=== PATIENT | female | born 1965 | race Caucasian/White ===

== ENCOUNTER 2023-05-31 14:05 | Outpatient (OUT) | payer MEDICAID, SELFPAY ==
--- NOTE | 2023-05-31 | XR_ITS ---
The [address] [address] Patient Name: HANNAH OSBORN MRN: [id number] date: 1965 Sex: F Assigned Patient Location: [facility] Current Patient Location: Accession/Order Number: [id number] Exam Date: 05/31/2023 14:20 Report Date: 06/02/2023 06:47 At the request of: EWELINA DODGE Procedure: XR hip RT 2V w/ pelvis PROCEDURE: XR hip RT 2V w/ pelvis COMPARISON: None. HISTORY: FALL, SUBSEQUENT IMAGIN FINDINGS: BONES:No acute fracture or dislocation. Minimal bilateral hip osteoarthropathy with marginal osteophyte formation SOFT TISSUES:Negative. No visible soft tissue swelling. EFFUSION:None visible. OTHER: Pelvic calcifications, vascular phleboliths XR/XR hip RT 2V w/ pelvis IMPRESSION: No acute fracture Electronically authenticated by: JOHN LOYA Date: 06/02/2023 06:47
== END 2023-05-31 14:06 | disposition home or self-care (01) ==
PROVIDERS: PCP Nurse Practitioner Family; Visit Provider Nurse Practitioner Family
DX: M25.551 Pain in right hip (principal)
CPT/HCPCS: 73502

== ENCOUNTER 2023-08-07 22:27 | Emergency (ER) | payer MEDICAID, SELFPAY ==
[2023-08-07 22:40] VITALS: BP 140/84; PULSE 97; RESP 18; TEMP 36.9; O2SAT 98; BMI 25.3
--- NOTE | 2023-08-07 22:46 | XR_ITS ---
The [address] [address] Patient Name: HANNAH OSBORN MRN: [id number] date: 1965 Sex: F Assigned Patient Location: ER Current Patient Location: ER Accession/Order Number: [id number] Exam Date: 08/07/2023 22:49 Report Date: 08/07/2023 23:14 At the request of: MEGHA GOODEN Procedure: XR hand LT min 3V EXAM: XR hand LT min 3V HISTORY: hand injury COMPARISON: None. TECHNIQUE: 3 views left hand FINDINGS: No acute fracture or aggressive osseous abnormality. There is a well-corticated osseous density at the volar aspect of the proximal third interphalangeal joint likely representing an old avulsion injury. The carpal rows and arcs are maintained. XR/XR hand LT min 3V IMPRESSION: No acute osseous abnormality of the left hand. Likely old avulsion injury at the proximal third interphalangeal joint, volar aspect. Electronically authenticated by: YUNIEL VIVAS Date: 08/07/2023 23:14
--- NOTE | 2023-08-07 23:19 | ED.UPPEXIN1 ---
HPI - Extremity Injury (Upper) General Chief Complaint: Extremity Injury, Upper Stated Complaint: Upper Extremity Injury Time Seen by Provider: 08/07/23 22:40 Source: patient Mode of arrival: walk-in Limitations: no limitations History of Present Illness HPI narrative: tonight around 630pm the patient was attempting to close a window, when her hand slipped and she struck the palm and 2nd finger of her left hand against the window. She complains of pain and swelling to these areas of the left hand. Nothing taken for pain after the injury. Related Data Home Medications Medication Instructions Recorded Confirmed amlodipine 10 mg tablet 10 mg PO DAILY 08/07/23 08/07/23 carvedilol 25 mg tablet 25 mg PO DAILY 08/07/23 08/07/23 hydrochlorothiazide 12.5 mg tablet 12.5 mg PO DAILY 08/07/23 08/07/23 hyoscyamine sulfate 0.375 mg 0.375 mg PO DAILY 08/07/23 08/07/23 tablet,extended release,12 hr linagliptin 5 mg tablet (Tradjenta) 5 mg PO DAILY 08/07/23 08/07/23 losartan 100 mg tablet 100 mg PO DAILY 08/07/23 08/07/23 pantoprazole 40 mg tablet,delayed 40 mg PO DAILY 08/07/23 08/07/23 release ropinirole 2 mg tablet 2 mg PO BEDTIME 08/07/23 08/07/23 rosuvastatin 10 mg tablet 10 mg PO DAILY 08/07/23 08/07/23 Allergies Allergy/AdvReac Type Severity Reaction Status Date / Time empagliflozin AdvReac Mild Verified 08/07/23 22:49 [From Jardiance] gabapentin AdvReac Mild Verified 08/07/23 22:46 metformin AdvReac Mild Verified 08/07/23 22:49 morphine AdvReac Mild Verified 08/07/23 22:46 PFSH PFSH Social History Smoking status: Current every day smoker Exam Narrative Exam Narrative: Nurses note and vital signs reviewed and patient is not hypoxic. afebrile General: The patient appears well and in no apparent distress. Patient is resting comfortably on cart. GCS = 15. Skin: Warm, dry, no pallor noted. Cardiovascular: normal peripheral perfusion Respiratory: Patient is in no distress, no accessory muscle use Musculoskeletal: LEFT HAND = palmar tenderness at the left 2nd MCP with tenderness and swelling noted to the left 2nd finger proximal phalanx. Limitation of ROM of the fingers of the left hand due to pain - no dislocation noted. Normal left wrist and forearm. 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 Psychiatric: Cooperative Constitutional Vital Signs, click to edit/add: Last Vital Signs Temp 98.4 F 08/07/23 22:40 Pulse 97 H 08/07/23 22:40 Resp 18 08/07/23 22:40 BP 140/84 08/07/23 22:40 Pulse Ox 98 08/07/23 22:40 O2 Del Method Room Air 08/07/23 22:40 Course Vital Signs Vital signs: Vital Signs Temperature 98.4 F 08/07/23 22:40 Pulse Rate 97 H 08/07/23 22:40 Respiratory Rate 18 08/07/23 22:40 Blood Pressure 140/84 08/07/23 22:40 Pulse Oximetry 98 08/07/23 22:40 Oxygen Delivery Method Room Air 08/07/23 22:40 Temperature 98.4 F 08/07/23 22:40 Pulse Rate 97 H 08/07/23 22:40 Respiratory Rate 18 08/07/23 22:40 Blood Pressure 140/84 08/07/23 22:40 Pulse Oximetry 98 08/07/23 22:40 Oxygen Delivery Method Room Air 08/07/23 22:40 MDM - Extremity Injury (Upper) MDM Narrative Medical decision making narrative: xrays of the left hand did not reveal any acute fractures - only old changes from prior injury. Patient informed of results and reilly wrap applied to the left hand by the ED nurse - patient neurovascularly intact distally afterward. Patient discharged home with recommendation to take OTC meds for pain. Imaging Data xr hand: Radiologist's impression: Patient Name: HANNAH OSBORN MRN: [id number] date: 1965 Sex: F Assigned Patient Location: ER Current Patient Location: ER Accession/Order Number: [id number] Exam Date: 08/07/2023 22:49 Report Date: 08/07/2023 23:14 At the request of: MEGHA GOODEN Procedure: XR hand LT min 3V EXAM: XR hand LT min 3V HISTORY: hand injury COMPARISON: None. TECHNIQUE: 3 views left hand FINDINGS: No acute fracture or aggressive osseous abnormality. There is a well-corticated osseous density at the volar aspect of the proximal third interphalangeal joint likely representing an old avulsion injury. The carpal rows and arcs are maintained. IMPRESSION: No acute osseous abnormality of the left hand. Likely old avulsion injury at the proximal third interphalangeal joint, volar aspect. Electronically authenticated by: YUNIEL VIVAS Date: 08/07/2023 23:14 Discharge Plan Discharge Chief Complaint: Extremity Injury, Upper Clinical Impression: Contusion of hand, left Patient Disposition: Home, Self-Care Time of Disposition Decision: 23:27 Prescriptions / Home Meds: No Action amlodipine 10 mg tablet 10 mg PO DAILY carvedilol 25 mg tablet 25 mg PO DAILY hydrochlorothiazide 12.5 mg tablet 12.5 mg PO DAILY hyoscyamine sulfate 0.375 mg tablet extended release 12 hr 0.375 mg PO DAILY Tradjenta 5 mg tablet 5 mg PO DAILY losartan 100 mg tablet 100 mg PO DAILY pantoprazole 40 mg tablet,delayed release (DR/EC) 40 mg PO DAILY ropinirole 2 mg tablet 2 mg PO BEDTIME rosuvastatin 10 mg tablet 10 mg PO DAILY Instructions: Contusion in Adults (ED) Stand Alone Forms: Portal Instructions Referrals: EWELINA DODGE [Primary Care Provider] - 1 week
--- NOTE | 2023-08-07 23:30 | PC.NURSE ---
Neno wrapto left hand applied. Circulation intact prior to and after splinting.
[2023-08-07 23:33] VITALS: BP 130/80; PULSE 88; RESP 18; O2SAT 97
== END 2023-08-07 23:30 | disposition home or self-care (01) ==
PROVIDERS: Emergency Provider Emergency Medicine; PCP Nurse Practitioner Family
DX: S60.222A Contusion of left hand, initial encounter (principal); W22.8XXA Striking against or struck by other objects, initial encounter; Z79.899 Other long term (current) drug therapy; F17.210 Nicotine dependence, cigarettes, uncomplicated
CPT/HCPCS: 73130; 99283

== ENCOUNTER 2024-01-13 13:38 | Outpatient (OUT) | payer MEDICAID, SELFPAY ==
--- NOTE | 2024-01-13 13:44 | US_ITS ---
The [address] [address] Patient Name: HANNAH OSBORN MRN: [id number] date: 1965 Sex: F Assigned Patient Location: US Current Patient Location: Accession/Order Number: [id number] Exam Date: 01/13/2024 13:48 Report Date: 01/14/2024 06:44 At the request of: EWELINA DODGE Procedure: US right upper quadrant EXAMINATION: US right upper quadrant HISTORY: Nausea And Vomiting, Right Upper Quadrant Abdominal Pain COMPARISON: No relevant comparison available. TECHNIQUE: Transabdominal evaluation of the right upper quadrant. FINDINGS: LIVER: Normal size and echotexture. Color Doppler demonstrates patent hepatic veins. PORTAL VEIN: Duplex Doppler demonstrates normal hepatopetal flow pattern with flow velocity averaging 31 cm/s. GALLBLADDER: Cholecystectomy. Negative sonographic Berry's sign. BILIARY: Dilated common bile duct, 9 mm. Mild dilation of the intrahepatic bile ducts. Findings are not unexpected following cholecystectomy. PANCREASE: No visible mass, abnormal atrophy, or duct dilation. KIDNEY: Contains a nonobstructing 2 mm stone. Size: 9.0 x 6.0 x 5.2 cm. US/US right upper quadrant IMPRESSION: 1. No acute or suspicious findings to account for patient's symptoms. 2. Nonobstructing right nephrolithiasis. Electronically authenticated by: HANG GREER Date: 01/14/2024 06:44
--- NOTE | 2024-01-13 13:44 | XR_ITS ---
The [address] [address] Patient Name: HANNAH OSBORN MRN: [id number] date: 1965 Sex: F Assigned Patient Location: Current Patient Location: Accession/Order Number: [id number] Exam Date: 01/13/2024 13:50 Report Date: 01/14/2024 06:41 At the request of: EWELINA DODGE Procedure: XR foot RT min 3V PROCEDURE: XR foot RT min 3V HISTORY: Right Foot Pain M79.671 COMPARISON: None. FINDINGS: BONES:No fracture, acute abnormality, or significant arthropathy. SOFT TISSUES:No visible soft tissue swelling. EFFUSION:None visible. OTHER: Negative. XR/XR foot RT min 3V IMPRESSION: 1. Normal examination. Electronically authenticated by: HANG GREER Date: 01/14/2024 06:41
--- OUTSIDE RECORDS SUMMARY | 2024-01-13 13:48 | XMS_ITS | CCD ---
Author Organization [facility] Inform ion Partnership [facility] Care Team Providers Care Potato Grader Name Role Phone DR HANG GREER Consulting Unavailable ROHRBACHER, MADDI Mccrary Admitting Unavailab le ROHRBACHER, MADDI Mccrary Attending Unavailab le ROHRBACHER, MADDI Mccrary Primary Care Unavailab le ROHRBACHER, MADDI Mccrary Consulting Unavailab le ROHRBACHER, MADDI Mccrary Admitting Unavailab le ROHRBACHER, MADDI Mccrary Attending Unavailab le ROHRBACHER, MADDI Mccrary Consulting Unavailab le ROHRBACHER, MADDI Mccrary Primary Care Unavailab SONY Marin Consulting Unavailable ROHRBACH, PORTABLE PINCH RIVETER CAMERON Attending Unavailabl e ROHRBACH, PORTABLE PINCH RIVETER CAMERON Consulting Unavailabl e ROHRBACH, PORTABLE PINCH RIVETER CAMERON Admitting Unavailabl e ROHRBACHER, MADDI Mccrary Primary Care Unavailab le ROHRBACHER, MADDI Mccrary Admitting Unavailab le DR JOHN LOYA V Consulting Unavailable ROHRBACHER, MADDI Mccrary Attending Unavailab le ROHRBACHER, MADDI Mccrary Primary Care Unavailab le ROHRBACHER, MADDI Mccrary Consulting Unavailab le Rohrbacher, Maddi Unavailable [phone] Mapus, Tondra Unavailable ZAID Mcghee Primary Care Provider [phone] MapVIRIDIANA farrell K Attending Provider [phone] VIRIDIANA Mcpherson Primary Care Provider VIRIDIANA Mcpherson Attending Provider [phone] Maddi Mcpherson Attending Unavailable Rohrbacher, Maddi Primary Care Unavailable Rohrbacher, Maddi Admitting Unavailable VIRIDIANA Mcpherson Primary Care Provider MapVIRIDIANA farrell Tondra K Attending Provider [phone] ZAID Mcghee Primary Care Provider VIRIDIANA Mcpherson Primary Care Provider MapusVIRIDIANA Tondra K Attending Provider ZAID Mcghee Primary Care Provider MD Emil Cooper Attending Provider [phone] Emil Cooper Unavailable Maddi Mcpherson Primary Care Unavailable Mapus, Tondra K Admitting Unavailable Mapus, Tondra K Attending Unavailable Maddi Mcpherson Primary Care Unavailable Emil Cooper Admitting Unavailable Emil Cooper Attending Unavailable Mapus, Tondra K Admitting Unavailable Mapus, Tondra K Attending Unavailable Luisa Mcghee Primary Care Unavailable Mapus, Tondra K Admitting Unavailable Mapus, Tondra K Attending Unavailable Maddi [facility] Care Unavailable VIRIDIANA Mcpherson Primary Care Provider MapusVIRIDIANA Tondra K Attending Provider Allergies Allergy Classification Reported Allergen(s) Allergy Type Date of Onset Reaction(s) Facility (7 sources) Morphine; Translations: [morphine] Drug Allergy 10-23-19 21 Back Pain, Back Pain, kidney pain [facility] Repository (20 sources) Acetaminophen / oxyCODONE Drug Allergy kidney pain [facility] Other (20 sources) atorvastatin; Translations: [atorvastatin] Drug Allergy 09-09-19 24 Unknown, Unknown Reaction [facility] Repository (20 sources) gabapentin; Translations: [gabapentin] Drug Allergy 09-09-19 24 numbness in hands and feet and cold feeling [facility] Repository (20 sources) Morphine Drug Allergy kidney pain [facility] Other (20 sources) prastatin Propensity to adverse reactions [facility] Other (20 sources) metFORMIN Drug Allergy 09-09-19 diarrhea [facility] (7 sources) metFORMIN Drug Allergy diarrhea [facility] Other (20 sources) dulaglutide Drug Allergy 09-09-19 heartburn/naus ea [facility] (20 sources) semaglutide Drug Allergy 09-09-19 g/i s/e [facility] (1 source) Acetaminophen / oxyCODONE; Translations: [acetaminophen-ox yCODONE] Drug Allergy [facility] Repository (2 sources) Morphine Drug Allergy kidney pain [facility] Other (16 sources) Pravastatin Drug Allergy 09-09-19 achey [facility] (3 sources) Acetaminophen; Translations: [acetaminophen] Drug Allergy 09-09-19 kidney pain [facility] (3 sources) oxyCODONE; Translations: [oxycodone] Drug Allergy 09-09-19 kidney pain [facility] (1 source) atorvastatin Drug Allergy 12-11-19 [facility] Repository (1 source) dulaglutide Drug Allergy 12-11-19 [facility] Repository (1 source) gabapentin Drug Allergy 12-11-19 [facility] Repository (1 source) metFORMIN Drug Allergy 12-11-19 [facility] Repository (1 source) Morphine Drug Allergy 12-11-19 [facility] Repository (1 source) Pravastatin Drug Allergy 12-11-19 [facility] Repository (1 source) semaglutide Drug allergy (disorder) 12-11-19 [facility] Repository Medications Current Medications Medication Drug Class(es) Dates Sig (Normalized) Sig (Original) albuterol 0.83 mg/ml inhalation solution (20 sources) beta2-Adrenergic Agonist Start: 12-11-2023 take 2.5 mg by inhalation every six hours Albuterol Sulfate Active 2.5 MG INHALATION Every 6 hours December 11, 2023 12:00am Start: 12-01-2023 take 90 ug by inhala tion every four to six hours Albuterol Sulfate Active 90 MCG INHALATION EVERY 4-6 HOURS 6.7 30 December 01, 2023 1:11pm Start: 08-21-2023 Albuterol Sulf ate (2.5 MG/3ML) 0.083% 3 mL as needed Inhalation every 6 hrs for 30 days Aug, Active Start: 05-10-2020 Albuterol Sulf ate HFA 108 (90 Base) MCG/ACT 1 or 2 puff as needed Inhalation every 4 hrs for 30 days Apr, Active Start: 05-10-2020 Albuterol Sulf ate HFA 108 (90 Base) MCG/ACT 1 or 2 puff as needed Inhalation every 4 hrs for 30 days Apr, Active Start: 11-13-2017 End: 12-01-2023 Albuterol Sulfate Discontinu ed 90 MCG INHALATION As Directed November 13, 2017 12:00am December 01, 2023 1:12pm Start: 11-13-2017 Albuterol Sulf ate Active 90 MCG INHALATION As Directed November 13, 2017 12:00am Start: 11-13-2017 Albuterol Sulf ate Active 90 MCG INHALATION As Directed November 12, 2017 11:00pm take 1 puff(s) by in halation every four hours as needed Ventolin HFA 108 (90 Base) MCG/ACT 1 puff as needed Inhalation every 4 hrs for 30 day(s) may give generic Active Albuterol Sulfate (2.5 MG/ 3 ML) 2.5 MG/3ML 0.083% Nebulization Solution (20 sources) Albuterol Sulfat e (2.5 MG/ 3 ML) 2.5 MG/3ML 0.083% Nebulization Solution 3ml prn Inhalation 4 times a day Needs Refill Active Albuterol Sulfat e (2.5 MG/ 3 ML) 2.5 MG/3ML 0.083% Nebulization Solution 3ml prn Inhalation 4 times a day Patient needs to be seen for further refills. Active Albuterol Sulfat e (2.5 MG/ 3 ML) 2.5 MG/3ML 0.083% Nebulization Solution 3ml prn Inhalation 4 times a day for 30 days Patient needs to be seen for further refills. Active Alcohol Pads 70 % (14 sources) Start: 12-08-2019 Start: 12-08-2019 Alcohol Pads 7 0 % as directed topical daily for 90 day(s) Nov, Active amLODIPine 10 mg oral tablet (20 sources) Dihydropyridine Calcium Channel Aimee Start: 11-13-2017 take 10 mg by mouth once daily Amlodipine Active 10 MG PO Daily November 13, 2017 12:00am azithromycin 250 mg oral tablet (11 sources) Macrolide Antimicrobial Start: 09-29-2023 Azithromycin 250 MG 2 tablet on the first day, then 1 tablet daily for 4 days Orally Once a day for 5 day(s) Sep, Active Start: 11-04-2022 Start: 08-21-2021 Zithromax Z-Pa k 250 MG 2 tablet on the first day, then 1 tablet daily for 4 days Orally Once a day for 5 day(s) Aug, Not-Taking Start: 08-21-2021 Start: 02-06-2021 Zithromax Z-Pa k 250 MG 2 tablet on the first day, then 1 tablet daily for 4 days Orally Once a day for 5 day(s) May, Active benzonatate 200 mg oral capsule (1 source) Non-narcotic Antitussive Start: 05-31-2021 take 1 capsule by mouth three times daily as needed Benzonatate 200 MG 1 capsule Orally Three times a day as needed for 10 day(s) May, Active carvedilol 25 mg oral tablet (20 sources) alpha-Adrenergic Aimee, beta-Adrenergic Aimee Start: 11-13-2017 take 25 mg by mouth once daily Carvedilol Active 25 MG PO Daily November 13, 2017 12:00am cefdinir 300 mg oral capsule (2 sources) Cephalosporin Antibacterial Start: 11-13-2022 take 1 capsule by mouth every twelve hours Cefdinir 300 MG 1 Capsule Orally bid for 10 days Oct, Active Start: 01-30-2021 take 1 capsule by [facility] every twelve hours Cefdinir 300 MG 1 Capsule Orally bid for 10 day(s) Jan, Not-Taking Dexcom 7 (14 sources) Start: 06-02-2023 Dexcom 7 as di rected SQ change every 10 days for 90 days May, Active Dexcom 7 as dire cted SQ change every 10 days for 90 days Active Dexcom G7 Sorter Lumber Straightener - (14 sources) Start: 06-02-2023 Dexcom G7 Rece iver - as directed n/a As Directed for 365 days May, Active Dexcom G7 Receiv er - as directed n/a As Directed for 365 days Active empagliflozin 10 mg oral tablet (9 sources) Sodium-Glucose Cotransporter 2 Inhibitor Start: 06-02-2023 take 1 tablet by mouth every twenty-four hours Jardiance 10 MG 1 tablet Orally Once a day for 90 days has not started yet May, Active escitalopram 5 mg oral tablet (5 sources) Serotonin Reuptake Inhibitor Start: 10-04-2022 take 1 tablet by mouth every twenty-four hours Escitalopram Oxalate 5 MG 1 tablet Orally Once a day for 30 day(s) Sep, Active fluconazole 150 mg oral tablet (10 sources) Azole Antifungal Start: 09-29-2023 take 1 tablet by mouth every twenty-four hours Fluconazole 150 MG 1 tablet Orally daily for 1 days Sep, Active Start: 06-09-2023 take 1 tablet by jozef th every twenty-four hours Fluconazole 150 MG 1 tablet Orally daily for 1 days take at first onset of symptoms and may repeat in 72 hours if still having symptoms. May, Not-Taking/PRN Start: 11-13-2022 take 1 tablet by jozef th every twenty-four hours Fluconazole 150 MG 1 tablet Orally daily for 1 days take first dose at onset of symptoms may repeat in 72 hours if symptoms are still present Oct, Active Start: 06-07-2021 take 1 tablet by jozef th every twenty-four hours Fluconazole 150 MG 1 tablet Orally daily for 1 days take one tablet if no better in 72 hours take 2nd tablet May, Active Start: 01-31-2021 take 1 tablet by jozef th every twenty-four hours Fluconazole 150 MG 1 tablet Orally Daily for 1 days Jan, Not-Taking fluticasone propionate 0.05 mg/actuat metered dose nasal spray (15 sources) Corticosteroid Start: 05-31-2021 take 1 spray(s) nasal route once daily as needed Fluticasone Propionate 50 MCG/ACT 1 spray in each nostril Nasally Once a day for 30 day(s) PRN May, Active Start: 05-31-2021 Fluticasone Propion-Salmeterol (20 sources) Corticosteroid, beta2-Adrenergic Agonist Start: 01-09-2022 take 1 puff(s) by inhalation twice daily Fluticasone Propion-Salmeterol (Advair Hfa) 115-21 mcg/actuation HFA aerosol inhaler Active 2 PUFF INHALATION Twice daily January 09, 2022 12:00am Start: 01-09-2022 End: 01-09-2022 Fluticasone Propion-Salmeter ol (Advair Hfa) 115-21 mcg/actuation HFA aerosol inhaler Discontinued INHALATION January 09, 2022 12:00am January 09, 2022 3:07pm Start: 01-09-2022 take 1 puff(s) by in halation twice daily Fluticasone Propion-Salmeterol (Advair Hfa) 115-21 mcg/actuation HFA aerosol inhaler Active 2 PUFF INHALATION Twice daily January 08, 2022 11:00pm Start: 01-09-2022 End: 01-09-2022 Fluticasone Propion-Salmeter ol (Advair Hfa) 115-21 mcg/actuation HFA aerosol inhaler Discontinued INHALATION January 08, 2022 11:00pm January 09, 2022 2:07pm Start: 11-29-2021 take 2 puff(s) by in halation twice daily Advair HFA 115-21 MCG/ACT 2 puffs Inhalation Twice a day for 30 days Nov, Active take 2 puff(s) by mo ut twice daily Advair HFA 230-21 MCG/ACT Inhale 2 puffs by mouth twice daily for 30 days Active FreeStyle Thomas 3 Sensor - (20 sources) Start: 10-03-2022 Start: 10-03-2022 FreeStyle Libr e 3 Sensor - as directed SQ changed every 14 days for 28 days Sep, Active FreeStyle Thomas 3 Sensor - as directed SQ changed every 14 days for 28 days Active hydroCHLOROthiazide 12.5 mg oral tablet (20 sources) Thiazide Diuretic Start: 12-11-2023 take 12.5 mg by mouth once daily Hydrochlorothiazide Active 12.5 MG PO Daily December 11, 2023 12:00am Start: 11-04-2022 take 1 tablet by mouth every t wenty-four hours Insulin Degludec (Tresiba Flextouch U-100) 100 unit/mL (3 mL) insulin pen (1 source) Start: 12-25-2023 Insulin Deglud ec (Tresiba Flextouch U-100) 100 unit/mL (3 mL) insulin pen Active 7 UNIT SUBCUT Daily 15 December 25, 2023 12:00am 7 units sq qd If fasting glucose >130 3/7 days increase 1 unit each week up to max 10 units/day isopropyl alcohol 0.7 ml/ml medicated pad (8 sources) Start: 12-08-2019 losartan potassium 100 mg oral tablet (20 sources) Angiotensin 2 Receptor Aimee Start: 12-11-2023 take 100 mg by mouth once daily Losartan Active 100 MG PO Daily December 11, 2023 12:00am Start: 08-06-2022 take 1 tablet by jozef th every twenty-four hours Losartan Potassium 50 MG 1 tablet Orally Once a day for 90 day(s) Jul, Active take 1 tablet by jozef th every twenty-four hours Losartan Potassium 100 MG 1 tablet Orally Once a day for 90 days Active 24 hr metFORMIN hydrochlorid e 500 mg extended release oral tablet (20 sources) Biguanide Start: 10-03-2022 take 1 tablet by jozef th every twenty-four hours take 1 tablet by jozef th every twelve hours metFORMIN HCl 1000 MG 1 tablet with a me al Orally bid for 90 days E11.9 Not-Taking Nebulizer - (20 sources) Start: 08-21-2023 Nebulizer - as directed inhalation As Directed for 30 days J44.9 Aug, Active Start: 10-26-2018 Start: 10-26-2018 Start: 10-26-2018 Nebulizer - wi th tubing inhalation 2-3 times per week Oct, Active ondansetron 4 mg disintegrating oral tablet (20 sources) Serotonin-3 Receptor Antagonist Start: 12-11-2023 take 1 tablet by mouth three times daily as needed Ondansetron Active 0 PO .COMPLEX December 11, 2023 12:00am orally PRN; 1 tablet on the tongue and allow to dissolve Orally three times per day as needed; Start: 02-17-2023 take 1 tablet by jozef th three times daily as needed Ondansetron 4 MG 1 tablet on the tongue and allow to dissolve Orally three times per day as needed for 30 days Feb, Active One Touch Glucometer 1 (20 sources) Start: 04-08-2018 Start: 04-08-2018 Start: 04-08-2018 One Touch Gluc ometer 1 use with one touch ultra mini strips SQ Daily Mar, Active pantoprazole 40 mg delayed release oral tablet (20 sources) Proton Pump Inhibitor Start: 11-13-2017 take 40 mg by mouth once daily Pantoprazole Active 40 MG PO Daily November 13, 2017 12:00am rOPINIRole 2 mg oral tablet (20 sources) Nonergot Dopamine Agonist Start: 12-11-2023 take 4 mg by mouth once daily at bedtime Ropinirole Active 4 MG PO Daily at bedtime December 11, 2023 12:00am Start: 11-13-2017 End: 01-15-2019 take 2 mg by mouth twice daily Ropinirole Discontinued 2 MG PO Twice daily November 13, 2017 12:00am January 15, 2019 10:51pm rosuvastatin calcium 10 mg oral tablet (20 sources) HMG-CoA Reductase Inhibitor Start: 11-13-2017 take 10 mg by mouth once daily Rosuvastatin Active 10 MG PO Daily January 09, 2022 12:00am semaglutide 3 mg oral tablet (14 sources) Start: 11-07-2021 take 3 mg by mouth once daily Rybelsus 3 MG as directed Orally Once a day for 30 day(s) Oct, Active Start: 11-07-2021 Rybelsus 7 MG 1 tablet at least 30 minutes before first food, beverage or other oral medicine of the day Orally Once a day for 90 day(s) Oct, Active sinecatechins 0.15 mg/mg topical ointment (20 sources) Start: 02-12-2023 Veregen 15 % 1 application Externally Three times a day for 30 days Jan, Active 60 actuat tiotropium 0.08521 mg/actuat inhalation spray (20 sources) Anticholinergic Start: 01-09-2022 take 1 puff(s) by inhalation once daily Tiotropium Dundee (Spiriva Respimat) 1.25 mcg/actuation mist Active 1 PUFF INHALATION Daily January 09, 2022 12:00am Start: 06-14-2020 take 1.25 ug by inha lation once daily Start: 06-14-2020 Start: 11-13-2017 End: 01-09-2022 take 1.25 ug by inhalation once daily Tiotropium Dundee Discontinued 1.25 MCG INHALATION Daily November 13, 2017 12:00am January 09, 2022 3:07pm take 1.25 ug by mouth once daily Spiriva Respimat 1.25 MCG/ACT INHALE 2 SPRAY(S) BY MOUTH ONCE DAILY for 30 days Active take 1 capsule by in halation once daily Spiriva HandiHaler 18 MCG 1 capsule by inhaling the contents of the capsule using the HandiHaler device Inhalation Once a day for 90 day(s) Active tiZANidine 2 mg oral tablet (20 sources) Central alpha-2 Adrenergic Agonist Start: 12-11-2023 take 2 mg by mouth three times daily Tizanidine Active 2 MG PO Three times daily December 11, 2023 12:00am Start: 04-25-2023 take 1 tablet by jozef th every eight hours tiZANidine HCl 2 MG 1 tablet as needed Orally Three times a day for 10 days Apr, Active Completed/Discontinued Medications Medication Drug Class(es) Dates Sig (Normalized) Sig (Original) acetaminophen 325 mg / HYDROcodone bitartrate 5 mg oral tablet (5 sources) Opioid Agonist Start: 01-23-2022 End: 12-11-2023 take 1 tablet by mouth every six hours Hydrocodone-Acetamin ophen Discontinued 1 TAB PO Q6H 14 5 January 23, 2022 December 11, 2023 2:14pm ergocalciferol 1.25 mg oral capsule (7 sources) Provitamin D2 Compound take 1 capsule by mouth every week Ergocalciferol 1.25 MG (08605 UT) 1 capsule Orally weekly Not-Taking 12 hr hyoscyamine sulfate 0.375 mg extended release oral tablet (20 sources) Start: 01-09-2022 End: 01-09-2022 Hyoscyamine Sulfate Discontinued MG PO January 09, 2022 12:00am January 09, 2022 3:07pm Start: 05-24-2019 take 1 tablet by jozef th every twelve hours Hyoscyamine Sulfate ER 0.375 MG 1 tablet Orally every 12 hrs for 90 days May, Active Start: 11-13-2017 take 0.375 mg by jozef th twice daily Hyoscyamine Sulfate Active 0.375 MG PO Twice daily November 13, 2017 12:00am linagliptin 5 mg oral tablet (20 sources) Dipeptidyl Peptidase 4 Inhibitor Start: 11-13-2017 End: 12-12-2023 take 5 mg by mouth once daily Linagliptin Discontinued 5 MG PO Daily 90 90 December 11, 2023 2:53pm December 12, 2023 9:27am metroNIDAZOLE 500 mg oral tablet (5 sources) Nitroimidazole Antimicrobial Start: 11-13-2017 End: 01-15-2019 take 500 mg by mouth once daily Metronidazole Discontinued 500 MG PO Daily November 13, 2017 12:00am January 15, 2019 10:51pm Problems Active Problems Problem Classification Problem Date Documented Date Episodic/Chronic Administrative/socia l admission (5 sources) Dietary counseling and surveillance; Translations: [Patient encounter status] Onset: 11-07-2021 Resolved: 11-07-2021 Episodic Anxiety disorders (20 sources) Mixed anxiety and depressive disorder; Translations: [Other specified anxiety disorders] Onset: 11-29-2021 Resolved: 11-29-2021 Chronic Asthma (20 sources) Unspecified asthma with (acute) exacerbation; Translations: [Acute exacerbation of asthma] Onset: 01-30-2021 Resolved: 08-21-2021 Chronic Chronic obstructive pulmonary disease and bronchiectasis (20 sources) Chronic obstructive pulmonary disease with (acute) exacerbation; Translations: [Chronic obstructive lung disease] Onset: 02-07-2021 Resolved: 11-29-2021 Chronic Chronic obstructive pulmonary disease and bronchiectasis (2 sources) Bronchitis, not specified as acute or chronic Episodic Diabetes mellitus with complications (20 sources) Hyperglycemia due to type 2 diabetes mellitus; Translations: [Type 2 diabetes mellitus with hyperglycemia] Onset: 11-07-2021 Resolved: 11-07-2021 Chronic Diabetes mellitus without complication (20 sources) Type 2 diabetes mellitus; Translations: [Type 2 diabetes mellitus without complications] Onset: 11-29-2021 Resolved: 11-29-2021 Chronic Diseases of mouth; excluding dental (2 sources) Other diseases of salivary glands; Translations: [OTHER DISEASES OF SALIVARY GLANDS] Onset: 12-31-2021 Resolved: 12-31-2021 Episodic Disorders of lipid metabolism (20 sources) Hyperlipidemia; Translations: [Hyperlipidemia, unspecified] Onset: 11-07-2021 Resolved: 11-29-2021 Chronic E Codes: Fall (1 source) Unspecified fall, subsequent encounter Episodic Esophageal disorders (20 sources) Gastroesophageal reflux disease; Translations: [Gastro-esophageal reflux disease without esophagitis] Onset: 11-21-2021 Resolved: 11-29-2021 Chronic Essential hypertension (20 sources) Essential hypertension; Translations: [Essential (primary) hypertension] Onset: 11-07-2021 Resolved: 11-29-2021 Chronic Inflammatory diseases of female pelvic organs (3 sources) Acute vaginitis; Translations: [Acute vaginitis N76.0] Onset: 06-07-2021 Resolved: 06-07-2021 Episodic Mood disorders (20 sources) Recurrent major depressive episodes, moderate ; Translations: [Major depressive disorder, recurrent, moderate] Chronic Nausea and vomiting (1 source) Nausea Episodic Nutritional deficiencies (20 sources) Vitamin D deficiency; Translations: [Vitamin D deficiency, unspecified] Chronic Other connective tissue disease (1 source) Pain in right lower leg Episodic Other connective tissue disease (1 source) Other specified soft tissue disorders Episodic Other connective tissue disease (1 source) Other muscle spasm Episodic Other disorders of stomach and duodenum (5 sources) Disorder of function of stomach; Translations: [Disease of stomach and duodenum, unspecified] 11-14-2017 Episodic Other ear and sense organ disorders (1 source) Impacted cerumen, right ear Episodic Other hereditary and degenerative nervous system conditions (20 sources) Restless legs; Translations: [Restless legs syndrome] Chronic Other hereditary and degenerative nervous system conditions (7 sources) Restless legs syndrome Onset: 10-30-2021 Resolved: 11-29-2021 Chronic Other nervous system disorders (10 sources) Chronic pain; Translations: [Other chronic pain] Chronic Other nervous system disorders (5 sources) Postoperative pain ; Translations: [Other acute postprocedural pain] 01-23-2022 Episodic Other non-traumatic joint disorders (1 source) Pain in right hip Episodic Other nutritional; endocrine; and metabolic disorders (1 source) Body mass index (BMI) 25.0-25.9, adult Episodic Other screening for suspected conditions (not mental disorders or infectious disease) (20 sources) Abnormal findings on diagnostic imaging of other specified body structures; Translations: [Ultrasound scan abnormal] Onset: 01-02-2022 Chronic Other screening for suspected conditions (not mental disorders or infectious disease) (5 sources) Patient encounter status; Translations: [Encounter for screening for malignant neoplasm of colon] 11-14-2017 Episodic Other skin disorders (2 sources) Localized swelling, mass and lump, neck; Translations: [LOCALIZED SWELLING MASS AND LUMP NECK] Onset: 11-29-2021 Resolved: 11-29-2021 Episodic Other skin disorders (5 sources) Localized swelling, mass and lump, head; Translations: [LOCALIZED SWELLING MASS AND LUMP HEAD] Onset: 11-29-2021 Resolved: 11-29-2021 Episodic Other skin disorders (1 source) Disorder of the skin and subcutaneous tissue, unspecified Episodic Other upper respiratory disease (2 sources) Nasal congestion Episodic Residual codes; unclassified (3 sources) Body mass index (BMI) 24.0-24.9, adult; Translations: [Body Mass Index between 19-24, adult] Onset: 11-07-2021 Resolved: 11-07-2021 Episodic Residual codes; unclassified (1 source) Other general symptoms and signs Episodic Residual codes; unclassified (1 source) Body mass index 20-24 - normal; Translations: [Body mass index (BMI) 24.0-24.9, adult] 12-11-2023 Episodic Spondylosis; intervertebral disc disorders; other back problems (20 sources) Inflammation of sacroiliac joint; Translations: [Sacroiliitis, not elsewhere classified] Onset: 06-26-2023 Chronic Unclassified (3 sources) CONTACT W/AND (SUSP) EXPOS COVID-19; Translations: [CONTACT W/AND (SUSP) EXPOS COVID-19] Onset: 02-10-2021 Viral infection (20 sources) Genital warts; Translations: [Anogenital (venereal) warts] Episodic Past or Other Problems Problem Classification Problem Date Documented Da te Episodic/Chronic Fever of unknown origin (1 source) Fever, unspecified; Translations: [FEVER UNSPECIFIED] Onset: 02-10-2021 Episodic Nutritional deficiencies (6 sources) Deficiency of other specified B group vitamins; Translations: [Cobalamin deficiency] Onset: 11-07-2021 Resolved: 11-07-2021 Episodic Other lower respiratory disease (1 source) Cough; Translations: [COUGH] Onset: 02-10-2021 Episodic Other nervous system disorders (1 source) Parageusia; Translations: [PARAGEUSIA] Onset: 02-10-2021 Episodic Other skin disorders (1 source) Other hypertrophic disorders of the skin Onset: 12-05-2021 Resolved: 12-05-2021 Episodic Unclassified (1 source) CONTACT W/AND (SUSP) EXPOS COVID-19; Translations: [CONTACT W/AND (SUSP) EXPOS COVID-19] Onset: 02-05-2021 Unclassified (3 sources) Exposure to COVID-19 virus Z20.822 Onset: 08-21-2021 Resolved: 08-21-2021 Unclassified (1 source) Acute cough R05.1 Results Test Name Value Interpretation Reference Range Facility Alanine aminotransferase [En zymatic activity/volume] in Serum or PlasmaOrdered By: Gurdeep Dubois on 12-25-2023 ALT [Catalytic activity/Vol] 16 U/L 7-52 [facility] Albumin [Mass/volume] in Ser um or Plasma by Bromocresol green (BCG) dye binding methoOrdered By: Gurdeep Dubois on 12-25-2023 Albumin BCG dye [Mass/Vol] 4.4 g/dL 3.5-5.7 [facility] Alkaline phosphatase [Enzyma tic activity/volume] in Serum or PlasmaOrdered By: Gurdeep Dubois on 12-25-2023 ALP [Catalytic activity/Vol] 79 U/L 34-104 [facility] Aspartate aminotransferase [ Enzymatic activity/volume] in Serum or PlasmaOrdered By: Gurdeep Dubois on 12-25-2023 AST [Catalytic activity/Vol] 13 U/L 13-39 [facility] Bilirubin.total [Mass/volume ] in Serum or PlasmaOrdered By: Gurdeep Dubois on 12-25-2023 Bilirubin [Mass/Vol] 0.3 mg/dL 0.3-1.0 [facility] Calcium [Mass/volume] in Ser um or PlasmaOrdered By: Gurdeep Dubois on 12-25-2023 Calcium [Mass/Vol] 9.8 mg/dL 8.6-10.3 [facility] Carbon dioxide, total [Moles /volume] in Serum or PlasmaOrdered By: Gurdeep Dubois on 12-25-2023 CO2 [Moles/Vol] 27.6 mmol/L 21.0-31.0 [facility] Chloride [Moles/volume] in S loy or PlasmaOrdered By: Gurdeep Dubois on 12-25-2023 Chloride [Moles/Vol] 109 mmol/L 98-107 [facility] Cholesterol [Mass/volume] in Serum or PlasmaOrdered By: Gurdeep Dubois on 12-25-2023 Cholesterol [Mass/Vol] 154 mg/dL 140-200 [facility] Comment on above: Chol less than 200 m g/dl low riskChol 201-239 mg/dl borderline riskChol 240 mg/dl and greater high risk Cholesterol in LDL Calc [Mas s/Vol]Ordered By: Gurdeep Dubois on 12-25-2023 Cholesterol in LDL [Mass/Vol] 79 mg/dL 0-100 [facility] Comment on above: LDL ATP III CLASSIFI CATIONLDL less than 100 mg/dL OptimalLDL 100-129 mg/dL Near or above optimalLDL 130-159 mg/dL Borderline highLDL 160-189 mg/dL HighLDL greater than 189 mg/dL Very high Cholesterol in VLDL Calc [Ma ss/Vol]Ordered By: Gurdeep Dubois on 12-25-2023 Cholesterol in VLDL [Mass/Vol] 28 mg/dL [facility] Comprehensive Metabolic Pane cecile 12-25-2023 Albumin [Mass/Vol] 4.4 g/dL Normal 3.5-5.7 [facility] Comment on above: Performed By: #### L IPID, B12, CMP #### [facility] [address] [place] [address] [place] Albumin/Globulin [Mass ratio] 1.9 {ratio} Normal [facility] Comment on above: Performed By: #### L IPID, B12, CMP #### [facility] [address] [place] [address] [place] ALP [Catalytic activity/Vol] 79 U/L Normal 34-104 [facility] Comment on above: Performed By: #### L IPID, B12, CMP #### [facility] [address] [place] [address] [place] ALT [Catalytic activity/Vol] 16 U/L Normal 7-52 [facility] Comment on above: Performed By: #### L IPID, B12, CMP #### [facility] [address] [place] [id number] [place] Anion gap [Moles/Vol] 6.9 mmol/L Normal 6.0-15.0 [facility] Comment on above: Performed By: #### L IPID, B12, CMP #### [facility] [address] [place] [id number] [place] AST [Catalytic activity/Vol] 13 U/L Normal 13-39 [facility] Comment on above: Performed By: #### L IPID, B12, CMP #### [facility] [address] [place] [id number] [place] Bilirubin [Mass/Vol] 0.3 mg/dL Normal 0.3-1.0 [facility] Comment on above: Performed By: #### L IPID, B12, CMP #### [facility] [address] [place] [address] [place] Calcium [Mass/Vol] 9.8 mg/dL Normal 8.6-10.3 [facility] Comment on above: Performed By: #### L IPID, B12, CMP #### [facility] [address] [place] [address] [place] Chloride [Moles/Vol] 109 mmol/L High 98-107 [facility] Comment on above: Performed By: #### L IPID, B12, CMP #### [facility] [address] [place] [id number] [place] CO2 [Moles/Vol] 27.6 mmol/L Normal 21.0-31.0 [facility] Comment on above: Performed By: #### L IPID, B12, CMP #### [facility] [address] [place] [id number] [place] Creatinine [Mass/Vol] 0.67 mg/dL Normal 0.60-1.20 [facility] Comment on above: Performed By: #### L IPID, B12, CMP #### [facility] [address] [place] [id number] [place] GFR/1.73 sq M.predicted MDRD (S/P/Bld) [Vol rate/Area] mL/min/{1.73_m2} Normal [facility] Comment on above: Performed By: #### L IPID, B12, CMP #### [facility] [address] Globulin (S) [Mass/Vol] 2.3 g/dL Normal T [facility] Comment on above: Performed By: #### L IPID, B12, CMP #### [address] Glucose [Mass/Vol] 220 mg/dL High 70-100 [facility] Comment on above: Result Comment: [place] Glucose Reference Range is dependent on time and content of last meal. Glucose of more than 200 mg/dL in a nonstressed, ambulatory subject supports the diagnosis of Diabetes Mellitus. ADA recommended reference range Performed By: #### L IPID, B12, CMP #### [address] Potassium [Moles/Vol] 4.5 mmol/L Normal 3.5-5.1 [facility] Comment on above: Performed By: #### L IPID, B12, CMP #### [place] [address] [place] Protein [Mass/Vol] 6.7 g/dL Normal 6.4-8.9 [facility] Comment on above: Performed By: #### L IPID, B12, CMP #### [place] [address] [place] Sodium [Moles/Vol] 139 mmol/L Normal 136-145 [facility] Comment on above: Performed By: #### L IPID, B12, CMP #### [place] [address] [place] Urea nitrogen [Mass/Vol] 18 mg/dL Normal 7-25 [facility] Comment on above: Performed By: #### L IPID, B12, CMP #### [place] [address] [place] Creatinine [Mass/volume] in Serum or PlasmaOrdered By: Gurdeep Dubois on 12-25-2023 Creatinine [Mass/Vol] 0.67 mg/dL 0.60-1.20 [facility] Creatinine [Mass/volume] in UrineOrdered By: Gurdeep Dubois on 12-25-2023 Creatinine (U) [Mass/Vol] 85.0 mg/dL [facility] Comment on above: No reference range e stablished Globulin Calc (S) [Mass/Vol] Ordered By: Gurdeep Dubois on 12-25-2023 Globulin (S) [Mass/Vol] 2.3 g/dL [facility] Glucose [Mass/volume] in Ser um or PlasmaOrdered By: Gurdeep Dubois on 12-25-2023 Glucose [Mass/Vol] 220 mg/dL 70-100 [facility] Comment on above: ADA recommended refe rence rangeRandom Glucose Reference Range is dependent on time and content of last meal. Glucose of more than 200 mg/dL in a nonstressed, ambulatory subject supports the diagnosis of Diabetes Mellitus. Lipid Panelon 12-25-2023 Cholesterol [Mass/Vol] 154 mg/dL Normal 140-200 [facility] Comment on above: Result Comment: Chol less than 200 mg/dl low risk Chol 201-239 mg/dl borderline risk Chol 240 mg/dl and greater high risk Performed By: #### L IPID, B12, CMP #### [facility] [address] [place] [id number] [place] Cholesterol in HDL [Mass/Vol] 47 mg/dL Normal 23-92 [facility] Comment on above: Result Comment: HDL CHOL ATP-III CLASSIFICATION Cardiovascular Risk HDL > or equal to 60 mg/dL LOW HDL < 40 mg/dL HIGH Performed By: #### L IPID, B12, CMP #### [facility] [address] [place] [address] [place] Cholesterol.total/Serene sterol in HDL [Mass ratio] 3.3 {ratio} Normal <5.0 [facility] Comment on above: Performed By: #### L IPID, B12, CMP #### [facility] [address] [place] [address] [place] LDL Cholesterol,Calculated 79 mg/dL Normal 0-100 [facility] Comment on above: Result Comment: LDL ATP III CLASSIFICATION LDL less than 100 mg/dL Optimal LDL 100-129 mg/dL Near or above optimal LDL 130-159 mg/dL Borderline high LDL 160-189 mg/dL High LDL greater than 189 mg/dL Very high Performed By: #### L MARY JO B12, CMP #### [address] Triglyceride w/Reflex 142 mg/dL Normal 0-149 [facility] Comment on above: Result Comment: TRIG ATP III CLASSIFICATION TRIG less than 150 mg/dL Normal TRIG 150-199 mg/dL Borderline high TRIG 200-500 mg/dL High TRIG greater than 500 mg/dL Very high Standard traceable to the Center for Disease Conrtrol and Prevention (CDC) test method. Performed By: #### L Aby CAMARGO, CMP #### [address] VLDL CHOLESTEROL 28 mg/dL Normal [facility] Comment on above: Performed By: #### L Aby CAMARGO, CMP #### [address] MicroAlb Creat Ratio,Uon Albumin DL <= 20 mg/L (U) [Mass/Vol] 1.0 mg/dL Normal 0.0-1.8 [facility] Comment on above: Performed By: #### U RMACRERAT #### [address] Creatinine, Urine (Random) 85.0 mg/dL Normal [facility] Comment on above: Result Comment: No r eference range established Performed By: #### U RMACRERAT #### [address] Microalbumin/Creatinine Ratio 11.0 mg/g Normal 0.0-30.0 [facility] Comment on above: Result Comment: 30-3 00 mg/g indicates an increased risk for diabetic nephropathy. Greater than 300 mg/g is consistent with clinical nephropathy. (Am. J. Kidney Disease 1995, 25:107) PERFORMED BY: [place] [address] PATHOLOGIST CLAIM ADJUSTER SVETLANA DUMONT M.D. Performed By: #### U RMACRERAT #### [address] Microalbumin [Mass/volume] i n UrineOrdered By: Gurdeep Dubois on 12-25-2023 Albumin DL <= 20 mg/L (U) [Mass/Vol] 1.0 mg/dL 0.0-1.8 [facility] No Panel InformationOrdered By: Gurdeep Dubois on 12-25-2023 Estimated GFR (CKD-EPI) > 60.0 mL/Min [facility] Creatinine Clearance (Chem N/A [facility] Potassium [Moles/volume] in Serum or PlasmaOrdered By: Gurdeep Dubois on 12-25-2023 Potassium [Moles/Vol] 4.5 mmol/L 3.5-5.1 [facility] Protein [Mass/volume] in Ser um or PlasmaOrdered By: Gurdeep Dubois on 12-25-2023 Protein [Mass/Vol] 6.7 g/dL 6.4-8.9 [facility] Serum or plasma albumin/glob ulin mass ratioOrdered By: Gurdeep Dubois on 12-25-2023 Albumin/Globulin [Mass ratio] 1.9 {ratio} [facility] Serum or plasma anion gap de terminationOrdered By: Gurdeep Dubois on 12-25-2023 Anion gap [Moles/Vol] 6.9 mmol/L 6.0-15.0 [facility] Serum or plasma high density lipoprotein (HDL) cholesterol measurementOrdered By: Gurdeep Dubois on 12-25-2023 Cholesterol in HDL [Mass/Vol] 47 mg/dL 23-92 [facility] Comment on above: HDL CHOL ATP-III CLA SSIFICATION Cardiovascular RiskHDL > or equal to 60 mg/dL LOWHDL < 40 mg/dL HIGH Serum or plasma total choles terol/high density lipoprotein (HDL) cholesterol mass ratOrdered By: Gurdeep Dubois on 12-25-2023 Cholesterol.total/Serene sterol in HDL [Mass ratio] 3.3 {ratio} <5.0 [facility] Sodium [Moles/volume] in Ser um or PlasmaOrdered By: Gurdeep Dubois on 12-25-2023 Sodium [Moles/Vol] 139 mmol/L 136-145 [facility] Triglyceride [Mass/volume] i n Serum or PlasmaOrdered By: Sheldondra Sherly on 12-25-2023 Triglyceride [Mass/Vol] 142 mg/dL 0-149 [facility] Comment on above: TRIG ATP III CLASSIF ICATIONTRIG less than 150 mg/dL NormalTRIG 150-199 mg/dL Borderline highTRIG 200-500 mg/dL High TRIG greater than 500 mg/dL Very highStandard traceable to the Center for Disease Conrtrol and Prevention (CDC) test method. Urea nitrogen [Mass/volume] in Serum or PlasmaOrdered By: Gurdeep Dubois on 12-25-2023 Urea nitrogen [Mass/Vol] 18 mg/dL 03-11 [facility] Urine microalbumin/creatinin e mass ratioOrdered By: Gurdeep Dubois on 12-25-2023 Albumin/Creatinine DL <= 20 mg/L (U) [Mass ratio] 11.0 mg/g 0.0-30.0 [facility] Comment on above: 30-300 mg/g indicate s an increased risk for diabetic nephropathy. Greater than 300 mg/g is consistent with clinical nephropathy. (Am. J. Kidney Disease 1995, 25:107) Vitamin B12on 12-25-2023 Cobalamin (Vitamin B12) [Mass/Vol] 617 pg/mL Normal 180-914 [facility] Comment on above: Result Comment: PERF ORMED BY: [place] [address] PATHOLOGIST CLAIM ADJUSTER SVETLANA DUMONT M.D. Performed By: #### L IPID, B12, CMP #### [address] Vitamin B12 ser/plasOrdered By: Gurdeep Dubois on 12-25-2023 Cobalamin (Vitamin B12) [Mass/Vol] 617 pg/mL 180-914 [facility] HbA1c HPLC (Bld) [Mass fract ion]on 12-11-2023 HbA1c (Bld) [Mass fraction] 8.8 % [facility] No Panel Informationon 12-10 Bedside Glucose 220 [facility] XR lumbar spine AP/LAT/FLX/E XTon 06-26-2023 XR lumbar spine AP/LAT/FLX/EXT [facility] [address] [place] [id number] XRay Report Signed Patient: Farhana Landers MR#: [id number] : 1965 Acct:[id number] Age/Sex: 57 / F ADM Date: 06/26/23 Loc: SOXD Room: Type: [facility] Attending Dr: Emil Cooper MD Copies to: Emil Cooper MD Ordering Provider: Emil Cooper MD Date of Service: 06/26/23 XR/XR lumbar spine AP/LAT/FLX/EXT: M46.1 AP with lateral neutral, flexion and extension views of the Lumbar Spine HISTORY: RIGHT lower lumbar pain with raising down leg. Fell in August. COMPARISON: None POSTSURGICAL CHANGES: None BONY ALIGNMENT: 4 mm L4-5 anterolisthesis. No hypermobility. FRACTURE: None DEGENERATIVE CHANGES: Mild lumbar spondylosis. Extensive lumbar facet degeneration. SOFT TISSUES: Atherosclerosis. BONY MINERALIZATION:Diffus e osteopenia XR/XR lumbar spine AP/LAT/FLX/EXT IMPRESSION: No hypermobility. 4 mm L4-5 anterolisthesis. Degenerative change. Impression dictated by: Roman Sultana M.D.06/26/2023 2:54 PM Dictation Location: [place] [address] Transcribed By: [facility] 06/26/23 1454 Dictated By: Roman Sultana DO 06/26/23 1452 Signed By: 06/26/23 1454 Normal [facility] A1C HEMOGLOBINon 06-02-2023 HbA1c (Bld) [Mass fraction] 7.7 % [facility] Other Albumin [Mass/volume] in Ser um or Plasma by Bromocresol green (BCG) dye binding methoOrdered By: Gurdeep Dubois on 06-02-2023 Albumin BCG dye [Mass/Vol] 4.5 g/dL 3.5-5.7 [facility] Bilirubin.total [Mass/volume ] in Serum or PlasmaOrdered By: Gurdeep Dubois on 06-02-2023 Bilirubin [Mass/Vol] 0.5 mg/dL 0.3-1.0 [facility] C-Peptideon 06-02-2023 C-Peptide 3.8 ng/mL Normal 1.1-4.4 [facility] Comment on above: Order Comment: Reaso n for Exam Type 2 diabetes mellitus with hyperglycemia, without long-te Result Comment: C-Pe ptide reference interval is for fasting patients. Performed at: - [facility] [address] [id number] [employer]ored Car Driver: Jacques Llanos PhD, Phone: [phone] PERFORMED BY: [place] [address] PATHOLOGIST CLAIM ADJUSTER SVETLANA DUMONT M.D. Performed By: #### U RMACRERAT, CMP, B12, LIPID #### [address] #### CPEP #### [facility] , Calcium [Mass/volume] in Ser um or PlasmaOrdered By: Gurdeep Dubois on 06-02-2023 Calcium [Mass/Vol] 10.1 mg/dL 8.6-10.3 [facility] Carbon dioxide, total [Moles /volume] in Serum or PlasmaOrdered By: Gurdeep Dubois on 06-02-2023 CO2 [Moles/Vol] 26.2 mmol/L 21.0-31.0 [facility] Cholesterol in LDL Calc [Mas s/Vol]Ordered By: Gurdeep Dubois on 06-02-2023 Cholesterol in LDL [Mass/Vol] 73 mg/dL 0-100 [facility] Comment on above: LDL ATP III CLASSIFI CATIONLDL less than 100 mg/dL OptimalLDL 100-129 mg/dL Near or above optimalLDL 130-159 mg/dL Borderline highLDL 160-189 mg/dL HighLDL greater than 189 mg/dL Very high Cholesterol in VLDL Calc [Ma ss/Vol]Ordered By: Gurdeep Dubois on 06-02-2023 Cholesterol in VLDL [Mass/Vol] 52 mg/dL [facility] Comprehensive Metabolic Pane cecile 06-02-2023 Albumin [Mass/Vol] 4.859358 g/dL Normal 3.5-5.7 g/dL N [facility] Other Bilirubin [Mass/Vol] 0.4390333 mg/dL Normal 0.3- 1.0 mg/dL [email or web address] Other Calcium [Mass/Vol] 10.9865298 mg/dL Normal 8.6-1 0.3 mg/dL [email or web address] Other CO2 [Moles/Vol] 26.72318419 mmol/L Normal 21.0-3 1.0 mmol/L [email or web address] Other Creatinine [Mass/Vol] 0.23563581 mg/dL Normal 0. 60-1.20 mg/dL [facility] Other Potassium [Moles/Vol] 4.60069594 mmol/L Normal 3 .5-5.1 mmol/L [email or web address] Other Protein [Mass/Vol] 6.658872 g/dL Normal 6.4-8.9 g/dL N [email or web address] Other Comprehensive Metabolic Panel 2.4 g/dL [email or web address] Other Albumin [Mass/Vol] 4.5 g/dL Normal 3.5-5.7 [facility] Comment on above: Order Comment: PT FA STED 12 HOURS Reason for Exam Type 2 diabetes mellitus with hyperglycemia, without long-te Performed By: #### U RMACRERAT, CMP, B12, LIPID #### [facility] [address] [place] [address] #### CPEP #### [facility] , Anion gap [Moles/Vol] 13.1 mmol/L Normal 6.0-15.0 [facility] Comment on above: Order Comment: PT FA STED 12 HOURS Reason for Exam Type 2 diabetes mellitus with hyperglycemia, without long-te Performed By: #### U RMACRERAT, CMP, B12, LIPID #### [facility] [address] [place] [address] [place] #### CPEP #### [facility] , Bilirubin [Mass/Vol] 0.5 mg/dL Normal 0.3-1.0 [facility] Comment on above: Order Comment: PT FA STED 12 HOURS Reason for Exam Type 2 diabetes mellitus with hyperglycemia, without long-te Performed By: #### U RMACRERAT, CMP, B12, LIPID #### [facility] [address] [place] [address] #### CPEP #### [facility] , Calcium [Mass/Vol] 10.1 mg/dL Normal 8.6-10.3 [facility] Comment on above: Order Comment: PT FA STED 12 HOURS Reason for Exam Type 2 diabetes mellitus with hyperglycemia, without long-te Performed By: #### U RMACRERAT, CMP, B12, LIPID #### [facility] [address] [place] [address] #### CPEP #### [facility] , CO2 [Moles/Vol] 26.2 mmol/L Normal 21.0-31.0 [facility] Comment on above: Order Comment: PT FA STED 12 HOURS Reason for Exam Type 2 diabetes mellitus with hyperglycemia, without long-te Performed By: #### U RMACRERAT, CMP, B12, LIPID #### [facility] [address] [place] [address] [place] #### CPEP #### [facility] , Creatinine [Mass/Vol] 0.71 mg/dL Normal 0.60-1.20 [facility] Comment on above: Order Comment: PT FA STED 12 HOURS Reason for Exam Type 2 diabetes mellitus with hyperglycemia, without long-te Performed By: #### U RMACRERAT, CMP, B12, LIPID #### [facility] [address] [place] [address] [place] #### CPEP #### [facility] , GFR/1.73 sq M.predicted MDRD (S/P/Bld) [Vol rate/Area] mL/min/{1.73_m2} Normal [facility] Other Comment on above: Order Comment: PT FA STED 12 HOURS Reason for Exam Type 2 diabetes mellitus with hyperglycemia, without long-te Performed By: #### U RMACRERAT, CMP, B12, LIPID #### [facility] [address] [place] [address] #### CPEP #### [facility] , Globulin (S) [Mass/Vol] 2.4 g/dL Normal T [facility] Comment on above: Order Comment: PT FA STED 12 HOURS Reason for Exam Type 2 diabetes mellitus with hyperglycemia, without long-te Performed By: #### U RMACRERAT, CMP, B12, LIPID #### [facility] [address] [place] [address] #### CPEP #### [facility] , Potassium [Moles/Vol] 4.3 mmol/L Normal 3.5-5.1 [facility] Comment on above: Order Comment: PT FA STED 12 HOURS Reason for Exam Type 2 diabetes mellitus with hyperglycemia, without long-te Performed By: #### U RMACRERAT, CMP, B12, LIPID #### [address] #### CPEP #### [facility] , Protein [Mass/Vol] 6.9 g/dL Normal 6.4-8.9 [facility] Comment on above: Order Comment: PT FA STED 12 HOURS Reason for Exam Type 2 diabetes mellitus with hyperglycemia, without long-te Performed By: #### U RMACRERAT, CMP, B12, LIPID #### [facility] [address] [place] [address] [place] #### CPEP #### [facility] , Comprehensive Metabolic Pane lOrdered By: Gurdeep Dubois on 06-02-2023 Albumin/Globulin [Mass ratio] 1.9 {ratio} Normal [facility] Comment on above: Order Comment: PT FA STED 12 HOURS Reason for Exam Type 2 diabetes mellitus with hyperglycemia, without long-te Performed By: #### U RMACRERAT, CMP, B12, LIPID #### [facility] [address] [place] [address] #### CPEP #### [facility] , ALP [Catalytic activity/Vol] 90 U/L Normal 34-104 [facility] Comment on above: Order Comment: PT FA STED 12 HOURS Reason for Exam Type 2 diabetes mellitus with hyperglycemia, without long-te Performed By: #### U RMACRERAT, CMP, B12, LIPID #### [facility] [address] [place] [address] #### CPEP #### [facility] , ALT [Catalytic activity/Vol] 16 U/L Normal 7-52 [facility] Comment on above: Order Comment: PT FA STED 12 HOURS Reason for Exam Type 2 diabetes mellitus with hyperglycemia, without long-te Performed By: #### U RMACRERAT, CMP, B12, LIPID #### [facility] [address] [place] [address] #### CPEP #### [facility] , AST [Catalytic activity/Vol] 12 U/L Low 13-39 [facility] Comment on above: Order Comment: PT FA STED 12 HOURS Reason for Exam Type 2 diabetes mellitus with hyperglycemia, without long-te Performed By: #### U RMACRERAT, CMP, B12, LIPID #### [facility] [address] [place] [address] #### CPEP #### [facility] , Chloride [Moles/Vol] 104 mmol/L Normal 98-107 [facility] Comment on above: Order Comment: PT FA STED 12 HOURS Reason for Exam Type 2 diabetes mellitus with hyperglycemia, without long-te Performed By: #### U RMACRERAT, CMP, B12, LIPID #### [facility] [address] [place] [address] [place] #### CPEP #### [facility] , Glucose [Mass/Vol] 195 mg/dL High 70-100 [facility] Comment on above: ADA recommended refe rence rangeRandom Glucose Reference Range is dependent on time and content of last meal. Glucose of more than 200 mg/dL in a nonstressed, ambulatory subject supports the diagnosis of Diabetes Mellitus. Order Comment: PT FA STED 12 HOURS Reason for Exam Type 2 diabetes mellitus with hyperglycemia, without long-te Result Comment: [place] om Glucose Reference Range is dependent on time and content of last meal. Glucose of more than 200 mg/dL in a nonstressed, ambulatory subject supports the diagnosis of Diabetes Mellitus. ADA recommended reference range Performed By: #### U RMACRERAT, CMP, B12, LIPID #### [facility] [address] [place] [address] #### CPEP #### [facility] , Sodium [Moles/Vol] 139 mmol/L Normal 136-145 [facility] Comment on above: Order Comment: PT FA STED 12 HOURS Reason for Exam Type 2 diabetes mellitus with hyperglycemia, without long-te Performed By: #### U RMACRERAT, CMP, B12, LIPID #### [facility] Ctr [address] [place] [address] #### CPEP #### [facility] , Urea nitrogen [Mass/Vol] 14 mg/dL Normal 7-25 [facility] Comment on above: Order Comment: PT FA STED 12 HOURS Reason for Exam Type 2 diabetes mellitus with hyperglycemia, without long-te Performed By: #### U RMACRERAT, CMP, B12, LIPID #### [facility] [address] [place] [address] #### CPEP #### [facility] , Creatinine [Mass/volume] in Serum or PlasmaOrdered By: Gurdeep Dubois on 06-02-2023 Creatinine [Mass/Vol] 0.71 mg/dL 0.60-1.20 [facility] Creatinine [Mass/volume] in UrineOrdered By: Gurdeep Dubois on 06-02-2023 Creatinine (U) [Mass/Vol] 91.0 mg/dL 11.0-20.0 [facility] Globulin Calc (S) [Mass/Vol] Ordered By: Gurdeep Dubois on 06-02-2023 Globulin (S) [Mass/Vol] 2.4 g/dL [facility] Glucose - FINGER STICKon Glucose [Mass/Vol] 240 mg/dL [facility] Other HbA1c (Bld) [Mass fraction]o n 06-02-2023 A1C HEMOGLOBIN [facility] DE[facility] Other Lipid Panelon 06-02-2023 Cholesterol in LDL Elph Qn 73 mg/dL Normal 0-100 mg/dL [facility] Other Lipid Panel 260 mg/dL High 0-149 mg/dL [facility] Other Lipid Panel 52 mg/dL [facility] Other LDL Cholesterol,Calculated 73 mg/dL Normal 0-100 [facility] Comment on above: Order Comment: PT FA STED 12 HOURS Reason for Exam Type 2 diabetes mellitus with hyperglycemia, without long-te Result Comment: LDL ATP III CLASSIFICATION LDL less than 100 mg/dL Optimal LDL 100-129 mg/dL Near or above optimal LDL 130-159 mg/dL Borderline high LDL 160-189 mg/dL High LDL greater than 189 mg/dL Very high Performed By: #### U RMACRERAT, CMP, B12, LIPID #### [facility] [address] #### CPEP #### [facility] , Triglyceride w/Reflex 260 mg/dL High 0-149 [facility] Comment on above: Order Comment: PT FA STED 12 HOURS Reason for Exam Type 2 diabetes mellitus with hyperglycemia, without long-te Result Comment: TRIG ATP III CLASSIFICATION TRIG less than 150 mg/dL Normal TRIG 150-199 mg/dL Borderline high TRIG 200-500 mg/dL High TRIG greater than 500 mg/dL Very high Standard traceable to the Center for Disease Conrtrol and Prevention (CDC) test method. Performed By: #### U RMACRERAT, CMP, B12, LIPID #### [facility] [address] [place] [address] [place] #### CPEP #### [facility] , VLDL CHOLESTEROL 52 mg/dL Normal [facility] Comment on above: Order Comment: PT FA STED 12 HOURS Reason for Exam Type 2 diabetes mellitus with hyperglycemia, without long-te Performed By: #### U RMACRERAT, CMP, B12, LIPID #### [facility] [address] [place] [address] [place] #### CPEP #### [facility] , Lipid PanelOrdered By: Anjali Dubois on 06-02-2023 Cholesterol [Mass/Vol] 178 mg/dL Normal 140-200 [facility] Comment on above: Chol less than 200 m g/dl low riskChol 201-239 mg/dl borderline riskChol 240 mg/dl and greater high risk Order Comment: PT FA STED 12 HOURS Reason for Exam Type 2 diabetes mellitus with hyperglycemia, without long-te Result Comment: Chol less than 200 mg/dl low risk Chol 201-239 mg/dl borderline risk Chol 240 mg/dl and greater high risk Performed By: #### U RMACRERAT, CMP, B12, LIPID #### [facility] [address] [place] [address] [place] #### CPEP #### [facility] , Cholesterol in HDL [Mass/Vol] 53 mg/dL Normal 23-92 [facility] Comment on above: HDL CHOL ATP-III CLA SSIFICATION Cardiovascular RiskHDL > or equal to 60 mg/dL LOWHDL < 40 mg/dL HIGH Order Comment: PT FA STED 12 HOURS Reason for Exam Type 2 diabetes mellitus with hyperglycemia, without long-te Result Comment: HDL CHOL ATP-III CLASSIFICATION Cardiovascular Risk HDL > or equal to 60 mg/dL LOW HDL < 40 mg/dL HIGH Performed By: #### U RMACRERAT, CMP, B12, LIPID #### [facility] [address] [place] [address] [place] #### CPEP #### [facility] , Cholesterol.total/Serene sterol in HDL [Mass ratio] 3.4 {ratio} Normal <5.0 [facility] Comment on above: Order Comment: PT FA STED 12 HOURS Reason for Exam Type 2 diabetes mellitus with hyperglycemia, without long-te Performed By: #### U RMACRERAT, CMP, B12, LIPID #### [facility] [address] [place] [address] [place] #### CPEP #### [facility] , MicroAlb Creat Ratio,Uon Albumin DL <= 20 mg/L (U) [Mass/Vol] 1.4743118 mg/dL Normal 0.0-1.8 mg/dL [facility] Other Albumin/Creatinine DL <= 20 mg/L (U) [Mass ratio] 15.087673 mg/g Normal 0.0-30.0 mg/g [facility] Other Creatinine (U) [Mass/Vol] 91.3314068 mg/dL High 11.0-20.0 mg/dL [facility] Other Albumin DL <= 20 mg/L (U) [Mass/Vol] 1.4 mg/dL Normal 0.0-1.8 [facility] Comment on above: Order Comment: Reaso n for Exam Type 2 diabetes mellitus with hyperglycemia, without long-te Performed By: #### U RMACRERAT, CMP, B12, LIPID #### [facility] [address] [place] [address] [place] #### CPEP #### [facility] , Creatinine, Urine (Random) 91.0 mg/dL High 11.0-20.0 [facility] Comment on above: Order Comment: Reaso n for Exam Type 2 diabetes mellitus with hyperglycemia, without long-te Performed By: #### U RMACRERAT, CMP, B12, LIPID #### [facility] [address] [place] [address] [place] #### CPEP #### [facility] , Microalbumin/Creatinine Ratio 15.0 mg/g Normal 0.0-30.0 [facility] Comment on above: Order Comment: Reaso n for Exam Type 2 diabetes mellitus with hyperglycemia, without long-te Result Comment: 30-3 00 mg/g indicates an increased risk for diabetic nephropathy. Greater than 300 mg/g is consistent with clinical nephropathy. (Am. J. Kidney Disease 1995, 25:107) PERFORMED BY: [place] [address] PATHOLOGIST CLAIM ADJUSTER SVETLANA DUMONT M.D. Performed By: #### U RMACRERAT, CMP, B12, LIPID #### [place] [address] [place] #### CPEP #### [facility] , Microalbumin [Mass/volume] i n UrineOrdered By: Tondra Mapus on 06-02-2023 Albumin DL <= 20 mg/L (U) [Mass/Vol] 1.4 mg/dL 0.0-1.8 [facility] No Panel InformationOrdered By: Tondra Mapus on 06-02-2023 C-Peptide 3.8 ng/mL 1.1-4.4 [facility] Comment on above: C-Peptide reference interval is for fasting patients.Performed at: - [facility] [address] [id number] Director: Jacques Llanos PhD, Phone: [phone] Estimated GFR (CKD-EPI) > 60.0 mL/Min [facility] Creatinine Clearance (Chem N/A [facility] Potassium [Moles/volume] in Serum or PlasmaOrdered By: Tondra Mapus on 06-02-2023 Potassium [Moles/Vol] 4.3 mmol/L 3.5-5.1 [facility] Protein [Mass/volume] in Ser um or PlasmaOrdered By: Tondra Mapus on 06-02-2023 Protein [Mass/Vol] 6.9 g/dL 6.4-8.9 [facility] Serum or plasma anion gap de terminationOrdered By: Tondra Mapus on 06-02-2023 Anion gap [Moles/Vol] 13.1 mmol/L 6.0-15.0 [facility] Triglyceride [Mass/volume] i n Serum or PlasmaOrdered By: Gurdeep Dubois on 06-02-2023 Triglyceride [Mass/Vol] 260 mg/dL 0-149 [facility] Comment on above: TRIG ATP III CLASSIF ICATIONTRIG less than 150 mg/dL NormalTRIG 150-199 mg/dL Borderline highTRIG 200-500 mg/dL High TRIG greater than 500 mg/dL Very highStandard traceable to the Center for Disease Conrtrol and Prevention (CDC) test method. Urine microalbumin/creatinin e mass ratioOrdered By: Gurdeep Dubois on 06-02-2023 Albumin/Creatinine DL <= 20 mg/L (U) [Mass ratio] 15.0 mg/g 0.0-30.0 [facility] Comment on above: 30-300 mg/g indicate s an increased risk for diabetic nephropathy. Greater than 300 mg/g is consistent with clinical nephropathy. (Am. J. Kidney Disease 1995, 25:107) Vitamin [id number] By: Anjali Dubois on 06-02-2023 Cobalamin (Vitamin B12) [Mass/Vol] 696 pg/mL Normal 180-914 [facility] Comment on above: Order Comment: PT FA STED 12 HOURS Reason for Exam Type 2 diabetes mellitus with hyperglycemia, without long-te Result Comment: PERF ORMED BY: [place] [address] PATHOLOGIST CLAIM ADJUSTER SVETLANA DUMONT M.D. Performed By: #### U RMACRERAT, CMP, B12, LIPID #### [place] [address] [place] #### CPEP #### [facility] , Coding Summaryon 04-25-2023 Coding Summary HTMLBase 64 LpqcpueeDPh4aGn+PGhlY WQ+OT6QOTVjO75xhJPvxO 6hY3SXTOgGAtseVXCGJVy UZgYkodNyCZ5ovSXeEWDp IC8+EI7yMMOiInoybEGel 7Y6pUU9T36ofm7dQQfznF Y7UZToDsRgehufv9zunHm 6IDcuNmluOyBt SGHslL60FQP7gX45Ou70u LZquSUjl2gcgIn6RvIqJV ZnWER1bAeuYUkev5ZxCLR zK00nnZPrk3W2 VLWprBkkoWEgYfLxfNI6b E7xRNgjaiary1gekvvyMw r2pz86cHMgf5E7rCZ6C6I irnP9YHLmqILo GeelkQTSmR2mpekee0hhx xplYlXuGRMtGBy6VUv8JB NsxAhbAyFlIM17YBA2UCR mgaAsY4HkOCDd fVysXzT0u5O1Aq3FD1RNJ misV2DRMUTMBJznmZI+PC 71vm18T0VwXqmiWtj6NSM gQFG2oXY8yD2f KDNrCMttg7W4hPI8U6Bxb uCngg7ux5upQULpVJyaC9 5xsXDwt3M5EAVvfTY0RXW iaZgoGwWdyH58 Oyc+FCYudMhuq0FmDfpqc 1shc4tkbLw1ZuclRNHbck UgtIbaACM2k7HxVz5oXPC coOV4rIL5sM7r NrMcVrT6CRosJ968MwUub NJzQsdhU47gA1CvrAA+PH LdZcw4JUKkeSxeAB4pR6H hZGRpbmctbGVm zSkuWB8oKGCncwllOEDrv I9gLQJhS5s4CkKhZoA2BO ylX8ViPIJmuxlhNk30uX4 vCrYfFrF5RVtk B6KjouZ1IKLtkHFkOWqfT RK3G96mb4L6DCCaIEKsLS O9wCP8cB5znHmqihpzpJH mdDsgdmVydGlj ZOggAHerV460ONJwiZttU kNvZGluZyBEYXRlOiAgMD kvMDgvMjAyMzwvdGQ+PHR bRVX5bVpcWYBk hAWaUQfdZw3goYprfSwcQ J0eCPTevllzKWDbbB0sCO YoyUYuzFasIM9qQNTvfyq vv518YrCfMEZ9 MDDuvBVjZ9IlwF6fJmAtZ UHvVFPrV3CpqBLpMLayU3 99CTuxRwV0ZOShdmCbT5L sLWFsaWduOiB0 j8X4Cs5Sr4WwkhcaC4Xwj WTuWuZiXxlsTGd7M2JkOr wvdHI+IH81DEObJE44UWd 4YNJ5yGiiQJkt FPMeC1WcdA6rOeXpHILfX GRkOyc+PHRhYmxlIHdpZH RoPScxMDAlJyBzdHlsZT0 rSv6nEBCfZLMw eEpetBSzBuYap3naADEzQ SjkSB4yrJtwZ4WavTP6GQ Rsq9r3Sr25X36yZ7XdbYR +PTBhyBB1vWE4 lS0nPfBzAvK1OFziZ567I dHfmBPvNxbfc3bgn4egpT u6EoS8EGPxqyFfyRuyQOM 9l7QjVc75U64v IHdpZHRoPSIxNSUiIHZhb Tiemm7tgU6dCv0+PGNvbC E7wTU7aU3pUwNwUpT7MSq wD392DmWnrOUc Kiktz5tow4mhnTj6FxNsS ZBczpPhcIjmIAE7s3QcJw 06F1DcgUtnn6MgZge8yg2 4jGNwf4T4xET0 A1RkFXHxzmdaaDVkhRruB Y2bGWCpwxweLIGkgW0nZJ KyA1i4WqUmBeE3RMkcB1Q ipyY2YUDjyUPu ESDccBSQxU2quqguc4dsw wtjIoHkUSYlUYp3FTf9AX RhrYkyCwOwUUH7XjX0FNR 2hVLqeM6igYkv nvitbJ9hYoa+RDG1mCLev YHYGP9tGupnaLC+PHRkIH W6aExcSEjzVZStfU6uVLC mQ2k7CcRzNfI1 LNdrC7AzsoP5TTUqlCRwQ BQrvDUJmD7vafknk7yeji ufObEqBLHgPOe6YZb9ZOE saWduOiBsZWZ0 YuB7NLI2tRWlyY4hyRdgi yzyjA3jFhr+QmlydGggRG S8LDo6K2EeVkg2WLWhkAq cQO0fdGIkXSwm Xc6oxNbyqOehGV7gXGLkx kmaj076LjNsa9dgXQCutP QyIGohYOQ9I90sl7W5YIV rTKWpAKO9pRP2 kV3utBkmtbbluYGojVxgf zItlYzgENkaYOjaH567VT UlhTwnVrBkYMn2Q1DzZhx 9AFXyqMpgWM5k rKZdYDhfUi1ujLdqgWimZ I5zPRAmrzbzf939HjPdj1 tnQCUztNGuQHrpXVP1M16 oj8R3KEPcNMVw BCA6zTS8sI2urXrrhheou GVmdDsgdmVydGljYWwtYW xvX874MYKtyEbcQjLlxGd 2V3JdNrx0OCFc pOvaST0dxLEvNMtcAl8ty PvnsFkbGM6jYXAbjwqsu2 32MaZvi4kaQOCubUKmHMr iUMN8K11jx5A1 CIMqGYJnKCH3sAW0oK8fb GlnbjogbGVmdDsgdmVydG xkBJiuQTfcD424FPYnaEw nPlBhdGllbnQg DVjgOKw4Y0UnQydujMJ+P S08RKGfTG57qJTkoZEua6 kbgOw6HuQzYDYzHLQ9bKt hZEytl7DhCOLn R14tgAEwo6A2RPKhnBlsq OOcFxZorKQ8jN5pKEnykb zfx9ovpdvbHugfg2dtpc5 3sF03Z19oFFha ZHRoPSIzMCUiIHZhbGlnb m2liJ3vRe2+UEIdsMK5dP E0fV5yGGUlAyM0GSrrS52 9InRvcCIvPjxj g8aph2luaZx5QyI1UHSwf iCcaHdpKOX4a4AlGo13G5 9sIHdpZHRoPSIyMCUiIHZ reAyang5mwI2b Ii8+DLWjcJD3tXT0oS6qB mBqDqF8YIbpT076VxByoG GyFpbyV14pR6PjtWZ+PHR pArx3NBLpmLzj UD3szDJfYNuzYc4jRWF8O nHeAoVxGVxeT1AnKDHmru bfxjbltBT9TMOgDINpjF4 7Sz2kgAgqRDKf sZXFoC4eghuxm0xqfsmmW zZvUZAcOPp3GAy7EFDtdW axPnKfEHC5ZpW6HJR6uZP hbB3uhLluyfbh eU7zP6ImRSDtyospQw45a N9xBiHsCkR3JFgdSei+Sk OCJ9ZOVdgcJI6OTIAEGEG NQVJJRTwvdGQ+ SHLiVBM4tUhiMJukXJLsm G7vSMYuV8a3PuMlTuR3EY djH1SwYMFhgiicQu58jR1 aRzZjGuQ2LKmv J0MbkcZ7QKFnoHZgABzkR JR2P38ln6M9ZXRpFFRfTQ Z3qGG9iN1dyDjbiowvaXZ mdDsgdmVydGlj OGteFYleO872OJRcaNyvM lKmGjU8SwN0WaZ9Z1NfJz a5ZQLaoOrmBL7zqHPyKIp eCp4zkByyhAbl HE5bKDDhnhlmGSLfnL8bM URieQPcxZhtWX5bODZdyg gou087JlUqPJD5INLqjZL zR5FdsI6oBsUy UPPpPQFxX0RgsOLxGSlzD 872OFvgBzY7SUPdqmWyF2 GzEMAfjOndDjO0n0P7Nq5 1NyBZZWFyczwv dGQ+LWPjMJB8bEgeYSarY MZlrG4rLUOuN7g0AnPuJm C5PKgoG9DpBMVxlasuLa5 3eZ0qCiVkKxX7 MAswT5RyerE8LQQosUMrR UobKFL5B20zf6Y2VGIyPI EdXXH5hJJ6pB4ioThvpny gbGVmdDsgdmVy uQubCBicUMygL017NBNhg DsnPkZFTUFMRTwvdGQ+PH NkMUM8kVlcHVzhOBHmsG0 cAMXyB9f3UaJb KdZ9EVydO6NdQHNkzyzaO y75jO4bUaAdFvI4GOthX8 TuzmZ0WRHhgTQbIZpvOTO 9M88gp6H5TRCi DRAqAZH5eLH7iT5ypLzpt jogbGVmdDsgdmVydGljYW ujAUyaO644QPOrsNogJd5 MEF24HJ41S3Nh PjwvdGFibGU+PHRhYmxlI HdpZHRoPScxMDAlJyBzdH pcFI5xMc1kXBHkSICeiHv haYHdCcXyt6ak TJEgASswYW0pqXznC4Jbe KH4AAMac4o2Kl02E51hC0 JvdXA+CHAaxMV5yJW5cK4 zAkAuXxD3LWoi W168FtBplRPgAhdyt6jit 1mscYo6RvFuXNDuvqZadX wfDCB1v8IxIa92Q85lIQy pZHRoPSIyMCUi SUIjmJsrhy2xbG9hRm5+P HWgsBH1kOZ6wA6jCaOuWl R2APdoR335PtXhgYZeGoe gF05zW6OryKT+ GTFzQph0PXVmjFesMZ8xn UCwIQhlQu0vHSO6HaUgAh IyXWjlY5LvXGDfylhmuio uxOY5UDTrROVi sT57Kp4qzCztDa5jZCRbV PS6YJRsdVFmZ3RapV8zHq LtZYNrHKAmR5DkvPMiTUc zD935EKylWfM4 YYArvbHsH0XdRLTzbOnyR oW9r3B2Nk9ChCfonORtRL 8zMsAnRLt4T9TfWvc5UXK ltJxbCU8euUAa JNpfTm1adHhizJusGY7jK UKsagosl444TvDig4nlSJ YdpPRuUYcaWQB5Y03hs7C 1EWUnAMRvEKM4 xVW4eV4huKwjvpffxNMhd DsgdmVydGljYWwtYWxpZ2 80IACywXlyYgQEQqv4R3W cZwe9QKWqhVpa IW6wvHYgGOeuTn9nkMicg JazOD0vMBPkhfrts700Ic Aht8wvZKGhoSFlISotWOU 3G31or7G7XLEt BNDxAQA5fPH0gG5ddNkkp jogbGVmdDsgdmVydGljYW iyQEauN021FLMqhRyfMy1 RNgw4Z8JaKhs1 BEXjgVzxUS4zqYTnAVobF s2ijGhniPhdKV8dOYGvhg jdo032DlVep0exQNMrnGV tGKynUTW7G18r e8J6KLFrHYWuAXE5jXK9f R0lrUjvrbckbERwhFujij LzxProOPenKDntC524PHA vcDsnPlBheWVy OjwvdGQ+NC61sc15J7FhJ rgfVqu5XGKkDAC4wTX9bO 6kCVEyGZdrh9P5pPK2U2E jjmGsna9ue8in YXB (more content not included)... [facility] Provider Orderson 04-24-2023 Provider Orders [id number] [facility] Albumin [Mass/volume] in Ser um or PlasmaOrdered By: Maddi Mcpherson on 10-04-2022 Albumin [Mass/Vol] 4.3 g/dL 3.2-5.5 [facility] Basophils Auto (Bld) [#/Vol] Ordered By: Maddi Mcpherson on 10-04-2022 Basophils (Bld) [#/Vol] 0.0 10*3/uL 0.0-0.2 [facility] Basophils/100 WBC Auto (Bld) Ordered By: Maddi Mcpherson on 10-04-2022 Basophils/100 WBC (Bld) 0.6 % . [facility] Cholesterol [Mass/volume] in Serum or PlasmaOrdered By: Maddi Mcpherson on 10-04-2022 Cholesterol [Mass/Vol] 183 mg/dL 140-200 [facility] Comment on above: Chol less than 200 m g/dl low riskChol 201-239 mg/dl borderline riskChol 240 mg/dl and greater high risk Cholesterol in LDL Calc [Mas s/Vol]Ordered By: Maddi Mcpherson on 10-04-2022 Cholesterol in LDL [Mass/Vol] 93 mg/dL 0-100 [facility] Comment on above: LDL ATP III CLASSIFI CATIONLDL less than 100 mg/dL OptimalLDL 100-129 mg/dL Near or above optimalLDL 130-159 mg/dL Borderline highLDL 160-189 mg/dL HighLDL greater than 189 mg/dL Very high Cholesterol in VLDL Calc [Ma ss/Vol]Ordered By: Maddi Mcpherson on 10-04-2022 Cholesterol in VLDL [Mass/Vol] 43 mg/dL [facility] Creatinine [Mass/volume] in UrineOrdered By: Maddi Mcpherson on 10-04-2022 Creatinine (U) [Mass/Vol] 107.3 mg/dL [facility] Comment on above: No reference range e stablished Creatinine and Glomerular fi ltration rate.predicted panel (S/P/Bld)Ordered By: Maddi Mcpherson on 10-04-2022 Creatinine [Mass/Vol] 0.71 mg/dL 0.44-1.03 [facility] Eosinophils Auto (Bld) [#/Vo l]Ordered By: Maddi Mcpherson on 10-04-2022 Eosinophils (Bld) [#/Vol] 0.1 10*3/uL 0.0-0.45 [facility] Eosinophils/100 WBC Auto (Bl d)Ordered By: Maddi Mcpherson on 10-04-2022 Eosinophils/100 WBC (Bld) 1.2 % . [facility] Erythrocyte distribution wid th Auto (RBC) [Ratio]Ordered By: Maddi Mcpherson on 10-04-2022 Erythrocyte distribution width (RBC) [Ratio] 13.4 % 11.9-15.3 [facility] Estimated glomerular filtrat ion rate (GFR) non- AmericanOrdered By: Maddi Mcpherson on 10-04-2022 GFR/1.73 sq M.predicted among non-blacks MDRD (S/P/Bld) [Vol rate/Area] > 60 mL/Min [facility] Globulin Calc (S) [Mass/Vol] Ordered By: Maddi Mcpherson on 10-04-2022 Globulin (S) [Mass/Vol] 2.7 g/dL [facility] Hematocrit Auto (Bld) [Volum e fraction]Ordered By: Maddi Mcpherson on 10-04-2022 Hematocrit (Bld) [Volume fraction] 41.9 % 34.0-46.4 [facility] Hemoglobin [Mass/volume] in BloodOrdered By: Maddi Mcpherson on 10-04-2022 Hemoglobin (Bld) [Mass/Vol] 13.7 g/dL 11.8-15.4 [facility] Leukocytes [#/volume] correc tiffany for nucleated erythrocytes in Blood by Automated counOrdered By: Maddi Mcpherson on 10-04-2022 WBC corrected for nucl RBC Auto (Bld) [#/Vol] 7.8 10*3/uL 3.8-11.6 [facility] Lymphocytes Auto (Bld) [#/Vo l]Ordered By: Maddi Mcpherson on 10-04-2022 Lymphocytes (Bld) [#/Vol] 2.6 10*3/uL 1.00-4.8 [facility] Lymphocytes/100 WBC Auto (Bl d)Ordered By: Maddi Mcpherson on 10-04-2022 Lymphocytes/100 WBC (Bld) 33.5 % . [facility] MCH Auto (RBC) [Entitic mass ]Ordered By: Maddi Mcpherson on 10-04-2022 MCH (RBC) [Entitic mass] 29.3 pg 24.7-34.3 [facility] MCHC Auto (RBC) [Mass/Vol]Or dered By: Maddi Mcpherson on 10-04-2022 MCHC (RBC) [Mass/Vol] 32.6 g/dL 32.0-35.0 Fir [facility] MCV Auto (RBC) [Entitic vol] Ordered By: Maddi Mcpherson on 10-04-2022 MCV (RBC) [Entitic vol] 90.0 fL 80-100 [facility] Monocytes Auto (Bld) [#/Vol] Ordered By: Maddi Mcpherson on 10-04-2022 Monocytes (Bld) [#/Vol] 0.7 10*3/uL 0.0-0.8 [facility] Monocytes/100 WBC Auto (Bld) Ordered By: Maddi Mcpherson on 10-04-2022 Monocytes/100 WBC (Bld) 9.1 % . [facility] Neutrophils Auto (Bld) [#/Vo l]Ordered By: Maddi Mcpherson on 10-04-2022 Neutrophils (Bld) [#/Vol] 4.3 10*3/uL 1.8-7.7 [facility] Neutrophils/100 WBC Auto (Bl d)Ordered By: Maddi Mcpherson on 10-04-2022 Neutrophils/100 WBC (Bld) 55.6 % . [facility] No Panel InformationOrdered By: Maddi Mcpherson on 10-04-2022 Estimated GFR () > 60 mL/Min [facility] Comment on above: GFR estimated refere nce range: According to KDOQI guidelines, <60 ml/min/1.73m2 is sufficient to diagnose a patient with chronic kidney disease. Pharmacy Creatinine Clearance (Chem N/A [facility] Nucleated erythrocytes [Pres ence] in Blood by Automated countOrdered By: Maddi Mcpherson on 10-04-2022 Nucleated RBC Auto Ql (Bld) 0.1 /100{WBC} 0-0.5 [facility] Platelet mean volume Auto (B ld) [Entitic vol]Ordered By: Maddi Mcpherson on 10-04-2022 Platelet mean volume (Bld) [Entitic vol] 9.8 fL 6.3-10.7 [facility] Platelets Auto (Bld) [#/Vol] Ordered By: Maddi Mcpherson on 10-04-2022 Platelets (Bld) [#/Vol] 257 10*3/uL 150-450 [facility] Protein [Mass/volume] in Ser um or PlasmaOrdered By: Maddi Mcpherson on 10-04-2022 Protein [Mass/Vol] 7.0 g/dL 6.1-7.9 [facility] RBC Auto (Bld) [#/Vol]Ordere d By: Maddi Mcpherson on 10-04-2022 RBC (Bld) [#/Vol] 4.65 10*6/uL 3.60-5.00 [facility] Serum or plasma alanine dumont otransferase measurement without P-5'-P (enzymatic activiOrdered By: Maddi Mpcherson on 10-04-2022 ALT No additional P-5'-P [Catalytic activity/Vol] 23 U/L 10-60 [facility] Serum or plasma albumin/glob ulin mass ratioOrdered By: Maddi Mcpherson on 10-04-2022 Albumin/Globulin [Mass ratio] 1.6 {ratio} [facility] Serum or plasma alkaline vanessa sphatase measurement (enzymatic activity/volume)Ordered By: Maddi Mcpherson on 10-04-2022 ALP [Catalytic activity/Vol] 80 U/L 32-92 [facility] Serum or plasma anion gap de terminationOrdered By: Maddi Mcpherson on 10-04-2022 Anion gap [Moles/Vol] 10.3 mmol/L 6.0-15.0 [facility] Serum or plasma aspartate am inotransferase measurement (enzymatic activity/volume)Ordered By: Maddi Mcpherson on 10-04-2022 AST [Catalytic activity/Vol] 20 U/L 10-42 [facility] Serum or plasma calcium lisa urement (mass/volume)Ordered By: Maddi Mcpherson on 10-04-2022 Calcium [Mass/Vol] 9.3 mg/dL 8.2-10.2 [facility] Serum or plasma chloride isidra surement (moles/volume)Ordered By: Maddi Mcpherson on 10-04-2022 Chloride [Moles/Vol] 106 mmol/L 95-114 [facility] Serum or plasma glucose lisa urement (mass/volume)Ordered By: Maddi Mcpherson on 10-04-2022 Glucose [Mass/Vol] 182 mg/dL 70-100 [facility] Comment on above: ADA recommended refe rence rangeRandom Glucose Reference Range is dependent on time and content of last meal. Glucose of more than 200 mg/dL in a nonstressed, ambulatory subject supports the diagnosis of Diabetes Mellitus. Serum or plasma high density lipoprotein (HDL) cholesterol measurementOrdered By: Maddi Mcpherson on 10-04-2022 Cholesterol in HDL [Mass/Vol] 46 mg/dL 35-85 [facility] Comment on above: HDL CHOL ATP-III CLA SSIFICATION Cardiovascular RiskHDL > or equal to 60 mg/dL LOWHDL < 40 mg/dL HIGH Serum or plasma potassium me asurement (moles/volume)Ordered By: Maddi Mcpherson on 10-04-2022 Potassium [Moles/Vol] 3.9 mmol/L 3.5-5.1 [facility] Serum or plasma sodium measu rement (moles/volume)Ordered By: Maddi Mcpherson on 10-04-2022 Sodium [Moles/Vol] 138 mmol/L 136-146 [facility] Serum or plasma total biliru bin measurement (mass/volume)Ordered By: Maddi Mcpherson on 10-04-2022 Bilirubin [Mass/Vol] 0.4 mg/dL 0.3-1.2 [facility] Serum or plasma total carbon dioxide measurement (moles/volume)Ordered By: Maddi Mcpherson on 10-04-2022 CO2 [Moles/Vol] 25.6 mmol/L 22.0-30.0 [facility] Serum or plasma total choles terol/high density lipoprotein (HDL) cholesterol mass ratOrdered By: Maddi Mcpherson on 10-04-2022 Cholesterol.total/Serene sterol in HDL [Mass ratio] 4.0 {ratio} <5.0 [facility] Serum or plasma urea nitroge n measurement (mass/volume)Ordered By: Maddi Mcpherson on 10-04-2022 Urea nitrogen [Mass/Vol] 11 mg/dL 9-23 [facility] Triglyceride [Mass/volume] i n Serum or PlasmaOrdered By: Maddi Mcpherson on 10-04-2022 Triglyceride [Mass/Vol] 218 mg/dL 35-149 [facility] Comment on above: TRIG ATP III CLASSIF ICATIONTRIG less than 150 mg/dL NormalTRIG 150-199 mg/dL Borderline highTRIG 200-500 mg/dL High TRIG greater than 500 mg/dL Very highStandard traceable to the Center for Disease Conrtrol and Prevention (CDC) test method. Urine microalbumin measureme nt with detection limit of 20 mg/L or less (mass/volume)Ordered By: Maddi Mcpherson on 10-04-2022 Albumin DL <= 20 mg/L (U) [Mass/Vol] 1.5 mg/dL 0.0-1.8 [facility] Urine microalbumin/creatinin e mass ratioOrdered By: Maddi Mcpherson on 10-04-2022 Albumin/Creatinine DL <= 20 mg/L (U) [Mass ratio] 13.0 mg/g 0.0-30.0 [facility] Comment on above: 30-300 mg/g indicate s an increased risk for diabetic nephropathy. Greater than 300 mg/g is consistent with clinical nephropathy. (Am. J. Kidney Disease 1995, 25:107) Vitamin [id number] By: Anjali Dubois on 10-04-2022 Cobalamin (Vitamin B12) [Mass/Vol] 703 pg/mL Normal 180-914 pg/mL [facility] WBC Auto (Bld) [#/Vol]Ordere d By: Maddi Mcpherson on 10-04-2022 WBC (Bld) [#/Vol] 7.8 10*3/uL 3.8-11.6 [facility] A1C HEMOGLOBINon 10-03-2022 HbA1c (Bld) [Mass fraction] 7.8 % [facility] Other Glucose - FINGER STICKon Glucose [Mass/Vol] 139 mg/dL [facility] Other HbA1c (Bld) [Mass fraction]o n 10-03-2022 A1C HEMOGLOBIN [facility] Other CREATININEon 12-27-2021 Creatinine [Mass/Vol] 0.61 mg/dL Normal 0.55-1.02 [facility] Comment on above: Performed By: #### C INGRIS #### [facility] [address] [address] [address] Chanell Landon EGFR-AF SAO TOMEAN >60 Normal >=60 [facility] Comment on above: Performed By: #### C INGRIS #### [facility] [address] [address] [address] Chanell Landon EGFR-NON AF SAO TOMEAN >60 Normal >=60 [facility] Comment on above: Performed By: #### C INGRIS #### [facility] [address] NECK ST WO W CONon [address] WO W CON EXAMINATION: CT NECK ST WO W CON HISTORY: Mass of neck ; lump on right side of neck COMPARISON: No relevant comparison available. TECHNIQUE: Axial, Coronal, and Sagittal CT images created without and with IV contrast. Dose reduction techniques were achieved by using automated exposure control and/or adjustment of mA and/or kV according to patient size and/or use of iterative reconstruction technique. FINDINGS: NASOPHARYNX: No asymmetry of the fossae of Rosenmuller and torus tubarius. ORAL CAVITY: No visible mass. OROPHARYNX: No asymmetry of the facial and lingual tonsils. HYPOPHARYNX: No mass or other visible lesion. LARYNX: No mass or asymmetry of the vocal cords. SINUSES: No significant fluid or mucosal thickening. NECK GLADS: 2.6 x 1.7 x 1.2 cm slightly hyperdense mass within the inferior aspect of the right parotid gland. LYMPH NODES: No pathological-appearin g or enlarged lymph nodes. VASCULATURE: No suspicious abnormality. BONES: No significant osseous lesions. OTHER: No additional imaging findings. IMPRESSION: 1. 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 Ultrasound-guided tissue sampling is recommended. Electronically authenticated by: HANG GREER Date: 2021-12-27 14:57 Normal [facility] US THYROIDon 12-12-2021 US THYROID EXAMINATION: US THYROID HISTORY: Localized swelling, mass and lump, neck COMPARISON: No relevant comparison available. TECHNIQUE: Sonographic images of the thyroid gland were obtained. FINDINGS: Identified in the right submandibular region corresponding to the patient's pain and mass is a focal solid heterogeneous hypoechogenic mass measuring 1.7 x 1.8 x 1.6 cm. This area is hypervascular to the surrounding soft tissue and appears to be adjacent to a portion of the right thyroid gland. Identified within the mass is a peripheral area of anechoic echogenicity measuring 4 by 5 x 6 mm. IMPRESSION: 1.8 cm hypervascular hyperechogenic mass corresponding to the patient's palpable mass. This is indeterminate. Consider CT scan of the neck without and with contrast for further characterization Electronically authenticated by: JOHN LOYA Date: 2021-12-12 14:52 Normal [facility] A1C HEMOGLOBINon 11-07-2021 HbA1c (Bld) [Mass fraction] 7.2 % [facility] Other Glucose - FINGER STICKon Glucose [Mass/Vol] 159 mg/dL [facility] Other HbA1c (Bld) [Mass fraction]o n 11-07-2021 A1C HEMOGLOBIN [facility]US Other COVID + FLU Quick Testingon 08-21-2021 SARS-CoV-2 (COVID-19) RNA GLEN+probe Ql (Unsp spec) Negative [facility] Other COVID + FLU Quick Testing Negative [facility] Other [facility]on 01-17 SARS-CoV-2 (COVID-19) RNA GLEN+probe Ql (Unsp spec) Not detected Normal NOT DETECTED [facility] Comment on above: Result Comment: This test is not yet approved or cleared by the [place] FDA. When there are no FDA-approved or cleared tests available, and other criteria are met, FDA can make tests available under an emergency access mechanism called an Emergency Use Authorization (EUA). The EUA for this test is supported by the [place] of Health and Human Service's (HHS's) declaration that circumstances exist to justify the emergency use of in vitro diagnostics for the detection and/or diagnosis of the virus that causes COVID-19. This EUA will remain in effect (meaning this test can be used) for the duration of the COVID-19 declaration justifying emergency of IVDs, unless it is terminated or revoked by FDA (after which the test may no longer be used). When diagnostic testing is negative, the possibility of a false negative should be considered in the context of a patient's recent exposures and the presence of clinical signs and symptoms consistent with SARS-CoV-2. Performed By: #### [facility] #### [facility] [address] [place] [address] Paige Groves XR CHEST 2 Von 01-31-2021 XR CHEST 2 V XR CHEST 2 V 01/30/2021 5:03 PM EDT Indication: Acute exacerbation of asthma Technique: Routine radiographs of the chest were obtained. Comparison: October 22, 2020 Findings: The lungs are hyperinflated. No acute rib fractures, pneumothorax or mediastinal shift. No consolidation, edema, or effusion. Heart is normal in size and contour. Impression: Hyperinflated lungs without acute findings. Electronically authenticated by: SONY SOLIMAN Date: 2021-01-31 05:00 Normal [facility] Vital Signs Date Time Vital Sign Value Performing Clinician Facility 12-25-2023 09:38-0400 Body height 146.05 cm PROPOSAL REPHaider Mcpherson Work Phone: [facility] 12-25-2023 09:38-0400 Body mass index (BMI) [Ratio] 24.5 kg/m2 PROPOSAL REPHaider Richardsonr Work Phone: [facility] 12-25-2023 09:38-0400 Body weight 52.38 kg PROPOSAL REPHaider Mcpherson Work Phone: [facility] 12-11-2023 14:05-0400 Body height 146.05 cm PROPOSAL REPHaider Mcpherson Work Phone: [facility] 12-11-2023 14:05-0400 Body mass index (BMI) [Ratio] 24.4 kg/m2 PROPOSAL REPHaider Mcpherson Work Phone: [facility] 12-11-2023 14:05-0400 Body weight 52.16 kg PROPOSAL REPHaider Richardsonr Work Phone: [facility] 12-11-2023 14:05-0400 Diastolic blood pressure 96 mm[Hg] PROPOSAL REPHaider Mcpherson Work Phone: [facility] 12-11-2023 14:05-0400 Heart rate 84 /min PROPOSAL REPHaider Mcpherson Work Phone: [facility] 12-11-2023 14:05-0400 Respiratory rate 18 /min PROPOSAL REPHaider Mcpherson Work Phone: [facility] 12-11-2023 14:05-0400 SaO2% (BldA) [Mass fraction] 96 % PROPOSAL REPHaider Mcpherson Work Phone: [facility] 12-11-2023 14:05-0400 Systolic blood pressure 146 mm[Hg] PROPOSAL REP Maddikeyonna Mcpherson Work Phone: [facility] 08-13-2023 13:00-0500 Body height 146.05 cm Maddikeyonna Mcpherson Other [facility] 08-13-2023 13:00-0500 Body mass index (BMI) [Ratio] 24.03 kg/m2 Maddi Mcpherson Other [facility] Other 08-13-2023 13:00-0500 Body weight 51.26 kg Maddi Vida Other [facility] Other 08-13-2023 13:00-0500 Body weight 51.25 kg [facility] 08-13-2023 13:00-0500 Diastolic blood pressure 84 mm[Hg] Maddi Mcpherson Other [facility] 08-13-2023 13:00-0500 SaO2% (BldA) [Mass fraction] 98 % Maddi Mcpherson Other [facility] Other 08-13-2023 13:00-0500 Systolic blood pressure 138 mm[Hg] Maddi Mcpherson Other [facility] 06-09-2023 13:00-0400 Body height 146.05 cm aMddi Mcpherson Other [facility] Other 06-09-2023 13:00-0400 Body mass index (BMI) [Ratio] 24.41 kg/m2 Maddi Mcpherson Other [facility] Other 06-09-2023 13:00-0400 Body weight 52.07 kg Maddi Mcpherson Other [facility] Other 06-09-2023 13:00-0400 Diastolic blood pressure 70 mm[Hg] Maddi Mcpherson Other [facility] Other 06-09-2023 13:00-0400 SaO2% (BldA) [Mass fraction] 97 % Maddi Mcpherson Other [facility] Other 06-09-2023 13:00-0400 Systolic blood pressure 122 mm[Hg] Maddi Mcpherson Other [facility] Other 06-02-2023 09:15-0400 Body height 146.05 cm Tondra Mapus Other [facility] Other 06-02-2023 09:15-0400 Body mass index (BMI) [Ratio] 24.13 kg/m2 Tondra Mapus Other [facility] Other 06-02-2023 09:15-0400 Body weight 51.48 kg Tondra Mapus Other [facility] Other 06-02-2023 09:15-0400 Diastolic blood pressure 92 mm[Hg] Tondra Mapus Other [facility] Other 06-02-2023 09:15-0400 Respiratory rate 18 /min Tondra Mapus Other [facility] Other 06-02-2023 09:15-0400 SaO2% (BldA) [Mass fraction] 100 % Tondra Mapus Other [facility] Other 06-02-2023 09:15-0400 Systolic blood pressure 144 mm[Hg] Gurdeep Dubois Other [facility] Other 04-24-2023 10:45-0400 Body height 146.05 cm Maddi Mcpherson Other [facility] Other 04-24-2023 10:45-0400 Body mass index (BMI) [Ratio] 24.45 kg/m2 Maddi Mcpherson Other [facility] Other 04-24-2023 10:45-0400 Body weight 52.16 kg Maddi Mcpherson Other [facility] Other 04-24-2023 10:45-0400 Diastolic blood pressure 95 mm[Hg] Maddi Mcpherson Other [facility] Other 04-24-2023 10:45-0400 SaO2% (BldA) [Mass fraction] 96 % Maddi Mcpherson Other [facility] Other 04-24-2023 10:45-0400 Systolic blood pressure 167 mm[Hg] Maddi Mcpherson Other [facility] Other 11-04-2022 14:30-0400 Body height 146.05 cm Maddi Mcpherson Other [facility] Other 11-04-2022 14:30-0400 Body mass index (BMI) [Ratio] 24.45 kg/m2 Maddi Mcpherson Other [facility] Other 11-04-2022 14:30-0400 Body weight 52.16 kg Maddi Thompsonaustin Other [facility] Other 11-04-2022 14:30-0400 Diastolic blood pressure 94 mm[Hg] Maddi Mendosaacher Other [facility] Other 11-04-2022 14:30-0400 SaO2% (BldA) [Mass fraction] 97 % Maddi Vida Other [facility] Other 11-04-2022 14:30-0400 Systolic blood pressure 164 mm[Hg] Maddi Richardsonr Other [facility] Other 10-04-2022 10:15-0500 Body height 146.05 cm Maddi Vida Other [facility] Other 10-04-2022 10:15-0500 Body mass index (BMI) [Ratio] 24.66 kg/m2 Maddi Vida Other [facility] Other 10-04-2022 10:15-0500 Body weight 52.62 kg Maddi Vida Other [facility] Other 10-04-2022 10:15-0500 Diastolic blood pressure 120 mm[Hg] Maddi Deondreacher Other [facility] Other 10-04-2022 10:15-0500 Systolic blood pressure 186 mm[Hg] Maddi Deondreacher Other [facility] Other 10-03-2022 15:45-0500 Body height 146.05 cm Gurdeep Dubois Other [facility] Other 10-03-2022 15:45-0500 Body mass index (BMI) [Ratio] 25.09 kg/m2 Tondra Mapus Other [facility] Other 10-03-2022 15:45-0500 Body weight 53.52 kg Tondra Mapus Other [facility] Other 10-03-2022 15:45-0500 Diastolic blood pressure 99 mm[Hg] Tondra Mapus Other [facility] Other 10-03-2022 15:45-0500 Respiratory rate 18 /min Tondra Mapus Other [facility] Other 10-03-2022 15:45-0500 SaO2% (BldA) [Mass fraction] 97 % Tondra Mapus Other [facility] Other 10-03-2022 15:45-0500 Systolic blood pressure 193 mm[Hg] Tondra Mapus Other [facility] Other 08-06-2022 14:00-0500 Body height 146.05 cm Maddi Mcpherson Other [facility] Other 08-06-2022 14:00-0500 Body mass index (BMI) [Ratio] 24.88 kg/m2 Maddi Mcpherson Other [facility] Other 08-06-2022 14:00-0500 Body weight 53.07 kg Maddi Mcpherson Other [facility] Other 08-06-2022 14:00-0500 Diastolic blood pressure Maddi Thompsonvioletr Other [facility] Other 08-06-2022 14:00-0500 SaO2% (BldA) [Mass fraction] 96 % Maddi Deondreacher Other [facility] Other 08-06-2022 14:00-0500 Systolic blood pressure 152 mm[Hg] Maddi Deondreacher Other [facility] Other 12-05-2021 12:00-0400 Body height 146.05 cm Maddi Vida Other [facility] Other 12-05-2021 12:00-0400 Body mass index (BMI) [Ratio] 24.24 kg/m2 Maddi Dylanr Other [facility] Other 12-05-2021 12:00-0400 Body weight 51.71 kg Maddi Dylanr Other [facility] Other 12-05-2021 12:00-0400 Diastolic blood pressure 92 mm[Hg] Maddi Deondreacher Other [facility] Other 12-05-2021 12:00-0400 SaO2% (BldA) [Mass fraction] 97 % Maddi Deondreacher Other [facility] Other 12-05-2021 12:00-0400 Systolic blood pressure 150 mm[Hg] Maddi Deondreacher Other [facility] Other 11-29-2021 17:00-0400 Body height 146.05 cm Maddi Mcpherson Other [facility] Other 11-29-2021 17:00-0400 Body mass index (BMI) [Ratio] 24.45 kg/m2 Maddi Vida Other [facility] Other 11-29-2021 17:00-0400 Body weight 52.16 kg Maddi Vida Other [facility] Other 11-29-2021 17:00-0400 Diastolic blood pressure 88 mm[Hg] Maddi Vida Other [facility] Other 11-29-2021 17:00-0400 SaO2% (BldA) [Mass fraction] 98 % Maddi Vida Other [facility] Other 11-29-2021 17:00-0400 Systolic blood pressure 120 mm[Hg] Maddi Vida Other [facility] Other 11-07-2021 16:45-0400 Body height 146.05 cm Tondra Mapus Other [facility] Other 11-07-2021 16:45-0400 Body mass index (BMI) [Ratio] 24.45 kg/m2 Tondra Mapus Other [facility] Other 11-07-2021 16:45-0400 Body weight 52.16 kg Tondra Mapus Other [facility] Other 11-07-2021 16:45-0400 Diastolic blood pressure 98 mm[Hg] Tondra Mapus Other [facility] Other 11-07-2021 16:45-0400 Respiratory rate 16 /min Gurdeep Dubois Other [facility] Other 11-07-2021 16:45-0400 SaO2% (BldA) [Mass fraction] 97 % Gurdeep Velásquezus Other [facility] Other 11-07-2021 16:45-0400 Systolic blood pressure 154 mm[Hg] Gurdeep Velásquezus Other [facility] Other Encounters Encounter Date Encounter Type Care Provider Facility Start: 12-25-2023 End: 12-25-2023 ambulatory Gurdeep Dubois Facility:[facility] Start: 12-25-2023 End: 12-25-2023 ambulatory VIRIDIANA Mcpherson Work Phone: [facility] Work Phone: Start: 12-25-2023 End: 12-25-2023 Patient encounter procedure PROPOSAL REPHaider Mcpherson Work Phone: [facility] Physician [facility] Work Phone: Start: 12-11-2023 End: 12-11-2023 Patient encounter procedure PROPOSAL REPHaider Mcpherson Work Phone: [facility] Physician [facility] Work Phone: Start: 09-29-2023 End: 09-29-2023 ambulatory Maddi Mcpherson Other [facility] Other Start: 09-29-2023 Office outpatient vi sit 10 minutes Maddi Mcpherson [facility] Start: 09-17-2023 End: 09-17-2023 ambulatory Maddi Mcpherson Other [facility] Other Start: 09-17-2023 Telephone encounter Maddi Thompsonscottieeliud her [facility] Start: 09-09-2023 End: 09-09-2023 ambulatory Gurdeep Dubois Other [facility] Other Start: 09-09-2023 Telephone encounter Tondra Dubois [facility] Start: 09-09-2023 End: 09-09-2023 Patient encounter procedure [facility] Physician [facility] Work Phone: Start: 08-28-2023 End: 08-28-2023 ambulatory Tona Sherly Other [facility] Other Start: 08-28-2023 Telephone encounter Gurdeep Blue [facility] Start: 08-20-2023 End: 08-20-2023 ambulatory Maddi Mcpherson Other [facility] Other Start: 08-20-2023 Telephone encounter Maddi Thompsonjohn her [facility] Start: 08-19-2023 End: 08-19-2023 ambulatory Maddi Vida Other [facility] Other Start: 08-19-2023 Telephone encounter Maddi Thompsonjohn her [facility] Start: 08-13-2023 End: 08-13-2023 ambulatory Maddi Mcpherson Other [facility] Other Start: 08-13-2023 Office outpatient vi sit 25 minutes Maddi Mcpherson [facility] Start: 08-13-2023 End: 08-13-2023 Patient encounter procedure [facility] Physician [facility] Work Phone: Start: 07-14-2023 (Procedure) Shantelle Cooper [facility] Start: 07-14-2023 End: 07-14-2023 ambulatory Emil Cooper Other [facility] Other Start: 06-30-2023 End: 06-30-2023 ambulatory Maddi Vida Other [facility] Other Start: 06-30-2023 Telephone encounter Maddi Thompsonjohn her [facility] Start: 06-26-2023 End: 06-26-2023 ambulatory Maddi Mcpherson Facility:[facility] Start: 06-26-2023 End: 06-26-2023 ambulatory PROPOSAL REPHaider Mcpherson Work Phone: [facility] Work Phone: Start: 06-26-2023 End: 06-26-2023 Patient encounter procedure PROPOSAL REPHaider Mcpherson Work Phone: [facility] Start: 06-09-2023 End: 06-09-2023 ambulatory Maddi Mcpherson Other [facility] Other Start: 06-09-2023 Office outpatient vi sit 15 minutes Maddi Mcpherson [facility] Start: 06-02-2023 (DM) Diabetes Tondra Didierus [facility] Start: 06-02-2023 Telephone encounter Maddi Naty her [facility] Start: 06-02-2023 Registered Recurring PROPOSAL REP Rita Mcpherson Work Phone: [facility] Work Phone: Start: 06-02-2023 End: 06-03-2023 ambulatory PROPOSAL REPHaider Mcpherson Work Phone: [facility] Other Start: 06-02-2023 End: 06-02-2023 Patient encounter procedure PROPOSAL REPHaider Mcpherson Work Phone: [facility] [place] Work Phone: Start: 05-23-2023 End: 05-23-2023 ambulatory Maddi Vida Other [facility] Other Start: 05-23-2023 Telephone encounter Maddi Alfonso her [facility] Start: 05-19-2023 End: 05-19-2023 ambulatory Tondra Mapus Other [facility] Other Start: 05-19-2023 Telephone encounter Tondra Sherly [facility] Start: 05-06-2023 End: 05-06-2023 ambulatory Maddi Vida Other [facility] Other Start: 05-06-2023 Telephone encounter Maddi Thompsonscottieeliud her [facility] Start: 05-05-2023 End: 05-05-2023 ambulatory Maddi Vida Other [facility] Other Start: 05-05-2023 Telephone encounter Maddi Alfonso her [facility] Start: 04-25-2023 End: 04-25-2023 ambulatory Maddi Vida Other [facility] Other Start: 04-25-2023 Telephone encounter Maddi Alfonso her [employer] [facility] Start: 04-24-2023 Office outpatient vi sit 15 minutes Maddi Mcpherson [facility] [place] Start: 04-24-2023 End: 04-25-2023 ambulatory Maddi Vida [facility] Other Start: 04-03-2023 End: 04-03-2023 ambulatory Tondra Mapus Other [facility] Other Start: 04-03-2023 Telephone encounter Tondra Didierus [facility] Start: 03-28-2023 End: 03-28-2023 ambulatory Maddi Richardsonr Other [facility] Other Start: 03-28-2023 Telephone encounter Maddi Alfonso her [facility] [place] Start: 03-05-2023 End: 03-05-2023 ambulatory Maddi Richardsonr Other [facility] Other Start: 03-05-2023 Telephone encounter Maddi Alfonso her [facility] [place] Start: 02-17-2023 End: 02-17-2023 ambulatory Maddi Richardsonr Other [facility] Other Start: 02-17-2023 Telephone encounter Maddi Alfonso her [facility] Start: 02-13-2023 End: 02-13-2023 ambulatory Maddi Richardsonr Other [facility] Other Start: 02-13-2023 Telephone encounter Maddi Alfonso her [facility] [place] Start: 11-13-2022 End: 11-13-2022 ambulatory Maddi Richardsonr Other [facility] Other Start: 11-13-2022 Telephone encounter Maddi Alfonso her [facility] Start: 11-04-2022 End: 11-04-2022 ambulatory Maddi Mendosaacher Other [facility] Other Start: 11-04-2022 Office outpatient vi sit 25 minutes Maddi Deondreshawnbishop [facility] [place] Start: 10-06-2022 End: 10-06-2022 ambulatory Tondra Mapus Other [facility] Other Start: 10-06-2022 Telephone encounter Tondra Mapus [facility] Start: 10-04-2022 Office outpatient vi sit 25 minutes Maddi Mcpherson [facility] [place] Start: 10-04-2022 End: 10-04-2022 ambulatory PLAN NURSE Luisa Mcghee Work Phone: [facility] Work Phone: Start: 10-04-2022 End: 10-04-2022 Patient encounter procedure PLAN NURSE Luisa Mcghee Work Phone: [facility] [place] Work Phone: Start: 10-03-2022 Registered Recurring PLAN NURSE Gabino Mcghee Work Phone: [facility] Work Phone: Start: 10-03-2022 (DM) Diabetes Tondra [facility] Start: 10-03-2022 End: 10-03-2022 ambulatory Maddi Mcpherson Other [facility] Other Start: 10-03-2022 Telephone encounter Maddi Naty her [facility] [place] Start: 09-10-2022 End: 09-10-2022 ambulatory Maddi Mcpherson Other [facility] Other Start: 09-10-2022 Telephone encounter Maddi Alfonso her [facility] [place] Start: 08-06-2022 End: 08-06-2022 ambulatory Maddi Mcpherson Other [facility] Other Start: 08-06-2022 Office outpatient vi sit 25 minutes Maddi Mcpherson [facility] [place] Start: 07-30-2022 End: 07-30-2022 ambulatory Maddi Mcpherson Other [facility] Other Start: 07-30-2022 Telephone encounter Maddi Alfonso her [facility] Start: 06-20-2022 End: 06-20-2022 ambulatory Gurdeep Dubois Other [facility] Other Start: 06-20-2022 Telephone encounter Gurdeep Dubois [facility] Start: 03-04-2022 End: 03-04-2022 ambulatory Gurdeep Dubois Other [facility] Other Start: 03-04-2022 Telephone encounter Gurdeep Blue [facility] Start: 01-02-2022 Encounter for preprocedural laboratory examination MADDI MCPHERSON [facility] Start: 12-31-2021 End: 12-31-2021 ambulatory Maddi Mcpherson Other [facility] Other Start: 12-31-2021 Telephone encounter Maddi Alfonso her [employer] [facility] Start: 12-27-2021 End: 12-28-[address] HANG GREER Facility:[facility] Start: 12-27-2021 End: 12-28-2021 Encounter for preprocedural laboratory examination DR HANG GREER Facility:[facility] Start: 12-19-2021 End: 12-19-2021 ambulatory Maddi Mcpehrson Other [facility] Other Start: 12-19-2021 Telephone encounter Maddi Alfonso her [facility] Start: 12-12-2021 End: 12-13-2021 ambulatory MADDI MCPHERSON Facility:[facility] Start: 12-05-2021 End: 12-05-2021 ambulatory Maddi Mcpherson Other [facility] Other Start: 12-05-2021 Office outpatient vi sit 15 minutes Maddi Mcpherson [facility] Start: 11-29-2021 End: 11-29-2021 ambulatory Maddi Mcpherson Other [facility] Other Start: 11-29-2021 Office outpatient vi sit 25 minutes Maddi Mcpherson [facility] Start: 11-21-2021 End: 11-21-2021 ambulatory Maddi Vida Other [facility] Other Start: 11-21-2021 Telephone encounter Maddi Naty her [facility] Start: 11-15-2021 End: 11-15-2021 ambulatory Tondra Mapus Other [facility] Other Start: 11-15-2021 Telephone encounter Tondra Mapus [facility] Start: 11-07-2021 (DM) Diabetes Tondra Mapus [facility] Start: 11-07-2021 End: 11-07-2021 ambulatory Tondra Mapus Other [facility] Other Start: 10-30-2021 End: 10-30-2021 ambulatory Maddi Vida Other [facility] Other Start: 10-30-2021 Telephone encounter Maddi Naty her [facility] Start: 09-11-2021 End: 09-11-2021 ambulatory Maddi Vida Other [facility] Other Start: 09-11-2021 Telephone encounter Maddi Naty her [facility] Start: 08-21-2021 End: 08-21-2021 ambulatory Maddi Vida Other [facility] Other Start: 08-21-2021 Office outpatient vi sit 15 minutes Maddi Mcpherson [facility] Start: 06-07-2021 Telephone encounter Maddi Alfonso her [facility] [place] Start: 02-05-2021 End: 02-06-2021 ambulatory PORTABLE PINCH RIVETER CAMERON THOMPSON Facility:[facility] Start: 01-30-2021 End: 01-31-2021 ambulatory MADDI Demetra MCPHERSON Facility:[facility] Procedures Date Procedure Procedure Detail Performing Clinician Start: 06-26-2023 X-ray of lumbar spin e, four views PROPOSAL REP Maddi Mcpherson Work Phone: Start: 11-04-2022 Removal impacted cer umen instrumentation unilat Maddi Mcpherson Other Plan of Treatment Date Care Activity Detail Author Insulin C-peptide measurement [facility] Patient Education Diabetes and diet [facility] Work Phone: Payers Date Payer Category Payer Self-pay [id number] 1965 Unknown [id number] 2.16.84 [id number] 1965 Unknown [id number] 2.16.84 [id number] 1965 Unknown [id number] 2.16.84 [id number] 1965 Unknown [id number] 2.16.84 [id number] 1965 Unknown [id number] 2.16.8 [id number] 1959 Unknown [id number] 1959 Unknown [id number] 1959 Unknown [id number] Unknown [id number] 2.16.8 [id number] Unknown [id number] 2.16.8 [id number] Unknown [id number] 2.16.8 [id number] Unknown [id number] 2.16.8 [id number] Social History Date Type Detail Facility Unknown if ever smoked [facility] Other Sex Assigned At Sex Assigned At Bir th [facility] Other Start: 01-23-2022 End: 01-23-2022 Tobacco smoking status [facility] Smoker (finding) [facility] Start: 1965 Sex Assigned At Female [facility] Start: 12-11-2023 Tobacco smoking status [facility] Ex-smoker (finding) [facility] Medical Equipment Procedure Code Equipment Code Equipment Origin al Text Equipment Identifier Dates Start: 03-29-2015 Clinical Notes 06-07-2021 to 09-29-2023 Note Date & Type Note Facility 09-29-2023 Evaluation note Encounter Date Diagnosis Assessment Notes Sep, Bronchitis (ICD-10 - J40) Discussed diagnosis with patient. Patient to start Zithromax. Patient to take Zithromax daily with food as prescribed. Finish entire course of antibiotic. Proair inhaler sent today for patient to use PRN cough/wheezing/s hortness of breath. Increase fluids and rest. [id number] antipyretics as needed. Warning signs and symptoms reviewed with patient today. Patient to go immediately to the ER should she experience any of these. Patient to notify office should her symptoms persist and not improve. Patient verbalizes understanding and agrees to treatment plan. Due to history of yeast infections will send in difulican to use as needed. Sep, Other The patient was seen per scheduled virtual care visit in their home and my location (provider) is in the family practice office setting. The staff involved in visit was myself, Maddi Mcpherson DNP, PROPOSAL REP, [employer] (provider) . Time spent with patient was approximately 6 minutes. [facility] Other 01-31-2024 Evaluation note* Encounter Date Diagnosis Assessment Notes Treatment Notes Treatment Clinical Notes Aug, Type 2 diabetes mellitus with hyperglycemia, without long-term current use of insulin (ICD-10 - E11.65) Aug, Chronic obstructive pulmonary disease, unspecified COPD type (ICD-10 - J44.9) [facility] Other 01-03-2024 Evaluation note* Encounter Date Diagnosis Assessment Notes Treatment Notes Treatment Clinical Notes Aug, Chronic obstructive pulmonary disease, unspecified COPD type (ICD-10 - J44.9) [facility] Other 01-02-2024 Evaluation note* Encounter Date Diagnosis Assessment Notes Treatment Notes Treatment Clinical Notes Aug, Essential hypertensi on (ICD-10 - I10) Aug, GERD (gastroesophage al reflux disease) (ICD-10 - K21.9) Aug, Hypercholesteremia (ICD-10 - E78.00) Aug, Restless legs (ICD-1 0 - G25.81) [facility] Other 12-27-2023 Evaluation note* Encounter Date Diagnosis Assessment Notes Treatment Notes Treatment Clinical Notes Jul, Essential hypertensi on (ICD-10 - I10) TO goal. Prior to your visit today we reviewed your chart and outlined the tetsing and treatment needed for your care. We discussed the possible complications of high blood pressure, including increased risk for heart disease, stroke, and kidney disease. Our goal is to keep your blood pressure below 130/85 (an preferably < 120/80) and maintain a healthy weight with a BMI less than 26. We are working together to acheive these goals with the following plan; healthier diet, increased activity and exercise, understanding your medicaitons, and your complaince. You have been given relevant education handouts. Jul, Hypercholesteremia (ICD-10 - E78.00) Stable. Discussed importance of maintaining an LDL level at specified goal. Discussed associated risk factors of hyperlipidemia including stroke and heart attack. Treatment with medications discussed and we have agrees upon appropirate action of treatment and goals. Discussed dietary modifications, including decreasing red meat consumption, decreased alcohol consumption, avoiding fried foods, and cake and cookies, and sweets. Encouraged increasing fiber in diet and eat a diet rich in omega-3. Encouraged to exericse at least 150 minutes weekly. Barriers to plan of care have been addressed. Follow-up as directed. Patient given a copy of the plan of care. Jul, Chronic obstructive pulmonary disease, unspecified COPD type (ICD-10 - J44.9) COPD symptoms remain unchanged at this time. No recent flare up, controlled on current medication. Patient should continue with the above and we will continue to monitor. Pay attention to any changes in shortness of breath such as patterns or other associated symptoms Prior to your visit today we reviewed your chart and outlined the testing and treatment needed for your care. We discussed the possible complications of COPD , including increased risk for acute exacerbation and respiratory failure. Our goal is to keep your COPD under control to avoid exacerbation and hospitalizations. maintain a healthy weight with a BMI less than 26. We are working together to achieve these goals with the following plan; healthier diet, increased activity and exercise, understanding your medications and your compliance, Jul, Restless legs (ICD-1 0 - G25.81) Stable on medication. Jul, Mild persistent asth ma without complication (ICD-10 - J45.30) Asthma symptoms remain unchanged at this time. Patient denies any recent flare ups. Take medication as directed and we will continue to monitor. Jul, Type 2 diabetes mellitus with hyperglycemia, without long-term current use of insulin (ICD-10 - E11.65) She is following with Gurdeep Dubois NP -- for diabetes management. Prior to your visit today we reviewed your chart and outlined the testing and treatment needed for your care. We discussed possible complications of diabetes including risk of heart disease, stroke, and kidney disease. Your goal is to keep uou HgA1C below 7 (preferably <6.5) and your blood pressure less than 130/85 (and preferably < 120/80) and mataining a healthy weight with a BMI less than 26. We are working together to acheive these goals with the following plan; healthier diet, understanding your medications, and your compliance. Barriers to these goals have been discussed. You have been given educational handouts. Trippy Bandz Other 10-23-2023 Evaluation note* Encounter Date Diagnosis Assessment Notes Treatment Notes Treatment Clinical Notes May, Sacroiliitis (ICD-10 - M46.1) Referred to pain management for further treatment of her pain. Has seen Dr. Cooper in the past for injections, Referral placed. May, Acute vaginitis (ICD-10 - N76.0) She is going to be starting Jardiance for her Diabetes the last time that she took a medication in this drug class it caused acute yeast infection and it became so severe that her urethra became swollen and could not urinate normal. Will send in Diflucan if this occurs when starting the medication. Directed on use. Trippy Bandz Other 10-16-2023 Evaluation note* Encounter Date Diagnosis Assessment Notes Treatment Notes Treatment Clinical Notes May, Type 2 diabetes mellitus with hyperglycemia, without long-term current use of insulin (ICD-10 - E11.65) Managing type 2 diabetes material was published 1. Uncontrolled, Type 2 diabetes with A1c of 7.7% 2. Blood glucose levels above target. Did not tolerate rybelsus had g/i s/e. C/o diarrhea while taking metformin ER. Hx g/i s/e with metformin hcl higher as well. Discussed with pt starting sglt2, pt agreeable. Reviewed common s/e and importance hydration, skin hygiene, If ill n/v/d medication would need stopped. Recommend switching to unsweetened beverages. Discussed with pt dexcom g7 rubber insulator/sensor, pt agreeable. Instructed pt to schedule apt with DE once get cgm for instruction on use/application. Pt verbalizes understanding. 3. Patient is alert, oriented and receptive to making changes or counseling. Notes: Seen for an assessment of current glucose pattern, changes in treatment plan, with this time spent in counseling and coordination of care related to diabetes, risks, and benefits of treatment, medications, and side effects. TOPICS REVIEWED: 1. Time was spent reviewing: a. Basic concepts of diabetes, progressive beta cell , concepts of basal/bolus/correct prerna insulin requirements. b. Nutrition: Concepts of healthy diet, encouraged to decrease saturated fat in diet and increase non-starchy vegetables and fruits in diet. BMI: Pt. needs to select one small change to decrease caloric intake or increase physical activity to help decrease weight. c. Correct treatment of hypoglycemia, carry a glucose source at all times on your person, in vehicles, and at bedside. Can use glucose tablets/4, four ounces of pop or juice equal to 15 G of carbohydrate. Blood glucose should be 100 mg/dl or higher when driving. d. ADA glucose goals for age and medical complexity reviewed e. Patient questions addressed 2. Activity/exercise: Encouraged to start any form of physical activity. Start low level and increase slowly to a minimal goal of 150 minutes/week. Limit activity to what is allowed by other issues such as cardiac, pulmonary or orthopedic restrictions. 3. Standards of care: Reminded to have an annual dilated eye exam, A1C every 3 months, urine testing for microalbumin once/year, check feet daily and report any cuts or sores that do not appear to be healing. 4. Meter: Plan to check blood glucose: Please check blood glucose levels 1 time/day. Back to back meals reveal effectiveness of bolus dosing. 5. [facility]. Contact office if any issues or concerns with patterns of hypoglycemia, hyperglycemia, or diabetes medication issues. 6. Prescriptions: Request for Tradsofiakrystle, dexcom g7 rubber insulator/sensors sent to [facility] 06/02/23 7. Prescriptions will not be filled unless you are compliant with follow up appointments or have a follow up appointment scheduled as ordered by your provider. Refills should be requested at the time of your visit. May, Hyperlipidemia, unspecified hyperlipidemia type (ICD-10 - E78.5) Managing your cholesterol material was published 05/2023 ldl 73, trig 260 on statin May, Hypertension, unspecified type (ICD-10 - I10) Managing high blood pressure material was published on arb; above target f/u with pcp for further recommendation May, Dietary counseling and surveillance (ICD-10 - Z71.3) Eat well, exercise well, be well: dietary and fitness guidelines material was published, see above May, Vitamin B 12 deficiency (ICD-10 - E53.8) Good food sources of vitamin B12 material was published 05/2023 Vit b 12 696 at target May, BMI 24.0-24.9, adult (ICD-10 - Z68.24) Healthy eating material was published [facility] Other 10-06-2023 Evaluation note* Encounter Date Diagnosis Assessment Notes Treatment Notes Treatment Clinical Notes May, Fall, subsequent encounter (ICD-10 - W19.XXXD) May, Right hip pain (ICD-10 - M25.551) [facility] Other 09-19-2023 Evaluation note* Encounter Date Diagnosis Assessment Notes Treatment Notes Treatment Clinical Notes Apr, Sinus congestion (ICD-10 - R09.81) Apr, Exposure to COVID-19 virus (ICD-10 - Z20.822) [facility] Other 09-18-2023 Evaluation note* Encounter Date Diagnosis Assessment Notes Treatment Notes Treatment Clinical Notes Apr, Exposure to COVID-19 virus (ICD-10 - Z20.822) Apr, Nasal congestion (ICD-10 - R09.81) Apr, Acute cough (ICD-10 - R05.1) [facility] Other 09-08-2023 Evaluation note* Encounter Date Diagnosis Assessment Notes Treatment Notes Treatment Clinical Notes Apr, Muscle spasm (ICD-10 - M62.838) [facility] Other 09-07-2023 Evaluation note* Encounter Date Diagnosis Assessment Notes Treatment Notes Treatment Clinical Notes Apr, Right calf pain (ICD-10 - M79.661) Discussed options with pt for further evalution and will send for an ultrasound to rule out DVT. Called [facility] and they could get her in this am. WIll call with results and further recommendations. Apr, Swelling of calf (ICD-10 - M79.89) [facility]ppy Bandz Other 09-07-2023 NoteHISTORY: Lower extremity pain TECHNIQUE: Duplex sonographic evaluation was performed of the right lower extremity. COMPARISON: None available FINDINGS: Duplex sonographic evaluation of the right lower extremity from the thigh to the knee with color Doppler imaging, compression, and augmentation if possible. No sonographic evidence of deep venous thrombosis. No soft tissue mass or fluid collection. IMPRESSION: No sonographic evidence of deep venous thrombosis of the right lower extremity. Final Signed (Electronic Signature): Pete Rodriguez DO 04/25/23 12:17 p Technologist: [facility]08-17-2023 Evaluation note* Encounter Date Diagnosis Assessment Notes Treatment Notes Treatment Clinical Notes Mar, Type 2 diabetes mellitus with hyperglycemia, without long-term current use of insulin (ICD-10 - E11.65) Trippy Bandz Other 08-11-2023 Evaluation note* Encounter Date Diagnosis Assessment Notes Treatment Notes Treatment Clinical Notes Mar, GERD (gastroesophageal reflux disease) (ICD-10 - K21.9) [facility]ppy [facility] Other 07-19-2023 Evaluation note* Encounter Date Diagnosis Assessment Notes Treatment Notes Treatment Clinical Notes Feb, Essential hypertension (ICD-10 - I10) Trippy Bandz Other 07-03-2023 Evaluation note* Encounter Date Diagnosis Assessment Notes Treatment Notes Treatment Clinical Notes Feb, Nausea (ICD-10 - R11.0) [facility]ppy [facility] Other 06-29-2023 Evaluation note* Encounter Date Diagnosis Assessment Notes Treatment Notes Treatment Clinical Notes Jan, Genital warts (ICD-10 - A63.0) [facility]ppy [facility]z Other 03-29-2023 Evaluation note* Encounter Date Diagnosis Assessment Notes Treatment Notes Treatment Clinical Notes Oct, Bronchitis (ICD-10 - J40) Oct, Acute vaginitis (ICD-10 - N76.0) [facility] Other 03-20-2023 Evaluation note* Encounter Date Diagnosis Assessment Notes Treatment Notes Treatment Clinical Notes Oct, Essential hypertension (ICD-10 - I10) Elevated in office today and notes that it is typically elevated at home as well. Discussed with pt and will add HCTZ to regimen. Patient blood pressure reading elevated while in the office today. Instructed patient to check blood pressures at home daily. Patient to notify office should SBP > 140 or DBP > 90 consistently. Patient verbalizes understanding and agrees to treatment plan. Prior to your visit today we reviewed your chart and outlined the tetsing and treatment needed for your care. We discussed the possible complications of high blood pressure, including increased risk for heart disease, stroke, and kidney disease. Our goal is to keep your blood pressure below 130/85 (an preferably < 120/80) and maintain a healthy weight with a BMI less than 26. We are working together to acheive these goals with the following plan; healthier diet, increased activity and exercise, understanding your medicaitons, and your complaince. You have been given relevant education handouts. Oct, Anxiety (ICD-10 - F41.9) Patient is not suicidal or homicidal at this time. Discussed treatment options with patient today. It was decided in collaboration with the patient did not want to start the Lexapro daily for management with depression/anxiety. Medication profile and possible SE reviewed with patient today. Patient to take medication as directed and prescribed. Do not skip/miss doses and do not stop abruptly. Patient is not interested in counseling at this time. Warning s/s reviewed with patient today. Patient to go immediately to the ER should patient experience any of these. Patient verbalizes understanding and agrees to treatment plan. Oct, Moderate episode of recurrent major depressive disorder (ICD-10 - F33.1) Patient is not suicidal or homicidal at this time. Discussed treatment options with patient today. It was decided in collaboration with the patient did not want to start the Lexapro daily for management with depression/anxiety. Medication profile and possible SE reviewed with patient today. Patient to take medication as directed and prescribed. Do not skip/miss doses and do not stop abruptly. Patient is not interested in counseling at this time. Warning s/s reviewed with patient today. Patient to go immediately to the ER should patient experience any of these. Patient verbalizes understanding and agrees to treatment plan. Oct, COPD exacerbation (ICD-10 - J44.1) Discussed diagnosis with patient. She does seem to be having an exacerbation of her COPD with fevers per her symptoms. Patient to start Zithromax. Patient to take daily with food as prescribed. Finish entire course of antibiotic. Continue Albuterol nebulizer PRN cough/wheezing/shor tness of breath. Notify office if not improving. Increase fluids and rest. [id number] antipyretics as needed. Warning signs and symptoms reviewed with patient today. Patient to go immediately to the ER should she experience any of these. Patient to notify office should her symptoms persist and not improve. Patient verbalizes understanding and agrees to treatment plan. Oct, Chronic obstructive pulmonary disease, unspecified COPD type (ICD-10 - J44.9) Oct, Right ear impacted cerumen (ICD-10 - H61.21) Ear lavage in office today. Discussed proper ear hygiene. Avoid putting anything inside the ear such as Q-tips, etc. Patient may use OTC wax softeners (Debrox) as directed as needed. Follow up with UC or PCP as needed. Immediate eval for ear drainage, pain, loss of hearing, ringing, dizziness, fever, redness, swelling, and pain behind the ear, headache, neck pain, or any other new or concerning symptoms. Patient verbalizes understanding and is agreeable to treatment plan. Trippy Bandz Other 02-17-2023 Evaluation note* Encounter Date Diagnosis Assessment Notes Treatment Notes Treatment Clinical Notes Sep, Essential hypertension (ICD-10 - I10) Elevated in office today and notes that it is typically elevated at home as well. Discussed with pt and will increase Losartan to her regimen. Patient blood pressure reading elevated while in the office today. Instructed patient to check blood pressures at home daily. Patient to notify office should SBP > 140 or DBP > 90 consistently. Patient verbalizes understanding and agrees to treatment plan. Prior to your visit today we reviewed your chart and outlined the tetsing and treatment needed for your care. We discussed the possible complications of high blood pressure, including increased risk for heart disease, stroke, and kidney disease. Our goal is to keep your blood pressure below 130/85 (an preferably < 120/80) and maintain a healthy weight with a BMI less than 26. We are working together to acheive these goals with the following plan; healthier diet, increased activity and exercise, understanding your medicaitons, and your complaince. You have been given relevant education handouts. Sep, Anxiety (ICD-10 - F41.9) Patient is not suicidal or homicidal at this time. Discussed treatment options with patient today. It was decided in collaboration with the patient to start Lexapro daily for management with depression/anxiety. Medication profile and possible SE reviewed with patient today. Patient to take medication as directed and prescribed. Do not skip/miss doses and do not stop abruptly. Patient is not interested in counseling at this time. Warning s/s reviewed with patient today. Patient to go immediately to the ER should patient experience any of these. Follow up in 4 weeks to assess symptoms and medication effectiveness. Patient verbalizes understanding and agrees to treatment plan. Sep, Moderate episode of recurrent major depressive disorder (ICD-10 - F33.1) Patient is not suicidal or homicidal at this time. Discussed treatment options with patient today. It was decided in collaboration with the patient to start Lexapro daily for management with depression/anxiety. Medication profile and possible SE reviewed with patient today. Patient to take medication as directed and prescribed. Do not skip/miss doses and do not stop abruptly. Patient is not interested in counseling at this time. Warning s/s reviewed with patient today. Patient to go immediately to the ER should patient experience any of these. Follow up in 4 weeks to assess symptoms and medication effectiveness. Patient verbalizes understanding and agrees to treatment plan. Sep, Forgetfulness (ICD-10 - R68.89) Notes that she has been feeling forgetfull at times. Mini mental status exam completed in the office and she socored . Discussed with pt that symptoms could be due to anxiety, depression and lack of sleep.will treat for this and reevalaute symptoms. Trippy Bandz Other 02-16-2023 Evaluation note* Encounter Date Diagnosis Assessment Notes Treatment Notes Treatment Clinical Notes Sep, Type 2 diabetes mellitus with hyperglycemia, without long-term current use of insulin (ICD-10 - E11.65) Managing type 2 diabetes material was published 1. Uncontrolled, Type 2 diabetes with A1c of 7.8% 2. Blood glucose levels above target. Did not tolerate rybelsus had g/i s/e. Discussed with pt starting ER metformin once daily, she had g/i s/e with metformin hcl higher dosing. She is agreeable. Discussed with pt thomas 3 cgm, she attempted to download stephan on her phone and stephan not available, same for dexcom g6 cgm- not available. Recommend she test glucose with fingerstick fasting am with target 90/130. Pt admits to drinking regular coke several times/day, also drinking carnation instant breakfast in am. Recommend switching to unsweetened beverages and consider premier protein with only 2 grams of carb as supplement for improved glycemia. Pt verbalizes understanding. 3. Patient is alert, oriented and receptive to making changes or counseling. Notes: Seen for an assessment of current glucose pattern, changes in treatment plan, with this time spent in counseling and coordination of care related to diabetes, risks, and benefits of treatment, medications, and side effects. TOPICS REVIEWED: 1. Time was spent reviewing: a. Basic concepts of diabetes, progressive beta cell , concepts of basal/bolus/corrective insulin requirements. b. Nutrition: Concepts of healthy diet, encouraged to decrease saturated fat in diet and increase non-starchy vegetables and fruits in diet. BMI: Pt. needs to select one small change to decrease caloric intake or increase physical activity to help decrease weight. c. Correct treatment of hypoglycemia, carry a glucose source at all times on your person, in vehicles, and at bedside. Can use glucose tablets/4, four ounces of pop or juice equal to 15 G of carbohydrate. Blood glucose should be 100 mg/dl or higher when driving. d. ADA glucose goals for age and medical complexity reviewed e. Patient questions addressed 2. Activity/exercise: Encouraged to start any form of physical activity. Start low level and increase slowly to a minimal goal of 150 minutes/week. Limit activity to what is allowed by other issues such as cardiac, pulmonary or orthopedic restrictions. 3. Standards of care: Reminded to have an annual dilated eye exam, A1C every 3 months, urine testing for microalbumin once/year, check feet daily and report any cuts or sores that do not appear to be healing. 4. Meter: Plan to check blood glucose: Please check blood glucose levels 1 time/day. Back to back meals reveal effectiveness of bolus dosing. 5. [facility]. Contact office if any issues or concerns with patterns of hypoglycemia, hyperglycemia, or diabetes medication issues. 6. Prescriptions: Tradjentametformin ER sent to [facility] in [place] 10/03/22 7. Patient scheduled with PCP for BP follow up 10/04/22 at 10:15am. 8. Prescriptions will not be filled unless you are compliant with follow up appointments or have a follow up appointment scheduled as ordered by your provider. Refills should be requested at the time of your visit. 9. Pt reports she has labs that need to be completed ordered by pcp: cbc, cmp, lipid, m/a cr ratio. I added b12. Sep, Hyperlipidemia, unspecified hyperlipidemia type (ICD-10 - E78.5) Managing your cholesterol material was published 03/2021 ldl 100 on statin Sep, Hypertension, unspecified type (ICD-10 - I10) Managing high blood pressure material was published on arb- above tart. Apt scheduled with Jaqueline Mcpherson NP tomorrow am 10:15 for elevated bp Sep, Dietary counseling and surveillance (ICD-10 - Z71.3) Eat well, exercise well, be well: dietary and fitness guidelines material was published, see above Sep, Vitamin B 12 deficiency (ICD-10 - E53.8) Good food sources of vitamin B12 material was published 03/2021 Vit b 12 771 at target Sep, BMI 25.0-25.9,adult (ICD-10 - Z68.25) Healthy eating material was published [facility]ppy Bandz Other 01-24-2023 Evaluation note* Encounter Date Diagnosis Assessment Notes Treatment Notes Treatment Clinical Notes Aug, Chronic obstructive pulmonary disease, unspecified COPD type (ICD-10 - J44.9) [facility] Other 12-20-2022 Evaluation note* Encounter Date Diagnosis Assessment Notes Treatment Notes Treatment Clinical Notes Jul, Essential hypertensi on (ICD-10 - I10) Elevated in office today and notes that it is typically elevated at home as well. Discussed with pt and will add Losartan to her regimen. Patient blood pressure reading elevated while in the office today. Instructed patient to check blood pressures at home daily. Patient to notify office should SBP > 140 or DBP > 90 consistently. Patient verbalizes understanding and agrees to treatment plan. Prior to your visit today we reviewed your chart and outlined the tetsing and treatment needed for your care. We discussed the possible complications of high blood pressure, including increased risk for heart disease, stroke, and kidney disease. Our goal is to keep your blood pressure below 130/85 (an preferably < 120/80) and maintain a healthy weight with a BMI less than 26. We are working together to acheive these goals with the following plan; healthier diet, increased activity and exercise, understanding your medicaitons, and your complaince. You have been given relevant education handouts. Jul, Type 2 diabetes mellitus without complication, without long-term current use of insulin (ICD-10 - E11.9) Following with Gurdeep Dubois for managment of her diabetes. Prior to your visit today we reviewed your chart and outlined the testing and treatment needed for your care. We discussed possible complications of diabetes including risk of heart disease, stroke, and kidney disease. Your goal is to keep uou HgA1C below 7 (preferably <6.5) and your blood pressure less than 130/85 (and preferably < 120/80) and mataining a healthy weight with a BMI less than 26. We are working together to acheive these goals with the following plan; healthier diet, understanding your medications, and your compliance. Barriers to these goals have been discussed. You have been given educational handouts. Jul, Anxiety associated w ith depression (ICD-10 - F41.8) Remains stable on current therapeutic dose. Patient is encouraged to stay active and remain involved. Try to keep themselves busy. Take medication as directed and we will continue to monitor. Jul, GERD (gastroesophage al reflux disease) (ICD-10 - K21.9) Reflux symptoms remain unchanged. Discussed the importance of meal content. They should avoid overeating and eating meals late in the evening. Take medication as directed and we will continue to monitor. Jul, Restless legs (ICD-1 0 - G25.81) Stable. Controlled on medication. Jul, Chronic obstructive pulmonary disease, unspecified COPD type (ICD-10 - J44.9) COPD symptoms remain unchanged at this time and are improving since increasing her advair. No recent flare up, controlled on current medication. Patient should continue with the above and we will continue to monitor. Pay attention to any changes in shortness of breath such as patterns or other associated symptoms Prior to your visit today we reviewed your chart and outlined the testing and treatment needed for your care. We discussed the possible complications of COPD , including increased risk for acute exacerbation and respiratory failure. Our goal is to keep your COPD under control to avoid exacerbation and hospitalizations. maintain a healthy weight with a BMI less than 26. We are working together to achieve these goals with the following plan; healthier diet, increased activity and exercise, understanding your medications and your compliance, Jul, Mild persistent asth ma without complication (ICD-10 - J45.30) Asthma symptoms remain unchanged at this time. Patient denies any recent flare ups. Take medication as directed and we will continue to monitor. Jul, Hypercholesteremia (ICD-10 - E78.00) Due for labs Discussed importance of maintaining an LDL level at specified goal. Discussed associated risk factors of hyperlipidemia including stroke and heart attack. Treatment with medications discussed and we have agrees upon appropirate action of treatment and goals. Discussed dietary modifications, including decreasing red meat consumption, decreased alcohol consumption, avoiding fried foods, and cake and cookies, and sweets. Encouraged increasing fiber in diet and eat a diet rich in omega-3. Encouraged to exericse at least 150 minutes weekly. Barriers to plan of care have been addressed. Follow-up as directed. Patient given a copy of the plan of care. Jul, Skin lesion (ICD-10 - L98.9) Discussed referral to dermatology for lesions. Referral placed. Trippy Bandz Other 12-13-2022 Evaluation note* Encounter Date Diagnosis Assessment Notes Treatment Notes Treatment Clinical Notes Jul, GERD (gastroesophageal reflux disease) (ICD-10 - K21.9) Jul, Restless legs (ICD-10 - G25.81) Jul, Chronic obstructive pulmonary disease, unspecified COPD type (ICD-10 - J44.9) [facility]ppy [facility] Other 05-16-2022 Evaluation note* Encounter Date Diagnosis Assessment Notes Treatment Notes Treatment Clinical Notes December, Mass of parotid gland (ICD-10 - K11.8) [facility]ppy Bandz Other 04-20-2022 Evaluation note* Encounter Date Diagnosis Assessment Notes Treatment Notes Treatment Clinical Notes Nov, Skin tags, multiple acquired (ICD-10 - L91.8) Discussed the risk of skin tag removal, including scarring, infection at the site, pt is agreeable. Prepped area with alcohol and use 15 blade scapel to remove the skin tag. Held pressure for any bleeding and then applied bandaid. Pt tolerated well. Follow-up for any signs of infection. [facility]ppy Band[facility] Other 04-14-2022 Evaluation note* Encounter Date Diagnosis Assessment Notes Treatment Notes Treatment Clinical Notes Nov, Diabetes mellitus ty pe II, controlled (ICD-10 - E11.9) She continues to follow with Gurdeep Dubois NP. Notes that she was restarted on Trajendta. Prior to your visit today we reviewed your chart and outlined the testing and treatment needed for your care. We discussed possible complications of diabetes including risk of heart disease, stroke, and kidney disease. Your goal is to keep uou HgA1C below 7 (preferably <6.5) and your blood pressure less than 130/85 (and preferably < 120/80) and mataining a healthy weight with a BMI less than 26. We are working together to acheive these goals with the following plan; healthier diet, understanding your medications, and your compliance. Barriers to these goals have been discussed. You have been given educational handouts. Nov, Essential hypertensi on (ICD-10 - I10) To goal. Prior to your visit today we reviewed your chart and outlined the tetsing and treatment needed for your care. We discussed the possible complications of high blood pressure, including increased risk for heart disease, stroke, and kidney disease. Our goal is to keep your blood pressure below 130/85 (an preferably < 120/80) and maintain a healthy weight with a BMI less than 26. We are working together to acheive these goals with the following plan; healthier diet, increased activity and exercise, understanding your medicaitons, and your complaince. You have been given relevant education handouts. Nov, Hypercholesteremia (ICD-10 - E78.00) Stable. Dicsussed importance of maintaining an LDL level at specified goal. Discussed associated risk factors of hyperlipidemia including stroke and heart attack. Treatment with medications discussed and we have agrees upon appropirate action of treatment and goals. Discussed dietary modifications, including decreasing red meat consumption, decreased alcohol consumption, avoiding fried foods, and cake and cookies, and sweets. Encouraged increasing fiber in diet and eat a diet rich in omega-3. Encouraged to exericse at least 150 minutes weekly. Barriers to plan of care have been addressed. Follow-up as directed. Patient given a copy of the plan of care. Nov, Anxiety associated w ith depression (ICD-10 - F41.8) Patient is not suicidal or homicidal at this time. Discussed treatment options with patient today. It was decided in collaboration with the patient monitor symptoms and declines medication to manage depression/anxiety. Patient is not interested in counseling at this time. Warning s/s reviewed with patient today. Patient to go immediately to the ER should patient experience any of these. Follow up as needed if symptoms becomes worse or decides to that she would like to go on medciation for treatment. Patient verbalizes understanding and agrees to treatment plan. Nov, GERD (gastroesophage al reflux disease) (ICD-10 - K21.9) Reflux symptoms remain unchanged. Discussed the importance of meal content. They should avoid overeating and eating meals late in the evening. Take medication as directed and we will continue to monitor. Nov, Chronic obstructive pulmonary disease, unspecified COPD type (ICD-10 - J44.9) Discussed due to worsening symptoms would recommend trial with a controller medication. Dicsussed options, have mutually agreed upon Adviar. Direceted on use. Rinse mouth after use. Follow-up in 4 weeks with report of the effectiveness of the medication. Prior to your visit today we reviewed your chart and outlined the testing and treatment needed for your care. We discussed the possible complications of COPD , including increased risk for acute exacerbation and respiratory failure. Our goal is to keep your COPD under control to avoid exacerbation and hospitalizations. maintain a healthy weight with a BMI less than 26. We are working together to achieve these goals with the following plan; healthier diet, increased activity and exercise, understanding your medications and your compliance, Nov, Restless legs (ICD-1 0 - G25.81) Contolled on the Requip. Denies any worsening of symptoms. Nov, Localized swelling, mass and lump, head (ICD-10 - R22.0) Discussed with patient swelling in the area behind/under the right ear. Discussed evaluation with ultrasound to the area. Order sent to [facility]. Will call with results and further recommendations. Nov, Localized swelling, mass and lump, neck (ICD-10 - R22.1) [facility]ppy [facility] Other 04-06-2022 Evaluation note* Encounter Date Diagnosis Assessment Notes Treatment Notes Treatment Clinical Notes Nov, GERD (gastroesophageal reflux disease) (ICD-10 - K21.9) Nov, Restless legs (ICD-10 - G25.81) Trippy Band[facility] Other 03-23-2022 Evaluation note* Encounter Date Diagnosis Assessment Notes Treatment Notes Treatment Clinical Notes Oct, Type 2 diabetes mellitus with hyperglycemia, without long-term current use of insulin (ICD-10 - E11.65) Managing type 2 diabetes material was published 1. Uncontrolled, Type 2 diabetes with A1c of 7.2% 2. Blood glucose levels above target. She is no longer taking tradgenta or metformin. Discussed with pt switching to oral glp1. No hx of pancreatitis/mtc/m en. Reviewed common s/e. She is agreeable to starting rybelsus sample 3 mg once daily. Reviewed must take upon awakening with 4 oz of water and must wait 30 minutes before eating. She is to switch to 7mg dosing if tolerating 3mg dose after 30 days. If cost barrier will need to switch back to tradgenta 5mg once daily. She verbalizes understanding. 3. Patient is alert, oriented and receptive to making changes or counseling. Notes: Seen for an assessment of current glucose pattern, changes in treatment plan, with this time spent in counseling and coordination of care related to diabetes, risks, and benefits of treatment, medications, and side effects. TOPICS REVIEWED: 1. Time was spent reviewing: a. Basic concepts of diabetes, progressive beta cell , concepts of basal/bolus/correc tive insulin requirements. b. Nutrition: Concepts of healthy diet, encouraged to decrease saturated fat in diet and increase non-starchy vegetables and fruits in diet. BMI: Pt. needs to select one small change to decrease caloric intake or increase physical activity to help decrease weight. c. Correct treatment of hypoglycemia, carry a glucose source at all times on your person, in vehicles, and at bedside. Can use glucose tablets/4, four ounces of pop or juice equal to 15 G of carbohydrate. Blood glucose should be 100 mg/dl or higher when driving. d. ADA glucose goals for age and medical complexity reviewed e. Patient questions addressed 2. Activity/exercise: Encouraged to start any form of physical activity. Start low level and increase slowly to a minimal goal of 150 minutes/week. Limit activity to what is allowed by other issues such as cardiac, pulmonary or orthopedic restrictions. 3. Standards of care: Reminded to have an annual dilated eye exam, A1C every 3 months, urine testing for microalbumin once/year, check feet daily and report any cuts or sores that do not appear to be healing. 4. Meter: Plan to check blood glucose: Please check blood glucose levels 1 time/day. Back to back meals reveal effectiveness of bolus dosing. 5. [facility]. Contact office if any issues or concerns with patterns of hypoglycemia, hyperglycemia, or diabetes medication issues. 6. Prescriptions: sample rybelsus 3mg x30 tablets given. Sent rybelsus 7mg tabs. Oct, Hyperlipidemia, unspecified hyperlipidemia type (ICD-10 - E78.5) Managing your cholesterol material was published 03/2021 ldl 100 on statin Oct, Hypertension, unspecified type (ICD-10 - I10) Managing high blood pressure material was published Oct, Dietary counseling and surveillance (ICD-10 - Z71.3) Eat well, exercise well, be well: dietary and fitness guidelines material was published, see above Oct, Vitamin B 12 deficiency (ICD-10 - E53.8) Good food sources of vitamin B12 material was published 03/2021 Vit b 12 771 at target Oct, BMI 24.0-24.9, adult (ICD-10 - Z68.24) Setting weight-loss goals material was published [facility] Other 03-15-2022 Evaluation note* Encounter Date Diagnosis Assessment Notes Treatment Notes Treatment Clinical Notes Oct, Restless legs (ICD-10 - G25.81) [facility]ppy Bandz Other 01-04-2022 Evaluation note* Encounter Date Diagnosis Assessment Notes Treatment Notes Treatment Clinical Notes Aug, Exposure to COVID-19 virus (ICD-10 - Z20.822) Advised patient that COVID rapid antigen test and Influenza A and B were negative in office today. Advised patient that does not mean that you will not develop COVID or do not currently have a low viral count of COVID. The rapid test works best if symptoms have been over 72 hours and the results can vary if you are asymptomatic There is a higher chance of false negative results to occur if testing is performed too soon. Viral supportive care as directed. Increase fluids/rest, Tylenol/Motrin as needed for aches/fever, OTC cough/cold medications as needed as directed, cool mist humidifier, throat lozenges. If symptoms persist or worsen follow up with PCP. Immediate eval for warning s/sx as discussed, including but not limited to SOB, severe wheezing, difficulty breathing, chest pain, palpitations, fever less ldex122, persistent fevers not reduced by antipyretic, severe headache, neck pain/stiffness, abdominal pain, persistent N/V, severe dehydration. Patient verbalizes understanding and is agreeable to treatment plan. Aug, Chronic obstructive pulmonary disease with (acute) exacerbation (ICD-10 - J44.1) Discussed diagnosis with patient. Will treat with ATB. No steroids needed today. Medication profile and possible SE reviewed with patient. Take as directed. Continue Albuterol nebulizers PRN sob, wheezing, cough. Notify office if not improving or worsening. ER for severe worsening. Patient verbalizes understanding and agrees to treatment plan. Aug, Unspecified asthma with (acute) exacerbation (ICD-10 - J45.901) [facility]ppy Bandz Other 10-21-2021 Evaluation note* Encounter Date Diagnosis Assessment Notes Treatment Notes Treatment Clinical Notes May, Acute vaginitis (ICD-10 - N76.0) [facility]ppy Bandz Other Evaluation [email or web address] [email or web address] Other Evaluation noteNo InformationNort [email or web address] Other Evaluation noteNo assessment information available [facility] Work Phone: Evaluation note* Diagnosis Onset Date Resolution Status BMI 24.0-24.9, adult acute Diabetes acute Dietary counseling and surveillance acute HTN (hypertension) acute Hyperlipidemia acute Vitamin B 12 deficiency acut e Diabetes acute [facility] Work Phone: History general Narrative - Reported* Type Description Date Medical History COPD Medical History restless leg syndrome Medical History Family history of he art disease in female family member before age 65 Medical History Family history of he art disease in male family member before age 55 Medical History Chest pain Medical History Lymphadenopathy of right cervica l region Medical History Macromastia Medical History type II diabetes Medical History Low vision right eye category 1, low vision left eye category 1 Medical History Primary insomnia Medical History Primary insomnia Surgical History hysterectomy Surgical History appendectomy Surgical History cholecystectomy 1999 Surgical History EGD 07-18-2014 Surgical History Breast reduction 01-24-2015 Surgical History Injection in lower back by Dr Percy locke 07-03-2016 Surgical History Kidney Biopsy 05/2018 Surgical History laser surgery on face 11/2020 Hospitalization History see above Hospitalization History kidney stones Hospitalization History 1 child [facility] Other History general [facility] - [facility] Other Summary Purpose Family History Relationship Condition Age at Onset Recorded Date/T hector father Diabetes mellitus Unknown Myocardial infarction Unknown Not Specified Rheumatic heart disease Unknown Relationship Condition Age at Onset Recorded Date/T hector father Diabetes mellitus Unknown Myocardial infarction Unknown Not Specified Rheumatic heart disease Unknown daughter Family history of mental disorder Unknown father Unknown Hypertension Unknown Diabetes mellitus Unknown Heart disease Unknown grandparent Diabetes mellitus Unknown Not Specified Family history of other condition Unknow n Unknown Advance Directives Advance Directive Response Recorded Date/ Time Advance Directives No September 5:43am Advance Directive Response Recorded Date/ Time Advance Directives No September 6:43am Reason for Referral Reason *Waiting for appt evaluate Diagnosis 1 Sacroiliitis (M46.1) Referral Organization [facility] Referring Provider First Name Maddi Referring Provider Last Name Rohrbacher Referring Provider Specialty Nurse Pract itioner Referred Organization [facility] [place] Referred Provider Emil Cooper Referred Address [address] [facility],[phone] Referred Provider Specialty Pain Medicin e Referral Priority Routine General Notes MaryTigist edwards 12:54:03 PM >received today, sent P2P Reason evaluate and treat Diagnosis 1 Genital warts (A63.0 ) Referral Organization [facility] [place] Referring Provider First Name Maddi Referring Provider Last Name Rohrbacher Referring Provider Specialty Nurse Pract itioner Referred Organization [facility] Referred Provider Gaby Araujo Referred Address ,[place], [place],[address] Referred Provider Specialty Dermatology Referral Priority Routine Reason 10/01/22 evaluate and treat Diagnosis 1 Skin lesion (L98.9) Referral Organization [facility] [place] Referring Provider First Name Maddi Referring Provider Last Name Rohrbacher Referring Provider Specialty Nurse Pract itioner Referred Organization [facility] Referred Provider Gaby Araujo Referred Address ,[place], [place],[address] Referred Provider Specialty Dermatology Referral Priority Routine Referral Appointment Date 2022-10-01 General Notes Tigist Gibson 02:36:30 PM >received today, insurance card attached, waiting for notes to be locked Tigist Gibson 08/07/2022 11:13:38 AM >notes locked and referral faxed Paige Tigist 08/14/2022 09:51:10 AM >faxed first attempt letter Paige Tigist 09/11/2022 12:40:05 PM >faxed first request for consult notes Paige Tigist 09/12/2022 12:55:36 PM >received fax that pt was scheduled for 10/01 at 110 but cancelled appt on 09/10 Paige Tigist 09/19/2022 04:09:13 PM >spoke with patient, and she rescheduled for 10/01 Tigist Gibson 10/02/2022 06:38:17 AM >faxed first request for consult ntoes Reason needs a biopsy of a parotid gland mass , CT was completed. 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) Referral Organization [facility] [place] Referring Provider First Name Maddi Referring Provider Last Name Vida Referring Provider Specialty Nurse Pract itionebishop Referred Organization [facility] Referred Provider Juan C Garner Referred Address ,[place], [place],[address] Referred Provider Specialty Otolaryngolo gy Referral Priority Urgent General Notes Deborah Lang 08:32:00 AM >Referral was received and they will call patient to schedule Chief Complaint and Reason for Visit Chief Complaint e11.9 Chief Complaint E11.65;E78.5;E53.8 e11.9 Chief Complaint 6 Month Follow Up 3 Month Dm Chief Complaint no meter dexcom download E11.9;E78.5;E53.8 Reason for Visit BMI 24.0-24.9, adult Diabetes Dietary counseling and surveillance HTN (hypertension) Hyperlipidemia Vitamin B 12 deficiency Diabetes Additional Source Comments INFORMATION SOURCE (unrecogn ized section and content) DATE CREATED AUTHOR [facility]2022 [facility] DATE CREATED AUTHOR AUTHOR'S ORGANIZ ATION 04/27/2023 [facility] DATE CREATED AUTHOR AUTHOR'S ORGANIZ ATION 12/27/2023 [facility] REASON FOR VISIT (unrecogniz ed section and content) TKM N/S DM 09/09/23ERRORTKM DM N/S 08/28/2023NebulizerGREGG SACROILIAC JOINT INJ/CJCONSULT NOTExray resultslab resultsDM F/U pt rescheduled apt, Type 2 NIDDM f/u with [facility] PROPOSAL REP, LEARNING OFFICER-C, BC-ADM, last visit 10/03/22. Pt cancelled apts on 01/15/23;04/03/23;05/19/23X-ray resultsTKM patient cancelledOrderCOVID blood testSickUS resultsCalf painTKM refillscript4 week follow upb12 resulthigher bp readingsDM rescheduled by patient, Type 2 NIDDM f/u with [facility] PROPOSAL REP, LEARNING OFFICER-C, BC-ADM, Last visit 11/07/21 No show to apt month follow upTKM Cancelled appt 06/20/2022TKM DM pt no showCT resultsInformationskin tag removalrefillTKM please call6 month Follow upDM 6 month f/u, Type 2 NIDDM f/u with [facility] PROPOSAL REP, LEARNING OFFICER-C, BC-ADMDOXIMITY [phone] DOES NOT BELIEVE IT IS COVID, CONGESTION COUGH SORE THROAT Care Teams (unrecognized sec tion and content) Team Status: Inactive Member Role Status Dates Maddi Mcpherson APRN PLAN NURSE-C Primary Care Provider, Attending Provider Active Team Status: Active Member Role Status Dates Luisa Mcghee NP Primary Care Provider Active Gurdeep Dubois APRN Attending Provider Active Team Status: Active Member Role Status Dates Maddi Mcpherson APRN PLAN NURSE-C Primary Care Provider Active Team Status: Inactive Member Role Status Dates Maddi Mcpherson APRN PLAN NURSE-C Primary Care Provider Active Gurdeep Dubois APRN Attending Provider Active Team Status: Inactive Member Role Status Dates Maddi Mcpherson APRN PLAN NURSE-C Primary Care Provider Active Emil Cooper MD Attending Provider Active Team Status: Inactive Member Role Status Dates Maddi Mcpherson APRN PLAN NURSE-C Attending Provider Act prerna Start: August 13, 2023 End: August 13, 2023 Team Status: Inactive Member Role Status Dates Gurdeep Dubois APRN Attending Provider Active Start: September 09, 2023 End: September 09, 2023 Team Status: Inactive Member Role Status Dates Maddi Mcpherson APRN PLAN NURSE-C Primary Care Provider Active Start: December 11, 2023 End: December 11, 2023 Gurdeep Dubois APRN Attending Provider Active Start: December 11, 2023 End: December 11, 2023 Team Status: Inactive Member Role Status Dates Maddi Mcpherson APRN PLAN NURSE-C Primary Care Provider Active Start: December 25, 2023 End: December 25, 2023 Vivi Álvarez RN Attending Provider Active Start: December 25, 2023 End: December 25, 2023 Team Status: Inactive Member Role Status Dates Maddi Mcpherson APRN PLAN NURSE-C Primary Care Provider Active Start: December 25, 2023 End: December 25, 2023 Gurdeep Dubois APRN Attending Provider Active Start: December 25, 2023 End: December 25, 2023 Goals (unrecognized section and content) Goals may be documented in a n alternate section FOR RECORDS PERTAINING TO PATIENTS WHO ARE OR HAVE BEEN ENROLLED IN A CHEMICAL DEPENDENCY/SUBSTANCEABUSE PROGRAM, SOME INFORMATION MAY BE OMITTED. This clinical summary was aggregated from multiple sources. Caution should be exercised in using it in the provision of clinical care. This summary normalizes information from multiple sources, and as a consequence, information in this document may materially change the coding, format and clinical context of patient data. In addition, data may be omitted in some cases. CLINICAL DECISIONS SHOULD BE BASED ON THE PRIMARY CLINICAL RECORDS. [facility] [employer] [facility]. provides no warranty or guarantee of the accuracy or completeness of information in this document.
== END 2024-01-13 13:39 | disposition home or self-care (01) ==
LOC: US 13:38
PROVIDERS: PCP Nurse Practitioner Family; Visit Provider Nurse Practitioner Family
DX: R11.2 Nausea with vomiting, unspecified (principal); R10.11 Right upper quadrant pain; R14.0 Abdominal distension (gaseous); M79.671 Pain in right foot; N20.0 Calculus of kidney
CPT/HCPCS: 73630; 76705

== ENCOUNTER 2024-03-03 13:31 | Outpatient (OUT) | payer MEDICAID, SELFPAY ==
--- NOTE | 2024-03-03 | XR_ITS ---
The [address] [address] Patient Name: HANNAH OSBORN MRN: [id number] date: 1965 Sex: F Assigned Patient Location: Current Patient Location: Accession/Order Number: [id number] Exam Date: 03/03/2024 13:35 Report Date: 03/04/2024 05:27 At the request of: SLICK CORTEZ Procedure: XR foot RT min 3V PROCEDURE: XR foot RT min 3V HISTORY: RIGHT FOOT PAIN [; lateral midfoot pain COMPARISON: XR foot right 01/05/2024 FINDINGS: BONES:No fracture, acute abnormality, or significant arthropathy. SOFT TISSUES:No visible soft tissue swelling. EFFUSION:None visible. OTHER: Negative. XR/XR foot RT min 3V IMPRESSION: 1. No abnormal or suspicious findings to account for patient's symptoms. Electronically authenticated by: HANG GREER Date: 03/04/2024 05:27
== END 2024-03-03 13:32 | disposition home or self-care (01) ==
LOC: EC 13:31
PROVIDERS: PCP Nurse Practitioner Family; Visit Provider Podiatrist Foot & Ankle Surgery
DX: M79.671 Pain in right foot (principal)
CPT/HCPCS: 73630

== ENCOUNTER 2024-04-02 21:04 | Emergency (ER) | payer MEDICAID, SELFPAY ==
[2024-04-02 21:07] VITALS: BP 176/86; PULSE 79; TEMP 36.8; O2SAT 97; BMI 24.8
--- OUTSIDE RECORDS SUMMARY | 2024-04-02 21:15 | XMS_ITS | CCD ---
Author Organization [facility] Informat ion Partnership [facility] Care Team Providers Care Senior Engineering Specialist Name Role Phone DR HANG GREER Consulting Unavailable ROHRBACHER, MADDI Yoo Admitting Unavailab le ROHRBACHER, MADDI Yoo Attending Unavailab le ROHRBACHER, MADDI Yoo Primary Care Unavailab le ROHRBACHER, MADDI Yoo Consulting Unavailab le ROHRBACHER, MADDI Yoo Admitting Unavailab le ROHRBACHER, MADDI Yoo Attending Unavailab le ROHRBACHER, MADDI Yoo Consulting Unavailab le ROHRBACHER, MADDI Yoo Primary Care Unavailab le SONY SOLIMAN Consulting Unavailable ROHRBACH, PRODUCTION ADMINISTRATIVE ASSISTANT CAMERON Attending Unavailabl e ROHRBACH, PRODUCTION ADMINISTRATIVE ASSISTANT CAMERON Consulting Unavailabl e ROHRBACH, PRODUCTION ADMINISTRATIVE ASSISTANT CAMERON Admitting Unavailabl e ROHRBACHER, MADDI Yoo Primary Care Unavailab le ROHRBACHER, MADDI Yoo Admitting Unavailab le VINCENZO, DR JOHN Angel Consulting Unavailable ROHRBACHER, MADDI Yoo Attending Unavailab le ROHRBACHER, MADDI Yoo Primary Care Unavailab le ROHRBACHER, MADDI Yoo Consulting Unavailab le Rohrbacher, Maddi Unavailable [phone] [place], Tondra Unavailable ZAID Mcghee Primary Care Provider [phone] MapVIRIDIANA farrell K Attending Provider VIRIDIANA Mcpherson Primary Care Provider VIRIDIANA Mcpherson Attending Provider [phone] Maddi Mcpherson Attending Unavailable RohrbacheMaddi alas Primary Care Unavailable Rohrbacher, Maddi Admitting Unavailable VIRIDIANA Mcpherson Primary Care Provider MapVIRIDIANA farrell Tondra K Attending Provider ZAID Mcghee Primary Care Provider VIRIDIANA Mcpherson Primary Care Provider MapusVIRIDIANA Tondra K Attending Provider ZAID Mcghee Primary Care Provider MD Emil Cooper Attending Provider Emil Cooper Unavailable Maddi Mcpherson Primary Care Unavailable Mapus, Tondra K Admitting Unavailable Mapus, Tondra K Attending Unavailable Maddi Mcpherson Primary Care Unavailable Emil Cooper Admitting Unavailable Emil Cooper Attending Unavailable Mapus, Tondra K Admitting Unavailable Mapus, Tondra K Attending Unavailable Luisa Mcghee Primary Care Unavailable Mapus, Tondra K Admitting Unavailable Mapus, Tondra K Attending Unavailable Maddi Mcpherson [facility] Care Unavailable VIRIDIANA Mcpherson Primary Care Provider MapusCATHIEN Tondra K Attending Provider Allergies Allergy Classification Reported Allergen(s) Allergy Type Date of Onset Reaction(s) Facility (7 sources) Morphine; Translations: [morphine] Drug Allergy 10-23-19 21 Back Pain, Back Pain, kidney pain [facility] Repository (20 sources) Acetaminophen / oxyCODONE Drug Allergy kidney pain [facility] [employer] [facility] Other (20 sources) atorvastatin; Translations: [atorvastatin] Drug Allergy 09-09-19 24 Unknown, Unknown Reaction [facility] Repository (20 sources) gabapentin; Translations: [gabapentin] Drug Allergy 09-09-19 24 numbness in hands and feet and cold feeling [facility] Repository (20 sources) Morphine Drug Allergy kidney pain [facility] Other (20 sources) prastatin Propensity to adverse reactions [employer] [facility] [facility] Other (20 sources) metFORMIN Drug Allergy 09-09-19 diarrhea [facility] (7 sources) metFORMIN Drug Allergy diarrhea [facility] Other (20 sources) dulaglutide Drug Allergy 09-09-19 heartburn/naus ea [facility] (20 sources) semaglutide Drug Allergy 09-09-19 g/i s/e [facility] (1 source) Acetaminophen / oxyCODONE; Translations: [acetaminophen-ox yCODONE] Drug Allergy [facility] Repository (2 sources) Morphine Drug Allergy kidney pain [facility] Other (16 sources) Pravastatin Drug Allergy 09-09-19 achey [facility] (3 sources) Acetaminophen; Translations: [acetaminophen] Drug Allergy 09-09-19 kidney pain [facility] (3 sources) oxyCODONE; Translations: [oxycodone] Drug Allergy 09-09-19 kidney [facility] (1 source) atorvastatin Drug Allergy 12-11-19 [facility] Repository (1 source) dulaglutide Drug Allergy 12-11-19 [facility] Repository (1 source) gabapentin Drug Allergy 12-11-19 [facility]ository (1 source) metFORMIN Drug Allergy 12-11-19 [facility] (1 source) Morphine Drug Allergy 12-11-19 [facility]ository (1 source) Pravastatin Drug Allergy 12-11-19 [facility] (1 source) semaglutide Drug allergy (disorder) 12-11-19 [facility] Repository Medications Current Medications Medication [...] Active Start: 01-30-2021 take 1 capsule by [facility] every twelve hours Cefdinir 300 MG 1 Capsule Orally bid for 10 day(s) Jan, Not-Taking Dexcom 7 (14 sources) Start: 06-02-2023 Dexcom 7 as di rected SQ change every 10 days for 90 days May, Active Dexcom 7 as dire cted SQ change every 10 days for 90 days Active Dexcom G7 [employer] - (14 sources) Start: 06-02-2023 Dexcom G7 [...] twice daily for 30 days Active FreeStyle [place] 3 Sensor - (20 sources) Start: 10-03-2022 Start: 10-03-2022 FreeStyle Libr e 3 Sensor - as directed SQ changed every 14 days for 28 days Sep, Active FreeStyle [place] 3 Sensor - as directed SQ changed [...] 30 days Jan, Active 60 actuat tiotropium 0.81363 mg/actuat inhalation spray (20 sources) Anticholinergic Start: 01-09-2022 take 1 puff(s) by inhalation once daily Tiotropium [place] (Spiriva Respimat) 1.25 mcg/actuation mist Active 1 PUFF INHALATION Daily January 09, 2022 12:00am Start: 06-14-2020 take 1.25 ug by inha lation once daily Start: 06-14-2020 Start: 11-13-2017 End: 01-09-2022 take 1.25 ug by inhalation once daily Tiotropium [place] Discontinued 1.25 MCG INHALATION Daily November 13, [...] by mouth every week Ergocalciferol 1.25 MG (29108 UT) 1 capsule Orally weekly Not-Taking 12 [...] 12-25-2023 ALT [Catalytic activity/Vol] 16 U/L 7-52 [facility] Albumin [Mass/volume] in Ser um or Plasma by Bromocresol green (BCG) dye binding methoOrdered By: Gurdeep Dubois on 12-25-2023 Albumin BCG dye [Mass/Vol] 4.4 g/dL 3.5-5.7 [facility] Alkaline phosphatase [Enzyma tic activity/volume] in Serum or PlasmaOrdered By: Gurdeep Dubois on 12-25-2023 ALP [Catalytic activity/Vol] 79 U/L 34-104 [facility] Aspartate aminotransferase [ Enzymatic activity/volume] in Serum or PlasmaOrdered By: Gurdeep Dubois on 12-25-2023 AST [Catalytic activity/Vol] 13 U/L 13-39 [facility] Bilirubin.total [Mass/volume ] in Serum or PlasmaOrdered By: Gurdeep Dubois on 12-25-2023 Bilirubin [Mass/Vol] 0.3 mg/dL 0.3-1.0 [facility] Calcium [Mass/volume] in Ser um or PlasmaOrdered By: Gurdeep Dubois on 12-25-2023 Calcium [Mass/Vol] 9.8 mg/dL 8.6-10.3 [facility] Carbon dioxide, total [Moles /volume] in Serum or PlasmaOrdered By: Gurdeep Dubois on 12-25-2023 CO2 [Moles/Vol] 27.6 mmol/L 21.0-31.0 [facility] Chloride [Moles/volume] in S loy or PlasmaOrdered By: Gurdeep Dubois on 12-25-2023 Chloride [Moles/Vol] 109 mmol/L 98-107 [facility] Cholesterol [Mass/volume] in Serum or PlasmaOrdered By: Gurdeep Dubois on 12-25-2023 Cholesterol [Mass/Vol] 154 mg/dL 140-200 [facility] Comment on above: Chol less than 200 m g/dl low riskChol 201-239 mg/dl borderline riskChol 240 mg/dl and greater high risk Cholesterol in LDL Calc [Mas s/Vol]Ordered By: Gurdeep Dubois on 12-25-2023 Cholesterol in LDL [Mass/Vol] 79 mg/dL 0-100 [facility] Comment on above: LDL ATP III CLASSIFI CATIONLDL less than 100 mg/dL OptimalLDL 100-129 mg/dL Near or above optimalLDL 130-159 mg/dL Borderline highLDL 160-189 mg/dL HighLDL greater than 189 mg/dL Very high Cholesterol in VLDL Calc [Ma ss/Vol]Ordered By: Gurdeep Dubois on 12-25-2023 Cholesterol in VLDL [Mass/Vol] 28 mg/dL [facility] Comprehensive Metabolic Pane cecile 12-25-2023 Albumin [Mass/Vol] 4.4 g/dL Normal 3.5-5.7 [facility] Comment on above: Performed By: #### L IPID, B12, CMP #### [facility] [address] [place] [address] [place] Albumin/Globulin [Mass ratio] 1.9 {ratio} Normal [facility] Comment on above: Performed By: #### L IPID, B12, CMP #### [facility] [address] [place] [address] [place] ALP [Catalytic activity/Vol] 79 U/L Normal 34-104 [facility] Comment on above: Performed By: #### L IPID, B12, CMP #### [facility] [address] [place] [address] [place] ALT [Catalytic activity/Vol] 16 U/L Normal 7-52 [facility] Comment on above: Performed By: #### L IPID, B12, CMP #### [facility] [address] [place] [id number] [place] Anion gap [Moles/Vol] 6.9 mmol/L Normal 6.0-15.0 [facility] Comment on above: Performed By: #### L IPID, B12, CMP #### [facility] [address] [place] [id number] [place] AST [Catalytic activity/Vol] 13 U/L Normal 13-39 [facility] Comment on above: Performed By: #### L IPID, B12, CMP #### [facility] [address] [place] [address] [place] Bilirubin [Mass/Vol] 0.3 mg/dL Normal 0.3-1.0 [facility] Comment on above: Performed By: #### L IPID, B12, CMP #### [facility] [address] [place] [address] [place] Calcium [Mass/Vol] 9.8 mg/dL Normal 8.6-10.3 [facility] Comment on above: Performed By: #### L IPID, B12, CMP #### [facility] [address] [place] [address] [place] Chloride [Moles/Vol] 109 mmol/L High 98-107 [facility] Comment on above: Performed By: #### L IPID, B12, CMP #### [facility] [address] [place] [id number] [place] CO2 [Moles/Vol] 27.6 mmol/L Normal 21.0-31.0 [facility] Comment on above: Performed By: #### L IPID, B12, CMP #### [facility] [address] [place] [phone] [place] Creatinine [Mass/Vol] 0.67 mg/dL Normal 0.60-1.20 [facility] Comment on above: Performed By: #### L IPID, B12, CMP #### [facility] [address] [place] [phone] [place] GFR/1.73 sq M.predicted MDRD (S/P/Bld) [Vol rate/Area] mL/min/{1.73_m2} Normal [facility] Comment on above: Performed By: #### L IPID, B12, CMP #### [facility] [address] [place] [address] [place] Globulin (S) [Mass/Vol] 2.3 g/dL Normal T [facility] Comment on above: Performed By: #### L IPID, B12, CMP #### [address] Glucose [Mass/Vol] 220 mg/dL High 70-100 [facility] Comment on above: Result Comment: [place] Glucose Reference Range is dependent on time and content of last meal. Glucose of more than 200 mg/dL in a nonstressed, ambulatory subject supports the diagnosis of Diabetes Mellitus. ADA recommended reference range Performed By: #### L IPID, B12, CMP #### [address] Potassium [Moles/Vol] 4.5 mmol/L Normal 3.5-5.1 [facility] Comment on above: Performed By: #### L IPID, B12, CMP #### [place] [address] [place] Protein [Mass/Vol] 6.7 g/dL Normal 6.4-8.9 [facility] Comment on above: Performed By: #### L IPID, B12, CMP #### [place] [address] [place] Sodium [Moles/Vol] 139 mmol/L Normal 136-145 [facility] Comment on above: Performed By: #### L IPID, B12, CMP #### [facility] [address] [place] [phone] [place] Urea nitrogen [Mass/Vol] 18 mg/dL Normal 7-25 [facility] Comment on above: Performed By: #### L IPID, B12, CMP #### [place] [id number] [place] Creatinine [Mass/volume] in Serum or PlasmaOrdered By: Gurdeep Dubois on 05-09-2024 Creatinine [Mass/Vol] 0.67 mg/dL 0.60-1.20 [facility] Creatinine [Mass/volume] in UrineOrdered By: Gurdeep Dubois on 12-25-2023 Creatinine (U) [Mass/Vol] 85.0 mg/dL [facility] Comment on above: No reference range e stablished Globulin Calc (S) [Mass/Vol] Ordered By: Gurdeep Dubois on 12-25-2023 Globulin (S) [Mass/Vol] 2.3 g/dL [facility] Glucose [Mass/volume] in Ser um or PlasmaOrdered By: Gurdeep Dubois on 12-25-2023 Glucose [Mass/Vol] 220 mg/dL 70-100 [facility] Comment on above: ADA recommended refe rence rangeRandom Glucose Reference Range is dependent on time and content of last meal. Glucose of more than 200 mg/dL in a nonstressed, ambulatory subject supports the diagnosis of Diabetes Mellitus. Lipid Panelon 12-25-2023 Cholesterol [Mass/Vol] 154 mg/dL Normal 140-200 [facility] Comment on above: Result Comment: Chol less than 200 mg/dl low risk Chol 201-239 mg/dl borderline risk Chol 240 mg/dl and greater high risk Performed By: #### L IPID, B12, CMP #### [facility] [address] [place] [id number] [place] Cholesterol in HDL [Mass/Vol] 47 mg/dL Normal 23-92 [facility] Comment on above: Result Comment: HDL CHOL ATP-III CLASSIFICATION Cardiovascular Risk HDL > or equal to 60 mg/dL LOW HDL < 40 mg/dL HIGH Performed By: #### L IPID, B12, CMP #### [facility] [address] [place] [address] [place] Cholesterol.total/Serene sterol in HDL [Mass ratio] 3.3 {ratio} Normal <5.0 [facility] Comment on above: Performed By: #### L IPID, B12, CMP #### [facility] [address] [place] [address] [place] LDL Cholesterol,Calculated 79 mg/dL Normal 0-100 [facility] Comment on above: Result Comment: LDL ATP III CLASSIFICATION LDL less than 100 mg/dL Optimal LDL 100-129 mg/dL Near or above optimal LDL 130-159 mg/dL Borderline high LDL 160-189 mg/dL High LDL greater than 189 mg/dL Very high Performed By: #### L MARY JO B12, CMP #### [address] Triglyceride w/Reflex 142 mg/dL Normal 0-149 [facility] Comment on above: Result Comment: TRIG ATP III CLASSIFICATION TRIG less than 150 mg/dL Normal TRIG 150-199 mg/dL Borderline high TRIG 200-500 mg/dL High TRIG greater than 500 mg/dL Very high Standard traceable to the Center for Disease Conrtrol and Prevention (CDC) test method. Performed By: #### L Aby CAMARGO, CMP #### [address] VLDL CHOLESTEROL 28 mg/dL Normal [facility] Comment on above: Performed By: #### L Aby CAMARGO, CMP #### [address] MicroAlb Creat Ratio,Uon Albumin DL <= 20 mg/L (U) [Mass/Vol] 1.0 mg/dL Normal 0.0-1.8 [facility] Comment on above: Performed By: #### U RMACRERAT #### [address] Creatinine, Urine (Random) 85.0 mg/dL Normal [facility] Comment on above: Result Comment: No r eference range established Performed By: #### U RMACRERAT #### [address] Microalbumin/Creatinine Ratio 11.0 mg/g Normal 0.0-30.0 [facility] Comment on above: Result Comment: 30-3 00 mg/g indicates an increased risk for diabetic nephropathy. Greater than 300 mg/g is consistent with clinical nephropathy. (Am. J. Kidney Disease 1995, 25:107) PERFORMED BY: [place] [address] PATHOLOGIST COAL CUTTER SVETLANA DUMONT M.D. Performed By: #### U RMACRERAT #### [address] Microalbumin [Mass/volume] i n UrineOrdered By: Gurdeep Dubois on 12-25-2023 Albumin DL <= 20 mg/L (U) [Mass/Vol] 1.0 mg/dL 0.0-1.8 [facility] No Panel InformationOrdered By: Gurdeep Dubois on 12-25-2023 Estimated GFR (CKD-EPI) > 60.0 mL/Min [facility] Creatinine Clearance (Chem N/A [facility] Potassium [Moles/volume] in Serum or PlasmaOrdered By: Gurdeep Dubois on 12-25-2023 Potassium [Moles/Vol] 4.5 mmol/L 3.5-5.1 [facility] Protein [Mass/volume] in Ser um or PlasmaOrdered By: Gurdeep Dubois on 12-25-2023 Protein [Mass/Vol] 6.7 g/dL 6.4-8.9 [facility] Serum or plasma albumin/glob ulin mass ratioOrdered By: Gurdeep Dubois on 12-25-2023 Albumin/Globulin [Mass ratio] 1.9 {ratio} [facility] Serum or plasma anion gap de terminationOrdered By: Gurdeep Dubois on 12-25-2023 Anion gap [Moles/Vol] 6.9 mmol/L 6.0-15.0 [facility] Serum or plasma high density lipoprotein (HDL) cholesterol measurementOrdered By: Gurdeep Dubois on 12-25-2023 Cholesterol in HDL [Mass/Vol] 47 mg/dL 23-92 [facility] Comment on above: HDL CHOL ATP-III CLA SSIFICATION Cardiovascular RiskHDL > or equal to 60 mg/dL LOWHDL < 40 mg/dL HIGH Serum or plasma total choles terol/high density lipoprotein (HDL) cholesterol mass ratOrdered By: Gurdeep Dubois on 12-25-2023 Cholesterol.total/Serene sterol in HDL [Mass ratio] 3.3 {ratio} <5.0 [facility] Sodium [Moles/volume] in Ser um or PlasmaOrdered By: Gurdeep Dubois on 12-25-2023 Sodium [Moles/Vol] 139 mmol/L 136-145 [facility] Triglyceride [Mass/volume] i n Serum or PlasmaOrdered By: Sheldondra Sherly on 12-25-2023 Triglyceride [Mass/Vol] 142 mg/dL 0-149 [facility] Comment on above: TRIG ATP III CLASSIF ICATIONTRIG less than 150 mg/dL NormalTRIG 150-199 mg/dL Borderline highTRIG 200-500 mg/dL High TRIG greater than 500 mg/dL Very highStandard traceable to the Center for Disease Conrtrol and Prevention (CDC) test method. Urea nitrogen [Mass/volume] in Serum or PlasmaOrdered By: Gurdeep Dubois on 12-25-2023 Urea nitrogen [Mass/Vol] 18 mg/dL 03-11 [facility] Urine microalbumin/creatinin e mass ratioOrdered By: Gurdeep Dubois on 12-25-2023 Albumin/Creatinine DL <= 20 mg/L (U) [Mass ratio] 11.0 mg/g 0.0-30.0 [facility] Comment on above: 30-300 mg/g indicate s an increased risk for diabetic nephropathy. Greater than 300 mg/g is consistent with clinical nephropathy. (Am. J. Kidney Disease 1995, 25:107) Vitamin B12on 12-25-2023 Cobalamin (Vitamin B12) [Mass/Vol] 617 pg/mL Normal 180-914 [facility] Comment on above: Result Comment: PERF ORMED BY: [place] [address] PATHOLOGIST COAL CUTTER SVETLANA DUMONT M.D. Performed By: #### L IPID, B12, CMP #### [address] Vitamin B12 ser/plasOrdered By: Gurdeep Dubois on 12-25-2023 Cobalamin (Vitamin B12) [Mass/Vol] 617 pg/mL 180-914 [facility] HbA1c HPLC (Bld) [Mass fract ion]on 12-11-2023 HbA1c (Bld) [Mass fraction] 8.8 % [facility] No Panel Informationon 12-10 Bedside Glucose 220 [facility] XR lumbar spine AP/LAT/FLX/E XTon 06-26-2023 XR lumbar spine AP/LAT/FLX/EXT [facility] [place] [address] [place] [address] XRay Report Signed Patient: Farhana Landers MR#: [id number] : 1965 Acct:[id number] Age/Sex: 57 / F ADM Date: 06/26/23 Loc: [facility] Room: Type: [facility] Attending Dr: Emil Cooper MD Copies to: Eiml Cooper MD Ordering Provider: Emil Cooper MD [...] Roman Sultana M.D.06/26/2023 2:54 PM Dictation Location: [place] [address] Transcribed By: [facility] 06/26/23 1454 Dictated By: Roman Sultana DO 06/26/23 1452 Signed By: 06/26/23 1454 Normal [facility] A1C HEMOGLOBINon 06-02-2023 HbA1c (Bld) [Mass fraction] 7.7 % [facility] Other Albumin [Mass/volume] in Ser um or Plasma by Bromocresol green (BCG) dye binding methoOrdered By: Gurdeep Dubois on 06-02-2023 Albumin BCG dye [Mass/Vol] 4.5 g/dL 3.5-5.7 [facility] Bilirubin.total [Mass/volume ] in Serum or PlasmaOrdered By: Gurdeep Dubois on 06-02-2023 Bilirubin [Mass/Vol] 0.5 mg/dL 0.3-1.0 [facility] C-Peptideon 06-02-2023 C-Peptide 3.8 ng/mL Normal 1.1-4.4 [facility] Comment on above: Order Comment: Reaso n for Exam Type 2 diabetes mellitus with hyperglycemia, without long-te Result Comment: C-Pe ptide reference interval is for fasting patients. Performed at: - [facility] [address] [id number] [employer]: Jacques Llanos PhD, Phone: [phone] PERFORMED BY: [place] [address] PATHOLOGIST COAL CUTTER SVETLANA DMUONT M.D. Performed By: #### U RMACRERAT, CMP, B12, LIPID #### [address] #### CPEP #### [facility] , Calcium [Mass/volume] in Ser um or PlasmaOrdered By: Gurdeep Dubois on 06-02-2023 Calcium [Mass/Vol] 10.1 mg/dL 8.6-10.3 [facility] Carbon dioxide, total [Moles /volume] in Serum or PlasmaOrdered By: Gurdeep Dubois on 06-02-2023 CO2 [Moles/Vol] 26.2 mmol/L 21.0-31.0 [facility] Cholesterol in LDL Calc [Mas s/Vol]Ordered By: Gurdeep Dubois on 06-02-2023 Cholesterol in LDL [Mass/Vol] 73 mg/dL 0-100 [facility] Comment on above: LDL ATP III CLASSIFI CATIONLDL less than 100 mg/dL OptimalLDL 100-129 mg/dL Near or above optimalLDL 130-159 mg/dL Borderline highLDL 160-189 mg/dL HighLDL greater than 189 mg/dL Very high Cholesterol in VLDL Calc [Ma ss/Vol]Ordered By: Gurdeep Dubois on 06-02-2023 Cholesterol in VLDL [Mass/Vol] 52 mg/dL [facility] Comprehensive Metabolic Pane cecile 06-02-2023 Albumin [Mass/Vol] 4.580621 g/dL Normal 3.5-5.7 g/dL [facility] Other Bilirubin [Mass/Vol] 0.8215664 mg/dL Normal 0.3- 1.0 mg/dL [facility] Other Calcium [Mass/Vol] 10.2326641 mg/dL Normal 8.6-1 0.3 mg/dL [facility] Other CO2 [Moles/Vol] 26.08267111 mmol/L Normal 21.0-3 1.0 mmol/L [facility] Other Creatinine [Mass/Vol] 0.25078390 mg/dL Normal 0. 60-1.20 mg/dL [facility] Other Potassium [Moles/Vol] 4.38343737 mmol/L Normal 3 .5-5.1 mmol/L [facility] Other Protein [Mass/Vol] 6.002237 g/dL Normal 6.4-8.9 g/dL N [facility] Other Comprehensive Metabolic Panel 2.4 g/dL [facility] Other Albumin [Mass/Vol] 4.5 g/dL Normal 3.5-5.7 [facility] Comment on above: Order Comment: PT FA STED 12 HOURS Reason for Exam Type 2 diabetes mellitus with hyperglycemia, without long-te Performed By: #### U RMACRERAT, CMP, B12, LIPID #### [facility] [address] [place] [address] #### CPEP #### [facility] , Anion gap [Moles/Vol] 13.1 mmol/L Normal 6.0-15.0 [facility] Comment on above: Order Comment: PT FA STED 12 HOURS Reason for Exam Type 2 diabetes mellitus with hyperglycemia, without long-te Performed By: #### U RMACRERAT, CMP, B12, LIPID #### [facility] [address] [place] [address] [place] #### CPEP #### [facility] , Bilirubin [Mass/Vol] 0.5 mg/dL Normal 0.3-1.0 [facility] Comment on above: Order Comment: PT FA STED 12 HOURS Reason for Exam Type 2 diabetes mellitus with hyperglycemia, without long-te Performed By: #### U RMACRERAT, CMP, B12, LIPID #### [facility] [address] [place] [address] #### CPEP #### [facility] , Calcium [Mass/Vol] 10.1 mg/dL Normal 8.6-10.3 [facility] Comment on above: Order Comment: PT FA STED 12 HOURS Reason for Exam Type 2 diabetes mellitus with hyperglycemia, without long-te Performed By: #### U RMACRERAT, CMP, B12, LIPID #### [facility] [address] [place] [address] #### CPEP #### [facility] , CO2 [Moles/Vol] 26.2 mmol/L Normal 21.0-31.0 [facility] Comment on above: Order Comment: PT FA STED 12 HOURS Reason for Exam Type 2 diabetes mellitus with hyperglycemia, without long-te Performed By: #### U RMACRERAT, CMP, B12, LIPID #### [facility] [address] [place] [address] [place] #### CPEP #### [facility] , Creatinine [Mass/Vol] 0.71 mg/dL Normal 0.60-1.20 [facility] Comment on above: Order Comment: PT FA STED 12 HOURS Reason for Exam Type 2 diabetes mellitus with hyperglycemia, without long-te Performed By: #### U RMACRERAT, CMP, B12, LIPID #### [facility] [address] [place] [address] [place] #### CPEP #### [facility] , GFR/1.73 sq M.predicted MDRD (S/P/Bld) [Vol rate/Area] mL/min/{1.73_m2} Normal [facility] Other Comment on above: Order Comment: PT FA STED 12 HOURS Reason for Exam Type 2 diabetes mellitus with hyperglycemia, without long-te Performed By: #### U RMACRERAT, CMP, B12, LIPID #### [facility] [address] [place] [address] #### CPEP #### [facility] , Globulin (S) [Mass/Vol] 2.4 g/dL Normal [facility] Comment on above: Order Comment: PT FA STED 12 HOURS Reason for Exam Type 2 diabetes mellitus with hyperglycemia, without long-te Performed By: #### U RMACRERAT, CMP, B12, LIPID #### [facility] [address] [place] [address] #### CPEP #### [facility] , Potassium [Moles/Vol] 4.3 mmol/L Normal 3.5-5.1 [facility] Comment on above: Order Comment: PT FA STED 12 HOURS Reason for Exam Type 2 diabetes mellitus with hyperglycemia, without long-te Performed By: #### U RMACRERAT, CMP, B12, LIPID #### [address] #### CPEP #### [facility] , Protein [Mass/Vol] 6.9 g/dL Normal 6.4-8.9 [facility] Comment on above: Order Comment: PT FA STED 12 HOURS Reason for Exam Type 2 diabetes mellitus with hyperglycemia, without long-te Performed By: #### U RMACRERAT, CMP, B12, LIPID #### [facility] [address] [place] [address] [place] #### CPEP #### [facility] , Comprehensive Metabolic Pane lOrdered By: Gurdeep Dubois on 10-16-2023 Albumin/Globulin [Mass ratio] 1.9 {ratio} Normal [facility] Comment on above: Order Comment: PT FA STED 12 HOURS Reason for Exam Type 2 diabetes mellitus with hyperglycemia, without long-te Performed By: #### U RMACRERAT, CMP, B12, LIPID #### [facility] [address] [place] [address] #### CPEP #### [facility] , ALP [Catalytic activity/Vol] 90 U/L Normal 34-104 [facility] Comment on above: Order Comment: PT FA STED 12 HOURS Reason for Exam Type 2 diabetes mellitus with hyperglycemia, without long-te Performed By: #### U RMACRERAT, CMP, B12, LIPID #### [facility] [address] [place] [address] #### CPEP #### [facility] , ALT [Catalytic activity/Vol] 16 U/L Normal 7-52 [facility] Comment on above: Order Comment: PT FA STED 12 HOURS Reason for Exam Type 2 diabetes mellitus with hyperglycemia, without long-te Performed By: #### U RMACRERAT, CMP, B12, LIPID #### [facility] [address] [place] [address] #### CPEP #### [facility] , AST [Catalytic activity/Vol] 12 U/L Low 13-39 [facility] Comment on above: Order Comment: PT FA STED 12 HOURS Reason for Exam Type 2 diabetes mellitus with hyperglycemia, without long-te Performed By: #### U RMACRERAT, CMP, B12, LIPID #### [facility] [address] [place] [address] #### CPEP #### [facility] , Chloride [Moles/Vol] 104 mmol/L Normal 98-107 [facility] Comment on above: Order Comment: PT FA STED 12 HOURS Reason for Exam Type 2 diabetes mellitus with hyperglycemia, without long-te Performed By: #### U RMACRERAT, CMP, B12, LIPID #### [facility] [address] [place] [address] [place] #### CPEP #### [facility] , Glucose [Mass/Vol] 195 mg/dL High 70-100 [facility] Comment on above: ADA recommended refe rence rangeRandom Glucose Reference Range is dependent on time and content of last meal. Glucose of more than 200 mg/dL in a nonstressed, ambulatory subject supports the diagnosis of Diabetes Mellitus. Order Comment: PT FA STED 12 HOURS Reason for Exam Type 2 diabetes mellitus with hyperglycemia, without long-te Result Comment: [place] om Glucose Reference Range is dependent on time and content of last meal. Glucose of more than 200 mg/dL in a nonstressed, ambulatory subject supports the diagnosis of Diabetes Mellitus. ADA recommended reference range Performed By: #### U RMACRERAT, CMP, B12, LIPID #### [facility] [address] [place] [address] #### CPEP #### [facility] , Sodium [Moles/Vol] 139 mmol/L Normal 136-145 [facility] Comment on above: Order Comment: PT FA STED 12 HOURS Reason for Exam Type 2 diabetes mellitus with hyperglycemia, without long-te Performed By: #### U RMACRERAT, CMP, B12, LIPID #### [facility] [address] [place] [address] #### CPEP #### [facility] , Urea nitrogen [Mass/Vol] 14 mg/dL Normal 7-25 [facility] Comment on above: Order Comment: PT FA STED 12 HOURS Reason for Exam Type 2 diabetes mellitus with hyperglycemia, without long-te Performed By: #### U RMACRERAT, CMP, B12, LIPID #### [facility] [address] [place] [address] [place] #### CPEP #### [facility] , Creatinine [Mass/volume] in Serum or PlasmaOrdered By: Gurdeep Dubois on 06-02-2023 Creatinine [Mass/Vol] 0.71 mg/dL 0.60-1.20 [facility] Creatinine [Mass/volume] in UrineOrdered By: Gurdeep Dubois on 06-02-2023 Creatinine (U) [Mass/Vol] 91.0 mg/dL 11.0-20.0 [facility] Globulin Calc (S) [Mass/Vol] Ordered By: Gurdeep Dubois on 06-02-2023 Globulin (S) [Mass/Vol] 2.4 g/dL [facility] Glucose - FINGER STICKon Glucose [Mass/Vol] 240 mg/dL [facility] Other HbA1c (Bld) [Mass fraction]o n 06-02-2023 A1C HEMOGLOBIN [facility] [facility] [employer] Other Lipid Panelon 06-02-2023 Cholesterol in LDL Elph Qn 73 mg/dL Normal 0-100 mg/dL [facility] Other Lipid Panel 260 mg/dL High 0-149 mg/dL [facility] [employer] Other Lipid Panel 52 mg/dL [facility] Other LDL Cholesterol,Calculated 73 mg/dL Normal 0-100 [facility] Comment on above: [...] #### U RMACRERAT, CMP, B12, LIPID #### [facility] [address] #### CPEP #### [facility] , Triglyceride w/Reflex 260 mg/dL High 0-149 [facility] Comment on above: Order Comment: [...] #### U RMACRERAT, CMP, B12, LIPID #### [facility] [address] [place] [address] [place] #### CPEP #### [facility] , VLDL CHOLESTEROL 52 mg/dL Normal [facility] Comment on above: Order Comment: PT FA STED 12 HOURS Reason for Exam Type 2 diabetes mellitus with hyperglycemia, without long-te Performed By: #### U RMACRERAT, CMP, B12, LIPID #### [facility] [address] [place] [address] [place] #### CPEP #### [facility] , Lipid PanelOrdered By: Anjali Dubois on 06-02-2023 Cholesterol [Mass/Vol] 178 mg/dL Normal 140-200 [facility] Comment on above: Chol less than [...] #### U RMACRERAT, CMP, B12, LIPID #### [facility] [address] [place] [address] [place] #### CPEP #### [facility] , Cholesterol in HDL [Mass/Vol] 53 mg/dL Normal 23-92 [facility] Comment on above: HDL CHOL [...] #### U RMACRERAT, CMP, B12, LIPID #### [facility] [address] [place] [address] [place] #### CPEP #### [facility] , Cholesterol.total/Serene sterol in HDL [Mass ratio] 3.4 {ratio} Normal <5.0 [facility] Comment on above: Order Comment: PT FA STED 12 HOURS Reason for Exam Type 2 diabetes mellitus with hyperglycemia, without long-te Performed By: #### U RMACRERAT, CMP, B12, LIPID #### [facility] [address] [place] [address] [place] #### CPEP #### [facility] , MicroAlb Creat Ratio,Uon Albumin DL <= 20 mg/L (U) [Mass/Vol] 1.5204568 mg/dL Normal 0.0-1.8 mg/dL [facility] Other Albumin/Creatinine DL <= 20 mg/L (U) [Mass ratio] 15.017735 mg/g Normal 0.0-30.0 mg/g [facility] Other Creatinine (U) [Mass/Vol] 91.2154078 mg/dL High 11.0-20.0 mg/dL [facility] Other Albumin DL <= 20 mg/L (U) [Mass/Vol] 1.4 mg/dL Normal 0.0-1.8 [facility] Comment on above: Order Comment: Reaso n for Exam Type 2 diabetes mellitus with hyperglycemia, without long-te Performed By: #### U RMACRERAT, CMP, B12, LIPID #### [facility] [address] [place] [address] [place] #### CPEP #### [facility] , Creatinine, Urine (Random) 91.0 mg/dL High 11.0-20.0 [facility] Comment on above: Order Comment: Reaso n for Exam Type 2 diabetes mellitus with hyperglycemia, without long-te Performed By: #### U RMACRERAT, CMP, B12, LIPID #### [facility] [address] [place] [address] [place] #### CPEP #### [facility] , Microalbumin/Creatinine Ratio 15.0 mg/g Normal 0.0-30.0 [facility] Comment on above: Order Comment: Reaso n for Exam Type 2 diabetes mellitus with hyperglycemia, without long-te Result Comment: 30-3 00 mg/g indicates an increased risk for diabetic nephropathy. Greater than 300 mg/g is consistent with clinical nephropathy. (Am. J. Kidney Disease 1995, 25:107) PERFORMED BY: [place] [address] PATHOLOGIST [employer] SVETLANA DUMONT M.D. Performed By: #### U RMACRERAT, CMP, B12, LIPID #### [place] [address] [place] #### CPEP #### [facility] , Microalbumin [Mass/volume] i n UrineOrdered By: Tondra Mapus on 06-02-2023 Albumin DL <= 20 mg/L (U) [Mass/Vol] 1.4 mg/dL 0.0-1.8 [facility] No Panel InformationOrdered By: Tondra Mapus on 06-02-2023 C-Peptide 3.8 ng/mL 1.1-4.4 [facility] Comment on above: C-Peptide reference interval is for fasting patients.Performed at: - [facility] [address] [id number] Director: Jacques Llanos PhD, Phone: [phone] Estimated GFR (CKD-EPI) > 60.0 mL/Min [facility] Creatinine Clearance (Chem N/A [facility] Potassium [Moles/volume] in Serum or PlasmaOrdered By: Tondra Mapus on 06-02-2023 Potassium [Moles/Vol] 4.3 mmol/L 3.5-5.1 [facility] Protein [Mass/volume] in Ser um or PlasmaOrdered By: Tondra Mapus on 06-02-2023 Protein [Mass/Vol] 6.9 g/dL 6.4-8.9 [facility] Serum or plasma anion gap de terminationOrdered By: Tondra Mapus on 06-02-2023 Anion gap [Moles/Vol] 13.1 mmol/L 6.0-15.0 [facility] Triglyceride [Mass/volume] i n Serum or PlasmaOrdered By: Gurdeep Dubois on 06-02-2023 Triglyceride [Mass/Vol] 260 mg/dL 0-149 [facility] Comment on above: TRIG ATP III CLASSIF ICATIONTRIG less than 150 mg/dL NormalTRIG 150-199 mg/dL Borderline highTRIG 200-500 mg/dL High TRIG greater than 500 mg/dL Very highStandard traceable to the Center for Disease Conrtrol and Prevention (CDC) test method. Urine microalbumin/creatinin e mass ratioOrdered By: Gurdeep Didier on 06-02-2023 Albumin/Creatinine DL <= 20 mg/L (U) [Mass ratio] 15.0 mg/g 0.0-30.0 [facility] Comment on above: 30-300 mg/g indicate s an increased risk for diabetic nephropathy. Greater than 300 mg/g is consistent with clinical nephropathy. (Am. J. Kidney Disease 1995, 25:107) Vitamin [id number] By: Sheldondr yoo Didier on 06-02-2023 Cobalamin (Vitamin B12) [Mass/Vol] 696 pg/mL Normal 180-914 [facility] Comment on above: Order Comment: PT FA STED 12 HOURS Reason for Exam Type 2 diabetes mellitus with hyperglycemia, without long-te Result Comment: PERF ORMED BY: [place] [address] PATHOLOGIST [employer] SVETLANA DUMONT M.D. Performed By: #### U RMACRERAT, CMP, B12, LIPID #### [facility] [address] [place] [address] [place] #### CPEP #### [facility] , Coding Summaryon 04-25-2023 Coding Summary HTMLBase 64 RujuiklkOLo8gCb+PGhlY WQ+LQ4RAVLxG66bgRMxoD 3pE5JESAdESapdZENYNMl LGqJdvcQdED1ijHByZDKe IC8+HU0aRSZeCkfiuFDpx 3T7rCH0D73hmc3fUVoqjV Y0GGCdOnUxuwarh1nbqNf 6IDcuNmluOyBt TPSlmW25EDN4oD92Ka73q PDmfCAll4itwUu1YqYaXH CvVTT4hNxfUVbiy2TpCLG nH53hjVRtd2V4 ELYssTlvjXMoGqRhnYR0p I7oBWrmiadgz3eshvdzHj c1ha61pLWvl3P3rWQ0I6T wxmZ9PEOwcTQe OcqjbKBKkW1qxdnih3xsx kdbUcDkBIXkSLn3WXq9WH KbeLzqUzEaLW19GDX2ZBG ihzKkQ5TmQULm kAgePlR9c5R7Yg0SC0FQY pqbR5QAENCHKAktqLN+PC 46gz67W6YtIygyUhk9KSA wPJP7zUY9kZ1j ODCdDNhhg9J2hEC4L9Unt sPjvf3yf7ivXYSbMLabO0 6mdFIpp6W1HMNotUM1KEL uzQimAoYezL32 Oyc+KMUjrNicw6QoZrkpa 8jjn2szgXd2TjirXEXrrr EbsOwkLNE7k1WsXp5oBPG fxUE0cMK3zA3i TwCrJyG7IBniX807IqXjq CFfAchjO07dJ5QboVI+PH LfSpx9GFWjpFdoZH2fO4A hZGRpbmctbGVm kJqbMD3fDWFonnxjDHBdu M7cNGDtG2l5YaIjIaR0WY qjK8SqCCVyypskTb18zT4 tDwCoBlF8PQpw B3BvpcG9YMGvwLHfNJjvI ZO1F89sb2S7QBCbFGSyPD E0vXQ7yF2jcPazdvhugBB mdDsgdmVydGlj RYhqMPeeY904BKZcrRvjC kNvZGluZyBEYXRlOiAgMD kvMDgvMjAyMzwvdGQ+PHR rSDM4hFtrCSBy nGKxQSfsNx9lhQipuFkoL Q2cVFQruflgDCRboH4mRU CmiMFewQfcJZ2zYFKzimg pq535NuYsJJU7 ORIpwVUnM0QvjT4nLnQjC TJvSQDjI4MuvAHcVJtuH9 59KSdfJkX1DKKrtjKfP8W sLWFsaWduOiB0 s5Y9Gq5Ri6KpngjnX1Avu PReCsZgJxzjCEu1O7NmIz wvdHI+VD48XVTwGD77POg 7ZBF6wCsvSMox UGNuA6YoeX5yFdNeDOCgR GRkOyc+PHRhYmxlIHdpZH RoPScxMDAlJyBzdHlsZT0 dZw8xCYQaVZPv eMeohHXrXbCvk6cnHJGcL YstWS1bzPqiM0LldLB6AW Jkw0c7Qb87N10yZ1UfaQK +NJOpoCR4sON7 pA5xCmJkYqT3VBcwC015K vXhnWPlIlpuo6meb6jsnQ y1KmB1QHRshwSdkCuvMAT 8w1CcZt44H19s IHdpZHRoPSIxNSUiIHZhb Uptji6veP1tWd5+PGNvbC C1fJU4vC8xOvZvKoN0NDy cG331HoXkzZRd Jbfni0xng0onhTn7AjNmY LPygzXhxKhoHQY2l8QwBk 05P2FovWral9DgReb7bq5 7pPArn6G3qBJ4 B8GxVURrxpiuxMDlgZlnF Q1sMHThrteyTVUfpM9uVT QjI5a7BsAgCqP3ZRafJ9O mqsH6RGKzlYNm ISHkrBGVnN1cmiozx6bdq wblNvZnLZWsDFp1UDk3IE EqyIlqNrOjDOZ0ExX9VUX 8aGTcqA5upAze dwgvrU9vFjw+AFA7pBDua UKHTJ6iIjgwtUI+PHRkIH G9xUjyIWxqVZIwyJ0vCOW yB1c0GeZfQaK3 TXgmI4LqmzO5CRBqmYVzY PLwwJDCaI5szaefh0ihtk jfHmMtZIYgYOo7IPg4PXE saWduOiBsZWZ0 NrP7HJG5kCWhlK1rzRnbm cszpV2hTcv+QmlydGggRG G3DYf1B7DyWyg4MYUoqBa uOW9ceYFwPYdt Kv7tzPsytOmcKS1kDDYow vezw079SrPat4hvXSHgpW MlLXtpSHW4Y25zn0F3VCV jQSLkFPC5cEP8 gO5usUzakirqzHVxrPoif mVrkAerOOtsRWqrX343OL HdkXbnMjRdMIn4O0FhErw 2SJFhfLfwBL0b eRUaLNgoJt1gcRlwfMvgL U1nWCSwipagx965ViIfj8 emYEHymFRrFRgeLTQ7J64 xo5Y6FQFzLASu RAN0mPY1uR2qiZhcebkuj GVmdDsgdmVydGljYWwtYW vxG517SDOleQtmUnCtyPh 8H5EpKbs4QETq yRrsNL1poMFmFNiwMc3xj KhfgGzlVE3hLHNdvmjyg6 50BiBje9ctJKZhyTUvAMg kXRH0C00iq4U8 GYBnPPWdKLE3xMD5yS3yb GlnbjogbGVmdDsgdmVydG lxXEquWQbnJ400BXVhoJi nPlBhdGllbnQg ULdqQIm1Q1ZnSdlfwDY+P J39PNFgEP98fGPviRSgy3 sylJl4MaZwKHCnOXT2pIx wWOeta4GeVEGo P95avEMsz4E6HSNqgUiti DSvOiDzxHH8jS4lWKitzk spc1jsykwgZtjwy0uxgk4 1uF36X51hTXyr ZHRoPSIzMCUiIHZhbGlnb b6qwT1hQp0+DEZwaFV0rV Z5zN9hEYJnZdF9VCbdY54 9InRvcCIvPjxj k2bwy4qwzVq8JuB1PRZns xZhdXudQNI3d9RqMe86Q2 9sIHdpZHRoPSIyMCUiIHZ orVqqxb8ieY1a Ii8+GXOwgWK4fNM5nJ3rS zBfLcE5RTkcB957YmJpgL JqJkrdM65gR7MxzLY+PHR vLbf3ABYujNoi VA6guQQsKNpoKx3kHRM2E nWfYzXdXFotR0ZqECRkqd uypgkmgCT3HJFdBXRuoU5 8Lf7mgJtdELWt nBKYsJ5ynugzc1lpibqgY rBzSWNmUEh8UCr2QETzgM jqFnBwCGN7UrB1DVF5nXL xwL2hjVikwxld cU9yL3YhKXJygmyvDp83b X8mBnErDeZ3SFhiVhi+Sk SVO4IEErunFM1NKTWMFNJ NQVJJRTwvdGQ+ OJNtSVH8pCubZHtrPBTbq E8dIOHuO4w3AiKcPlC9NL iaZ8ObREOmerejCn61jY8 pVjTaSkM4XMan A1JfvcJ9YRUifEOlOBchE MW1N12ky2N9XZIfXINjYW U5jUL6oX2snVnyohcmhYZ mdDsgdmVydGlj AMkpUZhpM253MKQypFexV kOhTrV3TbP6YyV2U8VgVe p0FQNenBngOQ1gjREqOOq kDr9tlJuiuBha DU4aDALonfodLHUouU1mE ZWqsVZvuMasFD4qMZMidm lse444PuBaVKW7ATNdaQU eO8KpoZ3hSzMp XINlYXJsU5TctMZyWJnaA 658PLryMkE9XCWxjvMoM1 LiWOFztAwfXmS4w6D0Sx1 1NyBZZWFyczwv dGQ+PVGxUOD2dEusSTelW ZSulF9hRLGhC1w4KvPnOj O7OQxyT4EnJPUekaoeBv9 7yG8uJtMoWoI0 QGhcI5DmmmJ3RGRisHDuY KdqHQB5A11cm1J2PYBwUO TgLZB0uNI0iB7zvFxpvsl gbGVmdDsgdmVy nCthMMkaBOgyL763XWLst DsnPkZFTUFMRTwvdGQ+PH EtHOR0cQzvLMoaQQZxhY0 fFBXyA2u8YsUn NgJ4ZRmpK8AgMFDrpilnF i75bO8aNwEaYaQ1RGbrV3 ErjvM0DYMibHMtSKflIAR 8Z32nq8P4BAAw CCUrZJT3iNY0sH6sdNzoy jogbGVmdDsgdmVydGljYW arGGejE488CBYpmLwlYb5 DBA24DW96K8Qa PjwvdGFibGU+PHRhYmxlI HdpZHRoPScxMDAlJyBzdH svMP8lOx5fIOWjIKOzeGp feFVhEuBwa1ej GVYcATecAE4wwPttS2Pye LM4VPIne5i3Kg12H05kD6 JvdXA+NJIhkXY3wTN2nE2 lTzLxRsE6WDnw Z591FpUfkODyBvoap7tmg 7kvjJe7CmGzAFPrvcWneB xuNWS8l1VgZx65F71sZQt pZHRoPSIyMCUi IYWnzYcpiv6roQ0kAo4+P IKutQM3yIF6cR0mHlBnWp C3LCleL260NaIznQUeQvl cQ28pF3JgfPF+ WAAuLcr6FAUpdKwzFW5bg HZwPKiyKa1qMJF8IxWyTv RsNPekH7JwXZKrmdlgmim wzQR0QCSzFNGt yJ58Yh4atHxxWe6lCKAkN CL9NNKirZYzQ8SvgL8dHj LvBPRbEBKeN9CzyJZfFTq lR829AMdeKoE0 RFHzwyGfY0BsVSAmoCxaC oG5p6O6Mc7DmBjkiKAgMX 6sRoVsDZt2L7VsWcq9ZCG hkGupXA1rkWMo ZIwqBz9tfWiaxAeiNK8bN TKncggfb229VjEii3fkWG YlvNQhTYbwIRV8R64bh6V 3HOJxFRBoUJM8 dNX0yA2qoGfqhggroHUlx DsgdmVydGljYWwtYWxpZ2 20VRYzhMhpZpVQKst1Q3L tBrn4CUIdxHxa EO4ekKPeOFbzJa4oeDvtu LeuED9bHFBohzxwz841Ks Ksv2ykWDRaxAMjBPthFAO 0W62cp9Z8SOPy VGZyCEW2lNJ8qF9rtOdxh jogbGVmdDsgdmVydGljYW tpQPqoN042THYbdFwaRt4 IGty9G6XzIcn1 ENNdzYeeZK6haUYiNGaiE f2keRibkOnxGH2sUHExrx ewb125WpOit2uaNBYskIN kHQogPES1J74h l8H5TMTuPKIdTQH8sIX0z R8tsGoxuggvuMJydFkckk YosKizDZdgWQptS543TCC vcDsnPlBheWVy OjwvdGQ+HM43wb25U9SkW sfuAjd2XRQkZVH5aDD6uQ 8dZACeYMzei0U0iVD9H2N dsgHjih6ms2pj YXB (more content not included)... [facility] Provider Orderson 04-24-2023 Provider Orders [id number] [facility] Albumin [Mass/volume] in Ser um or PlasmaOrdered By: Maddi Mcpherson on 10-04-2022 Albumin [Mass/Vol] 4.3 g/dL 3.2-5.5 [facility] Basophils Auto (Bld) [#/Vol] Ordered By: Maddi Mcpherson on 10-04-2022 Basophils (Bld) [#/Vol] 0.0 10*3/uL 0.0-0.2 [facility] Basophils/100 WBC Auto (Bld) Ordered By: Maddi Mcpherson on 10-04-2022 Basophils/100 WBC (Bld) 0.6 % . [facility] Cholesterol [Mass/volume] in Serum or PlasmaOrdered By: Maddi Mcpherson on 10-04-2022 Cholesterol [Mass/Vol] 183 mg/dL 140-200 [facility] Comment on above: Chol less than 200 m g/dl low riskChol 201-239 mg/dl borderline riskChol 240 mg/dl and greater high risk Cholesterol in LDL Calc [Mas s/Vol]Ordered By: Maddi Mcpherson on 10-04-2022 Cholesterol in LDL [Mass/Vol] 93 mg/dL 0-100 [facility] Comment on above: LDL ATP III CLASSIFI CATIONLDL less than 100 mg/dL OptimalLDL 100-129 mg/dL Near or above optimalLDL 130-159 mg/dL Borderline highLDL 160-189 mg/dL HighLDL greater than 189 mg/dL Very high Cholesterol in VLDL Calc [Ma ss/Vol]Ordered By: Maddi Mcpherson on 10-04-2022 Cholesterol in VLDL [Mass/Vol] 43 mg/dL [facility] Creatinine [Mass/volume] in UrineOrdered By: Maddi Mcpherson on 10-04-2022 Creatinine (U) [Mass/Vol] 107.3 mg/dL [facility] Comment on above: No reference range e stablished Creatinine and Glomerular fi ltration rate.predicted panel (S/P/Bld)Ordered By: Maddi Mcpherson on 10-04-2022 Creatinine [Mass/Vol] 0.71 mg/dL 0.44-1.03 [facility] Eosinophils Auto (Bld) [#/Vo l]Ordered By: Maddi Mcpherson on 10-04-2022 Eosinophils (Bld) [#/Vol] 0.1 10*3/uL 0.0-0.45 [facility] Eosinophils/100 WBC Auto (Bl d)Ordered By: Maddi Mcpherson on 10-04-2022 Eosinophils/100 WBC (Bld) 1.2 % . [facility] Erythrocyte distribution wid th Auto (RBC) [Ratio]Ordered By: Maddi Mcpherson on 10-04-2022 Erythrocyte distribution width (RBC) [Ratio] 13.4 % 11.9-15.3 [facility] Estimated glomerular filtrat ion rate (GFR) non- AmericanOrdered By: Maddi Mcpherson on 10-04-2022 GFR/1.73 sq M.predicted among non-blacks MDRD (S/P/Bld) [Vol rate/Area] > 60 mL/Min [facility] Globulin Calc (S) [Mass/Vol] Ordered By: Maddi Mcpherson on 10-04-2022 Globulin (S) [Mass/Vol] 2.7 g/dL [facility] Hematocrit Auto (Bld) [Volum e fraction]Ordered By: Maddi Mcpherson on 10-04-2022 Hematocrit (Bld) [Volume fraction] 41.9 % 34.0-46.4 [facility] Hemoglobin [Mass/volume] in BloodOrdered By: Maddi Mcpherson on 10-04-2022 Hemoglobin (Bld) [Mass/Vol] 13.7 g/dL 11.8-15.4 [facility] Leukocytes [#/volume] correc tiffany for nucleated erythrocytes in Blood by Automated counOrdered By: Maddi Mcpherson on 10-04-2022 WBC corrected for nucl RBC Auto (Bld) [#/Vol] 7.8 10*3/uL 3.8-11.6 [facility] Lymphocytes Auto (Bld) [#/Vo l]Ordered By: Maddi Mcpherson on 10-04-2022 Lymphocytes (Bld) [#/Vol] 2.6 10*3/uL 1.00-4.8 [facility] Lymphocytes/100 WBC Auto (Bl d)Ordered By: Maddi Mcphreson on 10-04-2022 Lymphocytes/100 WBC (Bld) 33.5 % . [facility] MCH Auto (RBC) [Entitic mass ]Ordered By: Maddi Mcpherson on 10-04-2022 MCH (RBC) [Entitic mass] 29.3 pg 24.7-34.3 [facility] MCHC Auto (RBC) [Mass/Vol]Or dered By: Maddi Mcpherson on 10-04-2022 MCHC (RBC) [Mass/Vol] 32.6 g/dL 32.0-35.0 [facility] MCV Auto (RBC) [Entitic vol] Ordered By: Maddi Mcpherson on 10-04-2022 MCV (RBC) [Entitic vol] 90.0 fL 80-100 [facility] Monocytes Auto (Bld) [#/Vol] Ordered By: Maddi Mcpherson on 10-04-2022 Monocytes (Bld) [#/Vol] 0.7 10*3/uL 0.0-0.8 [facility] Monocytes/100 WBC Auto (Bld) Ordered By: Maddi Mcpherson on 10-04-2022 Monocytes/100 WBC (Bld) 9.1 % . [facility] Neutrophils Auto (Bld) [#/Vo l]Ordered By: Maddi Mcpherson on 10-04-2022 Neutrophils (Bld) [#/Vol] 4.3 10*3/uL 1.8-7.7 [facility] Neutrophils/100 WBC Auto (Bl d)Ordered By: Maddi Mcpherson on 10-04-2022 Neutrophils/100 WBC (Bld) 55.6 % . [facility] No Panel InformationOrdered By: Maddi Mcpherson on 10-04-2022 Estimated GFR () > 60 mL/Min [facility] Comment on above: GFR estimated refere nce range: According to KDOQI guidelines, <60 ml/min/1.73m2 is sufficient to diagnose a patient with chronic kidney disease. Pharmacy Creatinine Clearance (Chem N/A [facility] Nucleated erythrocytes [Pres ence] in Blood by Automated countOrdered By: Maddi Mcpherson on 10-04-2022 Nucleated RBC Auto Ql (Bld) 0.1 /100{WBC} 0-0.5 [facility] Platelet mean volume Auto (B ld) [Entitic vol]Ordered By: Maddi Mcpherson on 10-04-2022 Platelet mean volume (Bld) [Entitic vol] 9.8 fL 6.3-10.7 [facility] Platelets Auto (Bld) [#/Vol] Ordered By: Maddi Mcpherson on 10-04-2022 Platelets (Bld) [#/Vol] 257 10*3/uL 150-450 [facility] Protein [Mass/volume] in Ser um or PlasmaOrdered By: Maddi Mcpherson on 10-04-2022 Protein [Mass/Vol] 7.0 g/dL 6.1-7.9 [facility] RBC Auto (Bld) [#/Vol]Ordere d By: Maddi Mcpherson on 10-04-2022 RBC (Bld) [#/Vol] 4.65 10*6/uL 3.60-5.00 [facility] Serum or plasma alanine dumont otransferase measurement without P-5'-P (enzymatic activiOrdered By: Maddi Mcpherson on 10-04-2022 ALT No additional P-5'-P [Catalytic activity/Vol] 23 U/L 10-60 [facility] Serum or plasma albumin/glob ulin mass ratioOrdered By: Maddi Mcpherson on 10-04-2022 Albumin/Globulin [Mass ratio] 1.6 {ratio} [facility] Serum or plasma alkaline vanessa sphatase measurement (enzymatic activity/volume)Ordered By: Maddi Mcpherson on 10-04-2022 ALP [Catalytic activity/Vol] 80 U/L 32-92 [facility] Serum or plasma anion gap de terminationOrdered By: Maddi Mcpherson on 10-04-2022 Anion gap [Moles/Vol] 10.3 mmol/L 6.0-15.0 [facility] Serum or plasma aspartate am inotransferase measurement (enzymatic activity/volume)Ordered By: Maddi Mcpherson on 10-04-2022 AST [Catalytic activity/Vol] 20 U/L 10-42 [facility] Serum or plasma calcium lisa urement (mass/volume)Ordered By: Maddi Mcpherson on 10-04-2022 Calcium [Mass/Vol] 9.3 mg/dL 8.2-10.2 [facility] Serum or plasma chloride isidra surement (moles/volume)Ordered By: Maddi Mcpherson on 10-04-2022 Chloride [Moles/Vol] 106 mmol/L 95-114 [facility] Serum or plasma glucose lisa urement (mass/volume)Ordered By: Maddi Mcpherson on 10-04-2022 Glucose [Mass/Vol] 182 mg/dL 70-100 [facility] Comment on above: ADA recommended refe rence rangeRandom Glucose Reference Range is dependent on time and content of last meal. Glucose of more than 200 mg/dL in a nonstressed, ambulatory subject supports the diagnosis of Diabetes Mellitus. Serum or plasma high density lipoprotein (HDL) cholesterol measurementOrdered By: Maddi Mcpherson on 10-04-2022 Cholesterol in HDL [Mass/Vol] 46 mg/dL 35-85 [facility] Comment on above: HDL CHOL ATP-III CLA SSIFICATION Cardiovascular RiskHDL > or equal to 60 mg/dL LOWHDL < 40 mg/dL HIGH Serum or plasma potassium me asurement (moles/volume)Ordered By: Maddi Mcpherson on 10-04-2022 Potassium [Moles/Vol] 3.9 mmol/L 3.5-5.1 [facility] Serum or plasma sodium measu rement (moles/volume)Ordered By: Maddi Mcpherson on 10-04-2022 Sodium [Moles/Vol] 138 mmol/L 136-146 [facility] Serum or plasma total biliru bin measurement (mass/volume)Ordered By: Maddi Mcpherson on 10-04-2022 Bilirubin [Mass/Vol] 0.4 mg/dL 0.3-1.2 [facility] Serum or plasma total carbon dioxide measurement (moles/volume)Ordered By: Maddi Mcpherson on 10-04-2022 CO2 [Moles/Vol] 25.6 mmol/L 22.0-30.0 [facility] Serum or plasma total choles terol/high density lipoprotein (HDL) cholesterol mass ratOrdered By: Maddi Mcpherson on 10-04-2022 Cholesterol.total/Serene sterol in HDL [Mass ratio] 4.0 {ratio} <5.0 [facility] Serum or plasma urea nitroge n measurement (mass/volume)Ordered By: Maddi Mcpherson on 10-04-2022 Urea nitrogen [Mass/Vol] 11 mg/dL 9-23 [facility] Triglyceride [Mass/volume] i n Serum or PlasmaOrdered By: Maddi Mcpherson on 10-04-2022 Triglyceride [Mass/Vol] 218 mg/dL 35-149 [facility] Comment on above: TRIG ATP III CLASSIF [...] 20 mg/L (U) [Mass/Vol] 1.5 mg/dL 0.0-1.8 [facility] Urine microalbumin/creatinin e mass ratioOrdered By: Maddi Mcpherson on 10-04-2022 Albumin/Creatinine DL <= 20 mg/L (U) [Mass ratio] 13.0 mg/g 0.0-30.0 [facility] Comment on above: 30-300 mg/g indicate s an increased risk for diabetic nephropathy. Greater than 300 mg/g is consistent with clinical nephropathy. (Am. J. Kidney Disease 1995, 25:107) Vitamin [id number] By: Anjali Dubois on 10-04-2022 Cobalamin (Vitamin B12) [Mass/Vol] 703 pg/mL Normal 180-914 pg/mL [facility] WBC Auto (Bld) [#/Vol]Ordere d By: Maddi Mcpherson on 10-04-2022 WBC (Bld) [#/Vol] 7.8 10*3/uL 3.8-11.6 [facility] A1C HEMOGLOBINon 10-03-2022 HbA1c (Bld) [Mass fraction] 7.8 % [facility] Other Glucose - FINGER STICKon Glucose [Mass/Vol] 139 mg/dL [facility] Other HbA1c (Bld) [Mass fraction]o n 10-03-2022 A1C HEMOGLOBIN [facility] Other CREATININEon 12-27-2021 Creatinine [Mass/Vol] 0.61 mg/dL Normal 0.55-1.02 [facility] Comment on above: Performed By: #### C INGRIS #### [facility] [address] [address] [address] Chanell Landon EGFR-AF SCOTTISH >60 Normal >=60 [facility] Comment on above: Performed By: #### C INGRIS #### [facility] [address] [address] [address] Chanell Landon EGFR-NON AF SCOTTISH >60 Normal >=60 [facility] Comment on above: Performed By: #### C INGRIS #### [facility] [address] NECK ST WO [...] by: HANG GREER Date: 2021-12-27 14:57 Normal [facility] US THYROIDon 12-12-2021 US THYROID EXAMINATION: [...] by: JOHN LOYA Date: 2021-12-12 14:52 Normal [facility] A1C HEMOGLOBINon 11-07-2021 HbA1c (Bld) [Mass fraction] 7.2 % [facility] Other Glucose - FINGER STICKon Glucose [Mass/Vol] 159 mg/dL [facility] Other HbA1c (Bld) [Mass fraction]o n 11-07-2021 A1C HEMOGLOBIN [facility] Other COVID + FLU Quick Testingon 08-21-2021 SARS-CoV-2 (COVID-19) RNA GLEN+probe Ql (Unsp spec) Negative [facility] Other COVID + FLU Quick Testing Negative Must See [place] [facility] Other Covid-19 PCR ([facility])on 01-17 SARS-CoV-2 (COVID-19) RNA GLEN+probe Ql (Unsp spec) Not detected Normal NOT DETECTED [facility] Comment on above: Result Comment: This test is not yet approved or cleared by the [place] FDA. When there are no FDA-approved or cleared tests available, and other criteria are met, FDA can make tests available under an emergency access mechanism called an Emergency Use Authorization (EUA). The EUA for this test is supported by the [place] of Health and Human Service's (HHS's) declaration [...] consistent with SARS-CoV-2. Performed By: #### [facility] #### [facility] [address] [place] [address] Paige [place]ves XR CHEST 2 Von 01-31-2021 [...] by: SONY SOLIMAN Date: 2021-01-31 05:00 Normal [facility] Vital Signs Date Time Vital Sign Value Performing Clinician Facility 12-25-2023 09:38-0400 Body height 146.05 cm VIRIDIANA Mcpherson Work Phone: [facility] 12-25-2023 09:38-0400 Body mass index (BMI) [Ratio] 24.5 kg/m2 DIRECTOR OF CATEGORY MANAGEMENTHaider Richardsonr Work Phone: [facility] 12-25-2023 09:38-0400 Body weight 52.38 kg DIRECTOR OF CATEGORY MANAGEMENTHaider Mcpherson Work Phone: [facility] 12-11-2023 14:05-0400 Body height 146.05 cm DIRECTOR OF CATEGORY MANAGEMENTHaider Mcpherson Work Phone: [facility] 12-11-2023 14:05-0400 Body mass index (BMI) [Ratio] 24.4 kg/m2 DIRECTOR OF CATEGORY MANAGEMENTHaider Mcpherson Work Phone: [facility] 12-11-2023 14:05-0400 Body weight 52.16 kg DIRECTOR OF CATEGORY MANAGEMENTHaider Mcpherson Work Phone: [facility] 12-11-2023 14:05-0400 Diastolic blood pressure 96 mm[Hg] DIRECTOR OF CATEGORY MANAGEMENTHaider Mcpherson Work Phone: [facility] 12-11-2023 14:05-0400 Heart rate 84 /min DIRECTOR OF CATEGORY MANAGEMENTHaider Mcpherson Work Phone: [facility] 12-11-2023 14:05-0400 Respiratory rate 18 /min DIRECTOR OF CATEGORY MANAGEMENTHaider Mcpherson Work Phone: [facility] 12-11-2023 14:05-0400 SaO2% (BldA) [Mass fraction] 96 % DIRECTOR OF CATEGORY MANAGEMENTHaider Mcpherson Work Phone: [facility] 12-11-2023 14:05-0400 Systolic blood pressure 146 mm[Hg] DIRECTOR OF CATEGORY MANAGEMENT Maddi Vida Work Phone: [facility] 08-13-2023 13:00-0500 Body height 146.05 cm Maddi Vida Other [facility] 08-13-2023 13:00-0500 Body mass index (BMI) [Ratio] 24.03 kg/m2 Maddi Mcpherson Other [facility] Other 08-13-2023 13:00-0500 Body weight 51.26 kg Maddi Vida Other [facility] Other 08-13-2023 13:00-0500 Body weight 51.25 kg [facility] 08-13-2023 13:00-0500 Diastolic blood pressure 84 mm[Hg] Maddi Mcpherson Other [facility] 08-13-2023 13:00-0500 SaO2% (BldA) [Mass fraction] 98 % Maddi Mcpherson Other [facility] Other 08-13-2023 13:00-0500 Systolic blood pressure 138 mm[Hg] Maddi Mcpherson Other [facility] 06-09-2023 13:00-0400 Body height 146.05 cm Maddi Mcpherson Other [facility] Other 06-09-2023 13:00-0400 Body mass index (BMI) [Ratio] 24.41 kg/m2 Maddi Mcpherson Other [facility] Other 06-09-2023 13:00-0400 Body weight 52.07 kg Maddi Mcpherson Other [facility] Other 06-09-2023 13:00-0400 Diastolic blood pressure 70 mm[Hg] Maddi Mcpherson Other [facility] Other 06-09-2023 13:00-0400 SaO2% (BldA) [Mass fraction] 97 % Maddi Mcpherson Other [facility] Other 06-09-2023 13:00-0400 Systolic blood pressure 122 mm[Hg] Maddi Vida Other [facility] Other 06-02-2023 09:15-0400 Body height 146.05 cm Tondra Mapus Other [facility] Other 06-02-2023 09:15-0400 Body mass index (BMI) [Ratio] 24.13 kg/m2 Tondra Mapus Other [facility] Other 06-02-2023 09:15-0400 Body weight 51.48 kg Tondra Mapus Other [facility] Other 06-02-2023 09:15-0400 Diastolic blood pressure 92 mm[Hg] Tondra Mapus Other [facility] Other 06-02-2023 09:15-0400 Respiratory rate 18 /min Tondra Mapus Other [facility] Other 06-02-2023 09:15-0400 SaO2% (BldA) [Mass fraction] 100 % Tondra Mapus Other [facility] Other 06-02-2023 09:15-0400 Systolic blood pressure 144 mm[Hg] Gurdeep Dubois Other [facility] Other 04-24-2023 10:45-0400 Body height 146.05 cm Maddi Mcpherson Other [facility] Other 04-24-2023 10:45-0400 Body mass index (BMI) [Ratio] 24.45 kg/m2 Maddi Mcpherson Other [facility] Other 04-24-2023 10:45-0400 Body weight 52.16 kg Maddi Mcpherson Other [facility] Other 04-24-2023 10:45-0400 Diastolic blood pressure 95 mm[Hg] Maddi Mcpherson Other [facility] Other 04-24-2023 10:45-0400 SaO2% (BldA) [Mass fraction] 96 % Maddi Mcpherson Other [facility] Other 04-24-2023 10:45-0400 Systolic blood pressure 167 mm[Hg] Maddi Mcpherson Other [facility] Other 11-04-2022 14:30-0400 Body height 146.05 cm Maddi Mcpherson Other [facility] Other 11-04-2022 14:30-0400 Body mass index (BMI) [Ratio] 24.45 kg/m2 Maddi Mcpherson Other [facility] Other 11-04-2022 14:30-0400 Body weight 52.16 kg Maddi Richardsonbishop Other [facility] Other 11-04-2022 14:30-0400 Diastolic blood pressure 94 mm[Hg] Maddi Richardsonr Other [facility] Other 11-04-2022 14:30-0400 SaO2% (BldA) [Mass fraction] 97 % Maddi Thompsonscottieshawnr Other [facility] Other 11-04-2022 14:30-0400 Systolic blood pressure 164 mm[Hg] Maddi Richardsonr Other [facility] Other 10-04-2022 10:15-0500 Body height 146.05 cm Maddi Thompsonaustin Other [facility] Other 10-04-2022 10:15-0500 Body mass index (BMI) [Ratio] 24.66 kg/m2 Maddi Mcpherson Other [facility] Other 10-04-2022 10:15-0500 Body weight 52.62 kg Maddi Deondreshawnr Other [facility] Other 10-04-2022 10:15-0500 Diastolic blood pressure 120 mm[Hg] Maddi Mendosaacher Other [facility] Other 10-04-2022 10:15-0500 Systolic blood pressure 186 mm[Hg] Maddi Mendosaacher Other [facility] Other 10-03-2022 15:45-0500 Body height 146.05 cm Gurdeep Dubois Other [facility] Other 10-03-2022 15:45-0500 Body mass index (BMI) [Ratio] 25.09 kg/m2 Tondra Mapus Other [facility] Other 10-03-2022 15:45-0500 Body weight 53.52 kg Tondra Mapus Other [facility] Other 10-03-2022 15:45-0500 Diastolic blood pressure 99 mm[Hg] Tondra Mapus Other [facility] Other 10-03-2022 15:45-0500 Respiratory rate 18 /min Tondra Mapus Other [facility] Other 10-03-2022 15:45-0500 SaO2% (BldA) [Mass fraction] 97 % Tondra Mapus Other [facility] Other 10-03-2022 15:45-0500 Systolic blood pressure 193 mm[Hg] Tondra Mapus Other [facility] Other 08-06-2022 14:00-0500 Body height 146.05 cm Maddi Mcpherson Other [facility] Other 08-06-2022 14:00-0500 Body mass index (BMI) [Ratio] 24.88 kg/m2 Maddi Mcpherson Other [facility] Other 08-06-2022 14:00-0500 Body weight 53.07 kg Maddi Mcpherson Other [facility] Other 08-06-2022 14:00-0500 Diastolic blood pressure Maddi Thompsonvioletr Other [facility] Other 08-06-2022 14:00-0500 SaO2% (BldA) [Mass fraction] 96 % Maddi Jayrbacher Other [facility] Other 08-06-2022 14:00-0500 Systolic blood pressure 152 mm[Hg] Maddi Deondreacher Other [facility] Other 12-05-2021 12:00-0400 Body height 146.05 cm Maddi Dylanr Other [facility] Other 12-05-2021 12:00-0400 Body mass index (BMI) [Ratio] 24.24 kg/m2 Maddi Deondreacher Other [facility] Other 12-05-2021 12:00-0400 Body weight 51.71 kg Maddi Deondreacher Other [facility] Other 12-05-2021 12:00-0400 Diastolic blood pressure 92 mm[Hg] Maddi Deondreacher Other [facility] Other 12-05-2021 12:00-0400 SaO2% (BldA) [Mass fraction] 97 % Maddi Deondreacher Other [facility] Other 12-05-2021 12:00-0400 Systolic blood pressure 150 mm[Hg] Maddi Deondreacher Other [facility] Other 11-29-2021 17:00-0400 Body height 146.05 cm Maddi Richardsonr Other [facility] Other 11-29-2021 17:00-0400 Body mass index (BMI) [Ratio] 24.45 kg/m2 Maddi Vida Other [facility] Other 11-29-2021 17:00-0400 Body weight 52.16 kg Maddi Vida Other [facility] Other 11-29-2021 17:00-0400 Diastolic blood pressure 88 mm[Hg] Maddi Vida Other [facility] Other 11-29-2021 17:00-0400 SaO2% (BldA) [Mass fraction] 98 % Maddi Vida Other [facility] Other 11-29-2021 17:00-0400 Systolic blood pressure 120 mm[Hg] Maddi Vida Other [facility] Other 11-07-2021 16:45-0400 Body height 146.05 cm Tondra Mapus Other [facility] Other 11-07-2021 16:45-0400 Body mass index (BMI) [Ratio] 24.45 kg/m2 Tondra Mapus Other [facility] Other 11-07-2021 16:45-0400 Body weight 52.16 kg Tondra Mapus Other [facility] Other 11-07-2021 16:45-0400 Diastolic blood pressure 98 mm[Hg] Tondra Mapus Other [facility] Other 11-07-2021 16:45-0400 Respiratory rate 16 /min Gurdeep Velásquezus Other [facility] Other 11-07-2021 16:45-0400 SaO2% (BldA) [Mass fraction] 97 % Sheldondrdemetra Velásquezus Other [facility] Other 11-07-2021 16:45-0400 Systolic blood pressure 154 mm[Hg] Sheldondrdemetra Velásquezus Other [facility] Other Encounters Encounter Date Encounter Type Care Provider Facility Start: 12-25-2023 End: 12-25-2023 ambulatory Gurdeep Dubois Facility:[facility] Start: 12-25-2023 End: 12-25-2023 ambulatory VIRIDIANA Mcpherson Work Phone: [facility] Work Phone: Start: 12-25-2023 End: 12-25-2023 Patient encounter procedure DIRECTOR OF CATEGORY MANAGEMENTHaider Mcpherson Work Phone: [facility] Work Phone: Start: 12-11-2023 End: 12-11-2023 Patient encounter procedure DIRECTOR OF CATEGORY MANAGEMENTHaider Mcpherson Work Phone: [facility] Work Phone: Start: 09-29-2023 End: 09-29-2023 ambulatory Maddi Mcpherson Other [facility] Other Start: 09-29-2023 Office outpatient vi sit 10 minutes Maddi Mcpherson [facility] Start: 09-17-2023 End: 09-17-2023 ambulatory Maddi Mcpherson Other [facility] Other Start: 09-17-2023 Telephone encounter Maddi Thompsonscottieeliud her [facility] Start: 09-09-2023 End: 09-09-2023 ambulatory Gurdeep Dubois Other [facility] Other Start: 09-09-2023 Telephone encounter Tondra Dubois [facility] Start: 09-09-2023 End: 09-09-2023 Patient encounter procedure [facility] Work Phone: Start: 08-28-2023 End: 08-28-2023 ambulatory Tondra Dubois Other [facility] Other Start: 08-28-2023 Telephone encounter Gurdeep Dubois [facility] Start: 08-20-2023 End: 08-20-2023 ambulatory Maddi Mcpherson Other [facility] Other Start: 08-20-2023 Telephone encounter Maddi Thompsonjohn her [facility] Start: 08-19-2023 End: 08-19-2023 ambulatory Maddi Vida Other [facility] Other Start: 08-19-2023 Telephone encounter Maddi Thompsonscottieeliud her [facility] Start: 08-13-2023 End: 08-13-2023 ambulatory Maddi Mcpherson Other [facility] Other Start: 08-13-2023 Office outpatient vi sit 25 minutes Maddi Mcpherson [facility] Start: 08-13-2023 End: 08-13-2023 Patient encounter procedure [facility] Work Phone: Start: 07-14-2023 (Procedure) Shantelle Cooper [facility] Start: 07-14-2023 End: 07-14-2023 ambulatory Emil Cooper Other [facility] Other Start: 06-30-2023 End: 06-30-2023 ambulatory Maddi Vida Other [facility] Other Start: 06-30-2023 Telephone encounter Maddi Thompsonjohn her [facility] Start: 06-26-2023 End: 06-26-2023 ambulatory Maddi Mcpherson Facility:[facility] Start: 06-26-2023 End: 06-26-2023 ambulatory DIRECTOR OF CATEGORY MANAGEMENT Maddikeyonna Mcpherson Work Phone: [facility] Work Phone: Start: 06-26-2023 End: 06-26-2023 Patient encounter procedure DIRECTOR OF CATEGORY MANAGEMENTHaider Mcpherson Work Phone: [facility] Start: 06-09-2023 End: 06-09-2023 ambulatory Maddi Mcpherson Other [facility] [facility] Other Start: 06-09-2023 Office outpatient vi sit 15 minutes Maddi Mcpherson [facility] Start: 06-02-2023 (DM) Diabetes Tondra Didierus [facility] Start: 06-02-2023 Telephone encounter Maddi Naty her [facility] Start: 06-02-2023 Registered Recurring DIRECTOR OF CATEGORY MANAGEMENT Rita Mcpherson Work Phone: [facility] Work Phone: Start: 06-02-2023 End: 06-03-2023 ambulatory DIRECTOR OF CATEGORY MANAGEMENTHaider Mcpherson Work Phone: [facility] Other Start: 06-02-2023 End: 06-02-2023 Patient encounter procedure DIRECTOR OF CATEGORY MANAGEMENTHaider Mcpherson Work Phone: [facility] [place] Work Phone: Start: 05-23-2023 End: 05-23-2023 ambulatory Maddi Vida Other [facility] Other Start: 05-23-2023 Telephone encounter Maddi Alfonso her [facility] Start: 05-19-2023 End: 05-19-2023 ambulatory Tondra Mapus Other [facility] Other Start: 05-19-2023 Telephone encounter Tondra Sherly [facility] Start: 05-06-2023 End: 05-06-2023 ambulatory Maddi Vida Other [facility] Other Start: 05-06-2023 Telephone encounter Maddi Thompsonjohn her [facility] Start: 05-05-2023 End: 05-05-2023 ambulatory Maddi Vida Other [facility] Other Start: 05-05-2023 Telephone encounter Maddi Alfonso her [facility] Start: 04-25-2023 End: 04-25-2023 ambulatory Maddi Vida Other [facility] Other Start: 04-25-2023 Telephone encounter Maddi Alfonso her [employer] Start: 04-24-2023 Office outpatient vi sit 15 minutes Maddi Mcpherson [facility] [place] Start: 04-24-2023 End: 04-25-2023 ambulatory Maddi Vida [facility] Other Start: 04-03-2023 End: 04-03-2023 ambulatory Tondra Mapus Other [facility] Other Start: 04-03-2023 Telephone encounter Tondra Didierus [facility] Start: 03-28-2023 End: 03-28-2023 ambulatory Maddi Richardsonr Other [facility] Other Start: 03-28-2023 Telephone encounter Maddi Alfonso her [facility] Start: 03-05-2023 End: 03-05-2023 ambulatory Maddi Mendosaacher Other [facility] Other Start: 03-05-2023 Telephone encounter Maddi Alfonso her [facility] Start: 02-17-2023 End: 02-17-2023 ambulatory Maddi Mendosaacher Other [facility] Other Start: 02-17-2023 Telephone encounter Maddi Alfonso her [facility] Start: 02-13-2023 End: 02-13-2023 ambulatory Maddi Richardsonr Other [facility] Other Start: 02-13-2023 Telephone encounter Maddi Alfonso her [facility] [place] Start: 11-13-2022 End: 11-13-2022 ambulatory Maddi Richardsonr Other [facility] Other Start: 11-13-2022 Telephone encounter Maddi Alfonso her [facility] Start: 11-04-2022 End: 11-04-2022 ambulatory Maddi Mendosaacher Other [facility] Other Start: 11-04-2022 Office outpatient vi sit 25 minutes Maddi Deondreachebishop [facility] [place] Start: 10-06-2022 End: 10-06-2022 ambulatory Tondra Mapus Other [facility] Other Start: 10-06-2022 Telephone encounter Tondra Mapus [facility] Start: 10-04-2022 Office outpatient vi sit 25 minutes Maddi Mcpherson [facility] Start: 10-04-2022 End: 10-04-2022 ambulatory ENTRY OPERATOR Luisa Mcghee Work Phone: [facility] Work Phone: Start: 10-04-2022 End: 10-04-2022 Patient encounter procedure ENTRY OPERATOR Luisa Mcghee Work Phone: [facility] [place] Work Phone: Start: 10-03-2022 Registered Recurring ENTRY OPERATOR Gabino Mcghee Work Phone: [facility] Work Phone: Start: 10-03-2022 (DM) Diabetes Tondra Sherly [facility] Start: 10-03-2022 End: 10-03-2022 ambulatory Maddi Mcpherson Other [facility] Other Start: 10-03-2022 Telephone encounter Maddi Naty her [facility] [place] Start: 09-10-2022 End: 09-10-2022 ambulatory Maddi Mcpherson Other [facility] Other Start: 09-10-2022 Telephone encounter Maddi Alfonso her [facility] [place] Start: 08-06-2022 End: 08-06-2022 ambulatory Maddi Mcpherson Other [facility] Other Start: 08-06-2022 Office outpatient vi sit 25 minutes Maddi Mcpherson [facility] Start: 07-30-2022 End: 07-30-2022 ambulatory Maddi Mcpherson Other [facility] Other Start: 07-30-2022 Telephone encounter Maddi Naty her [facility] Start: 06-20-2022 End: 06-20-2022 ambulatory Gurdeep Dubois Other [facility] Other Start: 06-20-2022 Telephone encounter Gurdeep Dubois [facility] Start: 03-04-2022 End: 03-04-2022 ambulatory Gurdeep Dubois Other [facility] Other Start: 03-04-2022 Telephone encounter Gurdeep Blue [facility] Start: 01-02-2022 Encounter for preprocedural laboratory examination MADDI MCPHERSON [facility] Start: 12-31-2021 End: 12-31-2021 ambulatory Maddi Mcpherson Other [facility] Other Start: 12-31-2021 Telephone encounter Maddi Alfonso her [employer] [place] Start: 12-27-2021 End: 12-28-[address] HANG GREER Facility:[facility] Start: 12-27-2021 End: 12-28-2021 Encounter for preprocedural laboratory examination DR HANG GREER Facility:[facility] Start: 12-19-2021 End: 12-19-2021 ambulatory Maddi Mcpherson Other [facility] Other Start: 12-19-2021 Telephone encounter Maddi Alfonso her [facility] Start: 12-12-2021 End: 12-13-2021 ambulatory MADDI MCPHERSON Facility:[facility] Start: 12-05-2021 End: 12-05-2021 ambulatory Maddi Mcpherson Other [facility] Other Start: 12-05-2021 Office outpatient vi sit 15 minutes Maddi Mcpherson [facility] Start: 11-29-2021 End: 11-29-2021 ambulatory Maddi Mcpherson Other [facility] Other Start: 11-29-2021 Office outpatient vi sit 25 minutes Maddi Mcpherson [facility] Start: 11-21-2021 End: 11-21-2021 ambulatory Maddi Vida Other [facility] Other Start: 11-21-2021 Telephone encounter Maddi Naty her [facility] Start: 11-15-2021 End: 11-15-2021 ambulatory Tondrdemetra Mapus Other [facility] Other Start: 11-15-2021 Telephone encounter Sheldondra Mapus [facility] Start: 11-07-2021 (DM) Diabetes Tondra Mapus [facility] Start: 11-07-2021 End: 11-07-2021 ambulatory Tondra Mapus Other [facility] Other Start: 10-30-2021 End: 10-30-2021 ambulatory Maddi Vida Other [facility] Other Start: 10-30-2021 Telephone encounter Maddi Naty her [facility] Start: 09-11-2021 End: 09-11-2021 ambulatory Maddi Vida Other [facility] Other Start: 09-11-2021 Telephone encounter Maddi Naty her [facility] Start: 08-21-2021 End: 08-21-2021 ambulatory Maddi Vida Other [facility] Other Start: 08-21-2021 Office outpatient vi sit 15 minutes Maddi Mcpherson [facility] Start: 06-07-2021 Telephone encounter Maddi Alfonso her [facility] Start: 02-05-2021 End: 02-06-2021 ambulatory PRODUCTION ADMINISTRATIVE ASSISTANT CAMERON DEONDREJEREMY Facility:[facility] Start: 01-30-2021 End: 01-31-2021 ambulatory MADDI Demetra MCPHERSON Facility:[facility] Procedures Date Procedure Procedure Detail Performing Clinician Start: 06-26-2023 X-ray of lumbar spin e, four views DIRECTOR OF CATEGORY MANAGEMENT Maddi Mcpherson Work Phone: Start: 11-04-2022 Removal impacted cer umen instrumentation unilat Maddi Mcpherson Other Plan of Treatment Date Care Activity Detail Author Insulin C-peptide measurement [facility] Patient Education Diabetes and diet [facility] Work Phone: Payers Date Payer Category Payer Self-pay [id number] 1965 Unknown [id number] Unknown [id number] 2.16.84 [id number] 1965 Unknown [id number] 2.16.84 [id number] 1965 Unknown [id number] 2.16.84 [id number] 1965 Unknown [id number] 2.16.8 [id number] 1959 Unknown [id number] 1959 Unknown [id number] 1959 Unknown [id number] Unknown [id number] 2.16.8 [id number] Unknown [id number] 2.16.8 [id number] Unknown [id number] 2.16.8 [id number] Unknown [id number] 2.16.8 [id number] Social History Date Type Detail Facility Unknown if ever smoked [facility] Other Sex Assigned At Sex Assigned At Bir th [facility] Other Start: 01-23-2022 End: 01-23-2022 Tobacco smoking status [facility] Smoker (finding) [facility] Start: 1965 Sex Assigned At Female F [facility] Start: 12-11-2023 Tobacco smoking status [facility] Ex-smoker (finding) [facility] Medical Equipment Procedure Code Equipment [...] hortness of breath. Increase fluids and rest. Dkpb-[id number] antipyretics as needed. Warning signs and symptoms [...] in visit was myself, Maddi Mcpherson DNP, DIRECTOR OF CATEGORY MANAGEMENT, PRODUCTION ADMINISTRATIVE ASSISTANT (provider) . Time spent with patient was approximately 6 minutes. [facility] Other 01-31-2024 Evaluation note* Encounter Date Diagnosis Assessment Notes Treatment Notes Treatment Clinical Notes Aug, Type 2 diabetes mellitus with hyperglycemia, without long-term current use of insulin (ICD-10 - E11.65) Aug, Chronic obstructive pulmonary disease, unspecified COPD type (ICD-10 - J44.9) [facility] Other 01-03-2024 Evaluation note* Encounter Date Diagnosis Assessment Notes Treatment Notes Treatment Clinical Notes Aug, Chronic obstructive pulmonary disease, unspecified COPD type (ICD-10 - J44.9) [facility] Other 01-02-2024 Evaluation note* Encounter Date Diagnosis Assessment Notes Treatment Notes Treatment Clinical Notes Aug, Essential hypertensi on (ICD-10 - I10) Aug, GERD (gastroesophage al reflux disease) (ICD-10 - K21.9) Aug, Hypercholesteremia (ICD-10 - E78.00) Aug, Restless legs (ICD-1 0 - G25.81) [facility] Other 12-27-2023 Evaluation note* Encounter Date Diagnosis [...] discussed. You have been given educational handouts. [facility] Other 10-23-2023 Evaluation note* Encounter Date Diagnosis [...] when starting the medication. Directed on use. [facility] Other 10-16-2023 Evaluation note* Encounter Date Diagnosis [...] unsweetened beverages. Discussed with pt dexcom g7 production support engineer/sensor, pt agreeable. Instructed pt to schedule apt [...] diabetes medication issues. 6. Prescriptions: Request for krystle Floyd, dexcom g7 production support engineer/sensors sent to [facility] 06/02/23 7. Prescriptions [...] - Z68.24) Healthy eating material was published [facility] Other 10-06-2023 Evaluation note* Encounter Date Diagnosis Assessment Notes Treatment Notes Treatment Clinical Notes May, Fall, subsequent encounter (ICD-10 - W19.XXXD) May, Right hip pain (ICD-10 - M25.551) [facility] Other 09-19-2023 Evaluation note* Encounter Date Diagnosis Assessment Notes Treatment Notes Treatment Clinical Notes Apr, Sinus congestion (ICD-10 - R09.81) Apr, Exposure to COVID-19 virus (ICD-10 - Z20.822) [facility] Other 09-18-2023 Evaluation note* Encounter Date Diagnosis Assessment Notes Treatment Notes Treatment Clinical Notes Apr, Exposure to COVID-19 virus (ICD-10 - Z20.822) Apr, Nasal congestion (ICD-10 - R09.81) Apr, Acute cough (ICD-10 - R05.1) [facility] Other 09-08-2023 Evaluation note* Encounter Date Diagnosis Assessment Notes Treatment Notes Treatment Clinical Notes Apr, Muscle spasm (ICD-10 - M62.838) [facility] Other 09-07-2023 Evaluation note* Encounter Date Diagnosis Assessment Notes Treatment Notes Treatment Clinical Notes Apr, Right calf pain (ICD-10 - M79.661) Discussed options with pt for further evalution and will send for an ultrasound to rule out DVT. Called [facility] and they could get her in this am. WIll call with results and further recommendations. Apr, Swelling of calf (ICD-10 - M79.89) [facility] Other 09-07-2023 NoteHISTORY: Lower extremity pain TECHNIQUE: [...] Pete Rodriguez DO 04/25/23 12:17 p Technologist: [facility]08-17-2023 Evaluation note* Encounter Date Diagnosis Assessment Notes Treatment Notes Treatment Clinical Notes Mar, Type 2 diabetes mellitus with hyperglycemia, without long-term current use of insulin (ICD-10 - E11.65) [facility] Other 08-11-2023 Evaluation note* Encounter Date Diagnosis Assessment Notes Treatment Notes Treatment Clinical Notes Mar, GERD (gastroesophageal reflux disease) (ICD-10 - K21.9) [facility] Other 07-19-2023 Evaluation note* Encounter Date Diagnosis Assessment Notes Treatment Notes Treatment Clinical Notes Feb, Essential hypertension (ICD-10 - I10) [facility] Other 07-03-2023 Evaluation note* Encounter Date Diagnosis Assessment Notes Treatment Notes Treatment Clinical Notes Feb, Nausea (ICD-10 - R11.0) [facility] Other 06-29-2023 Evaluation note* Encounter Date Diagnosis Assessment Notes Treatment Notes Treatment Clinical Notes Jan, Genital warts (ICD-10 - A63.0) [facility] Other 03-29-2023 Evaluation note* Encounter Date Diagnosis Assessment Notes Treatment Notes Treatment Clinical Notes Oct, Bronchitis (ICD-10 - J40) Oct, Acute vaginitis (ICD-10 - N76.0) [facility] Other 03-20-2023 Evaluation note* Encounter Date Diagnosis [...] if not improving. Increase fluids and rest. Vrjk-bmc-hxftymk antipyretics as needed. Warning signs and symptoms [...] understanding and is agreeable to treatment plan. [facility] Other 02-17-2023 Evaluation note* Encounter Date Diagnosis [...] sleep.will treat for this and reevalaute symptoms. [facility] Other 02-16-2023 Evaluation note* Encounter Date Diagnosis [...] dosing. She is agreeable. Discussed with pt [place] 3 cgm, she attempted to download stephan [...] Prescriptions: Tradjentametformin ER sent to [facility] in [place] 10/03/22 7. Patient scheduled with PCP for [...] was published 03/2021 ldl 100 on statin 16 Feb, 2023 Hypertension, unspecified type (ICD-10 - I10) Managing [...] - Z68.25) Healthy eating material was published [facility] Other 01-24-2023 Evaluation note* Encounter Date Diagnosis Assessment Notes Treatment Notes Treatment Clinical Notes Aug, Chronic obstructive pulmonary disease, unspecified COPD type (ICD-10 - J44.9) [facility] Other 12-20-2022 Evaluation note* Encounter Date Diagnosis [...] referral to dermatology for lesions. Referral placed. [facility] Other 12-13-2022 Evaluation note* Encounter Date Diagnosis Assessment Notes Treatment Notes Treatment Clinical Notes Jul, GERD (gastroesophageal reflux disease) (ICD-10 - K21.9) Jul, Restless legs (ICD-10 - G25.81) Jul, Chronic obstructive pulmonary disease, unspecified COPD type (ICD-10 - J44.9) [facility] Other 05-16-2022 Evaluation note* Encounter Date Diagnosis Assessment Notes Treatment Notes Treatment Clinical Notes December, Mass of parotid gland (ICD-10 - K11.8) [facility] Other 04-20-2022 Evaluation note* Encounter Date Diagnosis [...] well. Follow-up for any signs of infection. [facility] Other 04-14-2022 Evaluation note* Encounter Date Diagnosis [...] ultrasound to the area. Order sent to [place]. Will call with results and further recommendations. Nov, Localized swelling, mass and lump, neck (ICD-10 - R22.1) [facility] Other 04-06-2022 Evaluation note* Encounter Date Diagnosis Assessment Notes Treatment Notes Treatment Clinical Notes Nov, GERD (gastroesophageal reflux disease) (ICD-10 - K21.9) Nov, Restless legs (ICD-10 - G25.81) [facility] Other 03-23-2022 Evaluation note* Encounter Date Diagnosis [...] Z68.24) Setting weight-loss goals material was published [facility] Other 03-15-2022 Evaluation note* Encounter Date Diagnosis Assessment Notes Treatment Notes Treatment Clinical Notes Oct, Restless legs (ICD-10 - G25.81) [facility] Other 01-04-2022 Evaluation note* Encounter Date Diagnosis [...] difficulty breathing, chest pain, palpitations, fever less [id number], persistent fevers not reduced by antipyretic, severe [...] asthma with (acute) exacerbation (ICD-10 - J45.901) [facility] Other 10-21-2021 Evaluation note* Encounter Date Diagnosis Assessment Notes Treatment Notes Treatment Clinical Notes May, Acute vaginitis (ICD-10 - N76.0) [facility] Other Evaluation noteNortLOVEFiLM Other Evaluation noteNo InformationNort Md7 Other Evaluation noteNo assessment information available [facility] Work Phone: Evaluation note* Diagnosis Onset Date Resolution Status BMI 24.0-24.9, adult acute Diabetes acute Dietary counseling and surveillance acute HTN (hypertension) acute Hyperlipidemia acute Vitamin B 12 deficiency acut e Diabetes acute [facility] Work Phone: History general Narrative - [...] History kidney stones Hospitalization History 1 child [facility] Other History [facility] - [facility] Other Summary Purpose Family History Relationship Condition [...] evaluate Diagnosis 1 Sacroiliitis (M46.1) Referral Organization [facility] Referring Provider First Name Maddi Referring Provider Last Name Jayrbacher Referring Provider Specialty Nurse Pract itioner Referred Organization [facility] Pain Managemen t [place] Referred Provider Emil Cooper Referred Address [address] [place],[address] Referred Provider Specialty Pain Medicin e Referral Priority Routine General Notes Tigist Gibson 12:54:03 PM >received today, sent P2P Reason evaluate and treat Diagnosis 1 Genital warts (A63.0 ) Referral Organization [facility] Family Medicin e [place] Referring Provider First Name Maddi Referring Provider Last Name Rohrbacher Referring Provider Specialty Nurse Pract itioner Referred Organization [facility] Referred Provider Gaby Araujo Referred Address ,[place], [place],[address] Referred Provider Specialty Dermatology Referral Priority Routine Reason 10/01/22 evaluate and treat Diagnosis 1 Skin lesion (L98.9) Referral Organization [facility] [place] Referring Provider First Name Maddi Referring Provider Last Name Rohrbacher Referring Provider Specialty Nurse Pract itioner Referred Organization [facility] Referred Provider Gaby Araujo Referred Address ,[place], [place],[address] Referred Provider Specialty Dermatology Referral Priority Routine [...] 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) Referral Organization [facility] [place] Referring Provider First Name Maddi Referring Provider Last Name Vida Referring Provider Specialty Nurse Pract itionebishop Referred Organization [facility] Referred Provider Juan C Garner Referred Address ,[place], [place] Referred Provider Specialty Otolaryngolo gy Referral Priority [...] and content) DATE CREATED AUTHOR [facility]/2022 [facility] DATE CREATED AUTHOR AUTHOR'S ORGANIZ ATION 04/27/2023 [facility] DATE CREATED AUTHOR AUTHOR'S ORGANIZ ATION 12/27/2023 [facility] REASON FOR VISIT (unrecogniz ed section and content) TKM N/S DM 09/09/23ERRORTKM DM N/S 08/28/2023NebulizerGREGG SACROILIAC JOINT INJ/CJCONSULT NOTExray resultslab resultsDM F/U pt rescheduled apt, Type 2 NIDDM f/u with [facility] DIRECTOR OF CATEGORY MANAGEMENT, NUCLEAR PHYSICS TEACHER-C, BC-ADM, last visit 10/03/22. Pt cancelled apts on 01/15/23;04/03/23;05/19/23X-ray resultsTKM patient cancelledOrderCOVID blood testSickUS resultsCalf painTKM refillscript4 week follow upb12 resulthigher bp readingsDM rescheduled by patient, Type 2 NIDDM f/u with [facility] DIRECTOR OF CATEGORY MANAGEMENT, NUCLEAR PHYSICS TEACHER-C, BC-ADM, Last visit 11/07/21 No show to apt month follow upTKM Cancelled appt 06/20/2022TKM DM pt no showCT resultsInformationskin tag removalrefillTKM please call6 month Follow upDM 6 month f/u, Type 2 NIDDM f/u with [facility] DIRECTOR OF CATEGORY MANAGEMENT, NUCLEAR PHYSICS TEACHER-C, BC-ADMDOXIMITY [phone] DOES NOT BELIEVE IT IS COVID, CONGESTION COUGH SORE THROAT Care Teams (unrecognized sec tion and content) Team Status: Inactive Member Role Status Dates Maddi Mcpherson APRN ENTRY OPERATOR-C Primary Care Provider, Attending Provider Active Team Status: Active Member Role Status Dates Luisa Mcghee NP Primary Care Provider Active Gurdeep Dubois APRN Attending Provider Active Team Status: Active Member Role Status Dates Maddi Mcpherson APRN ENTRY OPERATOR-C Primary Care Provider Active Team Status: Inactive Member Role Status Dates Maddi Mcpherson APRN ENTRY OPERATOR-C Primary Care Provider Active Gurdeep Dubois APRN Attending Provider Active Team Status: Inactive Member Role Status Dates Maddi Mcpherson APRN ENTRY OPERATOR-C Primary Care Provider Active Emil Cooper MD Attending Provider Active Team Status: Inactive Member Role Status Dates Maddi Mcpherson APRN ENTRY OPERATOR-C Attending Provider Act prerna Start: August 13, 2023 End: August 13, 2023 Team Status: Inactive Member Role Status Dates Gurdeep Dubois APRN Attending Provider Active Start: September 09, 2023 End: September 09, 2023 Team Status: Inactive Member Role Status Dates Maddi Mcpherson APRN ENTRY OPERATOR-C Primary Care Provider Active Start: December 11, 2023 End: December 11, 2023 Gurdeep Dubois APRN Attending Provider Active Start: December 11, 2023 End: December 11, 2023 Team Status: Inactive Member Role Status Dates Maddi Mcpherson APRN ENTRY OPERATOR-C Primary Care Provider Active Start: December 25, 2023 End: December 25, 2023 Vivi Álvarez RN Attending Provider Active Start: December 25, 2023 End: December 25, 2023 Team Status: Inactive Member Role Status Dates Maddi Mcpherson APRN ENTRY OPERATOR-C Primary Care Provider Active Start: December 25, [...] BE BASED ON THE PRIMARY CLINICAL RECORDS. [facility] [employer] [facility]. provides no warranty or guarantee of the accuracy or completeness of information in this document.
--- NOTE | 2024-04-02 21:17 | XR_ITS ---
The [address] [address] Patient Name: HANNAH OSBORN MRN: [id number] date: 1965 Sex: F Assigned Patient Location: ER Current Patient Location: ER Accession/Order Number: [id number] Exam Date: 04/02/2024 21:22 Report Date: 04/02/2024 22:46 At the request of: BRISA CARDENAS Procedure: XR chest 1V EXAM: XR chest 1V HISTORY: CP COMPARISON: None. TECHNIQUE: One view of the chest was obtained. FINDINGS: The cardiac silhouette is normal in size. The lungs are clear. There is no significant pneumothorax or pleural effusion. No acute osseous abnormality is seen. XR/XR chest 1V IMPRESSION: 1. No acute cardiopulmonary abnormality. Electronically authenticated by: Tk ESCOBAR Date: 04/02/2024 22:46
--- NOTE | 2024-04-02 21:17 | ECG_ITS ---
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
--- NOTE | 2024-04-02 21:18 | ED_ITS ---
HPI - Chest Pain General Chief Complaint: Chest Pain Stated Complaint: chest pain Time Seen by Provider: 04/02/24 21:09 Source: patient Mode of arrival: walk-in History of Present Illness HPI narrative: 58-year-old female presents to the emergency department for chest pain. She states this started yesterday and it has been continuous. She feels a fluttering in her chest which is there all the time and also a pressure that she rated as a 5. She has also had a slight cough. No trauma back pain or vomiting. She also complains of a headache. She has no personal history of CAD. She states she has never had a heart catheterization or stress test. Related Data Home Medications ?Medication ?Instructions ?Recorded ?Confirmed amlodipine 10 mg tablet 10 mg PO DAILY 08/07/23 04/02/24 carvedilol 25 mg tablet 25 mg PO DAILY 08/07/23 04/02/24 hydrochlorothiazide 12.5 mg tablet 12.5 mg PO DAILY 08/07/23 04/02/24 linagliptin 5 mg tablet (Tradjenta) 5 mg PO DAILY 08/07/23 04/02/24 losartan 100 mg tablet 100 mg PO DAILY 08/07/23 04/02/24 pantoprazole 40 mg tablet,delayed 40 mg PO DAILY 08/07/23 04/02/24 release ropinirole 2 mg tablet 2 mg PO BEDTIME 08/07/23 04/02/24 rosuvastatin 10 mg tablet 10 mg PO DAILY 08/07/23 04/02/24 albuterol sulfate 90 mcg/actuation 1 puff inhalation Q4H PRN 04/02/24 04/02/24 aerosol inhaler (Ventolin HFA) shortness of breath or wheezing dicyclomine 10 mg capsule 10 mg PO BID 04/02/24 04/02/24 fluticasone propionate 230 2 puff inhalation BID 04/02/24 04/02/24 mcg-salmeterol 21 mcg/actuation HFA inhaler (Advair HFA) meloxicam 15 mg tablet 15 mg PO DAILY 04/02/24 04/02/24 tiotropium bromide 1.25 2 inh inhalation DAILY 04/02/24 04/02/24 mcg/actuation mist for inhalation (Spiriva Respimat) Allergies Allergy/AdvReac Type Severity Reaction Status Date / Time empagliflozin AdvReac Mild Verified 08/07/23 22:49 [From Jardiance] gabapentin AdvReac Mild Verified 08/07/23 22:46 metformin AdvReac Mild Verified 08/07/23 22:49 morphine AdvReac Mild Verified 08/07/23 22:46 Review of Systems ROS Narrative A ten point review of systems is negative except as noted above. PFSH PFSH Social History Smoking status: Current every day smoker Exam Narrative Exam Narrative: Nurses note and vital signs reviewed and patient is not hypoxic. General: The patient appears in no apparent distress. Skin: Warm, dry, no pallor noted. There is no rash noted. Head: Normocephalic, atraumatic Eye: Normal conjunctiva, no drainage Ears, Nose, Mouth, and Throat: oral mucosa is moist. Nares patent. Cardiovascular: Regular Rate and Rhythm, not tachycardic Respiratory: Patient is in no distress, no accessory muscle use, lungs are clear to auscultation, no wheezing, rales or rhonchi Back: non-tender GI: Soft and nontender Musculoskeletal: The patient has no evidence of calf tenderness, no pitting edema, symmetrical pulses noted bilaterally Neurological: A&O, normal speech Psychiatric: Cooperative Constitutional Vital Signs, click to edit/add: Last Vital Signs Temp 98.2 F 04/02/24 21:07 Pulse 76 04/02/24 22:00 Resp 14 04/02/24 22:00 BP 97/68 04/02/24 22:00 Pulse Ox 96 04/02/24 22:00 O2 Del Method Room Air 04/02/24 22:00 Course Vital Signs Vital signs: Vital Signs Temperature 98.2 F 04/02/24 21:07 Pulse Rate 79 04/02/24 21:07 Respiratory Rate 22 H 04/02/24 21:07 Blood Pressure 176/86 H 04/02/24 21:07 Pulse Oximetry 97 04/02/24 21:07 Temperature 98.2 F 04/02/24 21:07 Pulse Rate 76 04/02/24 22:00 Respiratory Rate 14 04/02/24 22:00 Blood Pressure 97/68 04/02/24 22:00 Pulse Oximetry 96 04/02/24 22:00 Oxygen Delivery Method Room Air 04/02/24 22:00 MDM - Chest Pain MDM Narrative Medical decision making narrative: Her workup including D-dimer and troponin is negative. She has had the symptoms for a day and a half. At this point I do not suspect acute coronary syndrome or pulmonary embolism. She is discharged home but will follow-up with her PCP promptly and return to emergency department if symptoms worsen. Treatment diagnosis and follow-up were discussed with the patient. Differential Diagnosis Differential diagnosis: Likely pneumothorax, atypical chest pain, st elevation myocardial infarction, chest pain and other (Pneumonia) Lab Data Attestation: I reviewed the patient's lab results. Labs: Lab Results 04/02/24 Range/Units 21:16 WBC 8.5 (4.0-11.0) 10^3/uL RBC 4.66 (4.20-5.40) 10^6/uL Hgb 13.7 (12.0-16.0) g/dL Hct 42.5 (36.0-48.0) % MCV 91.2 (81.0-99.0) fL MCH 29.4 (26.7-34.0) pg MCHC 32.2 (29.9-35.2) g/dL RDW 12.7 (11.0-15.0) % Plt Count 305 (150-450) 10^3/uL MPV 11.0 (9.5-13.5) fL Neut % (Auto) 51.6 (43.0-75.0) % Lymph % (Auto) 37.8 (20.5-60.0) % [place] % (Auto) 8.3 (1.7-12.0) % Eos % (Auto) 1.3 (0.9-7.0) % Baso % (Auto) 0.6 (0.2-2.0) % Neut # (Auto) 4.4 (1.4-6.5) 10^3/uL Lymph # (Auto) 3.2 (1.2-3.8) 10^3/uL [place] # (Auto) 0.7 (0.3-0.8) 10^3/uL Eos # (Auto) 0.1 (0.0-0.7) 10^3/uL Baso # (Auto) 0.1 (0.0-0.1) 10^3/uL Abs Immat Gran (auto) 0.03 (0.00-0.03) 10^3/uL Imm/Tot Granulo (auto) 0.4 (0.0-0.5) % D-Dimer 0.32 (<=0.59) mg/L FEU Sodium 139 (136-145) mmol/L Potassium 3.7 (3.5-5.1) mmol/L Chloride 104 (98-107) mmol/L Carbon Dioxide 25.0 (21.0-32.0) mmol/L Anion Gap 13.7 BUN 18.0 (7.0-18.0) mg/dL Creatinine 0.80 (0.55-1.02) mg/dL Est GFR ( Amer) >60 (>=60) Est GFR (Non-Af Amer) >60 (>=60) BUN/Creatinine Ratio 22.5 Glucose 236 H (74-106) mg/dL Calcium 9.0 (8.5-10.1) mg/dL Troponin I High Sens <4.0 L (4.0-51.3) pg/mL Imaging Data Chest x-ray: Radiologist's impression: ITS Impressions Chest X-Ray 04/02/24 21:17 IMPRESSION: 1. No acute cardiopulmonary abnormality. Electronically authenticated by: Tk ESCOBAR Date: 04/02/2024 22:46 ECG Data Attestation: I personally reviewed and interpreted this ECG as follows: (EKG on my interpretation shows normal sinus rhythm with a rate of 80 and no acute change) Heart Score History: Slightly/Non-Suspicious ECG: Normal Age: >45-<65 years Risk Factors: 1 or 2 Risk Factors Troponin: <Normal Limit Total Heart Score Recommendations & Risks:: 2 Discharge Plan Discharge Stand Alone Forms: Portal Instructions Chief Complaint: Chest Pain Clinical Impression: Chest pain Patient Disposition: Home, Self-Care Time of Disposition Decision: 22:57 Condition: Good Mode of Transportation: Private Vehicle Prescriptions / Home Meds: No Action albuterol sulfate [Ventolin HFA] 90 mcg/actuation HFA aerosol inhaler 1 puff INHALATION Q4H PRN (Reason: shortness of breath or wheezing) dicyclomine 10 mg capsule 10 mg PO BID fluticasone propion-salmeterol [Advair HFA] 230-21 mcg/actuation HFA aerosol inhaler 2 puff INHALATION BID meloxicam 15 mg tablet 15 mg PO DAILY Spiriva Respimat 1.25 mcg/actuation mist 2 inh INHALATION DAILY amlodipine 10 mg tablet 10 mg PO DAILY carvedilol 25 mg tablet 25 mg PO DAILY hydrochlorothiazide 12.5 mg tablet 12.5 mg PO DAILY Tradjenta 5 mg tablet 5 mg PO DAILY losartan 100 mg tablet 100 mg PO DAILY pantoprazole 40 mg tablet,delayed release (DR/EC) 40 mg PO DAILY ropinirole 2 mg tablet 2 mg PO BEDTIME rosuvastatin 10 mg tablet 10 mg PO DAILY Print Language: Polish Instructions: Chest Pain (ED) Additional Instructions: Call your PCP on Friday to schedule follow-up appointment. Return to emergency department if symptoms worsen. Referrals: EWELINA DODGE [Primary Care Provider] - 1 week
[2024-04-02 21:45] LABS: Basophils Absolute Auto 0.1 10^3/uL (0.0-0.1); Basophils Percent Auto 0.6 % (0.2-2.0); Eosinophils Absolute Auto 0.1 10^3/uL (0.0-0.7); Eosinophils Percent Auto 1.3 % (0.9-7.0); Hematocrit 42.5 % (36.0-48.0); Hemoglobin 13.7 g/dL (12.0-16.0); Immature Granulocytes Abs Auto 0.03 10^3/uL (0.00-0.03); Immature Granulocytes Pct Auto 0.4 % (0.0-0.5); Lymphocytes Absolute Auto 3.2 10^3/uL (1.2-3.8); Lymphocytes Percent Auto 37.8 % (20.5-60.0); Mean Corpuscular HGB Conc 32.2 g/dL (29.9-35.2); Mean Corpuscular Hemoglobin 29.4 pg (26.7-34.0); Mean Corpuscular Volume 91.2 fL (81.0-99.0); Monocytes Absolute Auto 0.7 10^3/uL (0.3-0.8); Monocytes Percent Auto 8.3 % (1.7-12.0); Neutrophils Absolute Auto 4.4 10^3/uL (1.4-6.5); Neutrophils Percent Auto 51.6 % (43.0-75.0); Platelet Count 305 10^3/uL (150-450); Red Blood Count 4.66 10^6/uL (4.20-5.40); Red Cell Distribution Width 12.7 % (11.0-15.0); White Blood Count 8.5 10^3/uL (4.0-11.0)
[2024-04-02] MEDS: NITROGLYCERIN 0.4 MG BOTTLE SL (21:50)
[2024-04-02] MEDS: ASPIRIN 81 MG TAB.CHEW 324 MG PO (21:50)
[2024-04-02 21:58] LABS: D Dimer 0.32 mg/L FEU (<=0.59)
[2024-04-02 22:00] VITALS: BP 97/68; PULSE 76; O2SAT 96
[2024-04-02] MEDS: ACETAMINOPHEN 325 MG TABLET 650 MG PO (22:11)
[2024-04-02 22:18] LABS: Anion Gap 13.7; BUN Creatinine Ratio 22.5; Chloride 104 mmol/L (98-107); Estimated GFR (African America >60 (>=60); Estimated GFR (Non-African Ame >60 (>=60); Glucose 236 mg/dL (74-106); Potassium 3.7 mmol/L (3.5-5.1); Sodium 139 mmol/L (136-145); Troponin I High Sensitivity <4.0 pg/mL (4.0-51.3)
[2024-04-02 23:12] VITALS: BP 129/64; PULSE 68
== END 2024-04-02 23:17 | disposition home or self-care (01) ==
PROVIDERS: Emergency Provider Emergency Medicine; PCP Nurse Practitioner Family
DX: R07.9 Chest pain, unspecified (principal); F17.200 Nicotine dependence, unspecified, uncomplicated
CPT/HCPCS: 36415; 71045; 80048; 84484; 85025; 85378; 93005; 99285

== ENCOUNTER 2024-08-20 15:41 | Emergency (ER) | payer MEDICAID, SELFPAY ==
[2024-08-20] VITALS (18 sets, daily range): BP systolic 138–159; BP diastolic 62–116; PULSE 70–87; TEMP 36.4; O2SAT 93–96; BMI 24.9
--- NOTE | 2024-08-20 16:06 | XR_ITS ---
[address] [address] Patient Name: HANNAH OSBORN MRN: [id number] date: 1965 Sex: F Assigned Patient Location: ER Current Patient Location: ED.MAIN Accession/Order Number: [id number] Exam Date: 08/20/2024 16:15 Report Date: 08/20/2024 18:02 At the request of: SARAH PATEL Procedure: XR chest 1V PORTABLE CHEST X-RAY. CLINICAL HISTORY: sob COMPARISON: 04/02/2024 TECHNIQUE: Single AP portable chest radiograph. FINDINGS: TUBES AND LINES: None. LUNGS: Hyperexpanded lungs. No focal opacity. PLEURA: No effusions or pneumothorax. HEART AND MEDIASTINUM: Within normal limits for portable technique. OSSEOUS STRUCTURES: No acute abnormality. XR/XR chest 1V IMPRESSION: No acute findings. Electronically authenticated by: NATHANIEL SHAFER Date: 08/20/2024 18:02
--- NOTE | 2024-08-20 16:06 | ECG_ITS ---
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
--- OUTSIDE RECORDS SUMMARY | 2024-08-20 16:07 | XMS_ITS | CCD ---
Author Organization [facility] Care Team Providers Care Kalsominer Name Role Phone DR HANG GREER Consulting Unavailable ROHRBACHER, MADDI Mccrary Admitting Unavailab le ROHRBACHER, MADDI Mccrary Attending Unavailab le ROHRBACHER, MADDI Mccrary Primary Care Unavailab le ROHRBACHER, MADDI Mccrary Consulting Unavailab le ROHRBACHER, MADDI Mccrary Admitting Unavailab le ROHRBACHER, MADDI Mccrary Attending Unavailab le ROHRBACHER, MADDI Mccrary Consulting Unavailab le ROHRBACHER, MADDI Mccrary Primary Care Unavailab le SONY SOLIMAN Consulting Unavailable ROHRBACH, SENIOR STEREO COMPILER TEAM LEAD CAMERON Attending Unavailabl e ROHRBACH, SENIOR STEREO COMPILER TEAM LEAD CAMERON Consulting Unavailabl e ROHRBACH, SENIOR STEREO COMPILER TEAM LEAD CAMERON Admitting Unavailabl e ROHRBACHER, MADDI Mccrary Primary Care Unavailab le ROHRBACHER, MADDI A Admitting Unavailab le WEST, DR JOHN Angel Consulting Unavailable ROHRBACHER, MADDI Mccrary Attending Unavailab le ROHRBACHER, MADDI A Primary Care Unavailab le ROHRBACHER, MADDI Mccrary Consulting Unavailab le Rohrbacher, Maddi Unavailable [phone] Mapus, Tondra Unavailable ZAID Mcghee Primary Care Provider [phone] MapusCATHIEN Gurdeep Frey Attending Provider VIRIDIANA Mcpherson Primary Care Provider RohrbacheVIRIDIANA alas Attending Provider [phone] Maddi Mcpherson Attending Unavailable Rohrbacher, Maddi Primary Care Unavailable Rohrbacher, Maddi Admitting Unavailable Rohrbacher, VIRIDIANA Linda Primary Care Provider Mapus, RADIO OPERATOR GROUND Tondra K Attending Provider [phone] ZAID Mcghee Primary Care Provider Rohrbacher, VIRIDIANA Linda Primary Care Provider Mapus, RADIO OPERATOR GROUND Tondra K Attending Provider ZAID Mcghee Primary Care Provider MD Emil Cooper Attending Provider Emil Cooper Unavailable Rohrbacher, VIRIDIANA Maddi Primary Care Provider Mapus, RADIO OPERATOR GROUND Tondra K Attending Provider [phone] Rohrbacher, VIRIDIANA Linda Primary Care Provider Mapus, RADIO OPERATOR GROUND Tondra K Attending Provider [phone] Mapus, Tondra K Attending Unavailable Mapus, Tondra K Admitting [facility]available [facility] [place] [facility] Un[facility] Mapus, Tondra K Admitting Unavailable Mapus, Tondra K Attending Unavailable Rohacher, [facility] Unavailable Mapus, Tondra K Admitting Unavailable Mapus, Tondra K Attending Unavailable Luisa Mcghee Primary Care Unavailable Emil Cooper Admitting Unavailable Emil Cooper Attending Unavailable Rohrbacher, [facility] Unavailable Mapus, Tondra K Admitting Unavailable Mapus, Tondra K Attending Unavailable [facility] Care Unavailable Allergies Allergy Classification Reported Allergen(s) Allergy Type Date of Onset Reaction(s) Facility (8 sources) Morphine; Translations: [morphine] Drug Allergy 10-23-19 Back Pain, Back Pain, kidney pain [facility] Repository (20 sources) Acetaminophen / oxyCODONE Drug Allergy kidney pain [employer] Other (20 sources) atorvastatin; Translations: [atorvastatin] Drug Allergy 09-09-19 Unknown, Unknown Reaction [facility] Repository (20 sources) gabapentin; Translations: [gabapentin] Drug Allergy 09-09-19 numbness in hands and feet and cold feeling [facility] Repository (20 sources) Morphine Drug Allergy kidney pain [facility] [employer] Other (20 sources) prastatin Propensity to adverse reactions [facility] [employer] Other (20 sources) metFORMIN Drug Allergy 09-09-19 diarrhea [facility] (7 sources) metFORMIN Drug Allergy diarrhea [facility] [employer] Other (20 sources) dulaglutide Drug Allergy 09-09-19 heartburn/naus ea [facility] (20 sources) semaglutide Drug Allergy 09-09-19 g/i s/e [facility] (1 source) Acetaminophen / oxyCODONE; Translations: [acetaminophen-ox yCODONE] Drug Allergy [facility]ository (2 sources) Morphine Drug Allergy kidney pain [facility] Other (17 sources) [facility]ravastatin [facility] Acetaminophen; Translations: [acetaminophen] Drug Allergy 09-09-19 kidney [facility] (4 sources) oxyCODONE; Translations: [oxycodone] Drug Allergy 09-09-19 [facility] (1 source) atorvastatin Drug Allergy 03-18-20 [facility] Repository (1 source) dulaglutide Drug Allergy 03-18-20 [facility] Repository (1 source) gabapentin Drug Allergy 03-18-20 [facility] Repository (1 source) metFORMIN Drug Allergy 03-18-20 [facility] Repository (1 source) Morphine Drug Allergy 03-18-20 [facility] Repository (1 source) Pravastatin Drug Allergy 03-18-20 [facility] Repository (1 source) semaglutide Drug allergy (disorder) 03-18-20 [facility] Repository Medications Current Medications Medication Drug Class(es) Dates Sig (Normalized) Sig (Original) [id number] 200 actuat albuterol 0.09 mg/actuat metered dose inhaler (20 sources) beta2-Adrenergic Agonist Start: 03-30-2024 take 1 puff(s) by mouth every four to six hours as needed for wheezing Albuterol Sulfate (Ventolin Hfa) 90 mcg/actuation HFA aerosol inhaler Active 0 .ROUTE .COMPLEX March 30, 2024 8:13am INHALE 1 PUFF BY MOUTH EVERY 4 TO 6 HOURS NEEDED FOR SHORTNESS OF BREATH OR WHEEZING Start: 12-11-2023 take 2.5 mg by inhal ation every six hours Albuterol Sulfate Active 2.5 MG INHALATION Every 6 hours December 11, 2023 12:00am Start: 12-01-2023 End: 03-30-2024 take 90 ug by inhalation every four to six hours Albuterol Sulfate Discontinued 90 MCG INHALATION EVERY 4-6 HOURS 6.7 December 01, 2023 1:11pm March 30, 2024 8:13am Start: 12-01-2023 take 90 ug by inhala tion every four to six hours Albuterol Sulfate Active 90 MCG INHALATION EVERY 4-6 HOURS 6.7 December 01, 2023 1:11pm Start: 08-21-2023 Albuterol [...] sources) Dihydropyridine Calcium Channel Aimee Start: 11-13-2017 End: 03-23-2024 take 10 mg by mouth once daily Amlodipine Active 10 MG PO Daily 90 90 March 23, 2024 2:46pm azithromycin 250 mg oral tablet (11 sources) [...] as needed for 10 day(s) May, Active Blood-Glucose Sensor (Dexcom G7 Sensor) device (3 sources) Start: 01-05-2024 Blood-Glucose Sensor (Dexcom G7 Sensor) device Active 0 .Route January 05, 2024 3:30pm As directed Change every 10 days Start: 01-05-2024 End: 01-05-2024 Blood-Glucose Sensor (Dexcom G7 Sensor) device Discontinued 0 .Route January 05, 2024 3:26pm January 05, 2024 3:32pm As directed Change every 10 days Start: 01-05-2024 End: 01-05-2024 Blood-Glucose Sensor (Dexcom G7 Sensor) device Discontinued 0 .Route January 05, 2024 12:00am January 05, 2024 3:27pm As directed carvedilol 25 mg oral tablet (20 sources) alpha-Adrenergic Aimee, beta-Adrenergic Aimee Start: 11-13-2017 End: 03-23-2024 take 25 mg by mouth once daily Carvedilol Active 25 MG PO Daily 90 March 23, 2024 2:46pm cefdinir 300 mg oral capsule (2 sources) Cephalosporin Antibacterial Start: 11-13-2022 take 1 capsule by mouth every twelve hours Cefdinir 300 MG 1 Capsule Orally bid for 10 days Oct, Active Start: 01-30-2021 take 1 capsule by mo uth every twelve hours Cefdinir 300 MG 1 Capsule Orally bid for 10 day(s) Jan, Not-Taking Dexcom 7 (14 sources) Start: 06-02-2023 Dexcom 7 as di rected SQ change every 10 days for 90 days May, Active Dexcom 7 as dire cted SQ change every 10 days for 90 days Active Dexcom G7 Communications Editor - (14 sources) Start: 06-02-2023 Dexcom G7 Rece iver - as directed n/a As Directed for 365 days May, Active Dexcom G7 Receiv er - as directed n/a As Directed for 365 days Active dicyclomine hydrochloride 10 mg oral capsule (1 source) Anticholinergic Start: 02-24-2024 take 10 mg by mouth twice daily Dicyclomine Active 10 MG PO Twice daily 180 90 February 24, 2024 12:00am empagliflozin 10 mg oral tablet (9 sources) [...] tablet (20 sources) Thiazide Diuretic Start: 12-11-2023 End: 02-12-2024 take 12.5 mg by mouth once daily Hydrochlorothiazide Active 12.5 MG PO Daily 90 90 February 12, 2024 3:37pm Start: 11-04-2022 take 1 tablet by mouth every t wenty-four hours 3 ml insulin aspart, human 100 unt/ml pen injector (1 source) Insulin Analog Start: 05-10-2024 Insulin Aspart U-100 (Novolog Flexpen U-100 Insulin) 100 unit/mL (3 mL) insulin pen Active 0 SUBCUT .COMPLEX 60 May 10, 2024 12:00am ICR 1:15 ac tid; (expect up to 60 units/day) Insulin Glargine U-300 Conc (Toujeo Solostar U-300 Insulin) 300 unit/mL (1.5 mL) insulin pen (2 sources) Start: 03-18-2024 inject 15 [IU] by subcutaneous injection once daily Insulin Glargine U-300 Conc (Toujeo Solostar U-300 Insulin) 300 unit/mL (1.5 mL) insulin pen Active 15 UNIT SUBCUT Daily March 18, 2024 5:02pm Start: 03-18-2024 End: 03-18-2024 inject 14 [IU] by subcutaneous injection once daily Insulin Glargine U-300 Conc (Toujeo Solostar U-300 Insulin) 300 unit/mL (1.5 mL) insulin pen Discontinued 14 UNIT SUBCUT Daily March 18, 2024 3:30pm March 18, 2024 5:02pm isopropyl alcohol 0.7 ml/ml medicated pad (8 sources) Start: 12-08-2019 losartan potassium 100 mg oral tablet (20 sources) Angiotensin 2 Receptor Aimee Start: 03-23-2024 take 100 mg by mouth once daily Losartan Active 100 MG PO Daily March 23, 2024 2:46pm Start: 03-03-2024 End: 03-23-2024 take 1 tablet by mouth once daily Losartan Discontinued 0 .ROUTE .COMPLEX March 03, 2024 2:52pm March 23, 2024 2:48pm Take 1 tablet by mouth once daily Start: 12-11-2023 End: 03-03-2024 take 100 mg by mouth once daily Losartan Discontinued 100 MG PO Daily December 11, 2023 12:00am March 03, 2024 2:52pm Start: 08-06-2022 take 1 tablet by jozef [...] release oral tablet (20 sources) Biguanide Start: 02-16-2023 take 1 tablet by jozef th every [...] (20 sources) Serotonin-3 Receptor Antagonist Start: 12-11-2023 End: 01-01-2024 take 1 tablet by mouth three times daily as needed Ondansetron Active 0 PO Every 8 hours 90 30 January 01, 2024 10:03am orally every 8 hours PRN; 1 tablet on the tongue and [...] (20 sources) Proton Pump Inhibitor Start: 11-13-2017 End: 02-12-2024 take 40 mg by mouth once daily Pantoprazole Active 40 MG PO Daily 90 90 February 12, 2024 3:28pm rOPINIRole 2 mg oral tablet (20 sources) Nonergot Dopamine Agonist Start: 12-11-2023 End: 03-23-2024 take 4 mg by mouth once daily at bedtime Ropinirole Active 4 MG PO Daily at bedtime 180 90 March 23, 2024 2:47pm Start: 11-13-2017 End: 01-15-2019 take 2 mg by mouth twice daily Ropinirole Discontinued 2 MG PO Twice daily November 13, 2017 12:00am January 15, 2019 10:51pm rosuvastatin calcium 10 mg oral tablet (20 sources) HMG-CoA Reductase Inhibitor Start: 02-12-2024 take 1 tablet by mouth once daily Rosuvastatin Active 0 .ROUTE .COMPLEX 90 February 12, 2024 3:38pm Take 1 tablet by mouth once daily Start: 11-13-2017 End: 02-12-2024 take 10 mg by mouth once daily Rosuvastatin Discontinu ed 10 MG PO Daily January 09, 2022 12:00am February 12, 2024 3:38pm semaglutide 3 mg oral tablet (14 sources) [...] 30 days Jan, Active 60 actuat tiotropium 0.48212 mg/actuat inhalation spray (20 sources) Anticholinergic Start: 01-09-2022 take 1 puff(s) by inhalation once daily Tiotropium [place] (Spiriva Respimat) 1.25 mcg/actuation mist Active 1 PUFF INHALATION Daily January 09, 2022 12:00am Start: 06-14-2020 take 1.25 ug by inha lation once daily Start: 06-14-2020 Start: 11-13-2017 End: 01-09-2022 take 1.25 ug by inhalation once daily Tiotropium [place] Discontinued 1.25 MCG INHALATION Daily November 13, [...] / HYDROcodone bitartrate 5 mg oral tablet (6 sources) Opioid Agonist Start: 01-23-2022 End: 12-11-2023 take 1 tablet by mouth every six hours Hydrocodone-Acetamin ophen Discontinued 1 TAB PO Q6H 14 5 January 23, 2022 December 11, 2023 2:14pm ergocalciferol 1.25 mg oral capsule (7 sources) Provitamin D2 Compound take 1 capsule by mouth every week Ergocalciferol 1.25 MG (21550 UT) 1 capsule Orally weekly Not-Taking 12 [...] PO Twice daily November 13, 2017 12:00am Insulin Degludec (Tresiba Flextouch U-100) 100 unit/mL (3 mL) insulin pen (2 sources) Start: 12-25-2023 End: 12-26-2023 Insulin Degludec (Tresiba Flextouch U-100) 100 unit/mL (3 mL) insulin pen Discontinued 7 UNIT SUBCUT Daily 15 December 25, 2023 12:00am December 26, 2023 9:10am 7 units sq qd If fasting glucose >130 3/7 days increase 1 unit each week up to max 10 units/day Start: 12-25-2023 Insulin Deglud ec (Tresiba Flextouch U-100) 100 unit/mL (3 mL) insulin pen Active 7 UNIT SUBCUT Daily 15 December 25, 2023 12:00am 7 units sq qd If fasting glucose >130 3/7 days increase 1 unit each week up to max 10 units/day 1.5 ml insulin glargine 300 unt/ml pen injector (2 sources) Insulin Analog Start: 12-26-2023 End: 03-18-2024 inject 7 [IU] by subcutaneous injection once daily Insulin Glargine U-300 Conc (Toujeo Solostar U-300 Insulin) 300 unit/mL (1.5 mL) insulin pen Discontinued 0 SUBCUT Daily 4.December 26, 2023 10:09am March 18, 2024 3:31pm subcutaneously daily; 7 units daily SQ Start: 12-26-2023 End: 12-26-2023 inject 7 [IU] by subcutaneous injection once daily Insulin Glargine U-300 Conc (Toujeo Solostar U-300 Insulin) 300 unit/mL (1.5 mL) insulin pen Discontinued 30 UNIT SUBCUT Daily .December 26, 2023 12:00am December 26, 2023 10:11am 7 units daily SQ Insulin Lispro-Aabc (Lyumjev Kwikpen U-100 Insulin) 100 unit/mL insulin pen (1 source) Start: 05-06-2024 End: 05-10-2024 Insulin Lispro-Aabc (Lyumjev Kwikpen U-100 Insulin) 100 unit/mL insulin pen Discontinued 0 SUBCUT Use as Directed 60 May 06, 2024 12:00am May 10, 2024 7:17am subcutaneously use as directed; ICR 1:15 ac tid; 90-day; 3 ref (expect up to 60 units/day) linagliptin 5 mg oral tablet (20 sources) Dipeptidyl Peptidase 4 Inhibitor Start: 11-13-2017 End: 03-18-2024 take 5 mg by mouth once daily Linagliptin Discontinued 5 MG PO Daily 90 90 December 11, 2023 2:53pm December 12, 2023 9:27am metroNIDAZOLE 500 mg oral tablet (6 sources) Nitroimidazole Antimicrobial Start: 11-13-2017 End: 01-15-2019 take 500 mg by mouth once daily Metronidazole Discontinued 500 MG PO Daily November 13, 2017 12:00am January 15, 2019 10:51pm Problems Active Problems Problem Classification Problem Date Documented Da te Episodic/Chronic Abdominal pain (1 source) Right upper quadrant pain; Translations: [Right upper quadrant pain] 01-01-2024 Episodic Administrative/social admission (7 sources) Dietary counseling and surveillance; Translations: [Patient encounter status] Onset: 2 Resolved: 2 Episodic Anxiety disorders (20 sources) Mixed anxiety and depressive disorder; Translations: [Other specified anxiety disorders] Onset: 2 Resolved: 2 Chronic Asthma (20 sources) Unspecified asthma with (acute) exacerbation; Translations: [Acute exacerbation of asthma] Onset: 1 Resolved: 2 Chronic Chronic obstructive pulmonary disease and bronchiectasis (20 sources) Chronic obstructive pulmonary disease with (acute) exacerbation; Translations: [Chronic obstructive lung disease] Onset: 1 Resolved: 2 Chronic Chronic obstructive pulmonary disease and bronchiectasis (2 sources) Bronchitis, not specified as acute or chronic Episodic Diabetes mellitus with complications (20 sources) Hyperglycemia due to type 2 diabetes mellitus; Translations: [Type 2 diabetes mellitus with hyperglycemia] Onset: 2 Resolved: 2 Chronic Diabetes mellitus without complication (20 sources) Type 2 diabetes mellitus; Translations: [Type 2 diabetes mellitus without complications] Onset: 2 Resolved: 2 Chronic Diseases of mouth; excluding dental (2 sources) Other diseases of salivary glands; Translations: [OTHER DISEASES OF SALIVARY GLANDS] Onset: 2 Resolved: 2 Episodic Disorders of lipid metabolism (20 sources) Hyperlipidemia; Translations: [Hyperlipidemia, unspecified] Onset: 2 Resolved: 2 Chronic E Codes: Fall (1 source) Unspecified fall, subsequent encounter Episodic Esophageal disorders (20 sources) Gastroesophageal reflux disease; Translations: [Gastro-esophageal reflux disease without esophagitis] Onset: 2 Resolved: 2 Chronic Essential hypertension (20 sources) Essential hypertension; Translations: [Essential (primary) hypertension] Onset: 2 Resolved: 2 Chronic Inflammatory diseases of female pelvic organs (3 sources) Acute vaginitis; Translations: [Acute vaginitis N76.0] Onset: 1 Resolved: 1 Episodic Mood disorders (20 sources) Recurrent major depressive episodes, moderate ; Translations: [Major depressive disorder, recurrent, moderate] Chronic Nausea and vomiting (2 sources) Nausea; Translations: [Nausea and vomiting] Episodic Nutritional deficiencies (20 sources) Vitamin D deficiency; Translations: [Vitamin D deficiency, unspecified] Chronic Other connective tissue disease (1 source) Pain in right lower leg Episodic Other connective tissue disease (1 source) Other specified soft tissue disorders Episodic Other connective tissue disease (1 source) Other muscle spasm Episodic Other connective tissue disease (1 source) Foot pain; Translations: [Pain in right foot] 01-01-2024 Episodic Other disorders of stomach and duodenum (6 sources) Disorder of function of stomach; Translations: [Disease of stomach and duodenum, unspecified] 11-14-2017 Episodic Other ear and sense organ disorders (1 source) Impacted cerumen, right ear Episodic Other gastrointestinal disorders (1 source) Abdominal bloating; Translations: [Abdominal distension (gaseous)] 01-01-2024 Episodic Other hereditary and degenerative nervous system conditions (20 sources) Restless legs; Translations: [Restless legs syndrome] 03-23-2024 Chronic Other hereditary and degenerative nervous system conditions (7 sources) Restless legs syndrome Onset: 2 Resolved: 2 Chronic Other nervous system disorders (10 sources) Chronic pain; Translations: [Other chronic pain] Chronic Other nervous system disorders (6 sources) Postoperative pain ; Translations: [Other acute [...] body structures; Translations: [Ultrasound scan abnormal] Onset: 2 Chronic Other screening for suspected conditions (not mental disorders or infectious disease) (6 sources) Patient encounter status; Translations: [Encounter for screening for malignant neoplasm of colon] 11-14-2017 Episodic Other skin disorders (2 sources) Localized swelling, mass and lump, neck; Translations: [LOCALIZED SWELLING MASS AND LUMP NECK] Onset: 2 Resolved: 2 Episodic Other skin disorders (5 sources) Localized swelling, mass and lump, head; Translations: [LOCALIZED SWELLING MASS AND LUMP HEAD] Onset: 2 Resolved: 2 Episodic Other skin disorders (1 source) Disorder of the skin and subcutaneous tissue, unspecified Episodic Other upper respiratory disease (2 sources) Nasal congestion Episodic Residual codes; unclassified (4 sources) Body mass index (BMI) 24.0-24.9, adult; Translations: [Body Mass Index between 19-24, adult] Onset: 2 Resolved: 2 Episodic Residual codes; unclassified (1 source) Other general symptoms and signs Episodic Residual codes; unclassified (2 sources) Body mass index 20-24 - normal; Translations: [Body mass index (BMI) 24.0-24.9, adult] 12-11-2023 Episodic Spondylosis; intervertebral disc disorders; other back problems (20 sources) Inflammation of sacroiliac joint; Translations: [Sacroiliitis, not elsewhere classified] Onset: 3 Chronic Unclassified (3 sources) CONTACT W/AND (SUSP) EXPOS COVID-19; Translations: [CONTACT W/AND (SUSP) EXPOS COVID-19] Onset: 1 Viral infection (20 sources) Genital warts; Translations: [Anogenital (venereal) warts] Episodic Past or Other Problems Problem Classification Problem Date Documented Da te Episodic/Chronic Fever of unknown origin (1 source) Fever, unspecified; Translations: [FEVER UNSPECIFIED] Onset: 02-10-2021 Episodic Nutritional deficiencies (7 sources) Deficiency of other specified B group [...] Serum or PlasmaOrdered By: Gurdeep Dubois on 05-10-2024 ALT [Catalytic activity/Vol] 15 U/L Normal 7-52 [facility] Comment on above: Order Comment: Reaso n for Exam Type 2 diabetes mellitus with hyperglycemia, without long-te Performed By: #### B 12, LIPID, URMACRERAT, CMP #### [facility] [address] [place] [address] [place] #### CPEP #### [facility] , Albumin [Mass/volume] in Ser um or Plasma by Bromocresol green (BCG) dye binding methoOrdered By: Gurdeep Dubois on 05-10-2024 Albumin BCG dye [Mass/Vol] 4.4 g/dL 3.5-5.7 [facility] Alkaline phosphatase [Enzyma tic activity/volume] in Serum or PlasmaOrdered By: Gurdeep Dubois on 05-10-2024 ALP [Catalytic activity/Vol] 95 U/L Normal 34-104 [facility] Comment on above: Order Comment: Reaso n for Exam Type 2 diabetes mellitus with hyperglycemia, without long-te Performed By: #### B 12, LIPID, URMACRERAT, CMP #### [facility] [address] [place] [address] [place] #### CPEP #### [facility] , Aspartate aminotransferase [ Enzymatic activity/volume] in Serum or PlasmaOrdered By: Gurdeep Dubois on 05-10-2024 AST [Catalytic activity/Vol] 13 U/L Normal 13-39 [facility] Comment on above: Order Comment: Reaso n for Exam Type 2 diabetes mellitus with hyperglycemia, without long-te Performed By: #### B 12, LIPID, URMACRERAT, CMP #### [facility] [address] [place] [address] #### CPEP #### [facility] , Bilirubin.total [Mass/volume ] in Serum or PlasmaOrdered By: Tondra Mapus on 05-10-2024 Bilirubin [Mass/Vol] 0.5 mg/dL Normal 0.3-1.0 [facility] Comment on above: Order Comment: Reaso n for Exam Type 2 diabetes mellitus with hyperglycemia, without long-te Performed By: #### B 12, LIPID, URMACRERAT, CMP #### [facility] [address] [place] [address] #### CPEP #### [facility] , C-Peptideon 05-10-2024 C-Peptide 2.2 ng/mL Normal 1.1-4.4 [facility] Comment on above: Order Comment: Reaso n for Exam Type 2 diabetes mellitus with hyperglycemia, without long-te Result Comment: C-Pe ptide reference interval is for fasting patients. Performed at: - [address] [id number] [place] Department Supervisor: Jacques Llanos PhD, Phone: [phone] PERFORMED BY: [place] [address] PATHOLOGIST JEWELRY SALES COORDINATOR SVETLANA DUMONT M.D. Performed By: #### B 12, LIPID, URMACRERAT, CMP #### [facility] [address] [place] [address] #### CPEP #### [facility] , Calcium [Mass/volume] in Ser um or PlasmaOrdered By: Tondra Mapus on 05-10-2024 Calcium [Mass/Vol] 9.6 mg/dL Normal 8.6-10.3 [facility] Comment on above: Order Comment: Reaso n for Exam Type 2 diabetes mellitus with hyperglycemia, without long-te Performed By: #### B 12, LIPID, URMACRERAT, CMP #### [facility] [address] [place] [address] [place] #### CPEP #### [facility] , Carbon dioxide, total [Moles /volume] in Serum or PlasmaOrdered By: Tondra Mapus on 05-10-2024 CO2 [Moles/Vol] 29.1 mmol/L Normal 21.0-31.0 [facility] Comment on above: Order Comment: Reaso n for Exam Type 2 diabetes mellitus with hyperglycemia, without long-te Performed By: #### B 12, LIPID, URMACRERAT, CMP #### [facility] [address] [place] [address] [place] #### CPEP #### [facility] , Chloride [Moles/volume] in S loy or PlasmaOrdered By: Tondra Mapus on 05-10-2024 Chloride [Moles/Vol] 104 mmol/L Normal 98-107 [facility] Comment on above: Order Comment: Reaso n for Exam Type 2 diabetes mellitus with hyperglycemia, without long-te Performed By: #### B 12, LIPID, URMACRERAT, CMP #### [facility] [address] [place] [address] [place] #### CPEP #### [facility] , Cholesterol [Mass/volume] in Serum or PlasmaOrdered By: Tondra Mapus on 05-10-2024 Cholesterol [Mass/Vol] 186 mg/dL Normal 140-200 [facility] Comment on above: Chol less than 200 m g/dl low riskChol 201-239 mg/dl borderline riskChol 240 mg/dl and greater high risk Order Comment: Reaso n for Exam Type 2 diabetes mellitus with hyperglycemia, without long-te Result Comment: Chol less than 200 mg/dl low risk Chol 201-239 mg/dl borderline risk Chol 240 mg/dl and greater high risk Performed By: #### B 12, LIPID, URMACRERAT, CMP #### [facility] [address] [place] [address] [place] #### CPEP #### [facility] , Cholesterol in LDL Calc [Mas s/Vol]Ordered By: Gurdeep Dubois on 05-10-2024 Cholesterol in LDL [Mass/Vol] 78 mg/dL 0-100 [facility] Comment on above: LDL ATP III CLASSIFI CATIONLDL less than 100 mg/dL OptimalLDL 100-129 mg/dL Near or above optimalLDL 130-159 mg/dL Borderline highLDL 160-189 mg/dL HighLDL greater than 189 mg/dL Very high Cholesterol in VLDL Calc [Ma ss/Vol]Ordered By: Gurdeep Dubois on 05-10-2024 Cholesterol in VLDL [Mass/Vol] 57 mg/dL [facility] Comprehensive Metabolic Pane cecile 05-10-2024 Albumin [Mass/Vol] 4.4 g/dL Normal 3.5-5.7 [facility] Comment on above: Order Comment: Reaso n for Exam Type 2 diabetes mellitus with hyperglycemia, without long-te Performed By: #### B 12, LIPID, URMACRERAT, CMP #### [facility] [address] [place] [address] #### CPEP #### [facility] , GFR/1.73 sq M.predicted MDRD (S/P/Bld) [Vol rate/Area] mL/min/{1.73_m2} Normal [facility] Comment on above: Order Comment: Reaso n for Exam Type 2 diabetes mellitus with hyperglycemia, without long-te Performed By: #### B 12, LIPID, URMACRERAT, CMP #### [facility] [address] [place] [address] [place] #### CPEP #### [facility] , Creatinine [Mass/volume] in Serum or PlasmaOrdered By: Gurdeep Dubois on 05-10-2024 Creatinine [Mass/Vol] 0.67 mg/dL Normal 0.60-1.20 [facility] Comment on above: Order Comment: Reaso n for Exam Type 2 diabetes mellitus with hyperglycemia, without long-te Performed By: #### B 12, LIPID, URMACRERAT, CMP #### [place] [address] [place] #### CPEP #### [facility] , Creatinine [Mass/volume] in UrineOrdered By: Gurdeep Dubois on 05-10-2024 Creatinine (U) [Mass/Vol] 146.00 mg/dL [facility] Comment on above: No reference range e stablished Diabetes Autoimmune Profileo n 05-10-2024 Anti-Dawit-65 Antibodies <5.0 Normal . [facility] Comment on above: Result Comment: Refe rence Range: <5.0 Negative > or = 5.0 Positive Performed By: #### B 12, LIPID, URMACRERAT, CMP #### [address] #### CPEP #### [facility] , IA2 Autoantibodies <7.5 Normal . [facility] Comment on above: Result Comment: Refe rence Range: <7.5 Negative > or = 7.5 Positive Performed By: #### B 12, LIPID, URMACRERAT, CMP #### [address] #### CPEP #### [facility] , Insulin Antibodies <5.0 Normal . [facility] Comment on above: Result Comment: This test is also known as insulin autoantibody or IAA. This test was developed and its performance characteristics determined by [facility]. It has not been cleared or approved by the Food and Drug Administration. Reference Range: <5.0 Negative > or = 5.0 Positive Performed By: #### B 12, LIPID, URMACRERAT, CMP #### [place] [address] [place] #### CPEP #### [facility] , Type 1 Diabetes Interpretation Comment Normal . [facility] Comment on above: Result Comment: Publ ished positivity rates for diabetes autoantibodies in new-onset Type 1 Diabetes patients listed below are based on the combined analysis of DAWIT-65, ICA 512, Insulin Antibodies, and ZNT8 Antibodies. The combined analysis has a 98% autoimmunity detection rate, with 1.8% of Type 1 diabetic individuals remaining as autoantibody-negative. Positivity rate in new-onset Type 1 Diabetes patients: DAWIT-65 Antibodies = 68% positive IA-2/ICA 512 Antibodies = 72% positive Insulin Antibodies = 55% positive ZNT8 Antibodies = 63% positive An increase in the number of positive antibodies is associated with a higher likelihood of Type 1 Diabetes. Less than 3% of Type 2 Diabetics have positive antibodies.(1) Sary et al. PNAS. 2007;104(43):[id number]. Performed at: [facility] [address] [place] [id number] [place] Department Supervisor: Chance Sutherland MD, Phone: [phone] PERFORMED BY: [place] [address] PATHOLOGIST JEWELRY SALES COORDINATOR SVETLANA DUMONT M.D. Performed By: #### B 12, LIPID, URMACRERAT, CMP #### [address] #### CPEP #### [facility] , Zinc Transporter 8 Autoabs <15 Normal . [facility] Comment on above: Result Comment: Refe rence Range: All Ages: <15 Negative > or =15 Positive Performed By: #### B 12, LIPID, URMACRERAT, CMP #### [address] #### CPEP #### [facility] , Glucose [Mass/volume] in Ser um or PlasmaOrdered By: Gurdeep Dubois on 05-10-2024 Glucose [Mass/Vol] 140 mg/dL High 70-100 [facility] Comment on above: ADA recommended refe rence rangeRandom Glucose Reference Range is dependent on time and content of last meal. Glucose of more than 200 mg/dL in a nonstressed, ambulatory subject supports the diagnosis of Diabetes Mellitus. Order Comment: Reaso n for Exam Type 2 diabetes mellitus with hyperglycemia, without long-te Result Comment: [place] om Glucose Reference Range is dependent on time and content of last meal. Glucose of more than 200 mg/dL in a nonstressed, ambulatory subject supports the diagnosis of Diabetes Mellitus. ADA recommended reference range Performed By: #### B 12, LIPID, URMACRERAT, CMP #### [facility] [address] [place] [address] [place] #### CPEP #### [facility] , Lipid Panelon 05-10-2024 LDL Cholesterol,Calculated 78 mg/dL Normal 0-100 [facility] Comment on above: Order Comment: Reaso n for Exam Type 2 diabetes mellitus with hyperglycemia, without long-te Result Comment: LDL ATP III CLASSIFICATION LDL less than 100 mg/dL Optimal LDL 100-129 mg/dL Near or above optimal LDL 130-159 mg/dL Borderline high LDL 160-189 mg/dL High LDL greater than 189 mg/dL Very high Performed By: #### B 12, LIPID, URMACRERAT, CMP #### [place] [address] [place] #### CPEP #### [facility] , Triglyceride w/Reflex 289 mg/dL High 0-149 [facility] Comment on above: Order Comment: Reaso n for Exam Type 2 diabetes mellitus with hyperglycemia, without long-te Result Comment: TRIG ATP III CLASSIFICATION TRIG less than 150 mg/dL Normal TRIG 150-199 mg/dL Borderline high TRIG 200-500 mg/dL High TRIG greater than 500 mg/dL Very high Standard traceable to the Center for Disease Conrtrol and Prevention (CDC) test method. Performed By: #### B 12, LIPID, URMACRERAT, CMP #### [place] [address] [place] #### CPEP #### [facility] , VLDL CHOLESTEROL 57 mg/dL Normal [facility] Comment on above: Order Comment: Reaso n for Exam Type 2 diabetes mellitus with hyperglycemia, without long-te Performed By: #### B 12, LIPID, URMACRERAT, CMP #### [place] [address] [place] #### CPEP #### [facility] , MicroAlb Creat Ratio,Uon Creatinine, Urine (Random) 146.00 mg/dL Normal [facility] Comment on above: Result Comment: No r eference range established Performed By: #### B 12, LIPID, URMACRERAT, CMP #### [place] [address] [place] #### CPEP #### [facility] , Microalbumin/Creatinine Ratio 6.2 mg/g Normal 0.0-30.0 [facility] Comment on above: Result Comment: 30-3 00 mg/g indicates an increased risk for diabetic nephropathy. Greater than 300 mg/g is consistent with clinical nephropathy. (Am. J. Kidney Disease 1995, 25:107) PERFORMED BY: [place] [address] PATHOLOGIST JEWELRY SALES COORDINATOR SVETLANA DUMONT M.D. Performed By: #### B 12, LIPID, URMACRERAT, CMP #### [address] #### CPEP #### [facility] , Microalbumin [Mass/volume] i n UrineOrdered By: Sheldondra Didierus on 05-10-2024 Albumin DL <= 20 mg/L (U) [Mass/Vol] 0.9 mg/dL Normal 0.0-1.8 [facility] Comment on above: Performed By: #### B 12, LIPID, URMACRERAT, CMP #### [place] [address] [place] #### CPEP #### [facility] , No Panel InformationOrdered By: Tondra Mapus on 05-10-2024 Estimated GFR (CKD-EPI) > 60.0 mL/Min [facility] Creatinine Clearance (Chem N/A [facility] Potassium [Moles/volume] in Serum or PlasmaOrdered By: Tondra Mapus on 05-10-2024 Potassium [Moles/Vol] 4.1 mmol/L Normal 3.5-5.1 [facility] Comment on above: Order Comment: Reaso n for Exam Type 2 diabetes mellitus with hyperglycemia, without long-te Performed By: #### B 12, LIPID, URMACRERAT, CMP #### [facility] [address] [place] [address] #### CPEP #### [facility] , Protein [Mass/volume] in Ser um or PlasmaOrdered By: Tondra Mapus on 05-10-2024 Protein [Mass/Vol] 6.7 g/dL Normal 6.4-8.9 [facility] Comment on above: Order Comment: Reaso n for Exam Type 2 diabetes mellitus with hyperglycemia, without long-te Performed By: #### B 12, LIPID, URMACRERAT, CMP #### [address] #### CPEP #### [facility] , Serum globulin measurement b y calculation (mass/volume)Ordered By: Tondra Mapus on 05-10-2024 Globulin (S) [Mass/Vol] 2.3 g/dL Normal [facility] Comment on above: Order Comment: Reaso n for Exam Type 2 diabetes mellitus with hyperglycemia, without long-te Performed By: #### B 12, LIPID, URMACRERAT, CMP #### [facility] [address] [place] [address] [place] #### CPEP #### [facility] , Serum or plasma albumin/glob ulin mass ratioOrdered By: Tondra Mapus on 05-10-2024 Albumin/Globulin [Mass ratio] 1.9 {ratio} [facility] Comment on above: Order Comment: Reaso n for Exam Type 2 diabetes mellitus with hyperglycemia, without long-te Performed By: #### B 12, LIPID, URMACRERAT, CMP #### [facility] [address] [place] [address] [place] #### CPEP #### [facility] , Serum or plasma anion gap de terminationOrdered By: Tondra Mapus on 05-10-2024 Anion gap [Moles/Vol] 10.0 mmol/L Normal 6.0-15.0 [facility] Comment on above: Order Comment: Reaso n for Exam Type 2 diabetes mellitus with hyperglycemia, without long-te Performed By: #### B 12, LIPID, URMACRERAT, CMP #### [facility] [address] [place] [address] [place] #### CPEP #### [facility] , Serum or plasma high density lipoprotein (HDL) cholesterol measurementOrdered By: Gurdeep Dubois on 05-10-2024 Cholesterol in HDL [Mass/Vol] 50 mg/dL Normal [facility] Comment on above: HDL CHOL ATP-III CLA SSIFICATION Cardiovascular RiskHDL > or equal to 60 mg/dL LOWHDL < 40 mg/dL HIGH Order Comment: Reaso n for Exam Type 2 diabetes mellitus with hyperglycemia, without long-te Result Comment: HDL CHOL ATP-III CLASSIFICATION Cardiovascular Risk HDL > or equal to 60 mg/dL LOW HDL < 40 mg/dL HIGH Performed By: #### B 12, LIPID, URMACRERAT, CMP #### [facility] [address] [place] [address] [place] #### CPEP #### [facility] , Serum or plasma total choles terol/high density lipoprotein (HDL) cholesterol mass ratOrdered By: Gurdeep Dubois on 05-10-2024 Cholesterol.total/Serene sterol in HDL [Mass ratio] 3.7 {ratio} Normal <5.0 [facility] Comment on above: Order Comment: Reaso n for Exam Type 2 diabetes mellitus with hyperglycemia, without long-te Result Comment: PERF ORMED BY: [place] [address] PATHOLOGIST JEWELRY SALES COORDINATOR SVETLANA DUMONT M.D. Performed By: #### B 12, LIPID, URMACRERAT, CMP #### [facility] [address] [place] [address] [place] #### CPEP #### [facility] , Sodium [Moles/volume] in Ser um or PlasmaOrdered By: Tondra Mapus on 05-10-2024 Sodium [Moles/Vol] 139 mmol/L Normal 136-145 [facility] Comment on above: Order Comment: Reaso n for Exam Type 2 diabetes mellitus with hyperglycemia, without long-te Performed By: #### B 12, LIPID, URMACRERAT, CMP #### [facility] [address] [place] [address] [place] #### CPEP #### [facility] , Triglyceride [Mass/volume] i n Serum or PlasmaOrdered By: Tondra Mapus on 05-10-2024 Triglyceride [Mass/Vol] 289 mg/dL High 0-149 [facility] Comment on above: TRIG ATP III CLASSIF ICATIONTRIG less than 150 mg/dL NormalTRIG 150-199 mg/dL Borderline highTRIG 200-500 mg/dL High TRIG greater than 500 mg/dL Very highStandard traceable to the Center for Disease Conrtrol and Prevention (CDC) test method. Urea nitrogen [Mass/volume] in Serum or PlasmaOrdered By: Tondra Mapus on 05-10-2024 Urea nitrogen [Mass/Vol] 14 mg/dL Normal 7-25 [facility] Comment on above: Order Comment: Reaso n for Exam Type 2 diabetes mellitus with hyperglycemia, without long-te Performed By: #### B 12, LIPID, URMACRERAT, CMP #### [facility] [address] [place] [address] [place] #### CPEP #### [facility] , Urine microalbumin/creatinin e mass ratioOrdered By: Tondra Mapus on 05-10-2024 Albumin/Creatinine DL <= 20 mg/L (U) [Mass ratio] 6.2 mg/g 0.0-30.0 [facility] Comment on above: 30-300 mg/g indicate s an increased risk for diabetic nephropathy. Greater than 300 mg/g is consistent with clinical nephropathy. (Am. J. Kidney Disease 1994, 25:107) Basophils Auto (Bld) [#/Vol] on 04-02-2024 Basophils (Bld) [#/Vol] 0.1 10 3/uL 0.0-0.1 [facility] Basophils/100 WBC Auto (Bld) on 04-02-2024 Basophils/100 WBC (Bld) 0.6 % 0.2-2.0 [facility] Eosinophils/100 WBC Auto (Bl d)on 04-02-2024 Eosinophils/100 WBC (Bld) 1.3 % 0.9-7.0 [facility] Erythrocyte distribution wid th Auto (RBC) [Ratio]on 04-02-2024 Erythrocyte distribution width (RBC) [Ratio] 12.7 % 11.0-15.0 [facility] Estimated glomerular filtrat ion rate (GFR) non- Americanon 04-02-2024 GFR/1.73 sq M.predicted among non-blacks MDRD (S/P/Bld) [Vol rate/Area] mL/min/{1.73_m2} >=60 [facility] Fibrin D-dimer [Presence] in Platelet poor plasma by Latex agglutinationon 04-02-2024 Fibrin D-dimer LA Ql (PPP) 0.32 mg/L FEU <=0.59 [facility] Comment on above: Increases in D-Dimer concentration observed withthromboembolic events can be variable due to localization,size, and age of the thrombus. Therefore, a thromboembolicevent cannot be diagnosed with certainty on the basis of thereference range. D-Dimers may also be elevated for a varietyof disorders including advanced age, , coronarydisease, cancer, liver disease, infection, inflammation,hematoma, DIC, trauma, post-surgery, diabetes, thrombolyticor anticoagulant therapy, stress, and generalizedhospitalization. Hematocrit Auto (Bld) [Volum e fraction]on 04-02-2024 Hematocrit (Bld) [Volume fraction] 42.5 % 36.0-48.0 [facility] Hemoglobin [Mass/volume] in Bloodon 04-02-2024 Hemoglobin (Bld) [Mass/Vol] 13.7 g/dL 12.0-16.0 [facility] Laboratory - Chemistry and C hemistry - challengeon 04-02-2024 Calcium [Mass/Vol] 9.0 mg/dL 8.5-10.1 [facility] Chloride [Moles/Vol] 104 mmol/L 98-107 [facility] CO2 [Moles/Vol] 25.0 mmol/L 21.0-32.0 [facility] Creatinine [Mass/Vol] 0.80 mg/dL 0.55-1.02 [facility] GFR/1.73 sq M.predicted MDRD (S/P/Bld) [Vol rate/Area] mL/min/{1.73_m2} >=60 [facility] Glucose [Mass/Vol] 236 mg/dL High 74-106 [facility] Potassium [Moles/Vol] 3.7 mmol/L 3.5-5.1 [facility] Sodium [Moles/Vol] 139 mmol/L 136-145 [facility] Urea nitrogen [Mass/Vol] 18.0 mg/dL 7.0-18.0 [facility] Urea nitrogen/Creatinine [Mass ratio] 22.5 mg/mg [facility] Laboratory - Hematology and Cell countson 04-02-2024 Immature granulocytes/100 WBC (Bld) 0.4 % 0.0-0.5 [facility] Leukocytes [#/volume] correc tiffany for nucleated erythrocytes in Blood by Automated counon 04-02-2024 WBC corrected for nucl RBC Auto (Bld) [#/Vol] 8.5 10 3/uL 4.0-11.0 [facility] Lymphocytes Auto (Bld) [#/Vo l]on 04-02-2024 Lymphocytes (Bld) [#/Vol] 3.2 10 3/uL 1.2-3.8 [facility] Lymphocytes/100 WBC Auto (Bl d)on 04-02-2024 Lymphocytes/100 WBC (Bld) 37.8 % 20.5-60.0 [facility] MCH Auto (RBC) [Entitic mass ]on 04-02-2024 MCH (RBC) [Entitic mass] 29.4 pg 26.7-34.0 [facility] MCHC Auto (RBC) [Mass/Vol]on 04-02-2024 MCHC (RBC) [Mass/Vol] 32.2 g/dL 29.9-35.2 [facility] MCV Auto (RBC) [Entitic vol] on 04-02-2024 MCV (RBC) [Entitic vol] 91.2 fL 81.0-99.0 [facility] Monocytes Auto (Bld) [#/Vol] on 04-02-2024 Monocytes (Bld) [#/Vol] 0.7 10 3/uL 0.3-0.8 [facility] Monocytes/100 WBC Auto (Bld) on 04-02-2024 Monocytes/100 WBC (Bld) 8.3 % 1.7-12.0 [facility] Neutrophils Auto (Bld) [#/Vo l]on 04-02-2024 Neutrophils (Bld) [#/Vol] 4.4 10 3/uL 1.4-6.5 [facility] Neutrophils/100 WBC Auto (Bl d)on 04-02-2024 Neutrophils/100 WBC (Bld) 51.6 % 43.0-75.0 [facility] No Panel Informationon 04-02 Eosinophils # (Auto) 0.1 10 3/uL 0.0-0.7 [facility] Immature Granulocyte # (Auto) 0.03 10 3/uL 0.00-0.03 [facility] Troponin I High Sensitivity <4.0 pg/mL Low 4.0-51.3 [facility] Comment on above: CUT-OFF POINTS HAVE BEEN ESTABLISHED BASED ON THE FOURTHUNIVERSAL DEFINITION OF MYOCARDIAL INFARCTION. THE UPPERREFERENCE LIMIT (URL) OF TROPONIN, DEFINED THE 99THPERCENTILE OF cTnI DISTRIBUTION IN A REFERENCE POPULATION,HAS BEEN CONFIRMED THE DECISION THRESHOLD FOR MIDIAGNOSIS.99TH PERCENTILE = 51.4 PG/MLNOTE: HIGH-SENSITIVITY TROPONIN ASSAY IS NOT INTENDED TO BEUSED IN ISOLATION BUT SHOULD BE INTERPRETED IN CONJUNCTIONWITH OTHER DIAGNOSTIC AND CLINICAL INFORMATION. Platelet mean volume Auto (B ld) [Entitic vol]on 04-02-2024 Platelet mean volume (Bld) [Entitic vol] 11.0 fL 9.5-13.5 [facility] Platelets Auto (Bld) [#/Vol] on 04-02-2024 Platelets (Bld) [#/Vol] 305 10 3/uL 150-450 [facility] RBC Auto (Bld) [#/Vol]on RBC (Bld) [#/Vol] 4.66 10 6/uL 4.20-5.40 [facility] Serum or plasma anion gap de terminationon 04-02-2024 Anion gap [Moles/Vol] 13.7 mmol/L [facility] HbA1c HPLC (Bld) [Mass fract ion]on 03-18-2024 HbA1c (Bld) [Mass fraction] 8.2 % [facility] No Panel Informationon 03-18 Bedside Glucose 174 [facility] Alanine aminotransferase [En zymatic activity/volume] in Serum or PlasmaOrdered By: Anjalia Sherly on 12-25-2023 ALT [Catalytic activity/Vol] 16 U/L Normal 7-52 [facility] Comment on above: Performed By: #### B 12, CMP, LIPID #### [facility] [address] [place] [address] [place] Albumin [Mass/volume] in Ser um or Plasma by Bromocresol green (BCG) dye binding methoOrdered By: Gurdeep Dubois on 12-25-2023 Albumin BCG dye [Mass/Vol] 4.4 g/dL 3.5-5.7 [facility] Alkaline phosphatase [Enzyma tic activity/volume] in Serum or PlasmaOrdered By: Anjalia Didierus on 12-25-2023 ALP [Catalytic activity/Vol] 79 U/L Normal 34-104 [facility] Comment on above: Performed By: #### B 12, CMP, LIPID #### [facility] [address] [place] [address] [place] Aspartate aminotransferase [ Enzymatic activity/volume] in Serum or PlasmaOrdered By: Tondra Didierus on 12-25-2023 AST [Catalytic activity/Vol] 13 U/L Normal 13-39 [facility] Comment on above: Performed By: #### B 12, CMP, LIPID #### [facility] [address] [place] [id number] [place] Bilirubin.total [Mass/volume ] in Serum or PlasmaOrdered By: Tondra Didierus on 12-25-2023 Bilirubin [Mass/Vol] 0.3 mg/dL Normal 0.3-1.0 [facility] Comment on above: Performed By: #### B 12, CMP, LIPID #### [facility] [address] [place] [address] [place] Calcium [Mass/volume] in Ser um or PlasmaOrdered By: Tondra Didierus on 12-25-2023 Calcium [Mass/Vol] 9.8 mg/dL Normal 8.6-10.3 [facility] Comment on above: Performed By: #### B 12, CMP, LIPID #### [facility] [address] [place] [address] [place] Carbon dioxide, total [Moles /volume] in Serum or PlasmaOrdered By: Tondra Didierus on 12-25-2023 CO2 [Moles/Vol] 27.6 mmol/L Normal 21.0-31.0 [facility] Comment on above: Performed By: #### B 12, CMP, LIPID #### [facility] [address] [place] [address] [place] Chloride [Moles/volume] in S loy or PlasmaOrdered By: Tona Didierus on 12-25-2023 Chloride [Moles/Vol] 109 mmol/L High 98-107 [facility] Comment on above: Performed By: #### B 12, CMP, LIPID #### [facility] [address] [place] [address] [place] Cholesterol [Mass/volume] in Serum or PlasmaOrdered By: Tondra Didierus on 12-25-2023 Cholesterol [Mass/Vol] 154 mg/dL Normal 140-200 [facility] Comment on above: Chol less than 200 m g/dl low riskChol 201-239 mg/dl borderline riskChol 240 mg/dl and greater high risk Result Comment: Chol less than 200 mg/dl low risk Chol 201-239 mg/dl borderline risk Chol 240 mg/dl and greater high risk Performed By: #### B 12, CMP, LIPID #### [facility] [address] [place] [address] [place] Cholesterol in LDL Calc [Mas s/Vol]Ordered By: Tondra Didierus on 12-25-2023 Cholesterol in LDL [Mass/Vol] 79 mg/dL 0-100 [facility] Comment on above: LDL ATP III CLASSIFI CATIONLDL less than 100 mg/dL OptimalLDL 100-129 mg/dL Near or above optimalLDL 130-159 mg/dL Borderline highLDL 160-189 mg/dL HighLDL greater than 189 mg/dL Very high Cholesterol in VLDL Calc [Ma ss/Vol]Ordered By: Gurdeep Dubois on 12-25-2023 Cholesterol in VLDL [Mass/Vol] 28 mg/dL [facility] Comprehensive Metabolic Pane cecile 12-25-2023 Albumin [Mass/Vol] 4.4 g/dL Normal 3.5-5.7 [facility] Comment on above: Performed By: #### B 12, CMP, LIPID #### [facility] [address] [place] [address] [place] GFR/1.73 sq M.predicted MDRD (S/P/Bld) [Vol rate/Area] mL/min/{1.73_m2} Normal [facility] Comment on above: Performed By: #### B 12, CMP, LIPID #### [facility] [address] [place] [address] [place] Creatinine [Mass/volume] in Serum or PlasmaOrdered By: Gurdeep Dubois on 12-25-2023 Creatinine [Mass/Vol] 0.67 mg/dL Normal 0.60-1.20 [facility] Comment on above: Performed By: #### B 12, CMP, LIPID #### [facility] [address] [place] [address] [place] Creatinine [Mass/volume] in UrineOrdered By: Gurdeep Dubois on 12-25-2023 Creatinine (U) [Mass/Vol] 85.0 mg/dL [facility] Comment on above: No reference range e stablished Glucose [Mass/volume] in Ser um or PlasmaOrdered By: Gurdeep Dubois on 12-25-2023 Glucose [Mass/Vol] 220 mg/dL High 70-100 [facility] Comment on above: ADA recommended refe rence rangeRandom Glucose Reference Range is dependent on time and content of last meal. Glucose of more than 200 mg/dL in a nonstressed, ambulatory subject supports the diagnosis of Diabetes Mellitus. Result Comment: [facility] Glucose Reference Range is dependent on time and content of last meal. Glucose of more than 200 mg/dL in a nonstressed, ambulatory subject supports the diagnosis of Diabetes Mellitus. ADA recommended reference range Performed By: #### B 12, CMP, LIPID #### [facility] [address] Lipid Panelon 12-25-2023 LDL Cholesterol,Calculated 79 mg/dL Normal 0-100 [facility] Comment on above: Result Comment: LDL ATP III CLASSIFICATION LDL less than 100 mg/dL Optimal LDL 100-129 mg/dL Near or above optimal LDL 130-159 mg/dL Borderline high LDL 160-189 mg/dL High LDL greater than 189 mg/dL Very high Performed By: #### B 12, CMP, LIPID #### [facility] [address] Triglyceride w/Reflex 142 mg/dL Normal 0-149 [facility] Comment on above: Result Comment: TRIG ATP III CLASSIFICATION TRIG less than 150 mg/dL Normal TRIG 150-199 mg/dL Borderline high TRIG 200-500 mg/dL High TRIG greater than 500 mg/dL Very high Standard traceable to the Center for Disease Conrtrol and Prevention (CDC) test method. Performed By: #### B 12, CMP, LIPID #### [facility] [address] [id number] [facility] VLDL CHOLESTEROL 28 mg/dL Normal [facility] Comment on above: Performed By: #### B 12, CMP, LIPID #### [facility] [address] [id number] [place] MicroAlb Creat Ratio,Uon Creatinine, Urine (Random) 85.0 mg/dL Normal [facility] Comment on above: Result Comment: No r eference range established Performed By: #### U RMACRERAT #### [facility] [address] [id number] [facility] Microalbumin/Creatinine Ratio 11.0 mg/g Normal 0.0-30.0 [facility] Comment on above: Result Comment: 30-3 00 mg/g indicates an increased risk for diabetic nephropathy. Greater than 300 mg/g is consistent with clinical nephropathy. (Am. J. Kidney Disease 1995, 25:107) PERFORMED BY: [place] [address] PATHOLOGIST JEWELRY SALES COORDINATOR SVETLANA DUMONT M.D. Performed By: #### U RMACRERAT #### [address] Microalbumin [Mass/volume] i n UrineOrdered By: Tondra Mapus on 12-25-2023 Albumin DL <= 20 mg/L (U) [Mass/Vol] 1.0 mg/dL Normal 0.0-1.8 [facility] Comment on above: Performed By: #### U RMACRERAT #### [address] No Panel InformationOrdered By: Tondra Mapus on 12-25-2023 Estimated GFR (CKD-EPI) > 60.0 mL/Min [facility] Creatinine Clearance (Chem N/A [facility] Potassium [Moles/volume] in Serum or PlasmaOrdered By: Tondra Mapus on 12-25-2023 Potassium [Moles/Vol] 4.5 mmol/L Normal 3.5-5.1 [facility] Comment on above: Performed By: #### B 12, CMP, LIPID #### [address] Protein [Mass/volume] in Ser um or PlasmaOrdered By: Tondra Mapus on 12-25-2023 Protein [Mass/Vol] 6.7 g/dL Normal 6.4-8.9 [facility] Comment on above: Performed By: #### B 12, CMP, LIPID #### [address] Serum globulin measurement b y calculation (mass/volume)Ordered By: Tondra Mapus on 12-25-2023 Globulin (S) [Mass/Vol] 2.3 g/dL Normal [facility] Comment on above: Performed By: #### B 12, CMP, LIPID #### [facility] [address] Serum or plasma albumin/glob ulin mass ratioOrdered By: Tondra Didierus on 12-25-2023 Albumin/Globulin [Mass ratio] 1.9 {ratio} Normal [facility] Comment on above: Performed By: #### B 12, CMP, LIPID #### [facility] [address] [place] [address] Serum or plasma anion gap de terminationOrdered By: Tondra Sherly on 12-25-2023 Anion gap [Moles/Vol] 6.9 mmol/L Normal 6.0-15.0 [facility] Comment on above: Performed By: #### B 12, CMP, LIPID #### [address] Serum or plasma high density lipoprotein (HDL) cholesterol measurementOrdered By: Tona Sherly on 12-25-2023 Cholesterol in HDL [Mass/Vol] 47 mg/dL Normal 23-92 [facility] Comment on above: HDL CHOL ATP-III CLA SSIFICATION Cardiovascular RiskHDL > or equal to 60 mg/dL LOWHDL < 40 mg/dL HIGH Result Comment: HDL CHOL ATP-III CLASSIFICATION Cardiovascular Risk HDL > or equal to 60 mg/dL LOW HDL < 40 mg/dL HIGH Performed By: #### B 12, CMP, LIPID #### [facility] [address] [place] [address] Serum or plasma total choles terol/high density lipoprotein (HDL) cholesterol mass ratOrdered By: Tondra Didierus on 12-25-2023 Cholesterol.total/Serene sterol in HDL [Mass ratio] 3.3 {ratio} Normal <5.0 [facility] Comment on above: Performed By: #### B 12, CMP, LIPID #### [facility] [address] [place] [address] Sodium [Moles/volume] in Ser um or PlasmaOrdered By: Tondra Mapus on 12-25-2023 Sodium [Moles/Vol] 139 mmol/L Normal 136-145 [facility] Comment on above: Performed By: #### B 12, CMP, LIPID #### [facility] [address] Triglyceride [Mass/volume] i n Serum or PlasmaOrdered By: Gurdeep Dubois on 12-25-2023 Triglyceride [Mass/Vol] 142 mg/dL 0-149 [facility] Comment on above: TRIG ATP III CLASSIF ICATIONTRIG less than 150 mg/dL NormalTRIG 150-199 mg/dL Borderline highTRIG 200-500 mg/dL High TRIG greater than 500 mg/dL Very highStandard traceable to the Center for Disease Conrtrol and Prevention (CDC) test method. Urea nitrogen [Mass/volume] in Serum or PlasmaOrdered By: Gurdeep Dubois on 12-25-2023 Urea nitrogen [Mass/Vol] 18 mg/dL Normal - [facility] Comment on above: Performed By: #### B 12, CMP, LIPID #### [facility] [address] Urine microalbumin/creatinin e mass ratioOrdered By: Gurdeep Dubois on 12-25-2023 Albumin/Creatinine DL <= 20 mg/L (U) [Mass ratio] 11.0 mg/g 0.0-30.0 [facility] Comment on above: 30-300 mg/g indicate s an increased risk for diabetic nephropathy. Greater than 300 mg/g is consistent with clinical nephropathy. (Am. J. Kidney Disease 1995, 25:107) Vitamin B12 ser/plasOrdered By: Gurdeep Dubois on 12-25-2023 Cobalamin (Vitamin B12) [Mass/Vol] 617 pg/mL Normal 180-914 [facility] Comment on above: Result Comment: PERF ORMED BY: [place] [address] PATHOLOGIST JEWELRY SALES COORDINATOR SVETLANA DUMONT M.D. Performed By: #### B 12, CMP, LIPID #### [facility] [address] HbA1c HPLC (Bld) [Mass fract ion]on 12-11-2023 HbA1c (Bld) [Mass fraction] 8.8 % [facility] No Panel Informationon 12-10 Bedside Glucose 220 [facility] XR lumbar spine AP/LAT/FLX/E XTon 06-26-2023 XR lumbar spine AP/LAT/FLX/EXT [facility] [place] [address] [place] [address] XRay Report Signed Patient: Farhana Landers MR#: [id number] : 1965 Acct:[id number] Age/Sex: 57 / F ADM Date: 06/26/23 Loc: SOXD Room: Type: [facility] Attending Dr: Emil Cooper MD Copies to: [...] lumbar facet degeneration. SOFT TISSUES: Atherosclerosis. BONY MINERALIZATION:Diffuse osteopenia XR/XR lumbar spine AP/LAT/FLX/EXT IMPRESSION: No hypermobility. 4 mm L4-5 anterolisthesis. Degenerative change. Impression dictated by: Roman Sultana M.D.06/26/2023 2:54 PM Dictation Location: [place] [address] Transcribed By: [facility] 06/26/23 1454 Dictated By: Roman Sultana DO 06/26/23 1452 Signed By: 06/26/23 1454 Normal [facility] A1C HEMOGLOBINon 06-02-2023 HbA1c (Bld) [Mass fraction] 7.7 % [employer] Other Albumin [Mass/volume] in Ser um or Plasma by Bromocresol green (BCG) dye binding methoOrdered By: Gurdeep Dubois on 06-02-2023 Albumin BCG dye [Mass/Vol] 4.5 g/dL 3.5-5.7 [facility] Bilirubin.total [Mass/volume ] in Serum or PlasmaOrdered By: Gurdeep Dubois on 06-02-2023 Bilirubin [Mass/Vol] 0.5 mg/dL Normal 0.3-1.0 [facility] Comment on above: Order Comment: PT FA STED 12 HOURS Reason for Exam Type 2 diabetes mellitus with hyperglycemia, without long-te Performed By: #### B 12, LIPID, URMACRERAT, CMP #### [facility] [address] [place] [address] #### CPEP #### [facility] , C-PeptideOrdered By: Gurdeep Dubois on 06-02-2023 C-Peptide 3.8 ng/mL Normal 1.1-4.4 [facility] Comment on above: C-Peptide reference interval is for fasting patients.Performed at: [facility] [place] [address]Lab Director: Jacques Llnaos PhD, Phone: [phone] Order Comment: Reaso n for Exam Type 2 diabetes mellitus with hyperglycemia, without long-te Result Comment: C-Pe ptide reference interval is for fasting patients. Performed at: [employer] [place] [address] [place] Supervisor: Jacques Llanos PhD, Phone: [phone] PERFORMED BY: [place] [address] PATHOLOGIST JEWELRY SALES COORDINATOR SVETLANA DUMONT M.D. Performed By: #### B 12, LIPID, URMACRERAT, CMP #### [facility] [address] [place] [address] #### CPEP #### [facility] , Calcium [Mass/volume] in Ser um or PlasmaOrdered By: Gurdeep Dubois on 06-02-2023 Calcium [Mass/Vol] 10.1 mg/dL Normal 8.6-10.3 [facility] Comment on above: Order Comment: PT FA STED 12 HOURS Reason for Exam Type 2 diabetes mellitus with hyperglycemia, without long-te Performed By: #### B 12, LIPID, URMACRERAT, CMP #### [facility] [address] [place] [address] [place] #### CPEP #### [facility] , Carbon dioxide, total [Moles /volume] in Serum or PlasmaOrdered By: Gurdeep Dubois on 06-02-2023 CO2 [Moles/Vol] 26.2 mmol/L Normal 21.0-31.0 [facility] Comment on above: Order Comment: PT FA STED 12 HOURS Reason for Exam Type 2 diabetes mellitus with hyperglycemia, without long-te Performed By: #### B 12, LIPID, URMACRERAT, CMP #### [facility] [address] [place] [address] [place] #### CPEP #### [facility] , Cholesterol in LDL Calc [Mas s/Vol]Ordered By: Gurdeep Dubois on 06-02-2023 Cholesterol in LDL [Mass/Vol] 73 mg/dL 0-100 [facility] Comment on above: LDL ATP III CLASSIFI CATIONLDL less than 100 mg/dL OptimalLDL 100-129 mg/dL Near or above optimalLDL 130-159 mg/dL Borderline highLDL 160-189 mg/dL HighLDL greater than 189 mg/dL Very high Cholesterol in VLDL Calc [Ma ss/Vol]Ordered By: Gurdeep Dubois on 06-02-2023 Cholesterol in VLDL [Mass/Vol] 52 mg/dL [facility] Comprehensive Metabolic Pane cecile 06-02-2023 Albumin [Mass/Vol] 4.409528 g/dL Normal 3.5-5.7 g/dL [employer] Other Bilirubin [Mass/Vol] 0.9259705 mg/dL Normal 0.3- 1.0 mg/dL [employer] Other Calcium [Mass/Vol] 10.9160247 mg/dL Normal 8.6-1 0.3 mg/dL [employer] Other CO2 [Moles/Vol] 26.31554644 mmol/L Normal 21.0-3 1.0 mmol/L [employer] Other Creatinine [Mass/Vol] 0.91798997 mg/dL Normal 0. 60-1.20 mg/dL [employer] Other Potassium [Moles/Vol] 4.23372565 mmol/L Normal 3 .5-5.1 mmol/L [employer] Other Protein [Mass/Vol] 6.257841 g/dL Normal 6.4-8.9 g/dL [employer] Other Comprehensive Metabolic Panel 2.4 g/dL [employer] Other Albumin [Mass/Vol] 4.5 g/dL Normal 3.5-5.7 [facility] Comment on above: Order Comment: PT FA STED 12 HOURS Reason for Exam Type 2 diabetes mellitus with hyperglycemia, without long-te Performed By: #### B 12, LIPID, URMACRERAT, CMP #### [facility] [address] [place] [address] [place] #### CPEP #### [facility] , GFR/1.73 sq M.predicted MDRD (S/P/Bld) [Vol rate/Area] mL/min/{1.73_m2} Normal [facility] [employer] Other Comment on above: Order Comment: PT FA STED 12 HOURS Reason for Exam Type 2 diabetes mellitus with hyperglycemia, without long-te Performed By: #### B 12, LIPID, URMACRERAT, CMP #### [facility] [address] [place] [address] [place] #### CPEP #### [facility] , Comprehensive Metabolic Pane lOrdered By: Guredep Dubois on 06-02-2023 Albumin/Globulin [Mass ratio] 1.9 {ratio} Normal [facility] Comment on above: Order Comment: PT FA STED 12 HOURS Reason for Exam Type 2 diabetes mellitus with hyperglycemia, without long-te Performed By: #### B 12, LIPID, URMACRERAT, CMP #### [facility] [address] [place] [address] [place] #### CPEP #### [facility] , ALP [Catalytic activity/Vol] 90 U/L Normal 34-104 [facility] Comment on above: Order Comment: PT FA STED 12 HOURS Reason for Exam Type 2 diabetes mellitus with hyperglycemia, without long-te Performed By: #### B 12, LIPID, URMACRERAT, CMP #### [facility] [address] [place] [address] [place] #### CPEP #### [facility] , ALT [Catalytic activity/Vol] 16 U/L Normal 7-52 [facility] Comment on above: Order Comment: PT FA STED 12 HOURS Reason for Exam Type 2 diabetes mellitus with hyperglycemia, without long-te Performed By: #### B 12, LIPID, URMACRERAT, CMP #### [facility] [address] [place] [address] #### CPEP #### [facility] , AST [Catalytic activity/Vol] 12 U/L Low 13-39 [facility] Comment on above: Order Comment: PT FA STED 12 HOURS Reason for Exam Type 2 diabetes mellitus with hyperglycemia, without long-te Performed By: #### B 12, LIPID, URMACRERAT, CMP #### [facility] [address] [place] [address] #### CPEP #### [facility] , Chloride [Moles/Vol] 104 mmol/L Normal 98-107 [facility] Comment on above: Order Comment: PT FA STED 12 HOURS Reason for Exam Type 2 diabetes mellitus with hyperglycemia, without long-te Performed By: #### B 12, LIPID, URMACRERAT, CMP #### [facility] [address] [place] [address] [place] #### CPEP #### [facility] , Glucose [Mass/Vol] 195 mg/dL High 70-100 [facility] Comment on above: ADA recommended refe rence rangeRandom Glucose Reference Range is dependent on time and content of last meal. Glucose of more than 200 mg/dL in a nonstressed, ambulatory subject supports the diagnosis of Diabetes Mellitus. Order Comment: PT FA STED 12 HOURS Reason for Exam Type 2 diabetes mellitus with hyperglycemia, without long-te Result Comment: [facility] Glucose Reference Range is dependent on time and content of last meal. Glucose of more than 200 mg/dL in a nonstressed, ambulatory subject supports the diagnosis of Diabetes Mellitus. ADA recommended reference range Performed By: #### B 12, LIPID, URMACRERAT, CMP #### [facility] [address] [place] [address] #### CPEP #### [facility] , Sodium [Moles/Vol] 139 mmol/L Normal 136-145 [facility] Comment on above: Order Comment: PT FA STED 12 HOURS Reason for Exam Type 2 diabetes mellitus with hyperglycemia, without long-te Performed By: #### B 12, LIPID, URMACRERAT, CMP #### [facility] [address] [place] [address] #### CPEP #### [facility] , Urea nitrogen [Mass/Vol] 14 mg/dL Normal 7-25 [facility] Comment on above: Order Comment: PT FA STED 12 HOURS Reason for Exam Type 2 diabetes mellitus with hyperglycemia, without long-te Performed By: #### B 12, LIPID, URMACRERAT, CMP #### [facility] [address] [place] [address] #### CPEP #### [facility] , Creatinine [Mass/volume] in Serum or PlasmaOrdered By: Gurdeep Dubois on 06-02-2023 Creatinine [Mass/Vol] 0.71 mg/dL Normal 0.60-1.20 [facility] Comment on above: Order Comment: PT FA STED 12 HOURS Reason for Exam Type 2 diabetes mellitus with hyperglycemia, without long-te Performed By: #### B 12, LIPID, URMACRERAT, CMP #### [facility] [address] [place] [address] [place] #### CPEP #### [facility] , Creatinine [Mass/volume] in UrineOrdered By: Gurdeep Dubois on 06-02-2023 Creatinine (U) [Mass/Vol] 91.0 mg/dL 11.0-20.0 [facility] Glucose - FINGER STICKon Glucose [Mass/Vol] 240 mg/dL [facility] [employer] Other HbA1c (Bld) [Mass fraction]o n 06-02-2023 A1C HEMOGLOBIN [facility] [employer] Other Lipid Panelon 06-02-2023 Cholesterol in LDL Elph Qn 73 mg/dL Normal 0-100 mg/dL [facility] [employer] Other Lipid Panel 260 mg/dL High 0-149 mg/dL [facility] [employer] Other Lipid Panel 52 mg/dL [facility] [employer] Other LDL Cholesterol,Calculated 73 mg/dL Normal 0-100 [facility] Comment on above: Order Comment: PT FA STED 12 HOURS Reason for Exam Type 2 diabetes mellitus with hyperglycemia, without long-te Result Comment: LDL ATP III CLASSIFICATION LDL less than 100 mg/dL Optimal LDL 100-129 mg/dL Near or above optimal LDL 130-159 mg/dL Borderline high LDL 160-189 mg/dL High LDL greater than 189 mg/dL Very high Performed By: #### B 12, LIPID, URMACRERAT, CMP #### [address] #### CPEP #### [facility] , Triglyceride w/Reflex 260 mg/dL High 0-149 [facility] Comment on above: Order Comment: [...] Prevention (CDC) test method. Performed By: #### B 12, LIPID, URMACRERAT, CMP #### [facility] [address] [place] [address] [place] #### CPEP #### [facility] , VLDL CHOLESTEROL 52 mg/dL Normal [facility] Comment on above: Order Comment: PT FA STED 12 HOURS Reason for Exam Type 2 diabetes mellitus with hyperglycemia, without long-te Performed By: #### B 12, LIPID, URMACRERAT, CMP #### [facility] [address] [place] [address] [place] #### CPEP #### [facility] , Lipid PanelOrdered By: Anjali Dubois on 06-02-2023 Cholesterol [Mass/Vol] 178 mg/dL Normal 140-200 [facility] Comment on above: Chol less than 200 m g/dl low riskChol 201-239 mg/dl borderline riskChol 240 mg/dl and greater high risk Order Comment: PT FA STED 12 HOURS Reason for Exam Type 2 diabetes mellitus with hyperglycemia, without long-te Result Comment: Chol less than 200 mg/dl low risk Chol 201-239 mg/dl borderline risk Chol 240 mg/dl and greater high risk Performed By: #### B 12, LIPID, URMACRERAT, CMP #### [facility] [address] [place] [address] [place] #### CPEP #### [facility] , Cholesterol in HDL [Mass/Vol] 53 mg/dL Normal 23-92 [facility] Comment on above: HDL CHOL ATP-III CLA SSIFICATION Cardiovascular RiskHDL > or equal to 60 mg/dL LOWHDL < 40 mg/dL HIGH Order Comment: PT FA STED 12 HOURS Reason for Exam Type 2 diabetes mellitus with hyperglycemia, without long-te Result Comment: HDL CHOL ATP-III CLASSIFICATION Cardiovascular Risk HDL > or equal to 60 mg/dL LOW HDL < 40 mg/dL HIGH Performed By: #### B 12, LIPID, URMACRERAT, CMP #### [facility] [address] [place] [address] [place] #### CPEP #### [facility] , Cholesterol.total/Serene sterol in HDL [Mass ratio] 3.4 {ratio} Normal <5.0 [facility] Comment on above: Order Comment: PT FA STED 12 HOURS Reason for Exam Type 2 diabetes mellitus with hyperglycemia, without long-te Performed By: #### B 12, LIPID, URMACRERAT, CMP #### [facility] [address] #### CPEP #### [facility] , MicroAlb Creat Ratio,Uon Albumin DL <= 20 mg/L (U) [Mass/Vol] 1.2409956 mg/dL Normal 0.0-1.8 mg/dL [facility] [employer] Other Albumin/Creatinine DL <= 20 mg/L (U) [Mass ratio] 15.148940 mg/g Normal 0.0-30.0 mg/g [employer] Other Creatinine (U) [Mass/Vol] 91.1482337 mg/dL High 11.0-20.0 mg/dL [employer] Other Creatinine, Urine (Random) 91.0 mg/dL High 11.0-20.0 [facility] Comment on above: Order Comment: Reaso n for Exam Type 2 diabetes mellitus with hyperglycemia, without long-te Performed By: #### B 12, LIPID, URMACRERAT, CMP #### [facility] [address] [place] [address] [place] #### CPEP #### [facility] , Microalbumin/Creatinine Ratio 15.0 mg/g Normal 0.0-30.0 [facility] Comment on above: Order Comment: Reaso n for Exam Type 2 diabetes mellitus with hyperglycemia, without long-te Result Comment: 30-3 00 mg/g indicates an increased risk for diabetic nephropathy. Greater than 300 mg/g is consistent with clinical nephropathy. (Am. J. Kidney Disease 1995, 25:107) PERFORMED BY: [address] [place] [address] PATHOLOGIST JEWELRY SALES COORDINATOR SVETLANA DUMONT M.D. Performed By: #### B 12, LIPID, URMACRERAT, CMP #### [facility] [address] [place] [address] [place] #### CPEP #### [facility] , Microalbumin [Mass/volume] i n UrineOrdered By: Tondra Mapus on 06-02-2023 Albumin DL <= 20 mg/L (U) [Mass/Vol] 1.4 mg/dL Normal 0.0-1.8 [facility] Comment on above: Order Comment: Reaso n for Exam Type 2 diabetes mellitus with hyperglycemia, without long-te Performed By: #### B 12, LIPID, URMACRERAT, CMP #### [facility] [address] [place] [address] #### CPEP #### [facility] , No Panel InformationOrdered By: Tondra Mapus on 06-02-2023 Estimated GFR (CKD-EPI) > 60.0 mL/Min [facility] Creatinine Clearance (Chem N/A [facility] Potassium [Moles/volume] in Serum or PlasmaOrdered By: Tondra Mapus on 06-02-2023 Potassium [Moles/Vol] 4.3 mmol/L Normal 3.5-5.1 [facility] Comment on above: Order Comment: PT FA STED 12 HOURS Reason for Exam Type 2 diabetes mellitus with hyperglycemia, without long-te Performed By: #### B 12, LIPID, URMACRERAT, CMP #### [facility] [address] [place] [address] [place] #### CPEP #### [facility] , Protein [Mass/volume] in Ser um or PlasmaOrdered By: Tondra Mapus on 06-02-2023 Protein [Mass/Vol] 6.9 g/dL Normal 6.4-8.9 [facility] Comment on above: Order Comment: PT FA STED 12 HOURS Reason for Exam Type 2 diabetes mellitus with hyperglycemia, without long-te Performed By: #### B 12, LIPID, URMACRERAT, CMP #### [facility] [address] [place] [address] [place] #### CPEP #### [facility] , Serum globulin measurement b y calculation (mass/volume)Ordered By: Gurdeep Dubois on 06-02-2023 Globulin (S) [Mass/Vol] 2.4 g/dL Normal [facility] Comment on above: Order Comment: PT FA STED 12 HOURS Reason for Exam Type 2 diabetes mellitus with hyperglycemia, without long-te Performed By: #### B 12, LIPID, URMACRERAT, CMP #### [facility] [address] [place] [address] [place] #### CPEP #### [facility] , Serum or plasma anion gap de terminationOrdered By: Gurdeep Dubois on 06-02-2023 Anion gap [Moles/Vol] 13.1 mmol/L Normal 6.0-15.0 [facility] Comment on above: Order Comment: PT FA STED 12 HOURS Reason for Exam Type 2 diabetes mellitus with hyperglycemia, without long-te Performed By: #### B 12, LIPID, URMACRERAT, CMP #### [facility] [address] [place] [address] [place] #### CPEP #### [facility] , Triglyceride [Mass/volume] i n Serum or PlasmaOrdered By: Gurdeep Dubois on 06-02-2023 Triglyceride [Mass/Vol] 260 mg/dL 0-149 [facility] Comment on above: TRIG ATP III CLASSIF ICATIONTRIG less than 150 mg/dL NormalTRIG 150-199 mg/dL Borderline highTRIG 200-500 mg/dL High TRIG greater than 500 mg/dL Very highStandard traceable to the Center for Disease Conrtrol and Prevention (CDC) test method. Urine microalbumin/creatinin e mass ratioOrdered By: Gurdeep Dubois on 06-02-2023 Albumin/Creatinine DL <= 20 mg/L (U) [Mass ratio] 15.0 mg/g 0.0-30.0 [facility] Comment on above: 30-300 mg/g indicate s an increased risk for diabetic nephropathy. Greater than 300 mg/g is consistent with clinical nephropathy. (Am. J. Kidney Disease 1995, 25:107) Vitamin Q64Vvyymgw By: Anjali Dubois on 06-02-2023 Cobalamin (Vitamin B12) [Mass/Vol] 696 pg/mL Normal 180-914 [facility] Comment on above: Order Comment: PT FA STED 12 HOURS Reason for Exam Type 2 diabetes mellitus with hyperglycemia, without long-te Result Comment: PERF ORMED BY: [facility] [address] [place] [address] PATHOLOGIST JEWELRY SALES COORDINATOR SVETLANA DUMONT M.D. Performed By: #### B 12, LIPID, URMACRERAT, CMP #### [address] #### CPEP #### [facility] , Coding Summaryon 04-25-2023 Coding Summary [employer] 64 AcvemzjuBQw8jEb+PGhlYW Q+FA7NDGKjD36luKJhlK5n W4DBMCePOzmqLXBGNWsHDy VoavGqCJ0ghEQbUCHt IC8+BZ5lHZUnVjhfhSOyc9 E4tFO4M18kih8sFRjrkGN3 BIQaYgPfnuxho3cmtYo8MA cuNmluOyBt QKUnoD98QZU6sK07Lj97hP MfbMTzk1qbaSh7TfRvEDXj NMC0gEyiXSdyt6EmBPDtR8 6xjLInt2Y0 ZTBboFtsvCCzWdKpzUY3tL 6yUBtfyjwmh4onwcobFuk3 pu66pROoh3K2eTT3N2Ovxs H8XOPcrNKx SduriYVUaD1iyrchh1oakk sgShMwXGHpMZl1MGm3IXFb mRfqPlPrOC43AQT8MPIeso BxP8XiZHSv rXarNeY1q6E8Ti7SP9UCAg oiX5YOMDITBDtpmST+PC90 oc43N0TeFgdwGvw4FVYgLU C7pWW2eE9e UZSfFFkyw2M4bKB7N5Cmqr Kxch2mj5opEFYoLVsyA66t vVEtn2K8HDIxmHB6UIYpnZ kwGeDpfP45 Oyc+XXGowReou0IiZjews4 agk3pzgOr7TczmXLAjahDb eXwrRIJ8m2IaIt9iMZRueZ N0qYT3kI6s PnNmKnQ7HJdfT868ZfQzlT FaQskaD68zE2DoqVC+PHRy Eje5IBZueSpkDX9qP8CfZE RpbmctbGVm sMdcZJ7dMYTuvzcvKTUinG 5qWFByS5j1JfAvXhR4YJay K5SoIVNzyisvBi23wL5sXp FpSmV8KTxn D2YusxX8GTKgiMBhYVlkVW K0S05pu4H2ZKBmXYRgTKO9 aYR8mE7luEqyawjvwMAzvF sgdmVydGlj SZoaPFpfU260JOLeiJdrRk NvZGluZyBEYXRlOiAgMDkv MDgvMjAyMzwvdGQ+PHRkIH L0jUzmQZQn oGDuTRhqFy3mrXjwmUxoFG 7qUMMcdoblLPUhqO9mHDVf sEPhpJnnGY0qFPZvntukk6 32RoNwPBT6 CNMmgQVgE6DzuO5iLvFkHO GvXPGlM9FxoNQpZWzkS517 HRmuCaD0SBKcyaNvI2TwBB FsaWduOiB0 b7N8Er3Ys4RvkyspS6QzdJ EbGtDvAdxuJPp6X1KdGndt dHI+GA79WXNwSA48ZPp9AF U3vEpgRImi CCBjZ3XsqA2tUyQzNMDyVM RkOyc+PHRhYmxlIHdpZHRo ZEdjZMVcWmCqhIakQT7iOn 9yZGVyLWNv dFwknGRvOvBpy4lyWIUaNY azKP8wlBndX6NrtTP2VSWa r2d0Zh88E35wA4IhfCD+PG XvwDF8qGK6 wG9nAqVaJzQ4JNwqO693Pe DypJOiErogj4ais2xrwXh0 BlI0VDCemcCloRvwQMY8r8 TpCf78Y98h IHdpZHRoPSIxNSUiIHZhbG oaya1kuY7tLb6+PGNvbCB3 hCV0aD7sWvPjTjW7AFvyA6 49InRvcCIv Yyqtm2nbw7yptMh5WxYpYA KmmwYrqEuuYOA6n7ZkAp46 C7KomNqzv0JySmw9xk11jN Eby7Z2zCT6 M0VsCVWcusnqjTXqjTtpMN 5tWZRuktgiTRYppE8fVWEx C9d0QtEuWvN1HEesM6Bpve D9GCPmhQFa RHRieAFDvH3uzgidj2gvbk fvDdOnCUAsLKl4FKj1YZIx aOcqXkVkDOQ9YpR1QCP4qB MkxN1qeKgl judloT5uSps+IMH4kXBptP XIBJ5bHdvgaDN+PHRkIHN0 cKvwCDcoIDVdiX2aQKXsI9 y2XxXtHqM9 MLywW6JlghQ0ZGNkiDSlFY NhoXDAcL4crmisv3ztczjs RhPvZZWzXUn0KUv4COIrrP duOiBsZWZ0 FyU3SOJ0dTGllV3thRcjwc ykxB1pOam+QmlydGggRGF0 NPo3F5RrGfz7BDEauMrtUW 0ncGFkZGlu Eh0whJuewEvgYV1mZRZbdj aux254RuUtd8ptPSBybVDr JWmtDDJ8S55aw9O6YCTuOM TfGWJ3oUQ6 sA6udOgjdsgqrGQybMnxsg UbtHpaSCwbDGdoE405IICb oTajLnFkYVf2X5CdTns4HR UzdErgNN8j uSQgDEopUe6siEqtaTzcTC 6yTUUaaidqo986UyPpo3rh KYTchCYtXQslSQZ1I32rc2 N0OJAzIVYf WCL4qAE1lP5xyUuzmjxvxF VmdDsgdmVydGljYWwtYWxp D644SQIvbYqtQyJtuCw2V6 BjIoz0FRPa bEmhJQ1wsSZjVNerXg2nwT ovqLzmMX5mTKAktioin122 VjJzn3erQEBowRGpVUkyIN S8D31ey3U9 BYKdXNImSAI3tZZ7kW8osM lnbjogbGVmdDsgdmVydGlj MYomZVchI391LTRcfIqqXv BhdGllbnQg VCscEVb6K5VnJyewwKN+PC 99VCDiPE73cVTorJEel0gu qFg0NxDlVNPyXUJ8uKfuPH dee2UiJSVg D57stARqq7P1ESHzhFrqhZ NfCxTfqIU5bT3nJLijvfbw n6qtxbabDdlot8xzge82dC 98R35wJBgl ZHRoPSIzMCUiIHZhbGlnbj 0drL7tUw7+QRFgiNE2oZN3 pB5bIOAzIaA5QAslD152Go RvcCIvPjxj q6viu2nzqUn8AsO0CWQdvr QnnOugOAJ0u8FbFa53A98k IHdpZHRoPSIyMCUiIHZhbG mwxn8udS2m Ii8+ORUkkVL2kCC4uF7tOn FeQvS8FJtwH217QcHqjRBm FymsC09vF4InfAQ+PHRyPj a7PVBsqMbf QK2buGPyGQvlIz7rGUR5Ne MtFlFrMKmpH3VdCQCnnzcg hydywML2AMJkNGLmgV77Ao 9udDogMTBw jYIQmK3wmxize1iywwfdYc QlGAGiRHe3RTh9YEEjkJkv ZiWhGYG6PyO8AMJ0dSMrfL 1hbGlnbjog tO0eH7BqPMSwskefIf96dP 4xRaBtGwT4GYjwOyz+SkFD L2IKHtfoEL2SAZXYLJVEBG JJRTwvdGQ+ UOXcHFS8sSftQDypMOGcwE 3pYHMoB5p9NhRjBaW1BBls T8YgWZRyqesvRi56rF5gGf UwCnQ5NShp W2HawaE5ZHTszBLaNVxaVL D7P37lv4I9BCCiXXMpOZH6 wON4uR4kqYryinpvsHRtjS sgdmVydGlj DTtsHPgyF061DLDjwNbeWb BcOeY9JuW0BlX7J1KgLxu4 EGVszVyvHK6ohHTiQVodKj 1yaWdodDog SF5dOBXfxcpxNDHzpA0hMK TjuXQdjHjbPM7fYZAuskrs z173WpUsACE6DUGvoGItN4 RkgT5xRaQe VVKrLMBlZ1PyrBBtZQfiP5 16OHncYbP0EPAioeWcS5Ms FRQpeHoqDuA8b1Y4Og03Ov BZZWFyczwv dGQ+RISiWAR8nXxrJZmhSO LaoU5dUUBtR6c5HlBkWvJ2 NEdvG7OaJVMdtxenAt89vQ 9sSdEzWzJ2 RTosV9LtwoU4ILVpvSNaXU kzLNZ6Z57dc1H5TIOsNJDv FPF3jJV0jK8laNoctknexZ VmdDsgdmVy xNrjZPkdQKtzJ641HWMizK snPkZFTUFMRTwvdGQ+PHRk UHI9aQcdDUhuHATtmB5yTY LjR5a1PfJy ZaC1HFdrF3EhPPPbtifoHg 44yS0iMuGoCyH2HDnvV4Dy ihH1QPPmxUPpOPjfJYB2Z4 1rn3Z2BKZg POJtPSC9hIL7wK7flAmsje ogbGVmdDsgdmVydGljYWwt CSllC728UKZytDbkMl8PBF 54RA54B2Dg PjwvdGFibGU+PHRhYmxlIH dpZHRoPScxMDAlJyBzdHls GZ5jOq7qSANjQHJlgKflfB GpIyXuh4et PHXcVRtnSN1byPvsV0ZdeR C1ZCFrt2f2Px24N17vH7Yu dXA+KGRupNT6yPL0gH5mKj BzZfK1ZNqs J065MiKcaXYlLggdy4vvg2 zdqQy6XdNeNGSabyNiiKnc UMK2u7GtPs81U76sGZokXG RoPSIyMCUi ZLZluJsncw7kfJ9jNo0+PG ZunWZ0cOQ2tD7uZpNeEvZ0 NYdfO945EfVqqEQdFhioB8 6pY8NimPL+ WTCeLlf6QRTalNseQR7wdG WeRDmwFi4nCUG5UrFfYpDf MTsrG7IfUNLyqnhvkhzxyU T3MVZjDNRt yA83Om7ynBefKj0tBVYnPT X0BGSbdFBgU2SrwA8xTvMb JVGbWYXqW2AwtTHlMFdzK8 36UHekFdW9 KRHkmcNtQ9LpMXMjeNmeOg N0b8G1Mq8NwElsaXGsWK6m NwBkHOq9O8XsFlv9TDVkpF dyXH3ysBRt YGxgSx7jhRwihErfDF8tBO Ewygjov233StVio6woCFKi rQAnAEcfRNC8R84pd9L1IM MwMDAwMDA7 bWI8yY1rxDceutfpjJJuoQ rndpPndUftPBrlGNelK554 VDNrxBdpLlZSCmr0K8CfJg i4KIVwiSkx CC0kyWMbISrkAf4kaDawsC zuYU1oSVYonafyr372RgIf e7doFWRteTWkRAbbGPD1P5 0ut2X9YOPu ADZlDJQ9oRD8yF2hbQpybv ogbGVmdDsgdmVydGljYWwt TIizO677PKJocAyeFy9WUx m1H1PmGza6 WHJveNhcWZ1tnBOhUEjnUg 3gmEozoUilFK9bTNVsduqi y997BiZnp7vmKKFdjDTpUZ xrNPI2J83i e7G7WSLfTVJkWVP7qIE9tL 1hbGlnbjogbGVmdDsgdmVy hVvqBLkfFMtbC509FWKdyE snPlBheWVy OjwvdGQ+AS46ai05Y0UqFz gjQus5EZGeJNZ5gYA9lD5o MTEkJBsot1A1aAJ7U7Kxtb Wsjh0je6uh YXB (more content not included)... [facility] Provider Orderson 04-24-2023 Provider Orders [id number]#[id number] OTGTIFF [facility] Albumin [Mass/volume] in Ser um or PlasmaOrdered By: Maddi Mcpherson on 10-04-2022 Albumin [Mass/Vol] 4.3 g/dL 3.2-5.5 [facility] Basophils Auto (Bld) [#/Vol] Ordered By: Maddi Mcpherson on 10-04-2022 Basophils (Bld) [#/Vol] 0.0 10*3/uL 0.0-0.2 [facility] Basophils/100 WBC Auto (Bld) Ordered By: Maddi Mcpherson on 10-04-2022 Basophils/100 WBC (Bld) 0.6 % . [facility] Cholesterol [Mass/volume] in Serum or PlasmaOrdered By: Maddi Mcpherson on 10-04-2022 Cholesterol [Mass/Vol] 183 mg/dL 140-200 [facility] Comment on above: Chol less than 200 m g/dl low riskChol 201-239 mg/dl borderline riskChol 240 mg/dl and greater high risk Cholesterol in LDL Calc [Mas s/Vol]Ordered By: Maddi Mcpherson on 10-04-2022 Cholesterol in LDL [Mass/Vol] 93 mg/dL 0-100 [facility] Comment on above: LDL ATP III CLASSIFI CATIONLDL less than 100 mg/dL OptimalLDL 100-129 mg/dL Near or above optimalLDL 130-159 mg/dL Borderline highLDL 160-189 mg/dL HighLDL greater than 189 mg/dL Very high Cholesterol in VLDL Calc [Ma ss/Vol]Ordered By: Maddi Mcpherson on 10-04-2022 Cholesterol in VLDL [Mass/Vol] 43 mg/dL [facility] Creatinine [Mass/volume] in UrineOrdered By: Maddi Mcpherson on 10-04-2022 Creatinine (U) [Mass/Vol] 107.3 mg/dL [facility] Comment on above: No reference range e stablished Creatinine and Glomerular fi ltration rate.predicted panel (S/P/Bld)Ordered By: Maddi Mcpherson on 10-04-2022 Creatinine [Mass/Vol] 0.71 mg/dL 0.44-1.03 [facility] Eosinophils Auto (Bld) [#/Vo l]Ordered By: Maddi Mcpherson on 10-04-2022 Eosinophils (Bld) [#/Vol] 0.1 10*3/uL 0.0-0.45 [facility] Eosinophils/100 WBC Auto (Bl d)Ordered By: Maddi Mcpherson on 10-04-2022 Eosinophils/100 WBC (Bld) 1.2 % . [facility] Erythrocyte distribution wid th Auto (RBC) [Ratio]Ordered By: Maddi Mcpherson on 10-04-2022 Erythrocyte distribution width (RBC) [Ratio] 13.4 % 11.9-15.3 [facility] Estimated glomerular filtrat ion rate (GFR) non- AmericanOrdered By: Maddi Mcpherson on 10-04-2022 GFR/1.73 sq M.predicted among non-blacks MDRD (S/P/Bld) [Vol rate/Area] > 60 mL/Min [facility] Globulin Calc (S) [Mass/Vol] Ordered By: Maddi Mcpherson on 10-04-2022 Globulin (S) [Mass/Vol] 2.7 g/dL [facility] Hematocrit Auto (Bld) [Volum e fraction]Ordered By: Maddi Mcpherson on 10-04-2022 Hematocrit (Bld) [Volume fraction] 41.9 % 34.0-46.4 [facility] Hemoglobin [Mass/volume] in BloodOrdered By: Maddi Mcpherson on 10-04-2022 Hemoglobin (Bld) [Mass/Vol] 13.7 g/dL 11.8-15.4 [facility] Leukocytes [#/volume] correc tiffany for nucleated erythrocytes in Blood by Automated counOrdered By: Maddi Mcpherson on 10-04-2022 WBC corrected for nucl RBC Auto (Bld) [#/Vol] 7.8 10*3/uL 3.8-11.6 [facility] Lymphocytes Auto (Bld) [#/Vo l]Ordered By: Maddi Mcpherson on 10-04-2022 Lymphocytes (Bld) [#/Vol] 2.6 10*3/uL 1.00-4.8 [facility] Lymphocytes/100 WBC Auto (Bl d)Ordered By: Maddi Mcpherson on 10-04-2022 Lymphocytes/100 WBC (Bld) 33.5 % . [facility] MCH Auto (RBC) [Entitic mass ]Ordered By: Maddi Mcpherson on 10-04-2022 MCH (RBC) [Entitic mass] 29.3 pg 24.7-34.3 [facility] MCHC Auto (RBC) [Mass/Vol]Or dered By: Maddi Mcpherson on 10-04-2022 MCHC (RBC) [Mass/Vol] 32.6 g/dL 32.0-35.0 [facility] MCV Auto (RBC) [Entitic vol] Ordered By: Maddi Mcpherson on 10-04-2022 MCV (RBC) [Entitic vol] 90.0 fL 80-100 [facility] Monocytes Auto (Bld) [#/Vol] Ordered By: Maddi Mcpherson on 10-04-2022 Monocytes (Bld) [#/Vol] 0.7 10*3/uL 0.0-0.8 [facility] Monocytes/100 WBC Auto (Bld) Ordered By: Maddi Mcpherson on 10-04-2022 Monocytes/100 WBC (Bld) 9.1 % . [facility] Neutrophils Auto (Bld) [#/Vo l]Ordered By: Maddi Mcpherson on 10-04-2022 Neutrophils (Bld) [#/Vol] 4.3 10*3/uL 1.8-7.7 [facility] Neutrophils/100 WBC Auto (Bl d)Ordered By: Maddi Mcpherson on 10-04-2022 Neutrophils/100 WBC (Bld) 55.6 % . [facility] No Panel InformationOrdered By: Maddi Mcpherson on 10-04-2022 Estimated GFR () > 60 mL/Min [facility] Comment on above: GFR estimated refere nce range: According to KDOQI guidelines, <60 ml/min/1.73m2 is sufficient to diagnose a patient with chronic kidney disease. Pharmacy Creatinine Clearance (Chem N/A [facility] Nucleated erythrocytes [Pres ence] in Blood by Automated countOrdered By: Maddi Mcpherson on 10-04-2022 Nucleated RBC Auto Ql (Bld) 0.1 /100{WBC} 0-0.5 [facility] Platelet mean volume Auto (B ld) [Entitic vol]Ordered By: Maddi Mcpherson on 10-04-2022 Platelet mean volume (Bld) [Entitic vol] 9.8 fL 6.3-10.7 [facility] Platelets Auto (Bld) [#/Vol] Ordered By: Maddi Mcpherson on 10-04-2022 Platelets (Bld) [#/Vol] 257 10*3/uL 150-450 [facility] Protein [Mass/volume] in Ser um or PlasmaOrdered By: Maddi Mcpherson on 10-04-2022 Protein [Mass/Vol] 7.0 g/dL 6.1-7.9 [facility] RBC Auto (Bld) [#/Vol]Ordere d By: Maddi Mcpherson on 10-04-2022 RBC (Bld) [#/Vol] 4.65 10*6/uL 3.60-5.00 [facility] Serum or plasma alanine dumont otransferase measurement without P-5'-P (enzymatic activiOrdered By: Maddi Mcpherson on 10-04-2022 ALT No additional P-5'-P [Catalytic activity/Vol] 23 U/L 10-60 [facility] Serum or plasma albumin/glob ulin mass ratioOrdered By: Maddi Mcpherson on 10-04-2022 Albumin/Globulin [Mass ratio] 1.6 {ratio} [facility] Serum or plasma alkaline vanessa sphatase measurement (enzymatic activity/volume)Ordered By: Maddi Mcpherson on 10-04-2022 ALP [Catalytic activity/Vol] 80 U/L 32-92 [facility] Serum or plasma anion gap de terminationOrdered By: Maddi Mcpherson on 10-04-2022 Anion gap [Moles/Vol] 10.3 mmol/L 6.0-15.0 [facility] Serum or plasma aspartate am inotransferase measurement (enzymatic activity/volume)Ordered By: Maddi Mcpherson on 10-04-2022 AST [Catalytic activity/Vol] 20 U/L 10-42 [facility] Serum or plasma calcium lisa urement (mass/volume)Ordered By: Maddi Mcpherson on 10-04-2022 Calcium [Mass/Vol] 9.3 mg/dL 8.2-10.2 [facility] Serum or plasma chloride isidra surement (moles/volume)Ordered By: Maddi Mcpherson on 10-04-2022 Chloride [Moles/Vol] 106 mmol/L 95-114 [facility] Serum or plasma glucose lisa urement (mass/volume)Ordered By: Maddi Mcpherson on 10-04-2022 Glucose [Mass/Vol] 182 mg/dL 70-100 [facility] Comment on above: ADA recommended refe rence rangeRandom Glucose Reference Range is dependent on time and content of last meal. Glucose of more than 200 mg/dL in a nonstressed, ambulatory subject supports the diagnosis of Diabetes Mellitus. Serum or plasma high density lipoprotein (HDL) cholesterol measurementOrdered By: Maddi Mcpherson on 10-04-2022 Cholesterol in HDL [Mass/Vol] 46 mg/dL 35-85 [facility] Comment on above: HDL CHOL ATP-III CLA SSIFICATION Cardiovascular RiskHDL > or equal to 60 mg/dL LOWHDL < 40 mg/dL HIGH Serum or plasma potassium me asurement (moles/volume)Ordered By: Maddi Mcpherson on 10-04-2022 Potassium [Moles/Vol] 3.9 mmol/L 3.5-5.1 [facility] Serum or plasma sodium measu rement (moles/volume)Ordered By: Maddi Mcpherson on 10-04-2022 Sodium [Moles/Vol] 138 mmol/L 136-146 [facility] Serum or plasma total biliru bin measurement (mass/volume)Ordered By: Maddi Mcpherson on 10-04-2022 Bilirubin [Mass/Vol] 0.4 mg/dL 0.3-1.2 [facility] Serum or plasma total carbon dioxide measurement (moles/volume)Ordered By: Maddi Mcpherson on 10-04-2022 CO2 [Moles/Vol] 25.6 mmol/L 22.0-30.0 [facility] Serum or plasma total choles terol/high density lipoprotein (HDL) cholesterol mass ratOrdered By: Maddi Mcpherson on 10-04-2022 Cholesterol.total/Serene sterol in HDL [Mass ratio] 4.0 {ratio} <5.0 [facility] Serum or plasma urea nitroge n measurement (mass/volume)Ordered By: Maddi Mcpherson on 10-04-2022 Urea nitrogen [Mass/Vol] 11 mg/dL 9-23 [facility] Triglyceride [Mass/volume] i n Serum or PlasmaOrdered By: Maddi Mcpherson on 10-04-2022 Triglyceride [Mass/Vol] 218 mg/dL 35-149 [facility] Comment on above: TRIG ATP III CLASSIF [...] 20 mg/L (U) [Mass/Vol] 1.5 mg/dL 0.0-1.8 [facility] Urine microalbumin/creatinin e mass ratioOrdered By: Maddi Mcpherson on 10-04-2022 Albumin/Creatinine DL <= 20 mg/L (U) [Mass ratio] 13.0 mg/g 0.0-30.0 [facility] Comment on above: 30-300 mg/g indicate s an increased risk for diabetic nephropathy. Greater than 300 mg/g is consistent with clinical nephropathy. (Am. J. Kidney Disease 1995, 25:107) Vitamin [id number] By: Anjali Dubois on 10-04-2022 Cobalamin (Vitamin B12) [Mass/Vol] 703 pg/mL Normal 180-914 pg/mL [facility] WBC Auto (Bld) [#/Vol]Ordere d By: Maddi Mcpherson on 10-04-2022 WBC (Bld) [#/Vol] 7.8 10*3/uL 3.8-11.6 [facility] A1C HEMOGLOBINon 10-03-2022 HbA1c (Bld) [Mass fraction] 7.8 % [facility] [employer] Other Glucose - FINGER STICKon Glucose [Mass/Vol] 139 mg/dL [employer] Other HbA1c (Bld) [Mass fraction]o n 10-03-2022 A1C HEMOGLOBIN [employer] Other CREATININEon 12-27-2021 Creatinine [Mass/Vol] 0.61 mg/dL Normal 0.55-1.02 [facility] Comment on above: Performed By: #### C INGRIS #### [facility] [address] [place] [address] Dr. Chanell Landon EGFR-AF LAO >60 Normal >=60 [facility] Comment on above: Performed By: #### C INGRIS #### [facility] [address] [address] [address] Chanell Landon EGFR-NON AF LAO >60 Normal >=60 [facility] Comment on above: Performed By: #### C INGRIS #### [facility] [address] [place] [address] WO [...] the right parotid gland. LYMPH NODES: No pathological-appearing or enlarged lymph nodes. VASCULATURE: No suspicious abnormality. BONES: No significant osseous lesions. OTHER: No additional imaging findings. IMPRESSION: 1. 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 Ultrasound-guided tissue sampling is recommended. Electronically authenticated by: HANG GREER Date: 2021-12-27 14:57 Normal [facility] US THYROIDon 12-12-2021 US THYROID [...] by: JOHN LOYA Date: 2021-12-12 14:52 Normal [facility] A1C HEMOGLOBINon 11-07-2021 HbA1c (Bld) [Mass fraction] 7.2 % [employer] Other Glucose - FINGER STICKon Glucose [Mass/Vol] 159 mg/dL [employer] Other HbA1c (Bld) [Mass fraction]o n 11-07-2021 A1C HEMOGLOBIN [facility] [employer] Other COVID + FLU Quick Testingon 08-21-2021 SARS-CoV-2 (COVID-19) RNA GLEN+probe Ql (Unsp spec) Negative [employer] Other COVID + FLU Quick Testing Negative [employer] Other Covid-19 PCR (CVDTBH)on 01-17 SARS-CoV-2 (COVID-19) RNA GLEN+probe Ql (Unsp spec) Not detected Normal NOT DETECTED [facility] Comment on above: Result Comment: This test is not yet approved or cleared by the [place] FDA. When there are no FDA-approved or cleared tests available, and other criteria are met, FDA can make tests available under an emergency access mechanism called an Emergency Use Authorization (EUA). The EUA for this test is supported by the [place] of Health and Human Service's (HHS's) declaration [...] consistent with SARS-CoV-2. Performed By: #### [facility] #### [facility] [address] [place] [address] Paige Mcgillen XR CHEST 2 Von 01-31-2021 XR CHEST [...] by: SONY SOLIMAN Date: 2021-01-31 05:00 Normal [facility] Vital Signs Date Time Vital Sign Value Performing Clinician Facility 03-18-2024 15:28-0400 Diastolic blood pressure 88 mm[Hg] VIRIDIANA Mcpherson Work Phone: [facility] 03-18-2024 15:28-0400 Systolic blood pressure 145 mm[Hg] VIRIDIANA Mcpherson Work Phone: [facility] 03-18-2024 15:14-0400 Body height 146.05 cm VIRIDIANA Mcpherson Work Phone: [facility] 03-18-2024 15:14-0400 Body mass index (BMI) [Ratio] 24.4 kg/m2 VIRIDIANA Mcpherson Work Phone: [facility] 03-18-2024 15:14-0400 Body weight 52.16 kg [employer] Maddi Jayrbacher Work Phone: [facility] 03-18-2024 15:14-0400 Heart rate 74 /min [employer] Maddi Thompsonrbacher Work Phone: [facility] 03-18-2024 15:14-0400 Respiratory rate 18 /min [employer] Maddi Jayrbacher Work Phone: [facility] 03-18-2024 15:14-0400 SaO2% (BldA) [Mass fraction] 99 % [employer] Maddi Jayrbacher Work Phone: [facility] 12-25-2023 09:38-0400 Body height 146.05 cm [employer] Maddi Jayrbacher Work Phone: [facility] 12-25-2023 09:38-0400 Body mass index (BMI) [Ratio] 24.5 kg/m2 [employer] Maddi Thompsonrbacher Work Phone: [facility] 12-25-2023 09:38-0400 Body weight 52.38 kg RADIO OPERATOR GROUNDHaider Thompsonrbacher Work Phone: [facility] 12-11-2023 14:05-0400 Body height 146.05 cm [employer] Maddi Jayrbacher Work Phone: [facility] 12-11-2023 14:05-0400 Body mass index (BMI) [Ratio] 24.4 kg/m2 [employer] Maddi Jayrbacher Work Phone: [facility] 12-11-2023 14:05-0400 Body weight 52.16 kg [employer] Maddi Jayrbacher Work Phone: [facility] 12-11-2023 14:05-0400 Diastolic blood pressure 96 mm[Hg] [employer] OPERATOR GROUNDHaider Thompsonrbacher Work Phone: [facility] 12-11-2023 14:05-0400 Heart rate 84 /min [employer] Maddi Deondreacher Work Phone: [facility] 12-11-2023 14:05-0400 Respiratory rate 18 /min [employer] Maddi Thompsonrbacher Work Phone: [facility] 12-11-2023 14:05-0400 SaO2% (BldA) [Mass fraction] 96 % [employer] Maddi Deondreacher Work Phone: [facility] 12-11-2023 14:05-0400 Systolic blood pressure 146 mm[Hg] [employer] Maddi Deondreacher Work Phone: [facility] 08-13-2023 13:00-0500 Body height 146.05 cm Maddi Mcpherson Other [facility] 08-13-2023 13:00-0500 Body mass index (BMI) [Ratio] 24.03 kg/m2 Maddi Mcpherson Other [facility] [employer] Other 08-13-2023 13:00-0500 Body weight 51.26 kg Maddi Vida Other [facility] [employer] Other 08-13-2023 13:00-0500 Body weight 51.25 kg [facility] 08-13-2023 13:00-0500 Diastolic blood pressure 84 mm[Hg] Maddi Mcpherson Other [facility] 08-13-2023 13:00-0500 SaO2% (BldA) [Mass fraction] 98 % Maddi Mcpherson Other [facility] [employer] Other 08-13-2023 13:00-0500 Systolic blood pressure 138 mm[Hg] Maddi Mcpherson Other [facility] 06-09-2023 13:00-0400 Body height 146.05 cm Maddi Vida Other [employer] Other 06-09-2023 13:00-0400 Body mass index (BMI) [Ratio] 24.41 kg/m2 Madid Vida Other [employer] Other 06-09-2023 13:00-0400 Body weight 52.07 kg Maddi Vida Other [employer] Other 06-09-2023 13:00-0400 Diastolic blood pressure 70 mm[Hg] Maddi Vida Other [employer] Other 06-09-2023 13:00-0400 SaO2% (BldA) [Mass fraction] 97 % Maddi Vida Other [employer] Other 06-09-2023 13:00-0400 Systolic blood pressure 122 mm[Hg] Maddi Vida Other [employer] Other 06-02-2023 09:15-0400 Body height 146.05 cm Tondra Mapus Other [employer] Other 06-02-2023 09:15-0400 Body mass index (BMI) [Ratio] 24.13 kg/m2 Tondra Mapus Other [employer] Other 06-02-2023 09:15-0400 Body weight 51.48 kg Tondra Mapus Other [employer] Other 06-02-2023 09:15-0400 Diastolic blood pressure 92 mm[Hg] Tondra Mapus Other [employer] Other 06-02-2023 09:15-0400 Respiratory rate 18 /min Tondra Mapus Other [employer] Other 06-02-2023 09:15-0400 SaO2% (BldA) [Mass fraction] 100 % Tondra Mapus Other [employer] Other 06-02-2023 09:15-0400 Systolic blood pressure 144 mm[Hg] Tondra Mapus Other [employer] Other 04-24-2023 10:45-0400 Body height 146.05 cm Maddi Mcpherson Other [employer] Other 04-24-2023 10:45-0400 Body mass index (BMI) [Ratio] 24.45 kg/m2 Maddi Mcpherson Other [employer] Other 04-24-2023 10:45-0400 Body weight 52.16 kg Maddi Mcpherson Other [employer] Other 04-24-2023 10:45-0400 Diastolic blood pressure 95 mm[Hg] Maddi Mcpherson Other [employer] Other 04-24-2023 10:45-0400 SaO2% (BldA) [Mass fraction] 96 % Maddi Mcpherson Other [employer] Other 04-24-2023 10:45-0400 Systolic blood pressure 167 mm[Hg] Maddi Mcpherson Other [employer] Other 11-04-2022 14:30-0400 Body height 146.05 cm Maddi Richardsonbishop Other [employer] Other 11-04-2022 14:30-0400 Body mass index (BMI) [Ratio] 24.45 kg/m2 Maddi Thompsonscottieacher Other [employer] Other 11-04-2022 14:30-0400 Body weight 52.16 kg Maddi Thompsonscottieshawnr Other [employer] Other 11-04-2022 14:30-0400 Diastolic blood pressure 94 mm[Hg] Maddi Thompsonvioletr Other [employer] Other 11-04-2022 14:30-0400 SaO2% (BldA) [Mass fraction] 97 % Maddi Vida Other [employer] Other 11-04-2022 14:30-0400 Systolic blood pressure 164 mm[Hg] Maddi Thompsonscottieshawnr Other [employer] Other 10-04-2022 10:15-0500 Body height 146.05 cm Maddi Vida Other [employer] Other 10-04-2022 10:15-0500 Body mass index (BMI) [Ratio] 24.66 kg/m2 Maddi Deondreshawnr Other [employer] Other 10-04-2022 10:15-0500 Body weight 52.62 kg Maddi Deondreacher Other [employer] Other 10-04-2022 10:15-0500 Diastolic blood pressure 120 mm[Hg] Maddi Mcpherson Other [employer] Other 10-04-2022 10:15-0500 Systolic blood pressure 186 mm[Hg] Maddi Mcpherson Other [employer] Other 10-03-2022 15:45-0500 Body height 146.05 cm Tondra Mapus Other [employer] Other 10-03-2022 15:45-0500 Body mass index (BMI) [Ratio] 25.09 kg/m2 Tondra Mapus Other [employer] Other 10-03-2022 15:45-0500 Body weight 53.52 kg Tondra Mapus Other [employer] Other 10-03-2022 15:45-0500 Diastolic blood pressure 99 mm[Hg] Tondra Mapus Other [employer] Other 10-03-2022 15:45-0500 Respiratory rate 18 /min Tondra Mapus Other [employer] Other 10-03-2022 15:45-0500 SaO2% (BldA) [Mass fraction] 97 % Tondra Mapus Other [employer] Other 10-03-2022 15:45-0500 Systolic blood pressure 193 mm[Hg] Tondra Mapus Other [employer] Other 08-06-2022 14:00-0500 Body height 146.05 cm Maddi Mcpherson Other [employer] Other 08-06-2022 14:00-0500 Body mass index (BMI) [Ratio] 24.88 kg/m2 Maddi Thompsonaustin Other [employer] Other 08-06-2022 14:00-0500 Body weight 53.07 kg Maddi Dylanr Other [employer] Other 08-06-2022 14:00-0500 Diastolic blood pressure Maddi Dylanr Other [employer] Other 08-06-2022 14:00-0500 SaO2% (BldA) [Mass fraction] 96 % Mdadi Vida Other [employer] Other 08-06-2022 14:00-0500 Systolic blood pressure 152 mm[Hg] Maddi Dylanr Other [employer] Other 12-05-2021 12:00-0400 Body height 146.05 cm Maddi Dylanr Other [employer] Other 12-05-2021 12:00-0400 Body mass index (BMI) [Ratio] 24.24 kg/m2 Maddi Vida Other [employer] Other 12-05-2021 12:00-0400 Body weight 51.71 kg Maddi Dylanr Other [employer] Other 12-05-2021 12:00-0400 Diastolic blood pressure 92 mm[Hg] Maddi Deondreacher Other [employer] Other 12-05-2021 12:00-0400 SaO2% (BldA) [Mass fraction] 97 % Maddi Mcpherson Other [employer] Other 12-05-2021 12:00-0400 Systolic blood pressure 150 mm[Hg] Maddi Vida Other [employer] Other 11-29-2021 17:00-0400 Body height 146.05 cm Maddi Vida Other [employer] Other 11-29-2021 17:00-0400 Body mass index (BMI) [Ratio] 24.45 kg/m2 Maddi Vida Other [employer] Other 11-29-2021 17:00-0400 Body weight 52.16 kg Maddi Vida Other [employer] Other 11-29-2021 17:00-0400 Diastolic blood pressure 88 mm[Hg] Maddi Vida Other [employer] Other 11-29-2021 17:00-0400 SaO2% (BldA) [Mass fraction] 98 % Maddi Mcpherson Other [employer] Other 11-29-2021 17:00-0400 Systolic blood pressure 120 mm[Hg] Maddi Mcpherson Other [employer] Other 11-07-2021 16:45-0400 Body height 146.05 cm Gurdeep Dubois Other [employer] Other 11-07-2021 16:45-0400 Body mass index (BMI) [Ratio] 24.45 kg/m2 Tondra Mapus Other [employer] Other 11-07-2021 16:45-0400 Body weight 52.16 kg Tondra Mapus Other [employer] Other 11-07-2021 16:45-0400 Diastolic blood pressure 98 mm[Hg] Tondra Mapus Other [employer] Other 11-07-2021 16:45-0400 Respiratory rate 16 /min Tondra Mapus Other [employer] Other 11-07-2021 16:45-0400 SaO2% (BldA) [Mass fraction] 97 % Tondra Mapus Other [employer] Other 11-07-2021 16:45-0400 Systolic blood pressure 154 mm[Hg] Tondra Mapus Other [employer] Other Encounters Encounter Date Encounter Type Care Provider Facility Start: 05-10-2024 End: 05-10-2024 Patient encounter procedure RADIO OPERATOR GROUNDHaider Mcpherson Work Phone: [facility] [place] Work Phone: Start: 05-10-2024 End: 05-10-2024 ambulatory VIRIDIANA Mcpherson Work Phone: [facility] Work Phone: Start: 04-03-2024 Non-patient / Non-visit VIRIDIANA Mcpherson Work Phone: [facility] Work Phone: Start: 04-02-2024 Non-patient / Non-visit VIRIDIANA Richardsonr Work Phone: [facility] Work Phone: Start: 03-18-2024 End: 03-18-2024 Patient encounter procedure VIRIDIANA Linda Vida Work Phone: [facility] Work Phone: Start: 12-25-2023 End: 12-25-2023 ambulatory RADIO OPERATOR GROUNDHaider Linda Vida Work Phone: [facility] Work Phone: Start: 12-25-2023 End: 12-25-2023 Patient encounter procedure VIRIDIANA Linda Vida Work Phone: [facility] Work Phone: Start: 12-11-2023 End: 12-11-2023 Patient encounter procedure RADIO OPERATOR GROUNDHaider Linda Vida Work Phone: [facility] Work Phone: Start: 09-29-2023 End: 09-29-2023 ambulatory Maddi Mcpehrson Other [employer] Other Start: 09-29-2023 Office outpatient vi sit 10 minutes Maddi Mcpherson [facility] Start: 09-17-2023 End: 09-17-2023 ambulatory Maddi Mcpherson Other [employer] Other Start: 09-17-2023 Telephone encounter Maddi Naty thomas [facility] Start: 09-09-2023 End: 09-09-2023 ambulatory Tondra Mapus Other [employer] Other Start: 09-09-2023 Telephone encounter Tondra Mapus [facility] Start: 09-09-2023 End: 09-09-2023 [facility]: Start: 08-28-2023 End: 08-28-2023 ambulatory Gurdeep Dubois Other [employer] Other Start: 08-28-2023 Telephone encounter Gurdeep Dubois [facility] Start: 08-20-2023 End: 08-20-2023 ambulatory Maddi Mcpherson Other [employer] Other Start: 08-20-2023 Telephone encounter Maddi Alfonso her [facility] Start: 08-19-2023 End: 08-19-2023 ambulatory Maddi Mcpherson Other [employer] Other Start: 08-19-2023 Telephone encounter Maddi Alfonso her [facility] Start: 08-13-2023 End: 08-13-2023 ambulatory Maddi Mcpherson Other [employer] Other Start: 08-13-2023 Office outpatient vi sit 25 minutes Maddi Mcpherson [facility] Start: 08-13-2023 End: 08-13-2023 Patient encounter procedure [facility] Work Phone: Start: 07-14-2023 (Procedure) Short Emil Cooper [facility] Start: 07-14-2023 End: 07-14-2023 ambulatory Emil Cooper Other [employer] Other Start: 06-30-2023 End: 06-30-2023 ambulatory Maddi Mcpherson Other [employer] Other Start: 06-30-2023 Telephone encounter Maddi Alfonso her [facility] Start: 06-26-2023 End: 06-26-2023 Patient encounter procedure RADIO OPERATOR GROUND Maddi Mcpherson Work Phone: [facility] Start: 06-26-2023 End: 06-26-2023 ambulatory RADIO OPERATOR GROUND Maddi Vida Work Phone: [facility] Work Phone: Start: 06-09-2023 End: 06-09-2023 ambulatory Maddi Mcpherson Other [employer] Other Start: 06-09-2023 Office outpatient vi sit 15 minutes Maddi Mcpherson [facility] Start: 06-02-2023 (DM) Diabetes Tondra Mapus [facility] Start: 06-02-2023 Telephone encounter Maddi Naty her [facility] Start: 06-02-2023 Registered Recurring RADIO OPERATOR GROUNDHaider Mcpherson Work Phone: [facility] Work Phone: Start: 06-02-2023 End: 06-02-2023 Patient encounter procedure RADIO OPERATOR GROUNDHaider Mcpherson Work Phone: [facility] [place] Work Phone: Start: 06-02-2023 End: 06-02-2023 ambulatory RADIO OPERATOR GROUNDHaider Mcpherson Work Phone: [employer] Other Start: 05-23-2023 End: 05-23-2023 ambulatory Maddi Mcpherson Other [employer] Other Start: 05-23-2023 Telephone encounter Maddi Naty her [facility] Start: 05-19-2023 End: 05-19-2023 ambulatory Tondra Mapus Other [employer] Other Start: 05-19-2023 Telephone encounter Tondra Mapus [facility] Start: 05-06-2023 End: 05-06-2023 ambulatory Maddi Mcpherson Other [employer] Other Start: 05-06-2023 Telephone encounter Maddi Thompsonjohn her [facility] Start: 05-05-2023 End: 05-05-2023 ambulatory Maddi Dylanr Other [employer] Other Start: 05-05-2023 Telephone encounter Maddi Thompsonjohn her [facility] Start: 04-25-2023 End: 04-25-2023 ambulatory Maddi Dylanr Other [employer] Other Start: 04-25-2023 Telephone encounter Maddi Thompsonscottieeliud her [employer] Start: 04-24-2023 Office outpatient vi sit 15 minutes Maddi Mcpherson [facility] Start: 04-24-2023 End: 04-25-2023 ambulatory Maddi Dylanr [employer] Other Start: 04-03-2023 End: 04-03-2023 ambulatory Gurdeep Dubois Other [employer] Other Start: 04-03-2023 Telephone encounter Gurdeep Dubois [facility] Start: 03-28-2023 End: 03-28-2023 ambulatory Maddi Deondreacher Other [employer] Other Start: 03-28-2023 Telephone encounter Maddi Thompsonscottieeliud her [facility] Start: 03-05-2023 End: 03-05-2023 ambulatory Maddi Deondreacher Other [employer] Other Start: 03-05-2023 Telephone encounter Maddi Alfonso her [facility] Start: 02-17-2023 End: 02-17-2023 ambulatory Maddi Deondreannalee Other [employer] Other Start: 02-17-2023 Telephone encounter Maddi Alfonso her [facility] Start: 02-13-2023 End: 02-13-2023 ambulatory Maddi Dylanbishop Other [employer] Other Start: 02-13-2023 Telephone encounter Maddi Alfonso her [facility] Start: 11-13-2022 End: 11-13-2022 ambulatory Maddi Dylanbishop Other [employer] Other Start: 11-13-2022 Telephone encounter Maddi Alfonso her [facility] Start: 11-04-2022 End: 11-04-2022 ambulatory Maddi Dylanbishop Other [employer] Other Start: 11-04-2022 Office outpatient vi sit 25 minutes Maddi Mcpherson [facility] Start: 10-06-2022 End: 10-06-2022 ambulatory Tondra Mapus Other [employer] Other Start: 10-06-2022 Telephone encounter Tondra Mapus [facility] Start: 10-04-2022 Office outpatient vi sit 25 minutes Maddi Mcpherson [facility] Start: 10-04-2022 End: 10-04-2022 ambulatory INDIGO MIXER Luisa Mcghee Work Phone: [facility] Work Phone: Start: 10-04-2022 End: 10-04-2022 Patient encounter procedure INDIGO MIXER Luisa Mcghee Work Phone: [facility] [place] Work Phone: Start: 10-03-2022 Registered Recurring INDIGO MIXER Gabino Mcghee Work Phone: [facility] Work Phone: Start: 10-03-2022 (DM) Diabetes Tondra Didierus [facility] Start: 10-03-2022 End: 10-03-2022 ambulatory Maddi Vida Other [employer] Other Start: 10-03-2022 Telephone encounter Maddi Thompsonscottieeliud her [facility] Start: 09-10-2022 End: 09-10-2022 ambulatory Maddi Dylanr Other [employer] Other Start: 09-10-2022 Telephone encounter Maddi Thompsonscottieeliud her [facility] Start: 08-06-2022 End: 08-06-2022 ambulatory Maddi Dylanr Other [employer] Other Start: 08-06-2022 Office outpatient vi sit 25 minutes Maddi Vida [facility] Start: 07-30-2022 End: 07-30-2022 ambulatory Maddi Thompsonscottieacher Other [employer] Other Start: 07-30-2022 Telephone encounter Maddi Alfonso her [facility] Start: 06-20-2022 End: 06-20-2022 ambulatory Tondra Mapus Other [employer] Other Start: 06-20-2022 Telephone encounter Tondra Mapus [facility] Start: 03-04-2022 End: 03-04-2022 ambulatory Tondra Mapus Other [employer] Other Start: 03-04-2022 Telephone encounter Tondra Mapus [facility] Start: 01-02-2022 Encounter for preprocedural laboratory examination MADDI MCPHERSON [facility] Start: 12-31-2021 End: 12-31-2021 ambulatory Maddi Mcpherson Other [employer] Other Start: 12-31-2021 Telephone encounter Maddi Alfonso her [employer] Start: 12-27-2021 End: 12-28-[address] HANG GREER Facility:[facility] Start: 12-27-2021 End: 12-28-2021 Encounter for preprocedural laboratory examination DR HANG GREER Facility:[facility] Start: 12-19-2021 End: 12-19-2021 ambulatory Maddi Mcpherson Other [employer] Other Start: 12-19-2021 Telephone encounter Maddi Alfonso her [facility] Start: 12-12-2021 End: 12-13-2021 ambulatory MADDI MCPHERSON Facility:[facility] Start: 12-05-2021 End: 12-05-2021 ambulatory Maddi Mcpherson Other [employer] Other Start: 12-05-2021 Office outpatient vi sit 15 minutes Maddi Mcpherson [facility] Start: 11-29-2021 End: 11-29-2021 ambulatory Maddi Mcpherson Other [employer] Other Start: 11-29-2021 Office outpatient vi sit 25 minutes Maddi Mcpherson [facility] Start: 11-21-2021 End: 11-21-2021 ambulatory Maddi Mcpherson Other [employer] Other Start: 11-21-2021 Telephone encounter Maddi Alfonso her [facility] Start: 11-15-2021 End: 11-15-2021 ambulatory Tondra Sherly Other [employer] Other Start: 11-15-2021 Telephone encounter Gurdeep Dubois [facility] Start: 11-07-2021 (DM) Diabetes Tondra Sherly [facility] Start: 11-07-2021 End: 11-07-2021 ambulatory Tondra Sherly Other [employer] Other Start: 10-30-2021 End: 10-30-2021 ambulatory Maddi Mcpherson Other [employer] Other Start: 10-30-2021 Telephone encounter Maddi Alfonso her [facility] Start: 09-11-2021 End: 09-11-2021 ambulatory Maddi Mcpherson Other [employer] Other Start: 09-11-2021 Telephone encounter Maddi Alfonso her [facility] Start: 08-21-2021 End: 08-21-2021 ambulatory Maddi Mcpherson Other [employer] Other Start: 08-21-2021 Office outpatient vi sit 15 minutes Maddi Mcpherson [facility] Start: 06-07-2021 Telephone encounter Maddi Alfonso her [facility] Start: 02-05-2021 End: 02-06-2021 ambulatory SENIOR STEREO COMPILER TEAM LEAD CAMERON MACKAY Facility:[facility] Start: 01-30-2021 End: 01-31-2021 ambulatory MADDI MCPHERSON Facility:[facility] Procedures Date Procedure Procedure Detail Performing Clinician Start: 06-26-2023 X-ray of lumbar spin e, four views RADIO OPERATOR GROUND Maddi Mcpherson Work Phone: Start: 11-04-2022 Removal impacted cer umen instrumentation unilat Maddi Mcpherson Other Plan of Treatment Date Care Activity Detail Author Start: 05-10-2024 Insulin C-peptide measurement [facility] Start: 05-10-2024 [facility] Insulin Ab [Units/vo lume] in Serum [facility] Insulin C-peptide measurement [facility] Patient Education Diabetes and diet [facility] Work Phone: Payers Date Payer Category Payer Self-pay [id number] 1965 Unknown [id number] 2.16.84 [id number] 1965 Unknown [id number] 2.16.84 [id number] 1965 Unknown [id number] 2.16.84 [id number] 1965 Unknown [id number] 2.16.84 [id number] 1965 Unknown [id number] 2.16.8 [id number] 1959 Unknown [id number] 1959 Unknown [id number] 1959 Unknown [id number] Unknown [id number] 2.16.8 [id number] Unknown [id number] 2.16.8 [id number] Unknown [id number] 2.16.8 [id number] Unknown [id number] 2.16.8 [id number] Unknown [id number] 2.16.8 [id number] Social History Date Type Detail Facility Unknown if ever smoked [employer] Other Sex Assigned At Sex Assigned At Bir th [employer] Other Start: 01-23-2022 End: 01-23-2022 Tobacco smoking status NHIS Smoker (finding) [facility] Start: 1965 Sex Assigned At Female F [facility] Start: 12-11-2023 End: 01-01-2024 Tobacco smoking status NHIS Ex-smoker (finding) [facility] Medical Equipment Procedure Code Equipment Code Equipment [...] hortness of breath. Increase fluids and rest. [id number] antipyretics as needed. Warning signs and symptoms [...] in visit was myself, Maddi Mcpherson DNP, RADIO OPERATOR GROUND, SENIOR STEREO COMPILER TEAM LEAD (provider) . Time spent with patient was approximately [address] [facility] [employer] Other 01-31-2024 Evaluation note* Encounter Date Diagnosis Assessment Notes Treatment Notes Treatment Clinical Notes Aug, Type 2 diabetes mellitus with hyperglycemia, without long-term current use of insulin (ICD-10 - E11.65) Aug, Chronic obstructive pulmonary disease, unspecified COPD type (ICD-10 - J44.9) [facility] [employer] Other 01-03-2024 Evaluation note* Encounter Date Diagnosis Assessment Notes Treatment Notes Treatment Clinical Notes Aug, Chronic obstructive pulmonary disease, unspecified COPD type (ICD-10 - J44.9) [employer] Other 01-02-2024 Evaluation note* Encounter Date Diagnosis Assessment Notes Treatment Notes Treatment Clinical Notes Aug, Essential hypertensi on (ICD-10 - I10) Aug, GERD (gastroesophage al reflux disease) (ICD-10 - K21.9) Aug, Hypercholesteremia (ICD-10 - E78.00) Aug, Restless legs (ICD-1 0 - G25.81) [employer] Other 12-27-2023 Evaluation note* Encounter Date Diagnosis [...] discussed. You have been given educational handouts. [employer] Other 10-23-2023 Evaluation note* Encounter Date Diagnosis [...] when starting the medication. Directed on use. [employer] Other 10-16-2023 Evaluation note* Encounter Date Diagnosis [...] unsweetened beverages. Discussed with pt dexcom g7 accountant bookkeeper/sensor, pt agreeable. Instructed pt to schedule apt [...] Prescriptions: Request for krystle Floyd, dexcom g7 accountant bookkeeper/sensors sent to [facility] 06/02/23 7. Prescriptions will not be [...] - Z68.24) Healthy eating material was published [employer] Other 10-06-2023 Evaluation note* Encounter Date Diagnosis Assessment Notes Treatment Notes Treatment Clinical Notes May, Fall, subsequent encounter (ICD-10 - W19.XXXD) May, Right hip pain (ICD-10 - M25.551) [employer] Other 09-19-2023 Evaluation note* Encounter Date Diagnosis Assessment Notes Treatment Notes Treatment Clinical Notes Apr, Sinus congestion (ICD-10 - R09.81) Apr, Exposure to COVID-19 virus (ICD-10 - Z20.822) [employer] Other 09-18-2023 Evaluation note* Encounter Date Diagnosis Assessment Notes Treatment Notes Treatment Clinical Notes Apr, Exposure to COVID-19 virus (ICD-10 - Z20.822) Apr, Nasal congestion (ICD-10 - R09.81) Apr, Acute cough (ICD-10 - R05.1) [employer] Other 09-08-2023 Evaluation note* Encounter Date Diagnosis Assessment Notes Treatment Notes Treatment Clinical Notes Apr, Muscle spasm (ICD-10 - M62.838) [employer] Other 09-07-2023 Evaluation note* Encounter Date Diagnosis Assessment Notes Treatment Notes Treatment Clinical Notes Apr, Right calf pain (ICD-10 - M79.661) Discussed options with pt for further evalution and will send for an ultrasound to rule out DVT. Called [facility] and they could get her in this am. WIll call with results and further recommendations. Apr, Swelling of calf (ICD-10 - M79.89) [employer] Other 09-07-2023 NoteHISTORY: Lower extremity pain TECHNIQUE: [...] Pete Rodriguez DO 04/25/23 12:17 p Technologist: [facility]08-17-2023 Evaluation note* Encounter Date Diagnosis Assessment Notes Treatment Notes Treatment Clinical Notes Mar, Type 2 diabetes mellitus with hyperglycemia, without long-term current use of insulin (ICD-10 - E11.65) [employer] Other 08-11-2023 Evaluation note* Encounter Date Diagnosis Assessment Notes Treatment Notes Treatment Clinical Notes Mar, GERD (gastroesophageal reflux disease) (ICD-10 - K21.9) [employer] Other 07-19-2023 Evaluation note* Encounter Date Diagnosis Assessment Notes Treatment Notes Treatment Clinical Notes Feb, Essential hypertension (ICD-10 - I10) [employer] Other 07-03-2023 Evaluation note* Encounter Date Diagnosis Assessment Notes Treatment Notes Treatment Clinical Notes Feb, Nausea (ICD-10 - R11.0) [employer] Other 06-29-2023 Evaluation note* Encounter Date Diagnosis Assessment Notes Treatment Notes Treatment Clinical Notes Jan, Genital warts (ICD-10 - A63.0) [employer] Other 03-29-2023 Evaluation note* Encounter Date Diagnosis Assessment Notes Treatment Notes Treatment Clinical Notes Oct, Bronchitis (ICD-10 - J40) Oct, Acute vaginitis (ICD-10 - N76.0) [employer] Other 03-20-2023 Evaluation note* Encounter Date Diagnosis [...] if not improving. Increase fluids and rest. [id number] antipyretics as needed. Warning signs and symptoms [...] understanding and is agreeable to treatment plan. [employer] Other 02-17-2023 Evaluation note* Encounter Date Diagnosis [...] sleep.will treat for this and reevalaute symptoms. [employer] Other 02-16-2023 Evaluation note* Encounter Date Diagnosis [...] Prescriptions: Tradjentametformin ER sent to [facility] in [place] 10/03/22 7. Patient scheduled with PCP for [...] - Z68.25) Healthy eating material was published [employer] Other 01-24-2023 Evaluation note* Encounter Date Diagnosis Assessment Notes Treatment Notes Treatment Clinical Notes Aug, Chronic obstructive pulmonary disease, unspecified COPD type (ICD-10 - J44.9) [employer] Other 12-20-2022 Evaluation note* Encounter Date Diagnosis [...] referral to dermatology for lesions. Referral placed. [employer] Other 12-13-2022 Evaluation note* Encounter Date Diagnosis Assessment Notes Treatment Notes Treatment Clinical Notes Jul, GERD (gastroesophageal reflux disease) (ICD-10 - K21.9) Jul, Restless legs (ICD-10 - G25.81) Jul, Chronic obstructive pulmonary disease, unspecified COPD type (ICD-10 - J44.9) [employer] Other 05-16-2022 Evaluation note* Encounter Date Diagnosis Assessment Notes Treatment Notes Treatment Clinical Notes December, Mass of parotid gland (ICD-10 - K11.8) [employer] Other 04-20-2022 Evaluation note* Encounter Date Diagnosis [...] well. Follow-up for any signs of infection. [employer] Other 04-14-2022 Evaluation note* Encounter Date Diagnosis [...] ultrasound to the area. Order sent to [place] [facility]. Will call with results and further recommendations. Nov, Localized swelling, mass and lump, neck (ICD-10 - R22.1) [employer] Other 04-06-2022 Evaluation note* Encounter Date Diagnosis Assessment Notes Treatment Notes Treatment Clinical Notes Nov, GERD (gastroesophageal reflux disease) (ICD-10 - K21.9) Nov, Restless legs (ICD-10 - G25.81) [employer] Other 03-23-2022 Evaluation note* Encounter Date Diagnosis [...] Z68.24) Setting weight-loss goals material was published [employer] Other 03-15-2022 Evaluation note* Encounter Date Diagnosis Assessment Notes Treatment Notes Treatment Clinical Notes Oct, Restless legs (ICD-10 - G25.81) [employer] Other 01-04-2022 Evaluation note* Encounter Date Diagnosis [...] difficulty breathing, chest pain, palpitations, fever less [id number], persistent fevers not reduced by antipyretic, severe [...] asthma with (acute) exacerbation (ICD-10 - J45.901) [employer] Other 10-21-2021 Evaluation note* Encounter Date Diagnosis Assessment Notes Treatment Notes Treatment Clinical Notes May, Acute vaginitis (ICD-10 - N76.0) [employer] Other [employer] Other [employer] Other Evaluation noteNo assessment information available [facility] Work Phone: Evaluation note* Diagnosis Onset Date Resolution Status BMI 24.0-24.9, adult acute Diabetes acute Dietary counseling and surveillance acute HTN (hypertension) acute Hyperlipidemia acute Vitamin B 12 deficiency acut e Diabetes acute [facility] Work Phone: Evaluation note* Diagnosis Onset Date Resolution Status BMI 24.0-24.9, adult acute Diabetes acute Dietary counseling and surveillance acute HTN (hypertension) acute Hyperlipidemia acute [facility] Work Phone: History general Narrative [...] History kidney stones Hospitalization History [address] [facility] [employer] Other History general Narrative - [facility] [employer] Other Summary Purpose Family History No Family History Records Found Relationship Condition Age at Onset Recorded Date/T [...] history of other condition Unknow n Unknown Relationship Condition Age at Onset Recorded Date/T hector father Diabetes mellitus Unknown Myocardial infarction Unknown mother Rheumatic heart disease Unknown daughter Family history of mental disorder Unknown father Unknown Hypertension Unknown Diabetes mellitus Unknown Heart disease Unknown grandparent Diabetes mellitus Unknown mother Family history of other condition Unknown Unknown Advance Directives No Advanced Directives Records Found Advance Directive Response Recorded Date/ Time Advance Directives No September 5:43am Advance Directive Response Recorded Date/ Time Advance Directives No September 6:43am Reason for Referral Reason *Waiting for appt evaluate Diagnosis 1 Sacroiliitis (M46.1) Referral [facility] Referring Provider First Name Maddi Referring Provider [facility] Name [facility] Referring Provider Specialty Nurse Pract itioner Referred Organization [facility] Pain [facility]ag[facility] t [facility] [place] Referred Provider Emil Cooper Referred Address [address] [place],[address] Referred Provider Specialty Pain Medicin e Referral Priority Routine General Notes Tigist Gibson 12:54:03 PM >received today, sent P2P Reason evaluate and treat Diagnosis 1 Genital warts (A63.0 ) Referral Organization [facility] [place] Referring Provider First Name Maddi Referring Provider Last Name Rohrbacher Referring Provider Specialty Nurse Pract itioner Referred Organization [facility] Referred Provider Gaby Araujo Referred Address ,[place], [place],[address] Referred Provider Specialty Dermatology Referral Priority Routine Reason 10/01/22 evaluate and treat Diagnosis 1 Skin lesion (L98.9) Referral Organization [facility] [place] Referring Provider First Name Maddi Referring Provider Last Name Deondreachebishop Referring Provider Specialty Nurse Pract jluis Referred Organization [facility] Referred Provider Gaby Araujo Referred Address ,[place], [place],[address] Referred Provider Specialty Dermatology Referral Priority Routine Referral Appointment Date 2022-10-01 General Notes Tigist Gibson 02:36:30 PM >received today, insurance card attached, waiting for notes to be locked Tigist Gibson 08/07/2022 11:13:38 AM >notes locked and referral faxed Tigist Gibson 08/14/2022 09:51:10 AM >faxed first attempt letter Tigist Gibson 09/11/2022 12:40:05 PM >faxed first request for consult notes Tigist Gibson 09/12/2022 12:55:36 PM >received fax that pt was scheduled for 10/01 at 110 but cancelled appt on 09/10 Tigist Gibson 09/19/2022 04:09:13 PM >spoke with patient, and she rescheduled for 10/01 Tigist Gibson 10/02/2022 06:38:17 AM >faxed first request for consult ntoes Reason needs a biopsy of a parotid gland mass , CT was completed. 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) Referral Organization [facility] [place] Referring Provider First Name Maddi Referring Provider Last Name Vida Referring Provider Specialty Nurse Pract konradioner Referred Organization [facility] Referred Provider Juan C Garner Referred Address ,[place], [place],[address] Referred Provider Specialty Otolaryngolo gy Referral Priority [...] (hypertension) Hyperlipidemia Vitamin B 12 deficiency Diabetes Chief Complaint METER E11.9 Reason for Visit BMI 24.0-24.9, adult Diabetes Dietary counseling and surveillance HTN (hypertension) Hyperlipidemia Additional Source Comments INFORMATION SOURCE (unrecogn ized section and content) DATE CREATED AUTHOR 01/05/2022 [facility] DATE CREATED AUTHOR AUTHOR'S ORGANIZ ATION 04/27/2023 [facility] DATE CREATED AUTHOR AUTHOR'S ORGANIZ ATION 05/29/2024 [facility] REASON FOR VISIT (unrecogniz ed section and content) TKM N/S DM 09/09/23ERRORTKM DM N/S 08/28/2023NebulizerGREGG SACROILIAC JOINT INJ/CJCONSULT NOTExray resultslab resultsDM F/U pt rescheduled apt, Type 2 NIDDM f/u with [facility] [employer]IO [employer]PERATOR GROUND, MUSHROOM PICKER-C, BC-ADM, last visit 10/03/22. Pt cancelled apts on 01/15/23;04/03/23;05/19/23X-ray resultsTKM patient cancelledOrderCOVID blood testSickUS resultsCalf painTKM refillscript4 week follow upb12 resulthigher bp readingsDM rescheduled by patient, Type 2 NIDDM f/u with [facility] [employer]PER[employer], MUSHROOM PICKER-C, BC-ADM, Last visit 11/07/21 No show to apt month follow upTKM Cancelled appt 06/20/2022TKM DM pt no showCT resultsInformationskin tag removalrefillTKM please call6 month Follow upDM 6 month f/u, Type 2 NIDDM f/u with [facility] [employer] OPER[employer]OUND, MUSHROOM PICKER-C, BC-ADMDOXIMITY [phone] DOES NOT BELIEVE IT IS COVID, CONGESTION COUGH SORE THROAT Care Teams (unrecognized sec tion and content) Team Status: Inactive Member Role Status Dates Maddi Mcpherson APRN INDIGO MIXER-C Primary Care Provider, Attending Provider Active Team Status: Active Member Role Status Dates Luisa Mcghee NP Primary Care Provider Active Gurdeep Dubois APRN Attending Provider Active Team Status: Active Member Role Status Dates Maddi Mcpherson APRN INDIGO MIXER-C Primary Care Provider Active Team Status: Inactive Member Role Status Dates Maddi Mcpherson APRN INDIGO MIXER-C Primary Care Provider Active Gurdeep Dubois , RADIO OPERATOR GROUND Attending Provider Active Team Status: Inactive Member Role Status Dates Maddi Mcpherson APRN INDIGO MIXER-C Primary Care Provider Active Emil Cooper MD Attending Provider Active Team Status: Inactive Member Role Status Dates Maddi Mcpherson APRN INDIGO MIXER-C Attending Provider Act prerna Start: August 13, 2023 End: August 13, 2023 Team Status: Inactive Member Role Status Dates Gurdeep Dubois , RADIO OPERATOR GROUND Attending Provider Active Start: September 09, 2023 End: September 09, 2023 Team Status: Inactive Member Role Status Dates Maddi Mcpherson APRN INDIGO MIXER-C Primary Care Provider Active Start: December 11, 2023 End: December 11, 2023 Gurdeep Dubois , RADIO OPERATOR GROUND Attending Provider Active Start: December 11, 2023 End: December 11, 2023 Team Status: Inactive Member Role Status Dates Maddi Mcpherson APRN INDIGO MIXER-C Primary Care Provider Active Start: December 25, 2023 End: December 25, 2023 Vivi Álvarez RN Attending Provider Active Start: December 25, 2023 End: December 25, 2023 Team Status: Inactive Member Role Status Dates Maddi Mcpherson APRN INDIGO MIXER-C Primary Care Provider Active Start: December 25, 2023 End: December 25, 2023 Gurdeep Dubois , RADIO OPERATOR GROUND Attending Provider Active Start: December 25, 2023 End: December 25, 2023 Team Status: Inactive Member Role Status Dates Maddi Mcpherson APRN INDIGO MIXER-C Primary Care Provider Active Start: March 18, 2024 End: March 18, 2024 Gurdeep Dubois , RADIO OPERATOR GROUND Attending Provider Active Start: March 18, 2024 End: March 18, 2024 Team Status: Active Member Role Status Dates Maddi Mcpherson APRN INDIGO MIXER-C Primary Care Provider Active Start: April 02, 2024 Roman Bueno DO Attending Provider Active S tart: April 02, 2024 Team Status: Active Member Role Status Dates Maddi Mcpherson APRN INDIGO MIXER-C Primary Care Provider Active Start: April 03, 2024 Jesus Sifuentes DO Attending Provider Active Sta rt: April 03, 2024 Team Status: Inactive Member Role Status Dates Maddi Mcpherson APRN INDIGO MIXER-C Primary Care Provider Active Start: April 192023 End: May 10, 2024 Gurdepe Dubois APRN Attending Provider Active Start: May 10, 2024 End: May 10, 2024 Goals (unrecognized section and content) Goals may [...] BE BASED ON THE PRIMARY CLINICAL RECORDS. [facility] [employer] provides no warranty or guarantee of the accuracy or completeness of information in this document.
--- NOTE | 2024-08-20 16:09 | ED_ITS ---
HPI HPI - General Adult General Chief complaint: Shortness of Breath/Dyspnea Stated complaint: diff breathing, bloody nose, high bp Time Seen by Provider: 08/20/24 15:54 Source: patient Mode of arrival: ambulance Limitations: no limitations History of Present Illness HPI narrative: Patient is a 58-year-old female who is presenting to the ER today with chief complaint of difficulty breathing, shortness of breath, and a brief episode of gasping for air at home. Patient was laying down at home. Patient had a coughing episode where she felt that she could not catch her breath. Patient felt like she was going to pass out. Patient was able to stand up, and had a coughing spell. Patient felt her heart racing. Patient called 911. Patient still smokes daily, half a pack to a pack a day when she is feeling well. Patient does have a history of asthma and COPD. Patient is not wear oxygen during the day or nighttime. Patient was given a DuoNeb breathing treatment along with albuterol breathing treatment and a dose of Solu-Medrol from EMS prior to arrival. Patient feels much better and feel like she is breathing better when she arrived. No significant chest pain or tightness when she arrived, shortness of breath has improved. No abdominal pain nausea or vomiting. Patient's had cough and congestion since [place] eve, no other sick contacts but she did make most of her family sick with cold and flulike symptoms since she was a first 1 to have symptoms on [place] Eve. She has not seen her PCP. All systems are negative except as noted/marked. All systems reviewed and otherwise negative. Nurses note and vital signs reviewed and patient is not hypoxic. Patient smells of tobacco products. General: The patient appears well and in no apparent distress. Patient is resting comfortably on cart. Patient is not toxic, lethargic, or listless Skin: Warm, dry, no pallor noted. There is no rash noted. No petechiae, purpura. Head: Normocephalic, atraumatic Eye: Normal conjunctiva, no drainage, EOMI. PERRL Ears, Nose, Mouth, and Throat: oral mucosa is moist. Nares patent. Mouth without vesicles. Cardiovascular: Regular Rate and Rhythm, no murmur, gallop, rub Respiratory: Patient is in no distress, no accessory muscle use, lungs are clear to auscultation, diffuse mild wheezing; no rales or rhonchi Back: non-tender, no CVA tenderness bilaterally to percussion. No CT LS midline pain GI: no tenderness to palpation, no masses appreciated. No rebound, guarding, or rigidity noted. No distention Musculoskeletal: Patient has full range of motion of all of the extremities, no motor, sensory, or focal neurological deficits Neurological: A&O x4, normal speech Psychiatric: Cooperative Related Data Home Medications ?Medication ?Instructions ?Recorded ?Confirmed amlodipine 10 mg tablet 10 mg PO DAILY 08/07/23 04/02/24 carvedilol 25 mg tablet 25 mg PO DAILY 08/07/23 04/02/24 hydrochlorothiazide 12.5 mg tablet 12.5 mg PO DAILY 08/07/23 04/02/24 linagliptin 5 mg tablet (Tradjenta) 5 mg PO DAILY 08/07/23 04/02/24 losartan 100 mg tablet 100 mg PO DAILY 08/07/23 04/02/24 pantoprazole 40 mg tablet,delayed 40 mg PO DAILY 08/07/23 04/02/24 release ropinirole 2 mg tablet 2 mg PO BEDTIME 08/07/23 04/02/24 rosuvastatin 10 mg tablet 10 mg PO DAILY 08/07/23 04/02/24 albuterol sulfate 90 mcg/actuation 1 puff inhalation Q4H PRN 04/02/24 04/02/24 aerosol inhaler (Ventolin HFA) shortness of breath or wheezing dicyclomine 10 mg capsule 10 mg PO BID 04/02/24 04/02/24 fluticasone propionate 230 2 puff inhalation BID 04/02/24 04/02/24 mcg-salmeterol 21 mcg/actuation HFA inhaler (Advair HFA) meloxicam 15 mg tablet 15 mg PO DAILY 04/02/24 04/02/24 tiotropium bromide 1.25 2 inh inhalation DAILY 04/02/24 04/02/24 mcg/actuation mist for inhalation (Spiriva Respimat) Allergies Allergy/AdvReac Type Severity Reaction Status Date / Time empagliflozin (From AdvReac Mild Verified 08/07/23 22:49 Jardiance) gabapentin AdvReac Mild Verified 08/07/23 22:46 metformin AdvReac Mild Verified 08/07/23 22:49 morphine AdvReac Mild Verified 08/07/23 22:46 Opioid HPI Opioid Management Most Recent Opioid Data: 2 Last Pain Scale 5 04/02/24 22:11 04/02/24 PFSH PFS Social History Smoking status: Current every day smoker Little interest or pleasure in doing things: not at all Feeling down, depressed, or hopeless: not at all Exam Constitutional Vital Signs, click to edit/add: Last Vital Signs Temp 97.5 F L 08/20/24 15:42 Pulse 87 08/20/24 18:42 Resp 18 08/20/24 18:42 BP 145/87 H 08/20/24 18:42 Pulse Ox 96 08/20/24 18:42 O2 Del Method Room Air 08/20/24 18:42 Course Vital Signs Vital signs: Vital Signs Temperature 97.5 F L 08/20/24 15:42 Pulse Rate 73 08/20/24 15:42 Respiratory Rate 22 H 08/20/24 15:42 Blood Pressure 156/116 H 08/20/24 15:42 Pulse Oximetry 95 08/20/24 15:42 Oxygen Delivery Method Room Air 08/20/24 15:42 Temperature 97.5 F L 08/20/24 15:42 Pulse Rate 87 08/20/24 18:42 Respiratory Rate 18 08/20/24 18:42 Blood Pressure 145/87 H 08/20/24 18:42 Pulse Oximetry 96 08/20/24 18:42 Oxygen Delivery Method Room Air 08/20/24 18:42 Medical Decision Making MDM Narrative Medical decision making narrative: Chest x-ray shows no acute findings. Patient nasal swabs are negative. Lab work shows no significant findings. Patient felt better when she arrived after DuoNeb breathing treatment and albuterol breathing treatment. Patient was given 1 dose of IV Solu-Medrol from EMS. Patient does not want additional steroids. No acute indication for antibiotics. Education was done on treating symptoms [id number] at home. Patient is diabetic and does not want a prescription for steroids. Patient does have 90 more puffs of her albuterol inhaler. Katharina garcia has a nebulizer machine at home that does not work, she is going to look in getting this fixed. No other questions at discharge. Patient was ambulated by Tomasz Ogden RN. Patient was 90 for 95% with ambulation at discharge, patient felt better. Lab Data Lab results reviewed: Yes I reviewed the patient's lab results Labs: Lab Results 08/20/24 08/20/24 Range/Units 16:20 16:34 WBC 12.9 H (4.0-11.0) 10^3/uL RBC 4.38 (4.20-5.40) 10^6/uL Hgb 12.6 (12.0-16.0) g/dL Hct 40.2 (36.0-48.0) % MCV 91.8 (81.0-99.0) fL MCH 28.8 (26.7-34.0) pg MCHC 31.3 (29.9-35.2) g/dL RDW 12.3 (11.0-15.0) % Plt Count 333 (150-450) 10^3/uL MPV 10.2 (9.5-13.5) fL Neut % (Auto) 74.3 (43.0-75.0) % Lymph % (Auto) 18.0 L (20.5-60.0) % Bland % (Auto) 6.0 (1.7-12.0) % Eos % (Auto) 0.7 L (0.9-7.0) % Baso % (Auto) 0.5 (0.2-2.0) % Neut # (Auto) 9.6 H (1.4-6.5) 10^3/uL Lymph # (Auto) 2.3 (1.2-3.8) 10^3/uL Bland # (Auto) 0.8 (0.3-0.8) 10^3/uL Eos # (Auto) 0.1 (0.0-0.7) 10^3/uL Baso # (Auto) 0.1 (0.0-0.1) 10^3/uL Abs Immat Gran (auto) 0.07 H (0.00-0.03) 10^3/uL Imm/Tot Granulo (auto) 0.5 (0.0-0.5) % PT 10.9 (9.0-11.6) sec INR 1.03 VBG pH 7.426 (7.330-7.430) VBG pCO2 39.3 L (40.0-52.0) mmHg Sodium 142 (136-145) mmol/L Potassium 4.2 (3.5-5.1) mmol/L Chloride 107 (98-107) mmol/L Carbon Dioxide 27.6 (21.0-32.0) mmol/L Anion Gap 11.6 BUN 13.0 (7.0-18.0) mg/dL Creatinine 0.72 (0.55-1.02) mg/dL Est GFR ( Amer) >60 (>=60 mL/min/1.73m^2) Est GFR (Non-Af Amer) >60 (>=60 mL/min/1.73m^2) BUN/Creatinine Ratio 18.1 Glucose 125 H (74-106) mg/dL Calcium 8.9 (8.5-10.1) mg/dL Total Bilirubin 0.2 (0.2-1.0) mg/dL AST 13 L (15-37) U/L ALT 23 (14-59) U/L Alkaline Phosphatase 107 (46-116) U/L Troponin I High Sens 14.0 (4.0-51.3) pg/mL NT-Pro-B Natriuret Pep 207.0 (<=900.0) pg/mL Total Protein 6.7 (6.4-8.2) g/dL Albumin 3.3 L (3.4-5.0) g/dL Globulin 3.4 g/dL Albumin/Globulin Ratio 1.0 Influenza Type A Ag Negative Influenza Type B Ag Negative RSV Antigen Not detected (NOT DETECTE) SARS-CoV-2 Ag (CV2AG) Negative (NEGATIVE) ECG Data Attestation: I personally reviewed and interpreted this ECG as follows: (EKG interpretation. Normal sinus rhythm at 72 beats a minute. Normal axis deviation. No acute ST elevation, no acute ectopy. QTc of 398) Discharge Plan Discharge Chief Complaint: Shortness of Breath/Dyspnea Clinical Impression: Near syncope, Dyspnea, COPD exacerbation, Tobacco abuse Patient Disposition: Home, Self-Care Time of Disposition Decision: 18:17 Condition: Fair Prescriptions / Home Meds: No Action albuterol sulfate [Ventolin HFA] 90 mcg/actuation HFA aerosol inhaler 1 puff INHALATION Q4H PRN (Reason: shortness of breath or wheezing) dicyclomine 10 mg capsule 10 mg PO BID fluticasone propion-salmeterol [Advair HFA] 230-21 mcg/actuation HFA aerosol inhaler 2 puff INHALATION BID meloxicam 15 mg tablet 15 mg PO DAILY Spiriva Respimat 1.25 mcg/actuation mist 2 inh INHALATION DAILY amlodipine 10 mg tablet 10 mg PO DAILY carvedilol 25 mg tablet 25 mg PO DAILY hydrochlorothiazide 12.5 mg tablet 12.5 mg PO DAILY Tradjenta 5 mg tablet 5 mg PO DAILY losartan 100 mg tablet 100 mg PO DAILY pantoprazole 40 mg tablet,delayed release (DR/EC) 40 mg PO DAILY ropinirole 2 mg tablet 2 mg PO BEDTIME rosuvastatin 10 mg tablet 10 mg PO DAILY Print Language: Persian Instructions: How to Stop Smoking (ED), COPD (Chronic Obstructive Pulmonary Disease) (ED), Dyspnea (ED), Near Syncope (ED) Additional Instructions: Can continue using inhaler as needed. If you continue to have shortness of breath or any other acute concerns, call your PCP on Friday. Dr Dangelo has been referred to you as well, for pulmonology. Call Friday to make an outpatient appointment. No acute indication for antibiotics or steroids at this time. Increase fluids at home, Gatorade, Powerade, or water. Alternate using DayQuil, NyQuil, and Flonase. Add Mucinex as well as needed. Alternate Tylenol and Motrin every 4 hours to help with fever control, body aches or joint pain. Use [id number] vitamin C, vitamin D3, and zinc to help fight infection and help with her immune system. Referrals: EWELINA DODGE [Primary Care Provider] - 1 week Jose E Dangelo DO [Physician] - 1 week Discharge Date/Time: 08/20/24 18:42
[2024-08-20 16:29] LABS: Basophils Absolute Auto 0.1 10^3/uL (0.0-0.1); Basophils Percent Auto 0.5 % (0.2-2.0); Eosinophils Absolute Auto 0.1 10^3/uL (0.0-0.7); Eosinophils Percent Auto 0.7 % (0.9-7.0); Hematocrit 40.2 % (36.0-48.0); Hemoglobin 12.6 g/dL (12.0-16.0); Immature Granulocytes Abs Auto 0.07 10^3/uL (0.00-0.03); Immature Granulocytes Pct Auto 0.5 % (0.0-0.5); Lymphocytes Absolute Auto 2.3 10^3/uL (1.2-3.8); Mean Corpuscular HGB Conc 31.3 g/dL (29.9-35.2); Mean Corpuscular Hemoglobin 28.8 pg (26.7-34.0); Mean Corpuscular Volume 91.8 fL (81.0-99.0); Mean Platelet Volume 10.2 fL (9.5-13.5); Monocytes Absolute Auto 0.8 10^3/uL (0.3-0.8); Neutrophils Absolute Auto 9.6 10^3/uL (1.4-6.5); Neutrophils Percent Auto 74.3 % (43.0-75.0); Platelet Count 333 10^3/uL (150-450); Red Blood Count 4.38 10^6/uL (4.20-5.40); Red Cell Distribution Width 12.3 % (11.0-15.0); White Blood Count 12.9 10^3/uL (4.0-11.0)
[2024-08-20 16:30] LABS: PCO2 VBG 39.3 mmHg (40.0-52.0); pH VBG 7.426 (7.330-7.430)
[2024-08-20 16:56] LABS: Alanine Aminotransferase 23 U/L (14-59); Albumin Level 3.3 g/dL (3.4-5.0); Alkaline Phosphatase 107 U/L (46-116); Anion Gap 11.6; Aspartate Amino Transferase 13 U/L (15-37); BUN Creatinine Ratio 18.1; Bilirubin Total 0.2 mg/dL (0.2-1.0); Calcium 8.9 mg/dL (8.5-10.1); Carbon Dioxide 27.6 mmol/L (21.0-32.0); Chloride 107 mmol/L (98-107); Estimated GFR (African America >60 (>=60 mL/min/1.73m^2); Estimated GFR (Non-African Ame >60 (>=60 mL/min/1.73m^2); Globulin 3.4 g/dL; Glucose 125 mg/dL (74-106); Potassium 4.2 mmol/L (3.5-5.1); Sodium 142 mmol/L (136-145); Total Protein 6.7 g/dL (6.4-8.2)
[2024-08-20 16:57] LABS: Influenza Virus A Antigen Negative; Influenza Virus B Antigen Negative; Internal Control Within Normal Limits; Respiratory Syncytial Virus Not Detected (NOT DETECTE); SARS-CoV-2 Ag NEGATIVE (NEGATIVE)
[2024-08-20 17:07] LABS: INR 1.03; Prothrombin Time 10.9 sec (9.0-11.6)
== END 2024-08-20 18:42 | disposition home or self-care (01) ==
PROVIDERS: Emergency Provider Emergency Medicine; PCP Nurse Practitioner Family
DX: J44.1 Chronic obstructive pulmonary disease with (acute) exacerbation (principal); F17.210 Nicotine dependence, cigarettes, uncomplicated; E11.9 Type 2 diabetes mellitus without complications; R55 Syncope and collapse; R06.00 Dyspnea, unspecified; Z79.84 Long term (current) use of oral hypoglycemic drugs
CPT/HCPCS: 36415; 71045; 80053; 82800; 83880; 84484; 85025; 85610; 87420; 87804; 87811; 93005; 99285

== ENCOUNTER 2024-09-14 08:01 | Outpatient (OUT) | payer MEDICAID, SELFPAY ==
--- NOTE | 2024-09-14 08:03 | CT_ITS ---
[address] [address] Patient Name: HANNAH OSBORN MRN: [id number] date: 1965 Sex: F Assigned Patient Location: CT Current Patient Location: Accession/Order Number: [id number] Exam Date: 09/14/2024 08:06 Report Date: 09/15/2024 08:08 At the request of: EWELINA DODGE Procedure: CT lung screening low-dose EXAMINATION: CT lung screening low-dose HISTORY: History Nicotine Dependence COMPARISON: No relevant comparison available. TECHNIQUE: Axial, Coronal, and Sagittal images were created without the administration of IV contrast material. Dose reduction techniques were achieved by using automated exposure control and/or adjustment of mA and/or kV according to patient size and/or use of iterative reconstruction technique. FINDINGS: LUNGS: 7 x 4 mm wispy opacity within posterior medial right lung apex; nonspecific but more suggestive of scarring than possible neoplasm. The lungs are otherwise clear. No significant chronic interstitial changes. PLEURA: No mass, effusion, or pneumothorax. VASCULATURE: No abnormality. DOMINGO: No mass or pathologic adenopathy. MEDIASTINUM: No mass or pathologic adenopathy. CARDIAC: No enlargement, pericardial thickening, or pericardial effusion. Coronary Artery calcifications: Coronary calcifications are mild. AORTA: No aneurysm or dissection. CHEST WALL: No mass or axillary adenopathy BONES: No bone lesion or fracture. LIMITED ABDOMEN: No suspicious findings. Limited images of the upper abdomen. OTHER: Negative. CT/CT lung screening low-dose IMPRESSION: 1. Lung-RADS Category 3- Probably benign. Probably benign finding(s)- short term follow up suggested; includes nodules with a low likelihood of becoming a clinically active cancer. Six month LDCT. Electronically authenticated by: HANG GREER Date: 09/15/2024 08:08
--- OUTSIDE RECORDS SUMMARY | 2024-09-14 08:15 | XMS_ITS | CCD ---
Author Organization [facility] Partnership [facility] CliniSytn Care Team Providers Care Head Wrestling Coach Name Role Phone DR HANG GREER Consulting Unavailable ROHRBACHER, MADDI Mccrary Admitting Unavailab le ROHRBACHER, MADDI Mccrary Attending Unavailab le ROHRBACHER, MADDI Mccrary Primary Care Unavailab le ROHRBACHER, MADDI Mccrary Consulting Unavailab le ROHRBACHER, MADDI Mccrary Admitting Unavailab le ROHRBACHER, MADDI Mccrary Attending Unavailab le ROHRBACHER, MADDI Mccrary Consulting Unavailab le ROHRBACHER, MADDI Mccrary Primary Care Unavailab le SONY SOLIMAN Consulting Unavailable ROHRBACH, COATINGS INSPECTOR CAMERON Attending Unavailabl e ROHRBACH, COATINGS INSPECTOR CAMERON Consulting Unavailabl e ROHRBACH, COATINGS INSPECTOR CAMERON Admitting Unavailabl e ROHRBACHER, MADDI Mccrary Primary Care Unavailab le ROHRBACHER, MADDI A Admitting Unavailab le WEST, DR JOHN Angel Consulting Unavailable ROHRBACHER, MADDI Mccrary Attending Unavailab le ROHRBACHER, MADDI A Primary Care Unavailab le ROHRBACHER, MADDI Mccrary Consulting Unavailab le Rohrbacher, Maddi Unavailable Mapus, Tondra Unavailable ZAID Mcghee Primary Care Provider [phone] MapusCATHIEN Gurdeep Frey Attending Provider VIRIDIANA Mcpherson Primary Care Provider RohrbacheVIRIDIANA alas Attending Provider [phone] Maddi Mcpherson Attending Unavailable Rohrbacher, Maddi Primary Care Unavailable Rohrbacher, Maddi Admitting Unavailable Rohrbacher, VIRIDIANA Linda Primary Care Provider Mapus, MEAT AND POULTRY INSPECTOR Tondra K Attending Provider ZAID Mcghee Primary Care Provider Rohrbacher, VIRIDIANA Linda Primary Care Provider Mapus, MEAT AND POULTRY INSPECTOR Tondra K Attending Provider [phone] ZAID Mcghee Primary Care Provider MD Emil Cooper Attending Provider [phone] Emil Cooper Unavailable Rohrbacher, VIRIDIANA Maddi Primary Care Provider Mapus, MEAT AND POULTRY INSPECTOR Tondra K Attending Provider [phone] Rohrbacher, VIRIDIANA Linda Primary Care Provider Mapus, MEAT AND POULTRY INSPECTOR Tondra K Attending Provider Mapus, Tondra K Attending Unavailable Mapus, Tondra K Admitting [facility]available [facility]available Mapus, Tondra K Admitting Unavailable Mapus, Tondra K Attending Unavailable Rohacher, [facility] Care Unavailable Mapus, Tondra K Admitting Unavailable Mapus, Tondra K Attending Unavailable Luisa Mcghee Primary Care Unavailable Emil Cooper Admitting Unavailable Emil Cooper Attending Unavailable Rohrbacher, [facility] Care Unavailable Mapus, Tondra K Admitting Unavailable Mapus, Tondra K Attending Unavailable [facility] Care Unavailable Allergies Allergy Classification Reported Allergen(s) Allergy Type Date of Onset Reaction(s) Facility (8 sources) Morphine; Translations: [morphine] Drug Allergy 10-23-19 Back Pain, Back Pain, kidney pain [facility] Repository (20 sources) Acetaminophen / oxyCODONE Drug Allergy kidney pain [facility] Other (20 sources) atorvastatin; Translations: [atorvastatin] Drug Allergy 09-09-19 Unknown, Unknown Reaction [facility] Repository (20 sources) gabapentin; Translations: [gabapentin] Drug Allergy 09-09-19 numbness in hands and feet and cold feeling [facility] Repository (20 sources) Morphine Drug Allergy kidney pain [facility] Other (20 sources) prastatin Propensity to adverse reactions [facility] Other (20 sources) metFORMIN Drug Allergy 09-09-19 diarrhea [facility] (7 sources) metFORMIN Drug Allergy diarrhea [facility] Other (20 sources) dulaglutide Drug Allergy 09-09-19 heartburn/naus ea [facility] (20 sources) semaglutide Drug Allergy 09-09-19 g/i s/e [facility] (1 source) Acetaminophen / oxyCODONE; Translations: [acetaminophen-ox yCODONE] Drug Allergy [facility] Repository (2 sources) Morphine Drug Allergy kidney pain [facility] Other (17 sources) Pravastatin [facility] Acetaminophen; Translations: [acetaminophen] Drug Allergy 09-09-19 [facility] (4 sources) oxyCODONE; Translations: [oxycodone] Drug Allergy 09-09-19 [facility] (1 source) atorvastatin Drug Allergy 03-18-20 [facility] Repository (1 source) dulaglutide Drug Allergy 03-18-20 [facility] Repository (1 source) gabapentin Drug Allergy 03-18-20 [facility] Repository (1 source) metFORMIN Drug Allergy 03-18-20 [facility]ository (1 source) Morphine Drug Allergy 03-18-20 [facility] Repository (1 source) Pravastatin Drug Allergy 03-18-20 [facility]ository (1 source) semaglutide Drug allergy (disorder) 03-18-20 [facility] Repository Medications Current Medications Medication Drug Class(es) Dates Sig (Normalized) Sig (Original) [id number] 200 actuat albuterol 0.09 mg/actuat metered dose [...] days for 90 days Active Dexcom G7 [employer] - (14 sources) Start: 06-02-2023 Dexcom G7 [...] 30 days Jan, Active 60 actuat tiotropium 0.99257 mg/actuat inhalation spray (20 sources) Anticholinergic Start: 01-09-2022 take 1 puff(s) by inhalation once daily Tiotropium [place] (Spiriva Respimat) 1.25 mcg/actuation mist Active 1 PUFF INHALATION Daily January 09, 2022 12:00am Start: 06-14-2020 take 1.25 ug by inha lation once daily Start: 06-14-2020 Start: 11-13-2017 End: 01-09-2022 take 1.25 ug by inhalation once daily Tiotropium [place] Discontinued 1.25 MCG INHALATION Daily November 13, [...] by mouth every week Ergocalciferol 1.25 MG (49682 UT) 1 capsule Orally weekly Not-Taking 12 [...] ALT [Catalytic activity/Vol] 15 U/L Normal 7-52 [facility] Comment on above: Order Comment: Reaso n for Exam Type 2 diabetes mellitus with hyperglycemia, without long-te Performed By: #### B 12, LIPID, URMACRERAT, CMP #### [facility] [address] [place] [address] [place] #### CPEP #### [facility] , Albumin [Mass/volume] in Ser um or Plasma by Bromocresol green (BCG) dye binding methoOrdered By: Gurdeep Dubois on 05-10-2024 Albumin BCG dye [Mass/Vol] 4.4 g/dL 3.5-5.7 [facility] Alkaline phosphatase [Enzyma tic activity/volume] in Serum or PlasmaOrdered By: Gurdeep Dubois on 05-10-2024 ALP [Catalytic activity/Vol] 95 U/L Normal 34-104 [facility] Comment on above: Order Comment: Reaso n for Exam Type 2 diabetes mellitus with hyperglycemia, without long-te Performed By: #### B 12, LIPID, URMACRERAT, CMP #### [facility] [address] [place] [address] [place] #### CPEP #### [facility] , Aspartate aminotransferase [ Enzymatic activity/volume] in Serum or PlasmaOrdered By: Gurdeep Dubois on 05-10-2024 AST [Catalytic activity/Vol] 13 U/L Normal 13-39 [facility] Comment on above: Order Comment: Reaso n for Exam Type 2 diabetes mellitus with hyperglycemia, without long-te Performed By: #### B 12, LIPID, URMACRERAT, CMP #### [facility] [address] [place] [address] #### CPEP #### [facility] , Bilirubin.total [Mass/volume ] in Serum or PlasmaOrdered By: Tondra Mapus on 05-10-2024 Bilirubin [Mass/Vol] 0.5 mg/dL Normal 0.3-1.0 [facility] Comment on above: Order Comment: Reaso n for Exam Type 2 diabetes mellitus with hyperglycemia, without long-te Performed By: #### B 12, LIPID, URMACRERAT, CMP #### [facility] [address] [place] [address] #### CPEP #### [facility] , C-Peptideon 05-10-2024 C-Peptide 2.2 ng/mL Normal 1.1-4.4 [facility] Comment on above: Order Comment: Reaso n for Exam Type 2 diabetes mellitus with hyperglycemia, without long-te Result Comment: C-Pe ptide reference interval is for fasting patients. Performed at: - [address] [id number] Manager Title: Jacques Llanos PhD, Phone: [phone] PERFORMED BY: [place] [address] PATHOLOGIST METAL GRINDER SVETLANA DUMONT M.D. Performed By: #### B 12, LIPID, URMACRERAT, CMP #### [facility] [address] [place] [address] #### CPEP #### [facility] , Calcium [Mass/volume] in Ser um or PlasmaOrdered By: Tondra Mapus on 05-10-2024 Calcium [Mass/Vol] 9.6 mg/dL Normal 8.6-10.3 [facility] Comment on above: Order Comment: Reaso n for Exam Type 2 diabetes mellitus with hyperglycemia, without long-te Performed By: #### B 12, LIPID, URMACRERAT, CMP #### [facility] [address] [place] [address] [place] #### CPEP #### [facility] , Carbon dioxide, total [Moles /volume] in Serum or PlasmaOrdered By: Tondra Mapus on 05-10-2024 CO2 [Moles/Vol] 29.1 mmol/L Normal 21.0-31.0 [facility] Comment on above: Order Comment: Reaso n for Exam Type 2 diabetes mellitus with hyperglycemia, without long-te Performed By: #### B 12, LIPID, URMACRERAT, CMP #### [facility] [address] [place] [address] [place] #### CPEP #### [facility] , Chloride [Moles/volume] in S loy or PlasmaOrdered By: Tondra Mapus on 05-10-2024 Chloride [Moles/Vol] 104 mmol/L Normal 98-107 [facility] Comment on above: Order Comment: Reaso n for Exam Type 2 diabetes mellitus with hyperglycemia, without long-te Performed By: #### B 12, LIPID, URMACRERAT, CMP #### [facility] [address] [place] [address] [place] #### CPEP #### [facility] , Cholesterol [Mass/volume] in Serum or PlasmaOrdered By: Tondra Mapus on 05-10-2024 Cholesterol [Mass/Vol] 186 mg/dL Normal 140-200 [facility] Comment on above: Chol less than [...] #### B 12, LIPID, URMACRERAT, CMP #### [facility] [address] [place] [address] [place] #### CPEP #### [facility] , Cholesterol in LDL Calc [Mas s/Vol]Ordered By: Gurdeep Dubois on 05-10-2024 Cholesterol in LDL [Mass/Vol] 78 mg/dL 0-100 [facility] Comment on above: LDL ATP III CLASSIFI CATIONLDL less than 100 mg/dL OptimalLDL 100-129 mg/dL Near or above optimalLDL 130-159 mg/dL Borderline highLDL 160-189 mg/dL HighLDL greater than 189 mg/dL Very high Cholesterol in VLDL Calc [Ma ss/Vol]Ordered By: Gurdeep Dubois on 05-10-2024 Cholesterol in VLDL [Mass/Vol] 57 mg/dL [facility] Comprehensive Metabolic Pane cecile 05-10-2024 Albumin [Mass/Vol] 4.4 g/dL Normal 3.5-5.7 [facility] Comment on above: Order Comment: Reaso n for Exam Type 2 diabetes mellitus with hyperglycemia, without long-te Performed By: #### B 12, LIPID, URMACRERAT, CMP #### [facility] [address] [place] [address] #### CPEP #### [facility] , GFR/1.73 sq M.predicted MDRD (S/P/Bld) [Vol rate/Area] mL/min/{1.73_m2} Normal [facility] Comment on above: Order Comment: Reaso n for Exam Type 2 diabetes mellitus with hyperglycemia, without long-te Performed By: #### B 12, LIPID, URMACRERAT, CMP #### [facility] [address] [place] [address] [place] #### CPEP #### [facility] , Creatinine [Mass/volume] in Serum or PlasmaOrdered By: Gurdeep Dubois on 05-10-2024 Creatinine [Mass/Vol] 0.67 mg/dL Normal 0.60-1.20 [facility] Comment on above: Order Comment: Reaso n for Exam Type 2 diabetes mellitus with hyperglycemia, without long-te Performed By: #### B 12, LIPID, URMACRERAT, CMP #### [place] [address] [place] #### CPEP #### [facility] , Creatinine [Mass/volume] in UrineOrdered By: Gurdeep Dubois on 05-10-2024 Creatinine (U) [Mass/Vol] 146.00 mg/dL [facility] Comment on above: No reference range e stablished Diabetes Autoimmune Profileo n 05-10-2024 Anti-Dawit-65 Antibodies <5.0 Normal . Th e [facility] Comment on above: Result Comment: Refe rence Range: <5.0 Negative > or = 5.0 Positive Performed By: #### B 12, LIPID, URMACRERAT, CMP #### [address] #### CPEP #### [facility] , IA2 Autoantibodies <7.5 Normal . [facility] Comment on above: Result Comment: Refe rence Range: <7.5 Negative > or = 7.5 Positive Performed By: #### B 12, LIPID, URMACRERAT, CMP #### [address] #### CPEP #### [facility] , Insulin Antibodies <5.0 Normal . [facility] Comment on above: Result Comment: This test is also known as insulin autoantibody or IAA. This test was developed and its performance characteristics determined by [facility]. It has not been cleared or approved by the Food and Drug Administration. Reference Range: <5.0 Negative > or = 5.0 Positive Performed By: #### B 12, LIPID, URMACRERAT, CMP #### [place] [address] [place] #### CPEP #### [facility] , Type 1 Diabetes Interpretation Comment Normal . [facility] Comment on above: Result Comment: [...] have positive antibodies.(1) Sary et al. PNAS. 2007;104(43):[id number]. Performed at: [facility] [address] [place] [id number] Manager Title: Chance Sutherland MD, Phone: [phone] PERFORMED BY: [place] [address] PATHOLOGIST METAL GRINDER SVETLANA DUMONT M.D. Performed By: #### B 12, LIPID, URMACRERAT, CMP #### [address] #### CPEP #### [facility] , Zinc Transporter 8 Autoabs <15 Normal . [facility] Comment on above: Result Comment: Refe rence Range: All Ages: <15 Negative > or =15 Positive Performed By: #### B 12, LIPID, URMACRERAT, CMP #### [address] #### CPEP #### [facility] , Glucose [Mass/volume] in Ser um or PlasmaOrdered By: Gurdeep Dubois on 05-10-2024 Glucose [Mass/Vol] 140 mg/dL High 70-100 [facility] Comment on above: ADA recommended refe rence rangeRandom Glucose Reference Range is dependent on time and content of last meal. Glucose of more than 200 mg/dL in a nonstressed, ambulatory subject supports the diagnosis of Diabetes Mellitus. Order Comment: Reaso n for Exam Type 2 diabetes mellitus with hyperglycemia, without long-te Result Comment: Boyd om Glucose Reference Range is dependent on time and content of last meal. Glucose of more than 200 mg/dL in a nonstressed, ambulatory subject supports the diagnosis of Diabetes Mellitus. ADA recommended reference range Performed By: #### B 12, LIPID, URMACRERAT, CMP #### [facility] [address] [place] [address] [place] #### CPEP #### [facility] , Lipid Panelon 05-10-2024 LDL Cholesterol,Calculated 78 mg/dL Normal 0-100 [facility] Comment on above: Order Comment: Reaso n for Exam Type 2 diabetes mellitus with hyperglycemia, without long-te Result Comment: LDL ATP III CLASSIFICATION LDL less than 100 mg/dL Optimal LDL 100-129 mg/dL Near or above optimal LDL 130-159 mg/dL Borderline high LDL 160-189 mg/dL High LDL greater than 189 mg/dL Very high Performed By: #### B 12, LIPID, URMACRERAT, CMP #### [place] [address] [place] #### CPEP #### [facility] , Triglyceride w/Reflex 289 mg/dL High 0-149 [facility] Comment on above: Order [...] #### B 12, LIPID, URMACRERAT, CMP #### [place] [address] [place] #### CPEP #### [facility] , VLDL CHOLESTEROL 57 mg/dL Normal [facility] Comment on above: Order Comment: Reaso n for Exam Type 2 diabetes mellitus with hyperglycemia, without long-te Performed By: #### B 12, LIPID, URMACRERAT, CMP #### [place] [address] [place] #### CPEP #### [facility] , MicroAlb Creat Ratio,Uon Creatinine, Urine (Random) 146.00 mg/dL Normal [facility] Comment on above: Result Comment: No r eference range established Performed By: #### B 12, LIPID, URMACRERAT, CMP #### [place] [address] [place] #### CPEP #### [facility] , Microalbumin/Creatinine Ratio 6.2 mg/g Normal 0.0-30.0 [facility] Comment on above: Result Comment: 30-3 00 mg/g indicates an increased risk for diabetic nephropathy. Greater than 300 mg/g is consistent with clinical nephropathy. (Am. J. Kidney Disease 1995, 25:107) PERFORMED BY: [place] [address] PATHOLOGIST METAL GRINDER SVETLANA DUMONT M.D. Performed By: #### B 12, LIPID, URMACRERAT, CMP #### [address] #### CPEP #### [facility] , Microalbumin [Mass/volume] i n UrineOrdered By: Sheldondra Didierus on 05-10-2024 Albumin DL <= 20 mg/L (U) [Mass/Vol] 0.9 mg/dL Normal 0.0-1.8 [facility] Comment on above: Performed By: #### B 12, LIPID, URMACRERAT, CMP #### [place] [address] [place] #### CPEP #### [facility] , No Panel InformationOrdered By: Tondra Mapus on 05-10-2024 Estimated GFR (CKD-EPI) > 60.0 mL/Min [facility] Creatinine Clearance (Chem N/A [facility] Potassium [Moles/volume] in Serum or PlasmaOrdered By: Tondra Mapus on 05-10-2024 Potassium [Moles/Vol] 4.1 mmol/L Normal 3.5-5.1 [facility] Comment on above: Order Comment: Reaso n for Exam Type 2 diabetes mellitus with hyperglycemia, without long-te Performed By: #### B 12, LIPID, URMACRERAT, CMP #### [facility] [address] [place] [address] #### CPEP #### [facility] , Protein [Mass/volume] in Ser um or PlasmaOrdered By: Tondra Mapus on 05-10-2024 Protein [Mass/Vol] 6.7 g/dL Normal 6.4-8.9 [facility] Comment on above: Order Comment: Reaso n for Exam Type 2 diabetes mellitus with hyperglycemia, without long-te Performed By: #### B 12, LIPID, URMACRERAT, CMP #### [address] #### CPEP #### [facility] , Serum globulin measurement b y calculation (mass/volume)Ordered By: Tondra Mapus on 05-10-2024 Globulin (S) [Mass/Vol] 2.3 g/dL Normal [facility] Comment on above: Order Comment: Reaso n for Exam Type 2 diabetes mellitus with hyperglycemia, without long-te Performed By: #### B 12, LIPID, URMACRERAT, CMP #### [facility] [address] [place] [address] [place] #### CPEP #### [facility] , Serum or plasma albumin/glob ulin mass ratioOrdered By: Tondra Mapus on 05-10-2024 Albumin/Globulin [Mass ratio] 1.9 {ratio} [facility] Comment on above: Order Comment: Reaso n for Exam Type 2 diabetes mellitus with hyperglycemia, without long-te Performed By: #### B 12, LIPID, URMACRERAT, CMP #### [facility] [address] [place] [address] [place] #### CPEP #### [facility] , Serum or plasma anion gap de terminationOrdered By: Tondra Mapus on 05-10-2024 Anion gap [Moles/Vol] 10.0 mmol/L Normal 6.0-15.0 [facility] Comment on above: Order Comment: Reaso n for Exam Type 2 diabetes mellitus with hyperglycemia, without long-te Performed By: #### B 12, LIPID, URMACRERAT, CMP #### [facility] [address] [place] [address] [place] #### CPEP #### [facility] , Serum or plasma high density lipoprotein (HDL) cholesterol measurementOrdered By: Gurdeep Dubois on 05-10-2024 Cholesterol in HDL [Mass/Vol] 50 mg/dL Normal [facility] Comment on above: HDL CHOL ATP-III [...] #### B 12, LIPID, URMACRERAT, CMP #### [facility] [address] [place] [address] [place] #### CPEP #### [facility] , Serum or plasma total choles terol/high density lipoprotein (HDL) cholesterol mass ratOrdered By: Gurdeep Dubois on 05-10-2024 Cholesterol.total/Serene sterol in HDL [Mass ratio] 3.7 {ratio} Normal <5.0 [facility] Comment on above: Order Comment: Reaso n for Exam Type 2 diabetes mellitus with hyperglycemia, without long-te Result Comment: PERF ORMED BY: [place] [address] PATHOLOGIST METAL GRINDER SVETLANA DUMONT M.D. Performed By: #### B 12, LIPID, URMACRERAT, CMP #### [facility] [address] [place] [address] [place] #### CPEP #### [facility] , Sodium [Moles/volume] in Ser um or PlasmaOrdered By: Tondra Mapus on 05-10-2024 Sodium [Moles/Vol] 139 mmol/L Normal 136-145 [facility] Comment on above: Order Comment: Reaso n for Exam Type 2 diabetes mellitus with hyperglycemia, without long-te Performed By: #### B 12, LIPID, URMACRERAT, CMP #### [facility] [address] [place] [address] [place] #### CPEP #### [facility] , Triglyceride [Mass/volume] i n Serum or PlasmaOrdered By: Tondra Mapus on 05-10-2024 Triglyceride [Mass/Vol] 289 mg/dL High 0-149 [facility] Comment on above: TRIG ATP III CLASSIF ICATIONTRIG less than 150 mg/dL NormalTRIG 150-199 mg/dL Borderline highTRIG 200-500 mg/dL High TRIG greater than 500 mg/dL Very highStandard traceable to the Center for Disease Conrtrol and Prevention (CDC) test method. Urea nitrogen [Mass/volume] in Serum or PlasmaOrdered By: Tondra Mapus on 05-10-2024 Urea nitrogen [Mass/Vol] 14 mg/dL Normal 7-25 [facility] Comment on above: Order Comment: Reaso n for Exam Type 2 diabetes mellitus with hyperglycemia, without long-te Performed By: #### B 12, LIPID, URMACRERAT, CMP #### [facility] [address] [place] [address] [place] #### CPEP #### [facility] , Urine microalbumin/creatinin e mass ratioOrdered By: Tondra Mapus on 05-10-2024 Albumin/Creatinine DL <= 20 mg/L (U) [Mass ratio] 6.2 mg/g 0.0-30.0 [facility] Comment on above: 30-300 mg/g indicate s an increased risk for diabetic nephropathy. Greater than 300 mg/g is consistent with clinical nephropathy. (Am. J. Kidney Disease 1994, 25:107) Basophils Auto (Bld) [#/Vol] on 04-02-2024 Basophils (Bld) [#/Vol] 0.1 10 3/uL 0.0-0.1 [facility] Basophils/100 WBC Auto (Bld) on 04-02-2024 Basophils/100 WBC (Bld) 0.6 % 0.2-2.0 [facility] Eosinophils/100 WBC Auto (Bl d)on 04-02-2024 Eosinophils/100 WBC (Bld) 1.3 % 0.9-7.0 [facility] Erythrocyte distribution wid th Auto (RBC) [Ratio]on 04-02-2024 Erythrocyte distribution width (RBC) [Ratio] 12.7 % 11.0-15.0 [facility] Estimated glomerular filtrat ion rate (GFR) non- Americanon 04-02-2024 GFR/1.73 sq M.predicted among non-blacks MDRD (S/P/Bld) [Vol rate/Area] mL/min/{1.73_m2} >=60 [facility] Fibrin D-dimer [Presence] in Platelet poor plasma by Latex agglutinationon 04-02-2024 Fibrin D-dimer LA Ql (PPP) 0.32 mg/L FEU <=0.59 [facility] Comment on above: Increases in D-Dimer concentration [...] Hematocrit (Bld) [Volume fraction] 42.5 % 36.0-48.0 [facility] Hemoglobin [Mass/volume] in Bloodon 04-02-2024 Hemoglobin (Bld) [Mass/Vol] 13.7 g/dL 12.0-16.0 [facility] Laboratory - Chemistry and C hemistry - challengeon 04-02-2024 Calcium [Mass/Vol] 9.0 mg/dL 8.5-10.1 [facility] Chloride [Moles/Vol] 104 mmol/L 98-107 [facility] CO2 [Moles/Vol] 25.0 mmol/L 21.0-32.0 [facility] Creatinine [Mass/Vol] 0.80 mg/dL 0.55-1.02 [facility] GFR/1.73 sq M.predicted MDRD (S/P/Bld) [Vol rate/Area] mL/min/{1.73_m2} >=60 [facility] Glucose [Mass/Vol] 236 mg/dL High 74-106 [facility] Potassium [Moles/Vol] 3.7 mmol/L 3.5-5.1 [facility] Sodium [Moles/Vol] 139 mmol/L 136-145 [facility] Urea nitrogen [Mass/Vol] 18.0 mg/dL 7.0-18.0 [facility] Urea nitrogen/Creatinine [Mass ratio] 22.5 mg/mg [facility] - Hematology and Cell countson 04-02-2024 Immature granulocytes/100 WBC (Bld) 0.4 % 0.0-0.5 [facility] Leukocytes [#/volume] correc tiffany for nucleated erythrocytes in Blood by Automated counon 04-02-2024 WBC corrected for nucl RBC Auto (Bld) [#/Vol] 8.5 10 3/uL 4.0-11.0 [facility] Lymphocytes Auto (Bld) [#/Vo l]on 04-02-2024 Lymphocytes (Bld) [#/Vol] 3.2 10 3/uL 1.2-3.8 [facility] Lymphocytes/100 WBC Auto (Bl d)on 04-02-2024 Lymphocytes/100 WBC (Bld) 37.8 % 20.5-60.0 [facility] MCH Auto (RBC) [Entitic mass ]on 04-02-2024 MCH (RBC) [Entitic mass] 29.4 pg 26.7-34.0 [facility] MCHC Auto (RBC) [Mass/Vol]on 04-02-2024 MCHC (RBC) [Mass/Vol] 32.2 g/dL 29.9-35.2 [facility] MCV Auto (RBC) [Entitic vol] on 04-02-2024 MCV (RBC) [Entitic vol] 91.2 fL 81.0-99.0 [facility] Monocytes Auto (Bld) [#/Vol] on 04-02-2024 Monocytes (Bld) [#/Vol] 0.7 10 3/uL 0.3-0.8 [facility] Monocytes/100 WBC Auto (Bld) on 04-02-2024 Monocytes/100 WBC (Bld) 8.3 % 1.7-12.0 [facility] Neutrophils Auto (Bld) [#/Vo l]on 04-02-2024 Neutrophils (Bld) [#/Vol] 4.4 10 3/uL 1.4-6.5 [facility] Neutrophils/100 WBC Auto (Bl d)on 04-02-2024 Neutrophils/100 WBC (Bld) 51.6 % 43.0-75.0 [facility] No Panel Informationon 04-02 Eosinophils # (Auto) 0.1 10 3/uL 0.0-0.7 [facility] Immature Granulocyte # (Auto) 0.03 10 3/uL 0.00-0.03 [facility] Troponin I High Sensitivity <4.0 pg/mL Low 4.0-51.3 [facility] Comment on above: CUT-OFF POINTS HAVE BEEN [...] volume (Bld) [Entitic vol] 11.0 fL 9.5-13.5 [facility] Platelets Auto (Bld) [#/Vol] on 04-02-2024 Platelets (Bld) [#/Vol] 305 10 3/uL 150-450 [facility] RBC Auto (Bld) [#/Vol]on RBC (Bld) [#/Vol] 4.66 10 6/uL 4.20-5.40 [facility] Serum or plasma anion gap de terminationon 04-02-2024 Anion gap [Moles/Vol] 13.7 mmol/L [facility] HbA1c HPLC (Bld) [Mass fract ion]on 03-18-2024 HbA1c (Bld) [Mass fraction] 8.2 % [facility] No Panel Informationon 03-18 Bedside Glucose 174 [facility] Alanine aminotransferase [En zymatic activity/volume] in Serum or PlasmaOrdered By: Anjalia Sherly on 12-25-2023 ALT [Catalytic activity/Vol] 16 U/L Normal 7-52 [facility] Comment on above: Performed By: #### B 12, CMP, LIPID #### [facility] [address] [place] [address] [place] Albumin [Mass/volume] in Ser um or Plasma by Bromocresol green (BCG) dye binding methoOrdered By: Gurdeep Dubois on 12-25-2023 Albumin BCG dye [Mass/Vol] 4.4 g/dL 3.5-5.7 [facility] Alkaline phosphatase [Enzyma tic activity/volume] in Serum or PlasmaOrdered By: Anjalia Didierus on 12-25-2023 ALP [Catalytic activity/Vol] 79 U/L Normal 34-104 [facility] Comment on above: Performed By: #### B 12, CMP, LIPID #### [facility] [address] [place] [address] [place] Aspartate aminotransferase [ Enzymatic activity/volume] in Serum or PlasmaOrdered By: Tondra Didierus on 12-25-2023 AST [Catalytic activity/Vol] 13 U/L Normal 13-39 [facility] Comment on above: Performed By: #### B 12, CMP, LIPID #### [facility] [address] [place] [id number] [place] Bilirubin.total [Mass/volume ] in Serum or PlasmaOrdered By: Tondra Didierus on 12-25-2023 Bilirubin [Mass/Vol] 0.3 mg/dL Normal 0.3-1.0 [facility] Comment on above: Performed By: #### B 12, CMP, LIPID #### [facility] [address] [place] [address] [place] Calcium [Mass/volume] in Ser um or PlasmaOrdered By: Tondra Didierus on 12-25-2023 Calcium [Mass/Vol] 9.8 mg/dL Normal 8.6-10.3 [facility] Comment on above: Performed By: #### B 12, CMP, LIPID #### [facility] [address] [place] [address] [place] Carbon dioxide, total [Moles /volume] in Serum or PlasmaOrdered By: Tondra Didierus on 12-25-2023 CO2 [Moles/Vol] 27.6 mmol/L Normal 21.0-31.0 [facility] Comment on above: Performed By: #### B 12, CMP, LIPID #### [facility] [address] [place] [address] [place] Chloride [Moles/volume] in S loy or PlasmaOrdered By: Tona Didierus on 12-25-2023 Chloride [Moles/Vol] 109 mmol/L High 98-107 [facility] Comment on above: Performed By: #### B 12, CMP, LIPID #### [facility] [address] [place] [address] [place] Cholesterol [Mass/volume] in Serum or PlasmaOrdered By: Tondra Didierus on 12-25-2023 Cholesterol [Mass/Vol] 154 mg/dL Normal 140-200 [facility] Comment on above: Chol less than 200 m g/dl low riskChol 201-239 mg/dl borderline riskChol 240 mg/dl and greater high risk Result Comment: Chol less than 200 mg/dl low risk Chol 201-239 mg/dl borderline risk Chol 240 mg/dl and greater high risk Performed By: #### B 12, CMP, LIPID #### [facility] [address] [place] [address] [place] Cholesterol in LDL Calc [Mas s/Vol]Ordered By: Tondra Didierus on 12-25-2023 Cholesterol in LDL [Mass/Vol] 79 mg/dL 0-100 [facility] Comment on above: LDL ATP III CLASSIFI CATIONLDL less than 100 mg/dL OptimalLDL 100-129 mg/dL Near or above optimalLDL 130-159 mg/dL Borderline highLDL 160-189 mg/dL HighLDL greater than 189 mg/dL Very high Cholesterol in VLDL Calc [Ma ss/Vol]Ordered By: Gurdeep Dubois on 12-25-2023 Cholesterol in VLDL [Mass/Vol] 28 mg/dL [facility] Comprehensive Metabolic Pane cecile 12-25-2023 Albumin [Mass/Vol] 4.4 g/dL Normal 3.5-5.7 [facility] Comment on above: Performed By: #### B 12, CMP, LIPID #### [facility] [address] [place] [address] [place] GFR/1.73 sq M.predicted MDRD (S/P/Bld) [Vol rate/Area] mL/min/{1.73_m2} Normal [facility] Comment on above: Performed By: #### B 12, CMP, LIPID #### [facility] [address] [place] [address] [place] Creatinine [Mass/volume] in Serum or PlasmaOrdered By: Gurdeep Dubois on 12-25-2023 Creatinine [Mass/Vol] 0.67 mg/dL Normal 0.60-1.20 [facility] Comment on above: Performed By: #### B 12, CMP, LIPID #### [facility] [address] [place] [address] [place] Creatinine [Mass/volume] in UrineOrdered By: Gurdeep Dubois on 12-25-2023 Creatinine (U) [Mass/Vol] 85.0 mg/dL [facility] Comment on above: No reference range e stablished Glucose [Mass/volume] in Ser um or PlasmaOrdered By: Gurdeep Dubois on 12-25-2023 Glucose [Mass/Vol] 220 mg/dL High 70-100 [facility] Comment on above: ADA recommended refe rence rangeRandom Glucose Reference Range is dependent on time and content of last meal. Glucose of more than 200 mg/dL in a nonstressed, ambulatory subject supports the diagnosis of Diabetes Mellitus. Result Comment: [facility] Glucose Reference Range is dependent on time and content of last meal. Glucose of more than 200 mg/dL in a nonstressed, ambulatory subject supports the diagnosis of Diabetes Mellitus. ADA recommended reference range Performed By: #### B 12, CMP, LIPID #### [facility] [address] Lipid Panelon 12-25-2023 LDL Cholesterol,Calculated 79 mg/dL Normal 0-100 [facility] Comment on above: Result Comment: LDL ATP III CLASSIFICATION LDL less than 100 mg/dL Optimal LDL 100-129 mg/dL Near or above optimal LDL 130-159 mg/dL Borderline high LDL 160-189 mg/dL High LDL greater than 189 mg/dL Very high Performed By: #### B 12, CMP, LIPID #### [facility] [address] Triglyceride w/Reflex 142 mg/dL Normal 0-149 [facility] Comment on above: Result Comment: TRIG ATP III CLASSIFICATION TRIG less than 150 mg/dL Normal TRIG 150-199 mg/dL Borderline high TRIG 200-500 mg/dL High TRIG greater than 500 mg/dL Very high Standard traceable to the Center for Disease Conrtrol and Prevention (CDC) test method. Performed By: #### B 12, CMP, LIPID #### [facility] [address] [place] [id number] [facility] VLDL CHOLESTEROL 28 mg/dL Normal [facility] Comment on above: Performed By: #### B 12, CMP, LIPID #### [facility] [address] [place] [id number] [place] MicroAlb Creat Ratio,Uon Creatinine, Urine (Random) 85.0 mg/dL Normal [facility] Comment on above: Result Comment: No r eference range established Performed By: #### U RMACRERAT #### [facility] [address] [place] [id number] [facility] Microalbumin/Creatinine Ratio 11.0 mg/g Normal 0.0-30.0 [facility] Comment on above: Result Comment: 30-3 00 mg/g indicates an increased risk for diabetic nephropathy. Greater than 300 mg/g is consistent with clinical nephropathy. (Am. J. Kidney Disease 1995, 25:107) PERFORMED BY: [place] [address] PATHOLOGIST [employer] SVETLANA DUMONT M.D. Performed By: #### U RMACRERAT #### [address] Microalbumin [Mass/volume] i n UrineOrdered By: Tondra Mapus on 12-25-2023 Albumin DL <= 20 mg/L (U) [Mass/Vol] 1.0 mg/dL Normal 0.0-1.8 [facility] Comment on above: Performed By: #### U RMACRERAT #### [address] No Panel InformationOrdered By: Tondra Mapus on 12-25-2023 Estimated GFR (CKD-EPI) > 60.0 mL/Min [facility] Creatinine Clearance (Chem N/A [facility] Potassium [Moles/volume] in Serum or PlasmaOrdered By: Tondra Mapus on 12-25-2023 Potassium [Moles/Vol] 4.5 mmol/L Normal 3.5-5.1 [facility] Comment on above: Performed By: #### B 12, CMP, LIPID #### [address] Protein [Mass/volume] in Ser um or PlasmaOrdered By: Tondra Mapus on 12-25-2023 Protein [Mass/Vol] 6.7 g/dL Normal 6.4-8.9 [facility] Comment on above: Performed By: #### B 12, CMP, LIPID #### [address] Serum globulin measurement b y calculation (mass/volume)Ordered By: Tondra Mapus on 12-25-2023 Globulin (S) [Mass/Vol] 2.3 g/dL Normal [facility] Comment on above: Performed By: #### B 12, CMP, LIPID #### [facility] [address] Serum or plasma albumin/glob ulin mass ratioOrdered By: Tondra Didierus on 12-25-2023 Albumin/Globulin [Mass ratio] 1.9 {ratio} Normal [facility] Comment on above: Performed By: #### B 12, CMP, LIPID #### [facility] [address] [place] [address] Serum or plasma anion gap de terminationOrdered By: Tondra Sherly on 12-25-2023 Anion gap [Moles/Vol] 6.9 mmol/L Normal 6.0-15.0 [facility] Comment on above: Performed By: #### B 12, CMP, LIPID #### [address] Serum or plasma high density lipoprotein (HDL) cholesterol measurementOrdered By: Tona Sherly on 12-25-2023 Cholesterol in HDL [Mass/Vol] 47 mg/dL Normal 23-92 [facility] Comment on above: HDL CHOL ATP-III CLA SSIFICATION Cardiovascular RiskHDL > or equal to 60 mg/dL LOWHDL < 40 mg/dL HIGH Result Comment: HDL CHOL ATP-III CLASSIFICATION Cardiovascular Risk HDL > or equal to 60 mg/dL LOW HDL < 40 mg/dL HIGH Performed By: #### B 12, CMP, LIPID #### [facility] [address] [place] [address] Serum or plasma total choles terol/high density lipoprotein (HDL) cholesterol mass ratOrdered By: Tondra Didierus on 12-25-2023 Cholesterol.total/Serene sterol in HDL [Mass ratio] 3.3 {ratio} Normal <5.0 [facility] Comment on above: Performed By: #### B 12, CMP, LIPID #### [facility] [address] [place] [address] Sodium [Moles/volume] in Ser um or PlasmaOrdered By: Tondra Mapus on 12-25-2023 Sodium [Moles/Vol] 139 mmol/L Normal 136-145 [facility] Comment on above: Performed By: #### B 12, CMP, LIPID #### [facility] [address] Triglyceride [Mass/volume] i n Serum or PlasmaOrdered By: Gurdeep Dubois on 12-25-2023 Triglyceride [Mass/Vol] 142 mg/dL 0-149 [facility] Comment on above: TRIG ATP III CLASSIF ICATIONTRIG less than 150 mg/dL NormalTRIG 150-199 mg/dL Borderline highTRIG 200-500 mg/dL High TRIG greater than 500 mg/dL Very highStandard traceable to the Center for Disease Conrtrol and Prevention (CDC) test method. Urea nitrogen [Mass/volume] in Serum or PlasmaOrdered By: Gurdeep Dubois on 12-25-2023 Urea nitrogen [Mass/Vol] 18 mg/dL Normal - [facility] Comment on above: Performed By: #### B 12, CMP, LIPID #### [facility] [address] Urine microalbumin/creatinin e mass ratioOrdered By: Gurdeep Dubois on 12-25-2023 Albumin/Creatinine DL <= 20 mg/L (U) [Mass ratio] 11.0 mg/g 0.0-30.0 [facility] Comment on above: 30-300 mg/g indicate s an increased risk for diabetic nephropathy. Greater than 300 mg/g is consistent with clinical nephropathy. (Am. J. Kidney Disease 1995, 25:107) Vitamin B12 ser/plasOrdered By: Gurdeep Dubois on 12-25-2023 Cobalamin (Vitamin B12) [Mass/Vol] 617 pg/mL Normal 180-914 [facility] Comment on above: Result Comment: PERF ORMED BY: [place] [address] PATHOLOGIST [employer] SVETLANA DUMONT M.D. Performed By: #### B 12, CMP, LIPID #### [facility] [address] HbA1c HPLC (Bld) [Mass fract ion]on 12-11-2023 HbA1c (Bld) [Mass fraction] 8.8 % [facility] No Panel Informationon 12-10 Bedside Glucose 220 [facility] XR lumbar spine AP/LAT/FLX/E XTon 06-26-2023 XR lumbar spine AP/LAT/FLX/EXT [facility] Main [place] [address] [place] [id number] XRay Report Signed Patient: Farhana Landers MR#: [id number] : 1965 Acct:[id number] Age/Sex: 57 / F ADM Date: 06/26/23 Loc: SOXD Room: Type: [facility] Attending Dr: Emil Cooper MD Copies to: [...] M.D.06/26/2023 2:54 PM Dictation Location: [place] [address] Transcribed By: [facility] 06/26/23 1454 Dictated By: Roman Sultana DO 06/26/23 1452 Signed By: 06/26/23 1454 Normal [facility] A1C HEMOGLOBINon 06-02-2023 HbA1c (Bld) [Mass fraction] 7.7 % [facility] Other Albumin [Mass/volume] in Ser um or Plasma by Bromocresol green (BCG) dye binding methoOrdered By: Gurdeep Dubois on 06-02-2023 Albumin BCG dye [Mass/Vol] 4.5 g/dL 3.5-5.7 [facility] Bilirubin.total [Mass/volume ] in Serum or PlasmaOrdered By: Gurdeep Dubois on 06-02-2023 Bilirubin [Mass/Vol] 0.5 mg/dL Normal 0.3-1.0 [facility] Comment on above: Order Comment: PT FA STED 12 HOURS Reason for Exam Type 2 diabetes mellitus with hyperglycemia, without long-te Performed By: #### B 12, LIPID, URMACRERAT, CMP #### [facility] [address] [place] [address] #### CPEP #### [facility] , C-PeptideOrdered By: Gurdeep Dubois on 06-02-2023 C-Peptide 3.8 ng/mL Normal 1.1-4.4 [facility] Comment on above: C-Peptide reference interval is for fasting patients.Performed at: [facility] [place] [address]Lab Director: Jacques Llanos PhD, Phone: [phone] Order Comment: Reaso n for Exam Type 2 diabetes mellitus with hyperglycemia, without long-te Result Comment: C-Pe ptide reference interval is for fasting patients. Performed at: [place] [address] Manager Title: Jacques Llanos PhD, Phone: [phone] PERFORMED BY: [place] [address] PATHOLOGIST METAL GRINDER SVETLANA DUMONT M.D. Performed By: #### B 12, LIPID, URMACRERAT, CMP #### [facility] [address] [place] [address] #### CPEP #### [facility] , Calcium [Mass/volume] in Ser um or PlasmaOrdered By: Gurdeep Dubois on 06-02-2023 Calcium [Mass/Vol] 10.1 mg/dL Normal 8.6-10.3 [facility] Comment on above: Order Comment: PT FA STED 12 HOURS Reason for Exam Type 2 diabetes mellitus with hyperglycemia, without long-te Performed By: #### B 12, LIPID, URMACRERAT, CMP #### [facility] [address] [place] [address] [place] #### CPEP #### [facility] , Carbon dioxide, total [Moles /volume] in Serum or PlasmaOrdered By: Gurdeep Dubois on 06-02-2023 CO2 [Moles/Vol] 26.2 mmol/L Normal 21.0-31.0 [facility] Comment on above: Order Comment: PT FA STED 12 HOURS Reason for Exam Type 2 diabetes mellitus with hyperglycemia, without long-te Performed By: #### B 12, LIPID, URMACRERAT, CMP #### [facility] [address] [place] [address] [place] #### CPEP #### [facility] , Cholesterol in LDL Calc [Mas s/Vol]Ordered By: Gurdeep Dubois on 06-02-2023 Cholesterol in LDL [Mass/Vol] 73 mg/dL 0-100 [facility] Comment on above: LDL ATP III CLASSIFI CATIONLDL less than 100 mg/dL OptimalLDL 100-129 mg/dL Near or above optimalLDL 130-159 mg/dL Borderline highLDL 160-189 mg/dL HighLDL greater than 189 mg/dL Very high Cholesterol in VLDL Calc [Ma ss/Vol]Ordered By: Gurdeep Dubois on 06-02-2023 Cholesterol in VLDL [Mass/Vol] 52 mg/dL [facility] Comprehensive Metabolic Pane cecile 06-02-2023 Albumin [Mass/Vol] 4.207555 g/dL Normal 3.5-5.7 g/dL [facility] Other Bilirubin [Mass/Vol] 0.4345809 mg/dL Normal 0.3- 1.0 mg/dL [facility] Other Calcium [Mass/Vol] 10.7249234 mg/dL Normal 8.6-1 0.3 mg/dL [facility] Other CO2 [Moles/Vol] 26.37580346 mmol/L Normal 21.0-3 1.0 mmol/L [facility] Other Creatinine [Mass/Vol] 0.16653549 mg/dL Normal 0. 60-1.20 mg/dL [facility] Other Potassium [Moles/Vol] 4.43297000 mmol/L Normal 3 .5-5.1 mmol/L [facility] Other Protein [Mass/Vol] 6.196026 g/dL Normal 6.4-8.9 g/dL [facility] Other Comprehensive Metabolic Panel 2.4 g/dL [facility] Other Albumin [Mass/Vol] 4.5 g/dL Normal 3.5-5.7 [facility] Comment on above: Order Comment: PT FA STED 12 HOURS Reason for Exam Type 2 diabetes mellitus with hyperglycemia, without long-te Performed By: #### B 12, LIPID, URMACRERAT, CMP #### [facility] [address] [place] [address] [place] #### CPEP #### [facility] , GFR/1.73 sq M.predicted MDRD (S/P/Bld) [Vol rate/Area] mL/min/{1.73_m2} Normal [facility] Other Comment on above: Order Comment: PT FA STED 12 HOURS Reason for Exam Type 2 diabetes mellitus with hyperglycemia, without long-te Performed By: #### B 12, LIPID, URMACRERAT, CMP #### [facility] [address] [place] [address] [place] #### CPEP #### [facility] , Comprehensive Metabolic Pane lOrdered By: Gurdeep Dubois on 06-02-2023 Albumin/Globulin [Mass ratio] 1.9 {ratio} Normal [facility] Comment on above: Order Comment: PT FA STED 12 HOURS Reason for Exam Type 2 diabetes mellitus with hyperglycemia, without long-te Performed By: #### B 12, LIPID, URMACRERAT, CMP #### [facility] [address] [place] [address] [place] #### CPEP #### [facility] , ALP [Catalytic activity/Vol] 90 U/L Normal 34-104 [facility] Comment on above: Order Comment: PT FA STED 12 HOURS Reason for Exam Type 2 diabetes mellitus with hyperglycemia, without long-te Performed By: #### B 12, LIPID, URMACRERAT, CMP #### [facility] [address] [place] [address] [place] #### CPEP #### [facility] , ALT [Catalytic activity/Vol] 16 U/L Normal 7-52 [facility] Comment on above: Order Comment: PT FA STED 12 HOURS Reason for Exam Type 2 diabetes mellitus with hyperglycemia, without long-te Performed By: #### B 12, LIPID, URMACRERAT, CMP #### [facility] [address] [place] [address] #### CPEP #### [facility] , AST [Catalytic activity/Vol] 12 U/L Low 13-39 [facility] Comment on above: Order Comment: PT FA STED 12 HOURS Reason for Exam Type 2 diabetes mellitus with hyperglycemia, without long-te Performed By: #### B 12, LIPID, URMACRERAT, CMP #### [facility] [address] [place] [address] #### CPEP #### [facility] , Chloride [Moles/Vol] 104 mmol/L Normal 98-107 [facility] Comment on above: Order Comment: PT FA STED 12 HOURS Reason for Exam Type 2 diabetes mellitus with hyperglycemia, without long-te Performed By: #### B 12, LIPID, URMACRERAT, CMP #### [facility] [address] [place] [address] [place] #### CPEP #### [facility] , Glucose [Mass/Vol] 195 mg/dL High 70-100 [facility] Comment on above: ADA recommended refe rence rangeRandom Glucose Reference Range is dependent on time and content of last meal. Glucose of more than 200 mg/dL in a nonstressed, ambulatory subject supports the diagnosis of Diabetes Mellitus. Order Comment: PT FA STED 12 HOURS Reason for Exam Type 2 diabetes mellitus with hyperglycemia, without long-te Result Comment: [facility] Glucose Reference Range is dependent on time and content of last meal. Glucose of more than 200 mg/dL in a nonstressed, ambulatory subject supports the diagnosis of Diabetes Mellitus. ADA recommended reference range Performed By: #### B 12, LIPID, URMACRERAT, CMP #### [facility] [address] [place] [address] #### CPEP #### [facility] , Sodium [Moles/Vol] 139 mmol/L Normal 136-145 [facility] Comment on above: Order Comment: PT FA STED 12 HOURS Reason for Exam Type 2 diabetes mellitus with hyperglycemia, without long-te Performed By: #### B 12, LIPID, URMACRERAT, CMP #### [facility] [address] [place] [address] #### CPEP #### [facility] , Urea nitrogen [Mass/Vol] 14 mg/dL Normal 7-25 [facility] Comment on above: Order Comment: PT FA STED 12 HOURS Reason for Exam Type 2 diabetes mellitus with hyperglycemia, without long-te Performed By: #### B 12, LIPID, URMACRERAT, CMP #### [facility] [address] [place] [address] #### CPEP #### [facility] , Creatinine [Mass/volume] in Serum or PlasmaOrdered By: Gurdeep Dubois on 06-02-2023 Creatinine [Mass/Vol] 0.71 mg/dL Normal 0.60-1.20 [facility] Comment on above: Order Comment: PT FA STED 12 HOURS Reason for Exam Type 2 diabetes mellitus with hyperglycemia, without long-te Performed By: #### B 12, LIPID, URMACRERAT, CMP #### [facility] [address] [place] [address] [place] #### CPEP #### [facility] , Creatinine [Mass/volume] in UrineOrdered By: Gurdeep Dubois on 06-02-2023 Creatinine (U) [Mass/Vol] 91.0 mg/dL 11.0-20.0 [facility] Glucose - FINGER STICKon Glucose [Mass/Vol] 240 mg/dL [facility] Other HbA1c (Bld) [Mass fraction]o n 06-02-2023 A1C HEMOGLOBIN [facility] Other Lipid Panelon 06-02-2023 Cholesterol in LDL Elph Qn 73 mg/dL Normal 0-100 mg/dL [facility] Other Lipid Panel 260 mg/dL High 0-149 mg/dL [facility] Other Lipid Panel 52 mg/dL [facility] Other LDL Cholesterol,Calculated 73 mg/dL Normal 0-100 [facility] Comment on above: Order Comment: [...] #### B 12, LIPID, URMACRERAT, CMP #### [address] #### CPEP #### [facility] , Triglyceride w/Reflex 260 mg/dL High 0-149 [facility] Comment on above: Order [...] #### B 12, LIPID, URMACRERAT, CMP #### [facility] [address] [place] [address] [place] #### CPEP #### [facility] , VLDL CHOLESTEROL 52 mg/dL Normal [facility] Comment on above: Order Comment: PT FA STED 12 HOURS Reason for Exam Type 2 diabetes mellitus with hyperglycemia, without long-te Performed By: #### B 12, LIPID, URMACRERAT, CMP #### [facility] [address] [place] [address] [place] #### CPEP #### [facility] , Lipid PanelOrdered By: Anjali Dubois on 06-02-2023 Cholesterol [Mass/Vol] 178 mg/dL Normal 140-200 [facility] Comment on above: Chol less than [...] #### B 12, LIPID, URMACRERAT, CMP #### [facility] [address] [place] [address] [place] #### CPEP #### [facility] , Cholesterol in HDL [Mass/Vol] 53 mg/dL Normal 23-92 [facility] Comment on above: HDL CHOL ATP-III [...] #### B 12, LIPID, URMACRERAT, CMP #### [facility] [address] [place] [address] [place] #### CPEP #### [facility] , Cholesterol.total/Serene sterol in HDL [Mass ratio] 3.4 {ratio} Normal <5.0 [facility] Comment on above: Order Comment: PT FA STED 12 HOURS Reason for Exam Type 2 diabetes mellitus with hyperglycemia, without long-te Performed By: #### B 12, LIPID, URMACRERAT, CMP #### [facility] [address] #### CPEP #### [facility] , MicroAlb Creat Ratio,Uon Albumin DL <= 20 mg/L (U) [Mass/Vol] 1.3974849 mg/dL Normal 0.0-1.8 mg/dL [facility] Other Albumin/Creatinine DL <= 20 mg/L (U) [Mass ratio] 15.119799 mg/g Normal 0.0-30.0 mg/g [facility] Other Creatinine (U) [Mass/Vol] 91.5965504 mg/dL High 11.0-20.0 mg/dL [facility] Other Creatinine, Urine (Random) 91.0 mg/dL High 11.0-20.0 [facility] Comment on above: Order Comment: Reaso n for Exam Type 2 diabetes mellitus with hyperglycemia, without long-te Performed By: #### B 12, LIPID, URMACRERAT, CMP #### [facility] [address] [place] [address] [place] #### CPEP #### [facility] , Microalbumin/Creatinine Ratio 15.0 mg/g Normal 0.0-30.0 [facility] Comment on above: Order Comment: Reaso n for Exam Type 2 diabetes mellitus with hyperglycemia, without long-te Result Comment: 30-3 00 mg/g indicates an increased risk for diabetic nephropathy. Greater than 300 mg/g is consistent with clinical nephropathy. (Am. J. Kidney Disease 1995, 25:107) PERFORMED BY: [address] [place] [address] PATHOLOGIST METAL GRINDER SVETLANA DUMONT M.D. Performed By: #### B 12, LIPID, URMACRERAT, CMP #### [facility] [address] [place] [address] [place] #### CPEP #### [facility] , Microalbumin [Mass/volume] i n UrineOrdered By: Tondra Mapus on 06-02-2023 Albumin DL <= 20 mg/L (U) [Mass/Vol] 1.4 mg/dL Normal 0.0-1.8 [facility] Comment on above: Order Comment: Reaso n for Exam Type 2 diabetes mellitus with hyperglycemia, without long-te Performed By: #### B 12, LIPID, URMACRERAT, CMP #### [facility] [address] [place] [address] #### CPEP #### [facility] , No Panel InformationOrdered By: Tondra Mapus on 06-02-2023 Estimated GFR (CKD-EPI) > 60.0 mL/Min [facility] Creatinine Clearance (Chem N/A [facility] Potassium [Moles/volume] in Serum or PlasmaOrdered By: Tondra Mapus on 06-02-2023 Potassium [Moles/Vol] 4.3 mmol/L Normal 3.5-5.1 [facility] Comment on above: Order Comment: PT FA STED 12 HOURS Reason for Exam Type 2 diabetes mellitus with hyperglycemia, without long-te Performed By: #### B 12, LIPID, URMACRERAT, CMP #### [facility] [address] [place] [address] [place] #### CPEP #### [facility] , Protein [Mass/volume] in Ser um or PlasmaOrdered By: Tondra Mapus on 06-02-2023 Protein [Mass/Vol] 6.9 g/dL Normal 6.4-8.9 [facility] Comment on above: Order Comment: PT FA STED 12 HOURS Reason for Exam Type 2 diabetes mellitus with hyperglycemia, without long-te Performed By: #### B 12, LIPID, URMACRERAT, CMP #### [facility] [address] [place] [address] [place] #### CPEP #### [facility] , Serum globulin measurement b y calculation (mass/volume)Ordered By: Gurdeep Dubois on 06-02-2023 Globulin (S) [Mass/Vol] 2.4 g/dL Normal [facility] Comment on above: Order Comment: PT FA STED 12 HOURS Reason for Exam Type 2 diabetes mellitus with hyperglycemia, without long-te Performed By: #### B 12, LIPID, URMACRERAT, CMP #### [facility] [address] [place] [address] [place] #### CPEP #### [facility] , Serum or plasma anion gap de terminationOrdered By: Gurdeep Dubois on 06-02-2023 Anion gap [Moles/Vol] 13.1 mmol/L Normal 6.0-15.0 [facility] Comment on above: Order Comment: PT FA STED 12 HOURS Reason for Exam Type 2 diabetes mellitus with hyperglycemia, without long-te Performed By: #### B 12, LIPID, URMACRERAT, CMP #### [facility] [address] [place] [address] [place] #### CPEP #### [facility] , Triglyceride [Mass/volume] i n Serum or PlasmaOrdered By: Gurdeep Dubois on 06-02-2023 Triglyceride [Mass/Vol] 260 mg/dL 0-149 [facility] Comment on above: TRIG ATP III CLASSIF ICATIONTRIG less than 150 mg/dL NormalTRIG 150-199 mg/dL Borderline highTRIG 200-500 mg/dL High TRIG greater than 500 mg/dL Very highStandard traceable to the Center for Disease Conrtrol and Prevention (CDC) test method. Urine microalbumin/creatinin e mass ratioOrdered By: Gurdeep Dubois on 06-02-2023 Albumin/Creatinine DL <= 20 mg/L (U) [Mass ratio] 15.0 mg/g 0.0-30.0 [facility] Comment on above: 30-300 mg/g indicate s an increased risk for diabetic nephropathy. Greater than 300 mg/g is consistent with clinical nephropathy. (Am. J. Kidney Disease 1995, 25:107) Vitamin [id number] By: Anjali Dubois on 06-02-2023 Cobalamin (Vitamin B12) [Mass/Vol] 696 pg/mL Normal 180-914 [facility] Comment on above: Order Comment: PT FA STED 12 HOURS Reason for Exam Type 2 diabetes mellitus with hyperglycemia, without long-te Result Comment: PERF ORMED BY: [facility] [address] [place] [address] PATHOLOGIST METAL GRINDER SVETLANA DUMONT M.D. Performed By: #### B 12, LIPID, URMACRERAT, CMP #### [address] #### CPEP #### [facility] , Coding Summaryon 04-25-2023 Coding Summary HTMLBase 64 UgekjptvSJq4rTm+PGhlYW Q+PF1SPTXjC57jzJFqeP7j V7BQEDkPRhwnJPJYCNtOEy MerqUaMV5wwVLqKQIj IC8+MY4vJPDsVdusuIUpv2 S1eDA1S48cqt6bTMqjkSA5 ZRWsLuOakymig1bswYf7KG cuNmluOyBt FGHvbF18CCD1qL70Sz79qJ PmoIDqv6bjeWx8WrEgOWZb VCQ4yCxaKXnsx6UdWOGdZ8 5sfJRgo2O6 CVMzhGvnqGKiRkRfmQK1gA 7hGHxidmpgx6bjntgwMbd4 dl56aAVvr4L2nOE1A4Eclk R7INOwlEKw HzcqhKNQbM4czvomz1keho dnLhAxSUOoPNo0CKt1RIZw vNkdKlBgWE22QMI4WGEtbx QrV9ArYDTk wUueZyU0s2P1Of8BP8DFRh cwL8RFURHNPFlnvXZ+PC90 ay99K5OvZifzQqa8YOJnTY T5cZG2fI9m SNPbSJycv5Z6sKT7K8Qfzk Dkab4sa2ssKFIeBSsiF34l dJPbk2H6REUehXC1VHMctX fkWwRapA42 Oyc+XETdeLmfw0SvXkuia7 lnv7vuuRn6OgftKHKbvhUk qJiuEKU2l0ZuQr7xGHBrsU L0iGP8pW6w ZmVaCdO4YDksX470GkBnyC VjMazxH80nD0JyuJI+PHRy Xdw0PRCskWklVT0wC3NaLT RpbmctbGVm kMijFB5xWDKaedxpYFDscL 0vVTBsM7y2JaDkFxN9ZItr O0SbPNXuptqvGf25wJ6qYi EpSzV4KSkt O0GuryH7MQCrwGLyOQldVH F4H62nv4F3IHAfDSZyAYK2 kMI2bK4gcWnfbzkhvJGrpD sgdmVydGlj CFysNElnN300JNFviVjiLb NvZGluZyBEYXRlOiAgMDkv MDgvMjAyMzwvdGQ+PHRkIH R5iDrbOPHf iMOiJZglLy7xkUregYrmWW 5vQEIkjmfdTOFdwB2tSKWj eUWkeGrqKR2yKNZcvvjop0 78YqWuQPF6 FGKuhRMwG6LahS1eAnBsTK HjQXXsV0TqlWKuLElsD233 FTbqRpP3MQQtfvWpB9WhTT FsaWduOiB0 w4L3Ig3Md5CsobqaR1MpoF GhFkOyMnfxIBv9W0UiGgds dHI+DS41TBTaXN14VTs9TV Y9nJyhSXpq RZRwD8EnlP4vHnOgKIXcIH RkOyc+PHRhYmxlIHdpZHRo NZrfFQWdAnPgjThvTK4zPt 9yZGVyLWNv wEdznMWwIfDna7bhBJVdCD lcCJ1xfMuaW3GmdDW5DSTn o8v0Vg59B28pR4PhkRQ+PG NauRU6tJC7 nR9qLgXiBvJ3UNdqV875Fe JmrLVeJpgze8dhu0ojoRw9 LqK9BSSjnoVceSgvQOW9j9 DcXw93W20f IHdpZHRoPSIxNSUiIHZhbG okds3cnF2bXk2+PGNvbCB3 eKT3sE3tHuDoSfM8ELynN4 49InRvcCIv Lydaq7lvy8ffvEy2IyRySS CrxeMiiDbaWDN1d4OwSm81 T3AkqBbuy4AfPbp4ga46lW Eul4J6mFM5 W0FhJVSjrgwifCMadYlbOD 1dXMWphbviKRMynH6zNKTx Z3f3ToJaMmE5GFwkT2Jywj R5MELybHKh CPDdkVRDwA4ymadyr7yfsa ehRdKqADPdBZh5DRp4QWEp eUlgRvBjGOV9UsA3FXA1cU JpiX7ylWrb uuzjkN9bHxu+UTH5gAYexH ZROU7pKymqgGO+PHRkIHN0 mZbvZFsyMYWbzU9uVAWgF8 u6NsVzSsQ9 EMdcJ8HkvvR0DUHmyVIzOL RhwNEEnX1shhqhn2lezhzc HwNqVPCnWEr1PDs9IFDvkH duOiBsZWZ0 HuE1SDK4cJQoiZ7fgQagvk tgyV7mLeq+QmlydGggRGF0 MHp8T8HcYvk9IBSrpGcdAS 0ncGFkZGlu Jq7sdMvubTdgFO7yXKLrmn lhk789CnArh7fgCWMmvPEp FQzhEUU8F28hu8D6GODdVZ JkKAW0rKF5 jA9vuHqthjthbSNosDtvla SznOuaZUzxIVcrW734GEKr kOkdDpGlFMi5A8YlOwz0HJ FdiDxvXM7z uIMiGTncQq0flKexaZgwUJ 2lOXGzepfro255NqUwk7ef GLLaxEIeEVnyWSM7L36kf9 F6NHMvJPKt IEJ1iDG7vT5hgNdkiefrnB VmdDsgdmVydGljYWwtYWxp D444TLFzaMdfHgNjrDp2A8 KoUql1OZXt tUxrJZ1csNSgYFzmQv3udU dedXmkHI0tSGUddnvua655 MzSyr2nyRYOvxEFhPSopAV P6V02nc2C3 SOQkYECnWWI5iOV9sV2otO lnbjogbGVmdDsgdmVydGlj UMkgGBzbO337NYCuaBugRr BhdGllbnQg CSkvTFj0H6YcUszkbNM+PC 97UTCjSI80bXHueORfq4cv fNy0TwHtZLLbYKK0eKzsXM vfs1UdHNXq X31ndYFuw5T3TGTzdFifwY EaCoBiaJE3zP3kCCobwqlc o1joskbnSiwjv1wruj74rL 31M65tBEqy ZHRoPSIzMCUiIHZhbGlnbj 4xbK9rDw8+PBKjjTM6kKT2 kO3jSFIeOsM2GUbyM378Wg RvcCIvPjxj j8vbw0othWn3HtA7FJItpe AizPzjXMG1e1StRc44Z03r IHdpZHRoPSIyMCUiIHZhbG dgje7sdS1e Ii8+DLJiwOL1vLG6lB1hId CwWxJ0AZltK372OhHkeXKm BmkgJ94kW0JngLT+PHRyPj o4VRQxoKtd BO4jrLClWClsNw1iQAU2Xd WdSvGqQDxsL1MvUBXdvoru vpiokUC2ZSAlRYKasI21Id 9udDogMTBw xQYUsV2idahfa6yjopsjPe UdRRGlFBp2UPk4GCOlaTae EdZvECC1BmJ3BQE6jNHkxJ 1hbGlnbjog fG3zF7OrKCUlgledYa31oC 8uMvSjDmC4WWfxOds+SkFD J4VSEcbmMA3JJAWRBVODUA JJRTwvdGQ+ VHRaTMV4uLykMHhfQMOihQ 0cQSAiJ5d3LhIzIwU7ORpc M3UlEXOvxqyrRk39lW8kSa DtIpO0JXik K4JmjsW4WIIsuVEeQNlyOC Y9S46mt2O9YAXvHVUgKVD9 dMH7kJ1otDanukxhzWXgpX sgdmVydGlj HCoaZEnlV734BHKuzGngSx QyDxJ2OsX5BpE9B3ZuQlc3 WVGerFveCJ5yaWKsMLmfNi 1yaWdodDog XB2iUISvlwstYSAcyA0zDV TksHAnuBkeYR9cIWRuxylq n507IkLtFZM3FPRdcMOjJ3 TumJ0jBoYq PEEuTGPqV9FptQIdESziC6 33REbcNhC9IDVmpiLqY5Tq EAJrmOmnPkI9d9P2Tc43Qs BZZWFyczwv dGQ+XKPzCJW3eUsyPIxxSG JtpT6kSHBkK0j2MtYzTjO9 ZXhoB7SiPYBahcrgAf99rO 4wWiOuQwN9 QPmyL4NyhtF1YZOulVOjHS sxGBV7V79eu4W1FRJmRTZw SAK9hPF6cO9rhVmstbytyA VmdDsgdmVy mMvqGTzhHRgbV178TGNxhP snPkZFTUFMRTwvdGQ+PHRk HGO6hDprAJewPDIunP8kPC BuV2w0QpUu IvX7WCqtQ9SyKPVfrbuxDv 23mF6qOtSrOuM5OCrfC4Zr rhZ7WCHecXBaGSisPQZ4Q6 2md0S6WLYs UAHuYBO9nLS5uR2uqWmsya ogbGVmdDsgdmVydGljYWwt UBpvW454VSGlcQaeXh0ICM 58BL09W2Zy PjwvdGFibGU+PHRhYmxlIH dpZHRoPScxMDAlJyBzdHls XO0qZm2lHEXkBALrnZnezX RtLqCzm9nt PTXjVExwTB6puDauW8TaoP J9BGIwe7w5Rq39A12pH2Cc dXA+HDCkwVU5vQS0iF3dVf BpAyI1DZes N318YeBjtQWkAvejs5ckf8 vmgPb6FaMmLWJwlyZjaIhm IVU7o1SeYz07Q00wQLzbLJ RoPSIyMCUi MKCvySibfw2xjP1pTw9+PG NeaTC5tAB7lI8vFrCgZjX6 FAtpL297CdQxaRJxGsraL5 3hD0QszWQ+ OWFxCff4ASVkqXshDL9jgT PjRMkjBs6lZFZ6NpXmXeGp SOjzK2GdVXNxggxhnlrbbW D4AERmJTAf gJ05Uh4owAfiLc5qNYFkQG B7ATBruQDmA3AtfD3wQzMv CTUvHSMcF2OqvJKsIVbaX8 85LKetEbV7 GLZcfoLuD3VtPHTrnZuxCb Q5d8N4Xz0NeUqgjXRvCX3l KlItGSj4H7JuQfv6HLUovY edRP3zaGWp WOqgMm6xvRnwnFhaDV0qEL Botsvev177QiLcv8obDUZb zHZsVUphIBP5X83wt2W3WW MwMDAwMDA7 dWP5mS8clFpohsfjmGSgfF kwitMggNzxCHjgDYbiU188 NPFszVwpTbHIEtb7R8IqRe h9JTUljZkk YT5bjUHjHWmdAg1trQfgiS oxZI4oYJSrycacj690FxFq q1uwIAXvrGAhCVanDCI5A6 4yi5E7KIZu MMHeIZV7hKK3iI8neOtfnn ogbGVmdDsgdmVydGljYWwt XOudU742LGYtlJfqDo9OOj t7M9BrFko8 BGQxqKtnFX5zaOZhCXepAc 0fkOcleZnaMJ5tYERqoqxe m549LkElo7hfSXGfsAGsVD rmJER3T61y u1N3SHLzDZMtJKR0sRV9dQ 1hbGlnbjogbGVmdDsgdmVy xCepUJcgBHqbK401TFUwqD snPlBheWVy OjwvdGQ+EK93xr14P9UjJo qsOch2CCXfMXY5lIJ4wI4s JNQhNVqab1W6lMO9P5Nnjd Tpyu0fg8ro YXB (more content not included)... [facility] Provider Orderson 04-24-2023 Provider Orders [id number] [facility] Albumin [Mass/volume] in Ser um or PlasmaOrdered By: Maddi Mcpherson on 10-04-2022 Albumin [Mass/Vol] 4.3 g/dL 3.2-5.5 [facility] Basophils Auto (Bld) [#/Vol] Ordered By: Maddi Mcpherson on 10-04-2022 Basophils (Bld) [#/Vol] 0.0 10*3/uL 0.0-0.2 [facility] Basophils/100 WBC Auto (Bld) Ordered By: Maddi Mcpherson on 10-04-2022 Basophils/100 WBC (Bld) 0.6 % . [facility] Cholesterol [Mass/volume] in Serum or PlasmaOrdered By: Maddi Mcpherson on 10-04-2022 Cholesterol [Mass/Vol] 183 mg/dL 140-200 [facility] Comment on above: Chol less than 200 m g/dl low riskChol 201-239 mg/dl borderline riskChol 240 mg/dl and greater high risk Cholesterol in LDL Calc [Mas s/Vol]Ordered By: Maddi Mcpherson on 10-04-2022 Cholesterol in LDL [Mass/Vol] 93 mg/dL 0-100 [facility] Comment on above: LDL ATP III CLASSIFI CATIONLDL less than 100 mg/dL OptimalLDL 100-129 mg/dL Near or above optimalLDL 130-159 mg/dL Borderline highLDL 160-189 mg/dL HighLDL greater than 189 mg/dL Very high Cholesterol in VLDL Calc [Ma ss/Vol]Ordered By: Maddi Mcpherson on 10-04-2022 Cholesterol in VLDL [Mass/Vol] 43 mg/dL [facility] Creatinine [Mass/volume] in UrineOrdered By: Maddi Mcpherson on 10-04-2022 Creatinine (U) [Mass/Vol] 107.3 mg/dL [facility] Comment on above: No reference range e stablished Creatinine and Glomerular fi ltration rate.predicted panel (S/P/Bld)Ordered By: Mdadi Mcpherson on 10-04-2022 Creatinine [Mass/Vol] 0.71 mg/dL 0.44-1.03 [facility] Eosinophils Auto (Bld) [#/Vo l]Ordered By: Maddi Mcpherson on 10-04-2022 Eosinophils (Bld) [#/Vol] 0.1 10*3/uL 0.0-0.45 [facility] Eosinophils/100 WBC Auto (Bl d)Ordered By: Maddi Mcpherson on 10-04-2022 Eosinophils/100 WBC (Bld) 1.2 % . [facility] Erythrocyte distribution wid th Auto (RBC) [Ratio]Ordered By: Maddi Mcpherson on 10-04-2022 Erythrocyte distribution width (RBC) [Ratio] 13.4 % 11.9-15.3 [facility] Estimated glomerular filtrat ion rate (GFR) non- AmericanOrdered By: Maddi Mcpherson on 10-04-2022 GFR/1.73 sq M.predicted among non-blacks MDRD (S/P/Bld) [Vol rate/Area] > 60 mL/Min [facility] Globulin Calc (S) [Mass/Vol] Ordered By: Maddi Mcpherson on 10-04-2022 Globulin (S) [Mass/Vol] 2.7 g/dL [facility] Hematocrit Auto (Bld) [Volum e fraction]Ordered By: Maddi Mcpherson on 10-04-2022 Hematocrit (Bld) [Volume fraction] 41.9 % 34.0-46.4 [facility] Hemoglobin [Mass/volume] in BloodOrdered By: Maddi Mcpherson on 10-04-2022 Hemoglobin (Bld) [Mass/Vol] 13.7 g/dL 11.8-15.4 [facility] Leukocytes [#/volume] correc tiffany for nucleated erythrocytes in Blood by Automated counOrdered By: Maddi Mcpherson on 10-04-2022 WBC corrected for nucl RBC Auto (Bld) [#/Vol] 7.8 10*3/uL 3.8-11.6 [facility] Lymphocytes Auto (Bld) [#/Vo l]Ordered By: Maddi Mcpherson on 10-04-2022 Lymphocytes (Bld) [#/Vol] 2.6 10*3/uL 1.00-4.8 [facility] Lymphocytes/100 WBC Auto (Bl d)Ordered By: Maddi Mcpherson on 10-04-2022 Lymphocytes/100 WBC (Bld) 33.5 % . [facility] MCH Auto (RBC) [Entitic mass ]Ordered By: Maddi Mcpherson on 10-04-2022 MCH (RBC) [Entitic mass] 29.3 pg 24.7-34.3 [facility] MCHC Auto (RBC) [Mass/Vol]Or dered By: Maddi Mcpherson on 10-04-2022 MCHC (RBC) [Mass/Vol] 32.6 g/dL 32.0-35.0 [facility] MCV Auto (RBC) [Entitic vol] Ordered By: Maddi Mcpherson on 10-04-2022 MCV (RBC) [Entitic vol] 90.0 fL 80-100 [facility] Monocytes Auto (Bld) [#/Vol] Ordered By: Maddi Mcpherson on 10-04-2022 Monocytes (Bld) [#/Vol] 0.7 10*3/uL 0.0-0.8 [facility] Monocytes/100 WBC Auto (Bld) Ordered By: Maddi Mcpherson on 10-04-2022 Monocytes/100 WBC (Bld) 9.1 % . [facility] Neutrophils Auto (Bld) [#/Vo l]Ordered By: Maddi Mcpherson on 10-04-2022 Neutrophils (Bld) [#/Vol] 4.3 10*3/uL 1.8-7.7 [facility] Neutrophils/100 WBC Auto (Bl d)Ordered By: Maddi Mcpherson on 10-04-2022 Neutrophils/100 WBC (Bld) 55.6 % . [facility] No Panel InformationOrdered By: Maddi Mcpherson on 10-04-2022 Estimated GFR () > 60 mL/Min [facility] Comment on above: GFR estimated refere nce range: According to KDOQI guidelines, <60 ml/min/1.73m2 is sufficient to diagnose a patient with chronic kidney disease. Pharmacy Creatinine Clearance (Chem N/A [facility] Nucleated erythrocytes [Pres ence] in Blood by Automated countOrdered By: Maddi Mcpherson on 10-04-2022 Nucleated RBC Auto Ql (Bld) 0.1 /100{WBC} 0-0.5 [facility] Platelet mean volume Auto (B ld) [Entitic vol]Ordered By: Maddi Mcpherson on 10-04-2022 Platelet mean volume (Bld) [Entitic vol] 9.8 fL 6.3-10.7 [facility] Platelets Auto (Bld) [#/Vol] Ordered By: Maddi Mcpherson on 10-04-2022 Platelets (Bld) [#/Vol] 257 10*3/uL 150-450 [facility] Protein [Mass/volume] in Ser um or PlasmaOrdered By: Maddi Mcpherson on 10-04-2022 Protein [Mass/Vol] 7.0 g/dL 6.1-7.9 [facility] RBC Auto (Bld) [#/Vol]Ordere d By: Maddi Mcpherson on 10-04-2022 RBC (Bld) [#/Vol] 4.65 10*6/uL 3.60-5.00 [facility] Serum or plasma alanine dumont otransferase measurement without P-5'-P (enzymatic activiOrdered By: Maddi Mcpherson on 10-04-2022 ALT No additional P-5'-P [Catalytic activity/Vol] 23 U/L 10-60 [facility] Serum or plasma albumin/glob ulin mass ratioOrdered By: Maddi Mcpherson on 10-04-2022 Albumin/Globulin [Mass ratio] 1.6 {ratio} [facility] Serum or plasma alkaline vanessa sphatase measurement (enzymatic activity/volume)Ordered By: Maddi Mcpherson on 10-04-2022 ALP [Catalytic activity/Vol] 80 U/L 32-92 [facility] Serum or plasma anion gap de terminationOrdered By: Maddi Mcpherson on 10-04-2022 Anion gap [Moles/Vol] 10.3 mmol/L 6.0-15.0 [facility] Serum or plasma aspartate am inotransferase measurement (enzymatic activity/volume)Ordered By: Maddi Mcpherson on 10-04-2022 AST [Catalytic activity/Vol] 20 U/L 10-42 [facility] Serum or plasma calcium lisa urement (mass/volume)Ordered By: Maddi Mcpherson on 10-04-2022 Calcium [Mass/Vol] 9.3 mg/dL 8.2-10.2 [facility] Serum or plasma chloride isidra surement (moles/volume)Ordered By: Maddi Mcpherson on 10-04-2022 Chloride [Moles/Vol] 106 mmol/L 95-114 [facility] Serum or plasma glucose lisa urement (mass/volume)Ordered By: Maddi Mcpherson on 10-04-2022 Glucose [Mass/Vol] 182 mg/dL 70-100 [facility] Comment on above: ADA recommended refe rence rangeRandom Glucose Reference Range is dependent on time and content of last meal. Glucose of more than 200 mg/dL in a nonstressed, ambulatory subject supports the diagnosis of Diabetes Mellitus. Serum or plasma high density lipoprotein (HDL) cholesterol measurementOrdered By: Maddi Mcpherson on 10-04-2022 Cholesterol in HDL [Mass/Vol] 46 mg/dL 35-85 [facility] Comment on above: HDL CHOL ATP-III CLA SSIFICATION Cardiovascular RiskHDL > or equal to 60 mg/dL LOWHDL < 40 mg/dL HIGH Serum or plasma potassium me asurement (moles/volume)Ordered By: Maddi Mcpherson on 10-04-2022 Potassium [Moles/Vol] 3.9 mmol/L 3.5-5.1 [facility] Serum or plasma sodium measu rement (moles/volume)Ordered By: Maddi Mcpherson on 10-04-2022 Sodium [Moles/Vol] 138 mmol/L 136-146 [facility] Serum or plasma total biliru bin measurement (mass/volume)Ordered By: Maddi Mcpherson on 10-04-2022 Bilirubin [Mass/Vol] 0.4 mg/dL 0.3-1.2 [facility] Serum or plasma total carbon dioxide measurement (moles/volume)Ordered By: Maddi Mcpherson on 10-04-2022 CO2 [Moles/Vol] 25.6 mmol/L 22.0-30.0 [facility] Serum or plasma total choles terol/high density lipoprotein (HDL) cholesterol mass ratOrdered By: Maddi Mcpherson on 10-04-2022 Cholesterol.total/Serene sterol in HDL [Mass ratio] 4.0 {ratio} <5.0 [facility] Serum or plasma urea nitroge n measurement (mass/volume)Ordered By: Maddi Mcpherson on 10-04-2022 Urea nitrogen [Mass/Vol] 11 mg/dL 9-23 [facility] Triglyceride [Mass/volume] i n Serum or PlasmaOrdered By: Maddi Mcpherson on 10-04-2022 Triglyceride [Mass/Vol] 218 mg/dL 35-149 [facility] Comment on above: TRIG ATP III CLASSIF [...] 20 mg/L (U) [Mass/Vol] 1.5 mg/dL 0.0-1.8 [facility] Urine microalbumin/creatinin e mass ratioOrdered By: Maddi Mcpherson on 10-04-2022 Albumin/Creatinine DL <= 20 mg/L (U) [Mass ratio] 13.0 mg/g 0.0-30.0 [facility] Comment on above: 30-300 mg/g indicate s an increased risk for diabetic nephropathy. Greater than 300 mg/g is consistent with clinical nephropathy. (Am. J. Kidney Disease 1995, 25:107) Vitamin [id number] By: Anjali Dubois on 10-04-2022 Cobalamin (Vitamin B12) [Mass/Vol] 703 pg/mL Normal 180-914 pg/mL [facility] WBC Auto (Bld) [#/Vol]Ordere d By: Maddi Mcpherson on 10-04-2022 WBC (Bld) [#/Vol] 7.8 10*3/uL 3.8-11.6 [facility] A1C HEMOGLOBINon 10-03-2022 HbA1c (Bld) [Mass fraction] 7.8 % [employer] [facility] [employer] Other Glucose - FINGER STICKon Glucose [Mass/Vol] 139 mg/dL [facility] Other HbA1c (Bld) [Mass fraction]o n 10-03-2022 A1C HEMOGLOBIN [facility] Other CREATININEon 12-27-2021 Creatinine [Mass/Vol] 0.61 mg/dL Normal 0.55-1.02 [facility] Comment on above: Performed By: #### C INGRIS #### [facility] [address] [place] [address] Dr. Chanell Landon EGFR-AF FIJIAN >60 Normal >=60 [facility] Comment on above: Performed By: #### C INGRIS #### [facility] [address] [address] [address] Chanell Landon EGFR-NON AF FIJIAN >60 Normal >=60 [facility] Comment on above: Performed By: #### C INGRIS #### [facility] [address] [place] [address] WO [...] HANG GREER Date: 2021-12-27 14:57 Normal [facility] US THYROIDon 12-12-2021 US THYROID EXAMINATION: US [...] JOHN LOYA Date: 2021-12-12 14:52 Normal [facility] A1C HEMOGLOBINon 11-07-2021 HbA1c (Bld) [Mass fraction] 7.2 % [facility] Other Glucose - FINGER STICKon Glucose [Mass/Vol] 159 mg/dL [facility] Other HbA1c (Bld) [Mass fraction]o n 11-07-2021 A1C HEMOGLOBIN [facility] Other COVID + FLU Quick Testingon 08-21-2021 SARS-CoV-2 (COVID-19) RNA GLEN+probe Ql (Unsp spec) Negative [facility] Other COVID + FLU Quick Testing Negative [facility] Other Covid-19 PCR (CVDTBH)on 01-17 SARS-CoV-2 (COVID-19) RNA GLEN+probe Ql (Unsp spec) Not detected Normal NOT DETECTED [facility] Comment on above: Result Comment: This test is not yet approved or cleared by the [place] FDA. When there are no FDA-approved or cleared tests available, and other criteria are met, FDA can make tests available under an emergency access mechanism called an Emergency Use Authorization (EUA). The EUA for this test is supported by the [place] of Health and Human Service's (HHS's) declaration [...] consistent with SARS-CoV-2. Performed By: #### C [facility] #### [facility] [address] [place] [address] Paige Mcgillen XR CHEST 2 Von 01-31-2021 [...] by: SONY SOLIMAN Date: 2021-01-31 05:00 Normal [facility] Vital Signs Date Time Vital Sign Value Performing Clinician Facility 03-18-2024 15:28-0400 Diastolic blood pressure 88 mm[Hg] VIRIDIANA Mcpherson Work Phone: [facility] 03-18-2024 15:28-0400 Systolic blood pressure 145 mm[Hg] VIRIDIANA Mcpherson Work Phone: [facility] 03-18-2024 15:14-0400 Body height 146.05 cm VIRIDIANA Mcpherson Work Phone: [facility] 03-18-2024 15:14-0400 Body mass index (BMI) [Ratio] 24.4 kg/m2 VIRIDIANA Mcpherson Work Phone: [facility] 03-18-2024 15:14-0400 Body weight 52.16 kg [employer] Maddi Jayrbacher Work Phone: [facility] 03-18-2024 15:14-0400 Heart rate 74 /min [employer] Maddi Thompsonrbacher Work Phone: [facility] 03-18-2024 15:14-0400 Respiratory rate 18 /min [employer] Maddi Jayrbacher Work Phone: [facility] 03-18-2024 15:14-0400 SaO2% (BldA) [Mass fraction] 99 % [employer] Maddi Jayrbacher Work Phone: [facility] 12-25-2023 09:38-0400 Body height 146.05 cm [employer] Maddi Jayrbacher Work Phone: [facility] 12-25-2023 09:38-0400 Body mass index (BMI) [Ratio] 24.5 kg/m2 [employer] Maddi Thompsonrbacher Work Phone: [facility] 12-25-2023 09:38-0400 Body weight 52.38 kg [employer] 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 Work Phone: [facility] 12-11-2023 14:05-0400 Body height 146.05 cm [employer] INS[employer] Maddi Jayrbacher Work Phone: [facility] 12-11-2023 14:05-0400 Body mass index (BMI) [Ratio] 24.4 kg/m2 [employer] Maddi Jayrbacher Work Phone: [facility] 12-11-2023 14:05-0400 Body weight 52.16 kg [employer] Maddi Jayrbacher Work Phone: [facility] 12-11-2023 14:05-0400 Diastolic blood pressure 96 mm[Hg] 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 Work Phone: [facility] 12-11-2023 14:05-0400 Heart rate 84 /min [employer] Maddi Deondreacher Work Phone: [facility] 12-11-2023 14:05-0400 Respiratory rate 18 /min [employer] Maddi Thompsonrbacher Work Phone: [facility] 12-11-2023 14:05-0400 SaO2% (BldA) [Mass fraction] 96 % [employer] Maddi Deondreacher Work Phone: [facility] 12-11-2023 14:05-0400 Systolic blood pressure 146 mm[Hg] [employer] Maddi Deondreacher Work Phone: [facility] 08-13-2023 13:00-0500 Body height 146.05 cm Maddi Mcpherson Other [facility] 08-13-2023 13:00-0500 Body mass index (BMI) [Ratio] 24.03 kg/m2 Maddi Mcpherson Other [facility] Other 08-13-2023 13:00-0500 Body weight 51.26 kg Maddi Vida Other [facility] Other 08-13-2023 13:00-0500 Body weight 51.25 kg [facility] 08-13-2023 13:00-0500 Diastolic blood pressure 84 mm[Hg] Maddi Mcpherson Other [facility] 08-13-2023 13:00-0500 SaO2% (BldA) [Mass fraction] 98 % Maddi Mcpherson Other [facility] Other 08-13-2023 13:00-0500 Systolic blood pressure 138 mm[Hg] Maddi Mcpherson Other [facility] 06-09-2023 13:00-0400 Body height 146.05 cm Maddi Vida Other [facility] Other 06-09-2023 13:00-0400 Body mass index (BMI) [Ratio] 24.41 kg/m2 Maddi Vida Other [facility] Other 06-09-2023 13:00-0400 Body weight 52.07 kg Maddi Vida Other [facility] Other 06-09-2023 13:00-0400 Diastolic blood pressure 70 mm[Hg] Maddi Vida Other [facility] Other 06-09-2023 13:00-0400 SaO2% (BldA) [Mass fraction] 97 % Maddi Vida Other [facility] Other 06-09-2023 13:00-0400 Systolic blood pressure 122 mm[Hg] Maddi Vida Other [facility] Other 06-02-2023 09:15-0400 Body height 146.05 cm Tondra Mapus Other [facility] Other 06-02-2023 09:15-0400 Body mass index (BMI) [Ratio] 24.13 kg/m2 Tondra Mapus Other [facility] Other 06-02-2023 09:15-0400 Body weight 51.48 kg Tondra Mapus Other [facility] Other 06-02-2023 09:15-0400 Diastolic blood pressure 92 mm[Hg] Tondra Mapus Other [facility] Other 06-02-2023 09:15-0400 Respiratory rate 18 /min Tondra Mapus Other [facility] Other 06-02-2023 09:15-0400 SaO2% (BldA) [Mass fraction] 100 % Tondra Mapus Other [facility] Other 06-02-2023 09:15-0400 Systolic blood pressure 144 mm[Hg] Tondra Mapus Other [facility] Other 04-24-2023 10:45-0400 Body height 146.05 cm Maddi Mcpherson Other [facility] Other 04-24-2023 10:45-0400 Body mass index (BMI) [Ratio] 24.45 kg/m2 Maddi Mcpherson Other [facility] Other 04-24-2023 10:45-0400 Body weight 52.16 kg Maddi Mcpherson Other [facility] Other 04-24-2023 10:45-0400 Diastolic blood pressure 95 mm[Hg] Maddi Mcpherson Other [facility] Other 04-24-2023 10:45-0400 SaO2% (BldA) [Mass fraction] 96 % Maddi Mcpherson Other [facility] Other 04-24-2023 10:45-0400 Systolic blood pressure 167 mm[Hg] Maddi Mcpherson Other [facility] Other 11-04-2022 14:30-0400 Body height 146.05 cm Maddi Richardsonbishop Other [facility] Other 11-04-2022 14:30-0400 Body mass index (BMI) [Ratio] 24.45 kg/m2 Maddi Thompsonscottieacher Other [facility] Other 11-04-2022 14:30-0400 Body weight 52.16 kg Maddi Thompsonscottieshawnr Other [facility] Other 11-04-2022 14:30-0400 Diastolic blood pressure 94 mm[Hg] Maddi Thompsonvioletr Other [facility] Other 11-04-2022 14:30-0400 SaO2% (BldA) [Mass fraction] 97 % Maddi Vida Other [facility] Other 11-04-2022 14:30-0400 Systolic blood pressure 164 mm[Hg] Maddi Thompsonscottieshawnr Other [facility] Other 10-04-2022 10:15-0500 Body height 146.05 cm Maddi Vida Other [facility] Other 10-04-2022 10:15-0500 Body mass index (BMI) [Ratio] 24.66 kg/m2 Maddi Deondreshawnr Other [facility] Other 10-04-2022 10:15-0500 Body weight 52.62 kg Maddi Deondreacher Other [facility] Other 10-04-2022 10:15-0500 Diastolic blood pressure 120 mm[Hg] Maddi Mcpherson Other [facility] Other 10-04-2022 10:15-0500 Systolic blood pressure 186 mm[Hg] Maddi Mcpherson Other [facility] Other 10-03-2022 15:45-0500 Body height 146.05 cm Tondra Mapus Other [facility] Other 10-03-2022 15:45-0500 Body mass index (BMI) [Ratio] 25.09 kg/m2 Tondra Mapus Other [facility] Other 10-03-2022 15:45-0500 Body weight 53.52 kg Tondra Mapus Other [facility] Other 10-03-2022 15:45-0500 Diastolic blood pressure 99 mm[Hg] Tondra Mapus Other [facility] Other 10-03-2022 15:45-0500 Respiratory rate 18 /min Tondra Mapus Other [facility] Other 10-03-2022 15:45-0500 SaO2% (BldA) [Mass fraction] 97 % Tondra Mapus Other [facility] Other 10-03-2022 15:45-0500 Systolic blood pressure 193 mm[Hg] Tondra Mapus Other [facility] Other 08-06-2022 14:00-0500 Body height 146.05 cm Maddi Mcpherson Other [facility] Other 08-06-2022 14:00-0500 Body mass index (BMI) [Ratio] 24.88 kg/m2 Maddi Thompsonaustin Other [facility] Other 08-06-2022 14:00-0500 Body weight 53.07 kg Maddi Dylanr Other [facility] Other 08-06-2022 14:00-0500 Diastolic blood pressure Maddi Dylanr Other [facility] Other 08-06-2022 14:00-0500 SaO2% (BldA) [Mass fraction] 96 % Maddi Vida Other [facility] Other 08-06-2022 14:00-0500 Systolic blood pressure 152 mm[Hg] Maddi Dylanr Other [facility] Other 12-05-2021 12:00-0400 Body height 146.05 cm Maddi Dylanr Other [facility] Other 12-05-2021 12:00-0400 Body mass index (BMI) [Ratio] 24.24 kg/m2 Maddi Vida Other [facility] Other 12-05-2021 12:00-0400 Body weight 51.71 kg Maddi Dylanr Other [facility] Other 12-05-2021 12:00-0400 Diastolic blood pressure 92 mm[Hg] Maddi Deondreacher Other [facility] Other 12-05-2021 12:00-0400 SaO2% (BldA) [Mass fraction] 97 % Maddi Mcpherson Other [facility] Other 12-05-2021 12:00-0400 Systolic blood pressure 150 mm[Hg] Maddi Vida Other [facility] Other 11-29-2021 17:00-0400 Body height 146.05 cm Maddi Vida Other [facility] Other 11-29-2021 17:00-0400 Body mass index (BMI) [Ratio] 24.45 kg/m2 Maddi Vida Other [facility] Other 11-29-2021 17:00-0400 Body weight 52.16 kg Maddi Vida Other [facility] Other 11-29-2021 17:00-0400 Diastolic blood pressure 88 mm[Hg] Maddi Vida Other [facility] Other 11-29-2021 17:00-0400 SaO2% (BldA) [Mass fraction] 98 % Maddi Mcpherson Other [facility] Other 11-29-2021 17:00-0400 Systolic blood pressure 120 mm[Hg] Maddi Mcpherson Other [facility] Other 11-07-2021 16:45-0400 Body height 146.05 cm Gurdeep Dubois Other [facility] Other 11-07-2021 16:45-0400 Body mass index (BMI) [Ratio] 24.45 kg/m2 Tondra Mapus Other [facility] Other 11-07-2021 16:45-0400 Body weight 52.16 kg Tondra Mapus Other [facility] Other 11-07-2021 16:45-0400 Diastolic blood pressure 98 mm[Hg] Tondra Mapus Other [facility] Other 11-07-2021 16:45-0400 Respiratory rate 16 /min Tondra Mapus Other [facility] Other 11-07-2021 16:45-0400 SaO2% (BldA) [Mass fraction] 97 % Tondra Mapus Other [facility] Other 11-07-2021 16:45-0400 Systolic blood pressure 154 mm[Hg] Tondra Mapus Other [facility] Other Encounters Encounter Date Encounter Type Care Provider Facility Start: 05-10-2024 End: 05-10-2024 Patient encounter procedure 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 Work Phone: [facility] [place] Work Phone: Start: 05-10-2024 End: 05-10-2024 ambulatory VIRIDIANA Mcpherson Work Phone: [facility] Work Phone: Start: 04-03-2024 Non-patient / Non-visit VIRIDIANA Mcpherson Work Phone: [facility] Work Phone: Start: 04-02-2024 Non-patient / Non-visit VIRIDIANA Richardsonr Work Phone: [facility] Work Phone: Start: 03-18-2024 End: 03-18-2024 Patient encounter procedure VIRIDIANA Linda Vida Work Phone: [facility] Work Phone: Start: 12-25-2023 End: 12-25-2023 ambulatory 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 AND 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 Linda Vida Work Phone: [facility] Work Phone: Start: 12-25-2023 End: 12-25-2023 Patient encounter procedure VIRIDIANA Linda Vida Work Phone: [facility] Work Phone: Start: 12-11-2023 End: 12-11-2023 Patient encounter procedure MEAT AND POULTRY 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 Linda Vida Work Phone: [facility] Work Phone: Start: 09-29-2023 End: 09-29-2023 ambulatory Maddi Mcpherson Other [facility] Other Start: 09-29-2023 Office outpatient vi sit 10 minutes Maddi Mcpherson [facility] Start: 09-17-2023 End: 09-17-2023 ambulatory Maddi Mcpherson Other [facility] Other Start: 09-17-2023 Telephone encounter Maddi Naty thomas [facility] Start: 09-09-2023 End: 09-09-2023 ambulatory Tondra Mapus Other [employer] Other Start: 09-09-2023 Telephone encounter Tondra Mapus [facility] Start: 09-09-2023 End: 09-09-2023 [facility] Start: 08-28-2023 End: 08-28-2023 ambulatory Gurdeep Dubois Other [facility] Other Start: 08-28-2023 Telephone encounter Gurdeep Dubois [facility] Start: 08-20-2023 End: 08-20-2023 ambulatory Maddi Mcpherson Other [facility] Other Start: 08-20-2023 Telephone encounter Maddi Alfonso her [facility] Start: 08-19-2023 End: 08-19-2023 ambulatory Maddi Mcpherson Other [facility] Other Start: 08-19-2023 Telephone encounter Maddi Alfonso her [facility] Start: 08-13-2023 End: 08-13-2023 ambulatory Maddi Mcpherson Other [facility] Other Start: 08-13-2023 Office outpatient vi sit 25 minutes Maddi Mcpherson [facility] Start: 08-13-2023 End: 08-13-2023 Patient encounter procedure [facility] Work Phone: Start: 07-14-2023 (Procedure) Short Emil Cooper [facility] Start: 07-14-2023 End: 07-14-2023 ambulatory Emil Cooper Other [facility] Other Start: 06-30-2023 End: 06-30-2023 ambulatory Maddi Mcpherson Other [facility] Other Start: 06-30-2023 Telephone encounter Maddi Alfonso her [facility] Start: 06-26-2023 End: 06-26-2023 Patient encounter procedure MEAT AND POULTRY INSPECTOR Maddi Mcpherson Work Phone: [facility] Start: 06-26-2023 End: 06-26-2023 ambulatory MEAT AND POULTRY INSPECTOR Maddi Vida Work Phone: [facility] Work Phone: Start: 06-09-2023 End: 06-09-2023 ambulatory Maddi Mcpherson Other [facility] Other Start: 06-09-2023 Office outpatient vi sit 15 minutes Maddi Mcpherson [facility] Start: 06-02-2023 (DM) Diabetes Tondra Mapus [facility] Start: 06-02-2023 Telephone encounter Maddi Naty her [facility] Start: 06-02-2023 Registered Recurring 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 Work Phone: [facility] Work Phone: Start: 06-02-2023 End: 06-02-2023 Patient encounter procedure 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 Work Phone: [facility] [place] Work Phone: Start: 06-02-2023 End: 06-02-2023 ambulatory 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 Work Phone: [facility] Other Start: 05-23-2023 End: 05-23-2023 ambulatory Maddi Mcpherson Other [facility] Other Start: 05-23-2023 Telephone encounter Maddi Naty her [facility] Start: 05-19-2023 End: 05-19-2023 ambulatory Tondra Mapus Other [facility] Other Start: 05-19-2023 Telephone encounter Tondra Mapus [facility] Start: 05-06-2023 End: 05-06-2023 ambulatory Maddi Mcpherson Other [facility] Other Start: 05-06-2023 Telephone encounter Maddi Thompsonjohn her [facility] Start: 05-05-2023 End: 05-05-2023 ambulatory Maddi Dylanr Other [facility] Other Start: 05-05-2023 Telephone encounter Maddi Thompsonjohn her [facility] Start: 04-25-2023 End: 04-25-2023 ambulatory Maddi Dylanr Other [facility] Other Start: 04-25-2023 Telephone encounter Maddi Thompsonscottieeliud her [employer] Start: 04-24-2023 Office outpatient vi sit 15 minutes Maddi Mcpherson [facility] Start: 04-24-2023 End: 04-25-2023 ambulatory Maddi Dylanr [facility] Other Start: 04-03-2023 End: 04-03-2023 ambulatory Gurdeep Dubois Other [facility] Other Start: 04-03-2023 Telephone encounter Gurdeep Dubois [facility] Start: 03-28-2023 End: 03-28-2023 ambulatory Maddi Deondreacher Other [facility] Other Start: 03-28-2023 Telephone encounter Maddi Thompsonscottieeliud her [facility] Start: 03-05-2023 End: 03-05-2023 ambulatory Maddi Deondreacher Other [facility] Other Start: 03-05-2023 Telephone encounter Maddi Alfonso her [facility] Start: 02-17-2023 End: 02-17-2023 ambulatory Maddi Deondreannalee Other [facility] Other Start: 02-17-2023 Telephone encounter Maddi Alfonso her [facility] Start: 02-13-2023 End: 02-13-2023 ambulatory Maddi Dylanbishop Other [facility] Other Start: 02-13-2023 Telephone encounter Maddi Alfonso her [facility] Start: 11-13-2022 End: 11-13-2022 ambulatory Maddi Dylanbishop Other [facility] Other Start: 11-13-2022 Telephone encounter Maddi Alfonso her [facility] Start: 11-04-2022 End: 11-04-2022 ambulatory Maddi Dylanbishop Other [facility] Other Start: 11-04-2022 Office outpatient vi sit 25 minutes Maddi Mcpherson [facility] Start: 10-06-2022 End: 10-06-2022 ambulatory Tondra Mapus Other [facility] Other Start: 10-06-2022 Telephone encounter Tondra Mapus [facility] Start: 10-04-2022 Office outpatient vi sit 25 minutes Maddi Mcpherson [facility] Start: 10-04-2022 End: 10-04-2022 ambulatory STAGE MANAGER Luisa Mcghee Work Phone: [facility] Work Phone: Start: 10-04-2022 End: 10-04-2022 Patient encounter procedure STAGE MANAGER Luisa Mcghee Work Phone: [facility] [place] Work Phone: Start: 10-03-2022 Registered Recurring STAGE MANAGER Gabino Mcghee [facility] Start: 10-03-2022 (DM) Diabetes Tondra Didierus [facility] Start: 10-03-2022 End: 10-03-2022 ambulatory Maddi Vida Other [facility] Other Start: 10-03-2022 Telephone encounter Maddi Thompsonscottieeliud her [facility] Start: 09-10-2022 End: 09-10-2022 ambulatory Maddi Dylanr Other [facility] Other Start: 09-10-2022 Telephone encounter Maddi Thompsonscottieeliud her [facility] Start: 08-06-2022 End: 08-06-2022 ambulatory Maddi Dylanr Other [facility] Other Start: 08-06-2022 Office outpatient vi sit 25 minutes Maddi Vida [facility] Start: 07-30-2022 End: 07-30-2022 ambulatory Maddi Thompsonscottieacher Other [facility] Other Start: 07-30-2022 Telephone encounter Maddi Alfonso her [facility] Start: 06-20-2022 End: 06-20-2022 ambulatory Tondra Mapus Other [facility] Other Start: 06-20-2022 Telephone encounter Tondra Mapus [facility] Start: 03-04-2022 End: 03-04-2022 ambulatory Tondra Mapus Other [facility] Other Start: 03-04-2022 Telephone encounter Tondra Mapus [facility] Start: 01-02-2022 Encounter for preprocedural laboratory examination MADDI MCPHERSON [facility] Start: 12-31-2021 End: 12-31-2021 ambulatory Maddi Mcpherson Other [facility] Other Start: 12-31-2021 Telephone encounter Maddi Alfonso her [employer] Start: 12-27-2021 End: 12-28-[address] HANG GREER Facility:[facility] Start: 12-27-2021 End: 12-28-2021 Encounter for preprocedural laboratory examination DR HANG GREER Facility:[facility] Start: 12-19-2021 End: 12-19-2021 ambulatory Maddi Mcpherson Other [facility] Other Start: 12-19-2021 Telephone encounter Maddi Alfonso her [facility] Start: 12-12-2021 End: 12-13-2021 ambulatory MADDI MCPHERSON Facility:[facility] Start: 12-05-2021 End: 12-05-2021 ambulatory Maddi Mcpherson Other [facility] Other Start: 12-05-2021 Office outpatient vi sit 15 minutes Maddi Mcpherson [facility] Start: 11-29-2021 End: 11-29-2021 ambulatory Maddi Mcpherson Other [facility] Other Start: 11-29-2021 Office outpatient vi sit 25 minutes Maddi Mcpherson [facility] Start: 11-21-2021 End: 11-21-2021 ambulatory Maddi Mcpherson Other [facility] Other Start: 11-21-2021 Telephone encounter Maddi Alfonso her [facility] Start: 11-15-2021 End: 11-15-2021 ambulatory Tondra Sherly Other [facility] Other Start: 11-15-2021 Telephone encounter Gurdeep Dubois [facility] Start: 11-07-2021 (DM) Diabetes Tondra Sherly [facility] Start: 11-07-2021 End: 11-07-2021 ambulatory Tondra Sherly Other [facility] Other Start: 10-30-2021 End: 10-30-2021 ambulatory Maddi Mcpherson Other [facility] Other Start: 10-30-2021 Telephone encounter Maddi Alfonso her [facility] Start: 09-11-2021 End: 09-11-2021 ambulatory Maddi Mcpherson Other [facility] Other Start: 09-11-2021 Telephone encounter Maddi Alfonso her [facility] Start: 08-21-2021 End: 08-21-2021 ambulatory Maddi Mcpherson Other [facility] Other Start: 08-21-2021 Office outpatient vi sit 15 minutes Maddi Mcpherson [facility] Start: 06-07-2021 Telephone encounter Maddi Alfonso her [facility] Start: 02-05-2021 End: 02-06-2021 ambulatory COATINGS INSPECTOR CAMERON MACKAY Facility:[facility] Start: 01-30-2021 End: 01-31-2021 ambulatory MADDI MCPHERSON Facility:[facility] Procedures Date Procedure Procedure Detail Performing Clinician Start: 06-26-2023 X-ray of lumbar spin e, four views MEAT AND POULTRY INSPECTOR Maddi Mcpherson Work Phone: Start: 11-04-2022 Removal impacted cer umen instrumentation unilat Maddi Mcpherson Other Plan of Treatment Date Care Activity Detail Author Start: 05-10-2024 Insulin C-peptide measurement [facility] Start: 05-10-2024 [facility] Insulin Ab [Units/vo lume] in Serum [facility] Insulin C-peptide measurement [facility] Patient Education Diabetes and diet [facility] Work Phone: Payers Date Payer Category Payer Self-pay [id number] 1965 Unknown [id number] 2.16.84 [id number] 1965 Unknown [id number] 2.16.84 [id number] 1965 Unknown [id number] 2.16.84 [id number] 1965 Unknown [id number] 2.16.84 [id number] 1965 Unknown [id number] 2.16.8 [id number] 1959 Unknown [id number] 1959 Unknown [id number] 1959 Unknown [id number] Unknown [id number] 2.16.8 [id number] Unknown [id number] 2.16.8 [id number] Unknown [id number] 2.16.8 [id number] Unknown [id number] 2.16.8 [id number] Unknown [id number] 2.16.8 [id number] Social History Date Type Detail Facility Unknown if ever smoked [facility] Other Sex Assigned At Sex Assigned At Bir th [facility] Other Start: 01-23-2022 End: 01-23-2022 Tobacco smoking status NHIS Smoker (finding) [facility] Start: 1965 Sex Assigned At Female F [facility] Start: 12-11-2023 End: 01-01-2024 Tobacco smoking status NHIS Ex-smoker (finding) [facility] Medical Equipment Procedure Code Equipment Code [...] hortness of breath. Increase fluids and rest. [id number] antipyretics as needed. Warning signs and symptoms [...] in visit was myself, Maddi Mcpherson DNP, MEAT AND POULTRY INSPECTOR, COATINGS INSPECTOR (provider) . Time spent with patient was approximately 6 minutes. [facility] Other 01-31-2024 Evaluation note* Encounter Date Diagnosis Assessment Notes Treatment Notes Treatment Clinical Notes Aug, Type 2 diabetes mellitus with hyperglycemia, without long-term current use of insulin (ICD-10 - E11.65) Aug, Chronic obstructive pulmonary disease, unspecified COPD type (ICD-10 - J44.9) [facility] Other 01-03-2024 Evaluation note* Encounter Date Diagnosis Assessment Notes Treatment Notes Treatment Clinical Notes Aug, Chronic obstructive pulmonary disease, unspecified COPD type (ICD-10 - J44.9) [facility] Other 01-02-2024 Evaluation note* Encounter Date Diagnosis Assessment Notes Treatment Notes Treatment Clinical Notes Aug, Essential hypertensi on (ICD-10 - I10) Aug, GERD (gastroesophage al reflux disease) (ICD-10 - K21.9) Aug, Hypercholesteremia (ICD-10 - E78.00) Aug, Restless legs (ICD-1 0 - G25.81) [facility] Other 12-27-2023 Evaluation note* Encounter Date Diagnosis [...] discussed. You have been given educational handouts. [facility] Other 10-23-2023 Evaluation note* Encounter Date Diagnosis [...] when starting the medication. Directed on use. [facility] Other 10-16-2023 Evaluation note* Encounter Date Diagnosis [...] unsweetened beverages. Discussed with pt dexcom g7 box feeder/sensor, pt agreeable. Instructed pt to schedule apt [...] Prescriptions: Request for krystle Floyd, dexcom g7 box feeder/sensors sent to [facility] Tanner 06/02/23 7. [...] - Z68.24) Healthy eating material was published [facility] Other 10-06-2023 Evaluation note* Encounter Date Diagnosis Assessment Notes Treatment Notes Treatment Clinical Notes May, Fall, subsequent encounter (ICD-10 - W19.XXXD) May, Right hip pain (ICD-10 - M25.551) [facility] Other 09-19-2023 Evaluation note* Encounter Date Diagnosis Assessment Notes Treatment Notes Treatment Clinical Notes Apr, Sinus congestion (ICD-10 - R09.81) Apr, Exposure to COVID-19 virus (ICD-10 - Z20.822) [facility] Other 09-18-2023 Evaluation note* Encounter Date Diagnosis Assessment Notes Treatment Notes Treatment Clinical Notes Apr, Exposure to COVID-19 virus (ICD-10 - Z20.822) Apr, Nasal congestion (ICD-10 - R09.81) Apr, Acute cough (ICD-10 - R05.1) [facility] Other 09-08-2023 Evaluation note* Encounter Date Diagnosis Assessment Notes Treatment Notes Treatment Clinical Notes Apr, Muscle spasm (ICD-10 - M62.838) [facility] Other 09-07-2023 Evaluation note* Encounter Date Diagnosis Assessment Notes Treatment Notes Treatment Clinical Notes Apr, Right calf pain (ICD-10 - M79.661) Discussed options with pt for further evalution and will send for an ultrasound to rule out DVT. Called [facility] and they could get her in this am. WIll call with results and further recommendations. Apr, Swelling of calf (ICD-10 - M79.89) [facility] Other 09-07-2023 NoteHISTORY: Lower extremity pain TECHNIQUE: [...] Pete Rodriguez DO 04/25/23 12:17 p Technologist: [facility]08-17-2023 Evaluation note* Encounter Date Diagnosis Assessment Notes Treatment Notes Treatment Clinical Notes Mar, Type 2 diabetes mellitus with hyperglycemia, without long-term current use of insulin (ICD-10 - E11.65) [facility] Other 08-11-2023 Evaluation note* Encounter Date Diagnosis Assessment Notes Treatment Notes Treatment Clinical Notes Mar, GERD (gastroesophageal reflux disease) (ICD-10 - K21.9) [facility] Other 07-19-2023 Evaluation note* Encounter Date Diagnosis Assessment Notes Treatment Notes Treatment Clinical Notes Feb, Essential hypertension (ICD-10 - I10) [facility] Other 07-03-2023 Evaluation note* Encounter Date Diagnosis Assessment Notes Treatment Notes Treatment Clinical Notes Feb, Nausea (ICD-10 - R11.0) [facility] Other 06-29-2023 Evaluation note* Encounter Date Diagnosis Assessment Notes Treatment Notes Treatment Clinical Notes Jan, Genital warts (ICD-10 - A63.0) [facility] Other 03-29-2023 Evaluation note* Encounter Date Diagnosis Assessment Notes Treatment Notes Treatment Clinical Notes Oct, Bronchitis (ICD-10 - J40) Oct, Acute vaginitis (ICD-10 - N76.0) [facility] Other 03-20-2023 Evaluation note* Encounter Date Diagnosis [...] if not improving. Increase fluids and rest. [id number] antipyretics as needed. Warning signs and symptoms [...] understanding and is agreeable to treatment plan. [facility] Other 02-17-2023 Evaluation note* Encounter Date Diagnosis [...] sleep.will treat for this and reevalaute symptoms. [facility] Other 02-16-2023 Evaluation note* Encounter Date Diagnosis [...] Prescriptions: Tradjentametformin ER sent to [facility] in [place] 10/03/22 7. Patient scheduled with PCP for [...] - Z68.25) Healthy eating material was published [facility] Other 01-24-2023 Evaluation note* Encounter Date Diagnosis Assessment Notes Treatment Notes Treatment Clinical Notes Aug, Chronic obstructive pulmonary disease, unspecified COPD type (ICD-10 - J44.9) [facility] Other 12-20-2022 Evaluation note* Encounter Date Diagnosis [...] referral to dermatology for lesions. Referral placed. 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 Follow-up for any signs of infection. [facility] Other 04-14-2022 Evaluation note* Encounter Date Diagnosis [...] ultrasound to the area. Order sent to [facility]. Will call with results and further recommendations. Nov, Localized swelling, mass and lump, neck (ICD-10 - R22.1) [facility] Other 04-06-2022 Evaluation note* Encounter Date Diagnosis Assessment Notes Treatment Notes Treatment Clinical Notes Nov, GERD (gastroesophageal reflux disease) (ICD-10 - K21.9) Nov, Restless legs (ICD-10 - G25.81) [facility] Other 03-23-2022 Evaluation note* Encounter Date Diagnosis [...] Z68.24) Setting weight-loss goals material was published [facility] Other 03-15-2022 Evaluation note* Encounter Date Diagnosis Assessment Notes Treatment Notes Treatment Clinical Notes Oct, Restless legs (ICD-10 - G25.81) [facility] Other 01-04-2022 Evaluation note* Encounter Date Diagnosis [...] difficulty breathing, chest pain, palpitations, fever less xesc686, persistent fevers not reduced by antipyretic, severe [...] asthma with (acute) exacerbation (ICD-10 - J45.901) [facility] Other 10-21-2021 Evaluation note* Encounter Date Diagnosis Assessment Notes Treatment Notes Treatment Clinical Notes May, Acute vaginitis (ICD-10 - N76.0) [facility] Other Evaluation [facility] Other Evvbsation noteNo InformationN[facility] [employer] [facility] Other Evaluation noteNo assessment information available [facility] Work Phone: Evaluation note* Diagnosis Onset Date Resolution Status BMI 24.0-24.9, adult acute Diabetes acute Dietary counseling and surveillance acute HTN (hypertension) acute Hyperlipidemia acute Vitamin B 12 deficiency acut e Diabetes acute [facility] Work Phone: Evaluation note* Diagnosis Onset Date Resolution Status BMI 24.0-24.9, adult acute Diabetes acute Dietary counseling and surveillance acute HTN (hypertension) acute Hyperlipidemia acute [facility] Work Phone: History general Narrative [...] History kidney stones Hospitalization History 1 child [facility] Other [facility] - [facility] Summary Purpose Family History No Family [...] evaluate Diagnosis 1 Sacroiliitis (M46.1) Referral Organization [facility] Referring Provider First Name Maddi Referring Provider Last Name [facility] Healthrbacher Referring Provider Specialty Nurse Pract itioner Referred Organization [facility] Pain Managemen t Bone [place] Referred Provider Emil Cooper Referred Address [address] [place],[address] Referred Provider Specialty Pain Medicin e Referral Priority Routine General Notes Tigist Gibson 12:54:03 PM >received today, sent P2P Reason evaluate and treat Diagnosis 1 Genital warts (A63.0 ) Referral Organization [facility] Family Medicin e [place] Referring Provider First Name Maddi Referring Provider Last Name Rohrbacher Referring Provider Specialty Nurse Pract itioner Referred Organization [facility] Referred Provider Gaby Araujo Referred Address ,[place], [place],[address] Referred Provider Specialty Dermatology Referral Priority Routine Reason 10/01/22 evaluate and treat Diagnosis 1 Skin lesion (L98.9) Referral Organization [facility] [place] Referring Provider First Name Maddi Referring Provider Last Name Deondreachebishop Referring Provider Specialty Nurse Pract jluis Referred Organization [facility] Referred Provider Gaby Araujo Referred Address ,[place], [place],[address] Referred Provider Specialty Dermatology Referral Priority Routine [...] with patient, and she rescheduled for 10/01 iTgist Gibson 10/02/2022 06:38:17 AM >faxed first request for consult ntoes Reason needs a biopsy of a parotid gland mass , CT was completed. 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) Referral Organization [facility] [place] Referring Provider First Name Maddi Referring Provider Last Name Vida Referring Provider Specialty Nurse Pract konradioner Referred Organization [facility] Referred Provider Juan C Garner Referred Address ,[place], [place],[address] Referred Provider Specialty Otolaryngolo gy Referral Priority [...] and content) DATE CREATED AUTHOR 01/05/2022 [facility] DATE CREATED AUTHOR AUTHOR'S ORGANIZ ATION 04/27/2023 [facility] DATE CREATED AUTHOR AUTHOR'S ORGANIZ ATION 05/29/2024 [facility] REASON FOR VISIT (unrecogniz ed section and content) TKM N/S DM 09/09/23ERRORTKM DM N/S 08/28/2023NebulizerGREGG SACROILIAC JOINT INJ/CJCONSULT NOTExray resultslab resultsDM F/U pt rescheduled apt, Type 2 NIDDM f/u with [facility] MEAT AND POULTRY INSPECTOR, DOCK COORDINATOR-C, BC-ADM, last visit 10/03/22. Pt cancelled apts on 01/15/23;04/03/23;05/19/23X-ray resultsTKM patient cancelledOrderCOVID blood testSickUS resultsCalf painTKM refillscript4 week follow upb12 resulthigher bp readingsDM rescheduled by patient, Type 2 NIDDM f/u with [facility] MEAT AND POULTRY INSPECTOR, DOCK COORDINATOR-C, BC-ADM, Last visit 11/07/21 No show to apt month follow upTKM Cancelled appt 06/20/2022TKM DM pt no showCT resultsInformationskin tag removalrefillTKM please call6 month Follow upDM 6 month f/u, Type 2 NIDDM f/u with [facility] MEAT AND POULTRY INSPECTOR, DOCK COORDINATOR-C, BC-ADMDOXIMITY [phone] DOES NOT BELIEVE IT IS COVID, CONGESTION COUGH SORE THROAT Care Teams (unrecognized sec tion and content) Team Status: Inactive Member Role Status Dates Maddi Mcpherson APRN STAGE MANAGER-C Primary Care Provider, Attending Provider Active Team Status: Active Member Role Status Dates Luisa Mcghee NP Primary Care Provider Active Gurdeep Dubois APRN Attending Provider Active Team Status: Active Member Role Status Dates Maddi Mcpherson APRN STAGE MANAGER-C Primary Care Provider Active Team Status: Inactive Member Role Status Dates Maddi Mcpherson APRN STAGE MANAGER-C Primary Care Provider Active Gurdeep Dubois , MEAT AND POULTRY INSPECTOR Attending Provider Active Team Status: Inactive Member Role Status Dates Maddi Mcpherson APRN STAGE MANAGER-C Primary Care Provider Active Emil Cooper MD Attending Provider Active Team Status: Inactive Member Role Status Dates Maddi Mcpherson APRN STAGE MANAGER-C Attending Provider Act prerna Start: August 13, 2023 End: August 13, 2023 Team Status: Inactive Member Role Status Dates Gurdeep Dubois , MEAT AND POULTRY INSPECTOR Attending Provider Active Start: September 09, 2023 End: September 09, 2023 Team Status: Inactive Member Role Status Dates Maddi Mcpherson APRN STAGE MANAGER-C Primary Care Provider Active Start: December 11, 2023 End: December 11, 2023 Gurdeep Dubois , MEAT AND POULTRY INSPECTOR Attending Provider Active Start: December 11, 2023 End: December 11, 2023 Team Status: Inactive Member Role Status Dates Maddi Mcpherson APRN STAGE MANAGER-C Primary Care Provider Active Start: December 25, 2023 End: December 25, 2023 Vivi Álvarez RN Attending Provider Active Start: December 25, 2023 End: December 25, 2023 Team Status: Inactive Member Role Status Dates Maddi Mcpherson APRN STAGE MANAGER-C Primary Care Provider Active Start: December 25, 2023 End: December 25, 2023 Gurdeep Dubois , MEAT AND POULTRY INSPECTOR Attending Provider Active Start: December 25, 2023 End: December 25, 2023 Team Status: Inactive Member Role Status Dates Maddi Mcpherson APRN STAGE MANAGER-C Primary Care Provider Active Start: March 18, 2024 End: March 18, 2024 Gurdeep Dubois , MEAT AND POULTRY INSPECTOR Attending Provider Active Start: March 18, 2024 End: March 18, 2024 Team Status: Active Member Role Status Dates Maddi Mcpherson APRN STAGE MANAGER-C Primary Care Provider Active Start: April 02, 2024 Roman Bueno DO Attending Provider Active S tart: April 02, 2024 Team Status: Active Member Role Status Dates Maddi Mcpherson APRN STAGE MANAGER-C Primary Care Provider Active Start: April 03, 2024 Jesus Sifuentes DO Attending Provider Active Sta rt: April 03, 2024 Team Status: Inactive Member Role Status Dates Maddi Mcpherson APRN STAGE MANAGER-C Primary Care Provider Active Start: April 192023 End: May 10, 2024 Gurdeep Dubois APRN Attending Provider Active Start: May [...] BE BASED ON THE PRIMARY CLINICAL RECORDS. [facility] [employer] provides no warranty or guarantee of the accuracy or completeness of information in this document.
== END 2024-09-14 08:02 | disposition home or self-care (01) ==
LOC: CT 08:01
PROVIDERS: PCP Nurse Practitioner Family; Visit Provider Nurse Practitioner Family
DX: J44.9 Chronic obstructive pulmonary disease, unspecified (principal); Z87.891 Personal history of nicotine dependence
CPT/HCPCS: 71271

== ENCOUNTER 2025-04-28 15:14 | Outpatient (OUT) | payer MEDICAID, SELFPAY ==
--- OUTSIDE RECORDS SUMMARY | 2024-01-23 09:00 | XMS_ITS ---
Author Organization [facility] es Address [address] [place] [address] Care Team Providers Care Second Floor Operator Name Role Phone Dr. Memo Rosales Primary Care Provider Lawrence Dill Unavailable [phone] REASON FOR VISIT PROPHY Encounters Encounter Location Date Provider Diagnosis [place] [address] [place] [address] 01/23/2024 Lawrence Dill Plan Of Treatment Next Appt Details Provider Name:Leana Bass, 08/24/2025 03:00:00 PM, [address], [place], [address], Provider Name:Emelia Jordan , 11/18/2025 03:10:00 PM, [address] [place], [address], Progress Notes * HANNAH OSBORN MDOB:1965 (59 yo F)Acc No.[id number]:01/23/2024 Patient: HANNAH UMANA Provider: Romy Zuleta :1965 A ge:58 Y S ex:Female Date:01/23/2024 Address:[address] [place] [id number] Pcp:Dr. Memo Rosales Subjective: * Chief Complaints: * 1 . PROPHY. * Medical History: Objective: * Vitals: Assessment: Plan: * Treatment: * Images: * Electronic signature of Sherice connie Dill on 04/28/2025 at 03:18 PM EDT Sign off status: Pending * Provider: Romy Zuleta Date: 0 01/23/2024 Generated for Spike salinas/Jose/Eduarda on: 0 04/28/2025 03:18 PM EDT
--- OUTSIDE RECORDS SUMMARY | 2024-03-02 04:40 | XMS_ITS ---
Author Organization [facility] [place] Address [address] [place] [address] Care Team Providers Care Black Puller Name Role Phone Maddi Mcpherson CNP Primary Care Provider U Ziggy Crump [phone] Allergies Allergen (clinical drug ingredient) Drug/Non Drug Allergy documented on EMR Reaction Allergy Type Onset Date Status Morphine Derivatives (uncoded) Headache; Other; Allergy Active gabapentin Neurontin Other; Drug Allergy Active acetaminophen Acetaminophen Unknown Drug Allergy Active atorvastatin Atorvastatin Unknown Drug Allergy A ctive dulaglutide Dulaglutide Unknown Drug Allergy Act prerna oxycodone Oxycodone Unknown Drug Allergy Active semaglutide Semaglutide Unknown Drug Allergy Act prerna metformin Metformin Unknown Drug Allergy Active pravastatin Pravastatin Unknown Drug Allergy Act prerna Medications Medication SIG (Take, Route, Frequency, Duration) Notes Start Date End Date Status Ondansetron 4 MG 1 tablet on the tong ue and allow to dissolve Orally Once a day Active linaGLIPtin 5 MG 1 tablet Orally Once a day Active Losartan Potassium 100 MG 1 tablet Orall y Once a day Active Advair HFA 115-21 MCG/ACT 2 puffs Inhala tion Twice a day Active Carvedilol 25 MG 1 tablet with food O rally Twice a day Active amLODIPine Besylate 10 MG 1 tablet Orall y Once a day Active Albuterol Sulfate 108 (90 Base) MCG/ACT 1 puff as needed Inhalation every 4 hrs Active Albuterol Sulfate (2.5 MG/3ML) 0.083% 3 mL as needed Inhalation every 6 hrs Active Social History Tobacco Use: Social History Observation Description Date Details (start date - stop date) Former Smoker NA - NA Tobacco Control (Standard) Question Answer Notes Tobacco use: Former smoker Encounters Encounter Location Date Provider Diagnosis [facility] (PODIATRY) [address] [place] [address] [place] [address] 03/02/2024 [facility] Plan Of Treatment No Information Progress Notes * Farhana LANDERS MDOB:1965 (58 yo F)Acc No.[id number]:03/02/2024 Patient: Romy RAMIREZ Farhana Andreina :1965 A ge:58 Y S ex:Female Address:[address] [place] [address], [address] Subjective: * Chief Complaints: * * Medical History: * Surgical History: a ppendetomy hysterectomy cholecystectomy bilateral breast reduction ORIF * Hospitalization/Major Diagno stic Procedure: * Family History: F ather: , diagnosed with Diabetes mellitus without mention of complication, type II or unspecified type, not stated as uncontrolled, Unspecified heart disease. M other: , diagnosed with Unspecified heart disease. M igrated Family History::Family history of Family history of cardiac disorder (V17.49);Family history of Family history of malignant neoplasm (V16.9);Family history of Family history of osteoporosis (V17.81);Family history of Family history of diabetes mellitus (V18.0);Family history of Family history of hypertension (V17.49);Family history of Family history of hyperlipidemia (V18.19);Family history of Family history of cerebrovascular accident (V17.1);. * Social History: T obacco Use: T obacco Control (Standard) T obacco use: F ormer smoker * Medications: T akingAdvair HFA(Fluticasone-Salmeterol) 115-21 MCG/ACT Aerosol 2 puffs Inhalation Twice a day Albuterol Sulfate (2.5 MG/3ML) 0.083% Nebulization Solution 3 mL as needed Inhalation every 6 hrs Albuterol Sulfate 108 (90 Base) MCG/ACT Aerosol Powder Breath Activated 1 puff as needed Inhalation every 4 hrs amLODIPine Besylate 10 MG Tablet 1 tablet Orally Once a day Carvedilol 25 MG Tablet 1 tablet with food Orally Twice a day linaGLIPtin 5 MG Tablet 1 tablet Orally Once a day Losartan Potassium 100 MG Tablet 1 tablet Orally Once a day Ondansetron 4 MG Tablet Disintegrating 1 tablet on the tongue and allow to dissolve Orally Once a day Medication List reviewed and reconciled with the patientTaking Advair HFA(Fluticasone-Salmeterol) 115-21 MCG/ACT Aerosol 2 puffs Inhalation Twice a day Taking Albuterol Sulfate (2.5 MG/3ML) 0.083% Nebulization Solution 3 mL as needed Inhalation every 6 hrs Taking Albuterol Sulfate 108 (90 Base) MCG/ACT Aerosol Powder Breath Activated 1 puff as needed Inhalation every 4 hrs Taking amLODIPine Besylate 10 MG Tablet 1 tablet Orally Once a day Taking Carvedilol 25 MG Tablet 1 tablet with food Orally Twice a day Taking linaGLIPtin 5 MG Tablet 1 tablet Orally Once a day Taking Losartan Potassium 100 MG Tablet 1 tablet Orally Once a day Taking Ondansetron 4 MG Tablet Disintegrating 1 tablet on the tongue and allow to dissolve Orally Once a day Medication List reviewed and reconciled with the patient * Allergies: N eurontin: Other; - AllergyMorphine Derivatives: Headache; Other; - AllergyAcetaminophenAtorvastatinDulaglutideMetforminOxycodonePravastatinSemaglut ideno[Allergies Verified] Objective: * Vitals: * Physical Examination: Assessment: Plan: * Treatment: * Procedure Codes: * true * Date: Generated for Spike salinas/Jose/Eduarda on: 0 04/28/2025 03:18 PM EDT
--- OUTSIDE RECORDS SUMMARY | 2024-03-03 09:15 | XMS_ITS ---
Author Organization The [facility] [place] Address [address] [place] [address] Care Team Providers Care Marine Services Technician Name Role Phone Maddi Mcpherson CNP Primary Care Provider U Ziggy Crump Unavailable [phone] Allergies Allergen (clinical drug ingredient) Drug/Non Drug [...] pravastatin Pravastatin Unknown Drug Allergy Act prerna Results Component Value Reference Range Notes XR Foot RT (3 views) * Reviewed date:03/23/2024 09:28:35 AM Interpretation: Performing Lab: Notes/Report: Reason For Referral Reason Right peroneal tendi nitis right ankle instability Diagnosis 1 Right foot pain (M79 .671) Referral Organization [facility] (PODIATRY) Referring Provider First Name Ziggy Referring Provider Last Name Tristen Referring Provider Speciality Podiatry Referred Provider Specialty Physical The rapist Referral Priority Routine REASON FOR VISIT ref rohrbacher right foot 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 Medications Medication SIG (Take, Route, Frequency, Duration) Notes Start Date End Date Status Advair HFA 115-21 MCG/ACT 2 puffs Inhala tion Twice a day Active Albuterol Sulfate 108 (90 Base) MCG/ACT 1 puff as needed Inhalation every 4 hrs Active Albuterol Sulfate (2.5 MG/3ML) 0.083% 3 mL as needed Inhalation every 6 hrs Active Losartan Potassium 100 MG 1 tablet Orall y Once a day Active Ondansetron 4 MG 1 tablet on the tong ue and allow to dissolve Orally Once a day Active Meloxicam 15 MG 1 tablet Orally Once a day for 30 03/03/2024 Active Carvedilol 25 MG 1 tablet with food O rally Twice a day Active amLODIPine Besylate 10 MG 1 tablet Orall y Once a day Active linaGLIPtin 5 MG 1 tablet Orally Once a day Active Social History Tobacco Use: Social History Observation Description Date Details (start date - stop date) Former Smoker NA - NA Tobacco Control (Standard) Question Answer Notes Tobacco use: Former smoker Problems Problem Type SNOMED Code ICD Code Onset Dates Problem Status W/U Status Risk Notes Problem 735202657580125 Posterior tibial tendinitis, right leg (M76.821) Active confirmed Problem 71966000 Peroneal tendinitis, right leg (M76.71) Active confirmed Vital Signs Temperature 98 degrees Fahrenheit 03/03/2024 Heart Rate 84 /min 03/03/2024 Respiratory Rate 18 /min 03/03/2024 Height 56 in 03/03/2024 Weight 113 lbs 03/03/2024 BMI 25.33 kg/m2 03/03/2024 Encounters Encounter Location Date Provider Diagnosis [facility] (PODIATRY) [address] [place] [address] [place] [address] 03/03/2024 [facility] Right foot pain M79.671 and Peroneal tendinitis, right leg M76.71 Assessments Encounter Date Diagnosis (ICD Code) Assessment Notes Treatment Notes Treatment Clinical Notes Section Notes 03/03/2024 Right foot pain (ICD-10 - M79.671) 03/03/2024 Peroneal tendinitis, right leg (ICD-10 - M76.71) Patient examined and evaluated. All findings discussed with patient all questions answered to patient's satisfaction.Onofre obregon presents today for initial evaluation Via referral from Dr. Mcpherson regarding 2-month history of right foot pain pointing directly to the peroneal tendon insertion site at the base of the fifth metatarsal. She denies any inciting injury or change in recent activity other than she was recently diagnosed with diabetes and started insulin around 2 months ago. She does report a history of prior ankle sprains but does not describe any feelings of instability.Clinic al exam and x-ray findings discussed with patient and consistent with insertional peroneal tendinitis of the right foot.Discussed use of lace up ankle brace and was fitted today. Also recommended formal physical therapy for proprioception and strength training.Rx for meloxicam was offered and dispensed today.Discussed resting icing and elevating and wearing supportive shoe gear at all times.Will have her follow-up in 6 to 8 weeks to evaluate her progress. She is to call meantime with any questions or concerns. Plan Of Treatment Medication Medication Name Sig Start Date Stop Date Notes Meloxicam 15 MG 1 tablet Orally Once a day for 03/03/20 24 Treatment Notes Assessment Notes Peroneal tendinitis, right leg Patient e xamined and evaluated. All findings discussed with patient all questions answered to patient's satisfaction.Patient presents today for initial evaluation Via referral from Dr. Mcpherson regarding 2-month history of right foot pain pointing directly to the peroneal tendon insertion site at the base of the fifth metatarsal. She denies any inciting injury or change in recent activity other than she was recently diagnosed with diabetes and started insulin around 2 months ago. She does report a history of prior ankle sprains but does not describe any feelings of instability.Clinical exam and x-ray findings discussed with patient and consistent with insertional peroneal tendinitis of the right foot.Discussed use of lace up ankle brace and was fitted today. Also recommended formal physical therapy for proprioception and strength training.Rx for meloxicam was offered and dispensed today.Discussed resting icing and elevating and wearing supportive shoe gear at all times.Will have her follow-up in 6 to 8 weeks to evaluate her progress. She is to call meantime with any questions or concerns. 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 States Has diabetes and since started on insulin 2 months ago the pain started December 2023. Rates pain 4/10 to right lateral midfoot and entire plantar foot. States there is a knot on right lateral foot where pain is constant. Taaking advil for pain releif. Last A1C was over 8 back in December 2023. Had xrays done by PCP in January 2024 and states she was told they were negative. Has not tried new shoes or inserts. Has tried home stretching exercises. Hurts to put weight on right foot. * ROS: G eneral/Constitutional: Chills d enies. F ever d enies. W eight gain?denies. W eight loss d enies. S kin: Skin Ulcers d enies. S kin lesion(s) d enies. ? C ardiovascular: Difficulty breathing on exertion d enies. L eg cramps?denies. E dewayne d enies. C hest pain d enies. R espiratory: Difficulty breathing d enies. D yspnea d enies.?Cough d enies. G astrointestinal: Diarrhea d enies. N ausea d enies. V omiting?denies. M usculoskeletal: Bone/Joint Symptoms d enies. C half-way Pain d enies.?Leg cramps d enies. N eurologic: Numbness d enies. T ingling d enies . G ait abnormality d enies. ? H ematology: Anemia D enies. E asy bruising d enies. ? A ll Other Systems: Review of Systems (ROS) S HPI for details,All others negative except those mentioned in HPI. * Active Problem List M76.821 Posterior tibial ten dinitis, right leg Modified On:03/09/2024W/U Status:confirmed M76.71 Peroneal tendinitis, right leg Modified On:03/09/2024W/U Status:confirmed * Medical History: * Surgical History: a ppendetomy hysterectomy cholecystectomy bilateral breast reduction ORIF * Hospitalization/Major Diagno stic Procedure: N o Hospitalization History. * Family History: F ather: , diagnosed [...] - AllergyAcetaminophenAtorvastatinDulaglutideMetforminOxycodonePravastatinSemaglut ideno[Allergies Verified] Objective: * Vitals: W t:113lbs, Ht:56in, Temp:98F, HR:84/min, RR:18/min, BMI:25.33Index, Pain scale:41-10, Ht-cm: 142.24 cm, Wt-k.26 kg. * Examination: P odiatry Exam: MUSCULOSKELETAL: M uscle strength 5/5 for 4 pedal groups. Ankle subtalar range of motion supple without pain or crepitus. Overall rectus foot type. Palpatory tenderness elicited to the Fifth metatarsal Base and peroneus brevis insertion site of the right foot, mild tenderness with resisted eversion and plantarflexion. No signs of maria elena instability, negative anterior drawer. No other palpatory tenderness elicited upon exam. Compartment soft compressible, no pain with calf or thigh compression.. NEUROLOGICAL: L ight touch and gross sensation intact. Negative Tinel's. VASCULAR: D P and PT pulses strongly palpable. CFT intact. Skin temperature warm and symmetric without focal increase. No erythema edema or ecchymosis.. DERMATOLOGY S kin intact and within normal limits for texture and turgor. No open lesions or signs of acute infection.. Diagnostic Testing 3 views of the Right foot obtained reviewed in office today demonstrating overall rectus foot type with maintained joint spaces throughout. Asymptomatic bipartite tibial sesamoid. No acute fractures or dislocations.. Assessment: * Assessment: 1. P eroneal tendinitis, right leg - M76.71 (Primary) 2 . R ight foot pain - M79.671? Plan: * Treatment: 2. R ight foot pain Start Meloxicam Tablet, 15 MG, 1 tablet, Orally, Once a day, 30, 30, Refills 1. I maging: XR Foot RT (3 views) * Referral To:Physical Therapist Reason:Right peroneal tendinitis right ankle instability * Procedure Codes: * Preventive Medicine: Screenings/Counseling: B [place] ACTION PLAN Above Normal BMI Follow-up D ietary management education, guidance, and counseling F ALL RISK SCREENING Fall Risk Assessment: N o falls in the past year * * Sign off status: Completed Visit Status: C HK (Check Out) true * Provider: Tanvir Ramon DPM, MS Date: 0 03/03/2024 Generated for Spike salinas/Jose/Lupisitting on: 0 04/28/2025 03:18 PM EDT History and Physical Notes * HPI (History of Present Illness) Category Sub-Category Detail Notes Category Not es General Pt states right foot started with pain 2 months ago without injury. States Has diabetes and since started on insulin 2 months ago the pain started December 2023. Rates pain 4/10 to right lateral midfoot and entire plantar foot. States there is a knot on right lateral foot where pain is constant. Taaking advil for pain releif. Last A1C was over 8 back in December 2023. Had xrays done by PCP in January 2024 and states she was told they were negative. Has not tried new shoes or inserts. Has tried home stretching exercises. Hurts to put weight on right foot. Examination Category Sub-Category Detail Notes Category Not es Podiatry Exam MUSCULOSKELETAL: Muscle strength 5/5 for 4 pedal groups. Ankle subtalar range of motion supple without pain or crepitus. Overall rectus foot type. Palpatory tenderness elicited to the Fifth metatarsal Base and peroneus brevis insertion site of the right foot, mild tenderness with resisted eversion and plantarflexion. No signs of maria elena instability, negative anterior drawer. No other palpatory tenderness elicited upon exam. Compartment soft compressible, no pain with calf or thigh compression. NEUROLOGICAL: Light touch and andria s sensation intact. Negative Tinel's VASCULAR: DP and PT pulses str ongly palpable. CFT intact. Skin temperature warm and symmetric without focal increase. No erythema edema or ecchymosis. DERMATOLOGY Skin intact and with in normal limits for texture and turgor. No open lesions or signs of acute infection. Diagnostic Testing 3 views of the Right foot obtained reviewed in office today demonstrating overall rectus foot type with maintained joint spaces throughout. Asymptomatic bipartite tibial sesamoid. No acute fractures or dislocations. Consultation Request Notes Referral Date Referring Provider Referred Provider Not es 03/03/2024 Ziggy Ramon , Right chastity edvin tendinitis right ankle instability
--- OUTSIDE RECORDS SUMMARY | 2024-12-21 05:15 | XMS_ITS ---
Author Organization [facility] Address [address] [place] [address] Care Team Providers Care Web Assistant Name Role Phone Dr. Memo Rosales Primary Care Provider [phone] Sanna Leana Bass [phone] REASON FOR VISIT FILLING Encounters Encounter Location Date Provider Diagnosis [facility] [address] [place] [address] 12/21/2024 Leana Bass Plan Of Treatment Next Appt Details Provider Name:Leana Bass, 08/24/2025 03:00:00 PM, [address] [place], [address], Provider Name:Emelia Jordan , 11/18/2025 03:10:00 PM, [address] [place], [address], Progress Notes * HANNAH OSBORN MDOB:1965 (59 yo F)Acc No.[id number]:12/21/2024 Patient: HANNAH UMANA Provider: Romy Bass :1965 A ge:59 Y S ex:Female Date:12/21/2024 Address:[address] [place] [id number] Pcp:Dr. Memo Rosales Subjective: * Chief Complaints: * 1 . FILLING. * Medical History: Objective: * Vitals: Assessment: Plan: * Treatment: * Images: * Electronic signature of Tony Bass , DMD on 04/28/2025 at 03:19 PM EDT Sign off status: Pending * Provider: Romy Bass Date: 0 12/21/2024 Generated for Spike salinas/Jose/Eduarda on: 0 04/28/2025 03:19 PM EDT
--- OUTSIDE RECORDS SUMMARY | 2025-04-28 15:18 | XMS_ITS | Clinical Summary ---
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 Active amLODIPine (Norvasc) 10 MG tablet Take 10 mg by mouth in the morning. Active carvedilol (Coreg) 25 MG tablet TAKE 1 TABLET BY MOUTH ONCE DAILY WITH FOOD FOR 90 DAYS Active escitalopram (Lexapro) 5 MG tablet 10/04/2022 Active fluticasone (Flonase) 50 MCG/ACT nasal spray 1 (one) time each day at the same time. Active hydroCHLOROthia zide (HYDRODiuril) 12.5 MG tablet Take 12.5 mg by mouth in the morning. 01/27/2023 Active Tradjenta 5 MG tablet Take 5 mg by mouth in the morning. Active losartan (Cozaar) 100 MG tablet Take 100 mg by mouth in the morning. 03/05/2023 Active metFORMIN XR (Glucophage-XR) 500 MG 24 hr tablet TAKE 1 TABLET BY MOUTH ONCE DAILY WITH EVENING MEAL 12/28/2022 Active Active Problems No known active problems Family History Medical History Relation Name Comments Diabetes Father Heart disease Father Hypertension Father Cancer Maternal Grandfather Heart disease Maternal Grandfather Hypertension Maternal Grandfather Stroke Maternal Grandfather Cancer Maternal Grandmother Diabetes Maternal Grandmother Stroke Maternal Grandmother Heart disease Mother Cancer Mother's Brother Diabetes Mother's Brother Hypertension Mother's Brother Cancer Paternal Grandmother lung , foot Diabetes Paternal Grandmother Asthma Sibling Hypertension Sibling Multiple myeloma Neg Hx Relation Name Status Comments Father Maternal Grandfather Maternal Grandmother Mother Mother's Brother Paternal Grandmother Sibling Social History Tobacco Use Types Packs/Day Years Used Date Smoking Tobacco: Every Day Cigarettes Smokeless Tobacco: Current Tobacco Cessation:Ready to Q uit: Not Asked; Counseling Given: Not Answered Comments:Moderate Cigarette smoker (10-19/day) Alcohol Use Standard Drinks/Week Comments Never 0 (1 standard drink = 0.6 oz pur e alcohol) Caffeine: 1-2 cups/day Comments Unknown Sex and Gender Information Value Date Recorded Sex Assigned at Not on file Legal Sex Female 6:36 PM EDT Gender Identity Not on file Sexual Orientation Not on file Last Filed Vital Signs Vital Sign Reading Time Taken Comments Blood Pressure - - Pulse - - Temperature - - Respiratory Rate - - Oxygen Saturation - - Inhaled Oxygen Concentration - - Weight 51.3 kg (113 lb) 05/17/2022 12:00 PM EDT Height 142.2 cm (4' 8 ) 12/04/2022 12:00 PM EDT Body Mass Index 25.33 05/17/2022 12:00 PM EDT Plan of Treatment Not on file Insurance [employer] [place]
--- NOTE | 2025-04-28 15:19 | XR_ITS ---
[address] [address] Patient Name: HANNAH OSBORN MRN: [id number] date: 1965 Sex: F Assigned Patient Location: [facility] Current Patient Location: [facility] Accession/Order Number: [id number] Exam Date: 04/28/2025 15:20 Report Date: 04/28/2025 16:08 At the request of: EWELINA DODGE Procedure: XR chest 2V Plain film chest 2 view HISTORY: Cough and shortness of breath COMPARISON: 08/20/2024 FINDINGS: SUPPORT DEVICES: None POSTSURGICAL CHANGES: None HEART: Within normal limits PULMONARY DOMINGO: Within normal limits MEDIASTINUM: Unremarkable LUNGS AND PLEURA: No acute lung process, pleural effusion or pneumothorax identified. BONY STRUCTURES: Intact ADDITIONAL FINDINGS None XR/XR chest 2V IMPRESSION: No acute process. Impression dictated by: Roman Sultana M.D. 04/28/2025 4:08 PM Dictation Location: [facility] Electronically authenticated by: [id number] Y Date: 04/28/2025 16:08
--- OUTSIDE RECORDS SUMMARY | 2025-04-28 15:19 | XMS_ITS | Patient Health Record ---
Author Organization [facility] [place] Address [address] [place] [address] Care Team Providers Care Occupational Rehabilitation Aide Name Role Phone Maddi Mcpherson CNP Primary Care Provider U Ziggy Crump [phone] Allergies Allergen (clinical drug ingredient) Drug/Non Drug [...] pravastatin Pravastatin Unknown Drug Allergy Act prerna Reason For Referral No Information Medications Medication SIG (Take, Route, Frequency, Duration) Notes Start Date End Date Status Meloxicam 15 MG Take 1 tablet by once daily for 30 Active Advair HFA 115-21 MCG/ACT 2 puffs Inhala tion Twice a day Active Albuterol Sulfate 108 (90 Base) MCG/ACT 1 puff as needed Inhalation every 4 hrs Active Albuterol Sulfate (2.5 MG/3ML) 0.083% 3 mL as needed Inhalation every 6 hrs Active Carvedilol 25 MG 1 tablet with food O rally Twice a day Active amLODIPine Besylate 10 MG 1 tablet Orall y Once a day Active Losartan Potassium 100 MG 1 tablet Orall y Once a day Active linaGLIPtin 5 MG 1 tablet Orally Once a day Active Ondansetron 4 MG 1 tablet on the tong ue and allow to dissolve Orally Once a day Active Social History Tobacco Use: Social History Observation Description Date Details (start date - stop date) Former Smoker NA - NA Tobacco Control (Standard) Question Answer Notes Tobacco use: Former smoker Problems Problem Type SNOMED Code ICD Code Onset Dates Problem Status W/U Status Risk Notes Problem 95315410 Peroneal tendinitis, right leg (M76.71) Active confirmed Problem [id number] Posterior tibial tendinitis, right leg (M76.821) Active confirmed Plan Of Treatment Pending Test Test Name Order Date XR foot RT min 3V 03/04/2024 Insurance Providers Payer Name Payer Address Payer Phone Subscriber Number Group Number Insured Name Patient Relationship to Insured Coverage Start Date Coverage End Date [employer] [place] [employer] [address] [address] [place] [address] [id number] Farhana Landers Self - patient is the insured Medical (General) History Medical History History ICD Code COPD diabetes hypertension GERD Surgical History Surgery Date(Month/Year) cholecystectomy hysterectomy appendetomy ORIF bilateral breast reduction
--- OUTSIDE RECORDS SUMMARY | 2025-04-28 15:19 | XMS_ITS | Patient Health Record ---
Author Organization [facility] Address [address] [place] [address] Care Team Providers Care Air Breaker Operator Name Role Phone Dr. Memo Rosales Primary Care Provider [phone] Zoraida Meltonrina Unavailable [phone] Leana Bass Unavailable [phone] Reason For Referral No Information Encounters Encounter Location Date Provider Diagnosis [facility] [address] [place] [address] 10/04/2024 Leana Bass Other dental procedure status Z98.818 ; Encounter for dental examination and cleaning with abnormal findings Z01.21 and Dental caries on pit and fissure surface penetrating into dentin K02.52 [facility] [address] [place] [address] 03/03/2025 Emelia Jordan Acute gingivitis, plaque induced K05.00 and Dental caries on pit and fissure surface penetrating into dentin K02.52 [facility] [address] [place] [address] 04/06/2025 Leana Bass Dental caries on pit and fissure surface penetrating into dentin K02.52 Assessments Encounter Date Diagnosis (ICD Code) Assessment Notes Treatment Notes Treatment Clinical Notes Section Notes 10/04/2024 Other dental procedure status (ICD-10 - Z98.818) 03/03/2025 Acute gingivitis, plaque induced (ICD-10 - K05.00) 04/06/2025 Dental caries on pit and fissure surface penetrating into dentin (ICD-10 - K02.52) 03/03/2025 Dental caries on pit and fissure surface penetrating into dentin (ICD-10 - K02.52) 10/04/2024 Encounter for dental examination and cleaning with abnormal findings (ICD-10 - Z01.21) 10/04/2024 Dental caries on pit and fissure surface penetrating into dentin (ICD-10 - K02.52) Plan Of Treatment Next Appt Details Provider Name:Leana Bass, 08/24/2025 03:00:00 PM, [address], [place], [address], Provider Name:Emelia Jordan , 11/18/2025 03:10:00 PM, [address], [place], [address], Insurance Providers Payer Name Payer Address Payer Phone Subscriber Number Group Number Insured Name Patient Relationship to Insured Coverage Start Date Coverage End Date [facility] [place] [employer] [address] [address] [place] [address] [id number] HANNAH OSBORN Self - patient is the insured [facility] [address] [place] [address] [id number] HANNAH OSBORN Self - patient is the insured 5
--- OUTSIDE RECORDS SUMMARY | 2025-04-28 16:41 | XMS_ITS | CCD ---
Author Organization [facility] CliniSyn[facility] Care Team Providers Care Transportation Lead Name Role Phone DR HANG GREER Consulting Unavailable ROHRBACHER, MADDI Yoo Admitting Unavailab le ROHRBACHER, MADDI Yoo Attending Unavailab le ROHRBACHER, MADDI Yoo Primary Care Unavailab le ROHRBACHER, MADDI Yoo Consulting Unavailab le ROHRBACHER, MADDI Yoo Admitting Unavailab le ROHRBACHER, MADDI Yoo Attending Unavailab le ROHRBACHER, MADDI Yoo Consulting Unavailab le ROHRBACHER, MADDI Yoo Primary Care Unavailab le SNOY SOLIMAN Consulting Unavailable ROHRBACH, ATHLETIC INSTRUCTOR CAMERON Attending Unavailabl e ROHRBACH, ATHLETIC INSTRUCTOR CAMERON Consulting Unavailabl e ROHRBACH, ATHLETIC INSTRUCTOR CAMERON Admitting Unavailabl e ROHRBACHER, MADDI Yoo Primary Care Unavailab le ROHRBACHER, MADDI A Admitting Unavailab le WEST, DR JOHN Angel Consulting Unavailable ROHRBACHER, MADDI Yoo Attending Unavailab le ROHRBACHER, MADDI A Primary Care Unavailab le ROHRBACHER, MADDI Yoo Consulting Unavailab le Rohrbacher, Maddi Unavailable Mapus, Tondra Unavailable ZAID Mcghee Primary Care Provider [phone] [place] REINFORCING STEEL MACHINE OPERATOR Gurdeep Frey Attending Provider [phone] VIRIDIANA Mcpherson Primary Care Provider RohrbacheVIRIDIANA alas Attending Provider [phone] Maddi Mcpherson Attending Unavailable Rohrbacher, Maddi Primary Care Unavailable Rohrbacher, Maddi Admitting Unavailable Rohrbacher, VIRIDIANA Linda Primary Care Provider [place], REINFORCING STEEL MACHINE OPERATOR Tondra K Attending Provider ZAID Mcghee Primary Care Provider Rohrbacher, VIRIDIANA Linda Primary Care Provider [place], REINFORCING STEEL MACHINE OPERATOR Tondra K Attending Provider ZAID Mcghee Primary Care Provider MD Emil Cooper Attending Provider Emil Cooper Unavailable Rohrbacher, VIRIDIANA Linda Primary Care Provider [place], REINFORCING STEEL MACHINE OPERATOR Tondra K Attending Provider Rohrbacher, VIRIDIANA Linda Primary Care Provider [place], REINFORCING STEEL MACHINE OPERATOR Tondra K Attending Provider Mapus, Tondra K Attending Unavailable Mapus, Tondra K Admitting Un[facility] Unavailable Mapus, Tondra K Admitting Unavailable Mapus, Tondra K Attending Unavailable Rohrbacher, [facility] Care Unavailable Mapus, Tondra K Admitting Unavailable Mapus, Tondra K Attending Unavailable Luisa Mcghee Primary Care Unavailable Emil Cooper Admitting Unavailable Emil Cooper Attending Unavailable Rohrbacher, [facility] Care Unavailable Mapus, Tondra K Admitting Unavailable Mapus, Tondra K Attending Unavailable [facility] Care Unavailable Allergies Allergy Classification Reported Allergen(s) Allergy Type Date of Onset Reaction(s) Facility (10 sources) Morphine; Translations: [morphine] Drug Allergy 10-23-19 Back Pain, Back Pain, kidney pain [facility] Repository (20 sources) Acetaminophen / oxyCODONE Drug Allergy kidney pain [facility] Other (20 sources) atorvastatin; Translations: [atorvastatin] Drug Allergy 09-09-19 Unknown, Unknown Reaction [facility] Repository (20 sources) gabapentin; Translations: [gabapentin] Drug Allergy 09-09-19 numbness in hands and feet and cold feeling [facility] Repository (20 sources) Morphine Drug Allergy kidney pain [facility] Other (20 sources) prastatin Propensity to adverse reactions [facility] Other (20 sources) metFORMIN Drug Allergy 09-09-19 diarrhea [facility] (7 sources) metFORMIN Drug Allergy diarrhea [facility] Other (20 sources) dulaglutide Drug Allergy 09-09-19 heartburn/naus ea [facility] (20 sources) semaglutide Drug Allergy 09-09-19 g/i s/e [facility] (1 source) Acetaminophen / oxyCODONE; Translations: [acetaminophen-ox yCODONE] Drug Allergy [facility] Repository (2 sources) Morphine Drug Allergy kidney pain [facility] [employer] [facility] Other (19 sources) Pravastatin Drug Allergy 09-09-19 achey [facility] (6 sources) Acetaminophen; Translations: [acetaminophen] Drug Allergy 09-09-19 kidney pain [facility] (6 sources) oxyCODONE; Translations: [oxycodone] Drug Allergy 09-09-[address] [facility] (1 source) atorvastatin Drug Allergy 03-18-20 [facility] Repository (1 source) dulaglutide Drug Allergy 03-18-20 [facility] Repository (1 source) gabapentin Drug Allergy 03-18-20 [facility] Repository (1 source) metFORMIN Drug Allergy 03-18-20 [facility] Repository (1 source) Morphine Drug Allergy 03-18-20 [facility] Repository (1 source) Pravastatin Drug Allergy 03-18-20 [facility] Repository (1 source) semaglutide Drug allergy (disorder) 03-18-20 [facility] Repository (2 sources) liraglutide Drug Allergy 11-04-19 Nausea [facility] Medications Current Medications Medication Drug Class(es) Dates Sig (Normalized) Sig (Original) [id number] 200 actuat albuterol 0.09 mg/actuat metered dose inhaler (20 sources) beta2-Adrenergic Agonist Start: 03-30-2024 End: 09-15-2024 take 1 puff(s) by mouth every four to six hours as needed for wheezing Albuterol Sulfate (Ventolin Hfa) 90 mcg/actuation HFA aerosol inhaler Active 0 .ROUTE .COMPLEX September 15, 2024 12:22pm INHALE 1 PUFF BY MOUTH EVERY 4 TO 6 HOURS NEEDED FOR SHORTNESS OF BREATH OR WHEEZING Start: 12-11-2023 take 2.5 mg by inhal ation every six hours Albuterol Sulfate 2.5 mg /3 mL (0.083 %) solution for nebulization Active 2.5 MG INHALATION Every 6 hours [...] Channel Aimee Start: 11-13-2017 End: 03-23-2024 take 1 tablet by mouth once daily Amlodipine 10 mg tablet Active 10 MG PO Daily 90 90 March 23, 2024 2:46pm benzonatate 200 mg oral capsule (1 source) Non-narcotic Antitussive Start: 05-31-2021 take 1 capsule by mouth three times daily as needed Benzonatate 200 MG 1 capsule Orally Three times a day as needed for 10 day(s) May, Active Blood-Glucose Meter (True Metrix Glucose Meter) misc (2 sources) Start: 08-31-2024 Blood-Glucose Meter (True Metrix Glucose Meter) misc Active 0 .Route August 31, 2024 1:00am As directed Blood-Glucose Sensor (Dexcom G7 Sensor) device (10 sources) Start: 12-15-2024 Blood-Glucose Sensor (Dexcom G7 Sensor) device Active 0 .Route December 15, 2024 9:30am As directed Change every 10 days Start: 01-05-2024 End: 12-15-2024 Blood-Glucose Sensor (Dexcom G7 Sensor) device Discontinued 0 .Route 3 January 05, 2024 3:30pm December 15, 2024 9:30am As directed Change every 10 days Start: 01-05-2024 Blood-Glucose Sensor (Dexcom G7 Sensor) device Active 0 .Route 3 January 05, 2024 3:30pm As directed Change [...] alpha-Adrenergic Aimee, beta-Adrenergic Aimee Start: 11-13-2017 End: 01-12-2025 take 1 tablet by mouth once daily Carvedilol 25 mg tablet Active 25 MG PO Daily 90 90 January 12, 2025 3:07pm cefdinir 300 mg oral capsule (2 sources) Cephalosporin Antibacterial Start: 11-13-2022 take 1 capsule by mouth every twelve hours Cefdinir 300 MG 1 Capsule Orally bid for 10 days Oct, Active Start: 01-30-2021 take 1 capsule by [facility] every twelve hours Cefdinir 300 MG 1 Capsule Orally bid for 10 day(s) Jan, Not-Taking Dexcom 7 (14 sources) Start: 06-02-2023 Dexcom 7 as di rected SQ change every 10 days for 90 days May, Active Dexcom 7 as dire cted SQ change every 10 days for 90 days Active Dexcom G7 [employer] - (14 sources) Start: 06-02-2023 Dexcom G7 Rece iver - as directed n/a As Directed for 365 days May, Active Dexcom G7 Receiv er - as directed n/a As Directed for 365 days Active dicyclomine hydrochloride 10 mg oral capsule (5 sources) Anticholinergic Start: 02-24-2024 End: 08-25-2024 take 1 capsule by mouth twice daily Dicyclomine 10 mg capsule Active 10 MG PO Twice daily 180 90 August 25, 2024 9:54am empagliflozin 10 mg oral tablet (9 sources) [...] a day for 30 day(s) Sep, Active fluticasone propionate 0.05 mg/actuat metered dose nasal spray (15 sources) Corticosteroid Start: 05-31-2021 take 1 spray(s) nasal route once daily as needed Fluticasone Propionate 50 MCG/ACT 1 spray in each nostril Nasally Once a day for 30 day(s) PRN May, Active Start: 05-31-2021 Fluticasone Propion-Salmeterol (20 sources) Corticosteroid, beta2-Adrenergic Agonist Start: 01-12-2025 take 1 puff(s) by inhalation twice daily Fluticasone Propion-Salmeterol (Advair Hfa) 230-21 mcg/actuation HFA aerosol inhaler Active 2 PUFF INHALATION Twice daily 08 16January 12, 2025 12:00am Start: 01-04-2025 End: 01-12-2025 take 1 puff(s) by inhalation twice daily Fluticasone Propion-Salmeterol (Advair Hfa) 115-21 mcg/actuation HFA aerosol inhaler Discontinued 2 PUFF INHALATION Twice daily January 04, 2025 4:43pm January 12, 2025 3:07pm Start: 12-07-2024 End: 01-04-2025 take 1 puff(s) by inhalation twice daily Fluticasone Propion-Salmeterol (Advair Hfa) 115-21 mcg/actuation HFA aerosol inhaler Discontinued 2 PUFF INHALATION Twice daily December 07, 2024 9:27am January 04, 2025 4:43pm Start: 11-11-2024 End: 12-07-2024 take 1 puff(s) by inhalation twice daily Fluticasone Propion-Salmeterol (Advair Hfa) 115-21 mcg/actuation HFA aerosol inhaler Discontinued 2 PUFF INHALATION Twice daily November 11, 2024 12:59pm December 07, 2024 9:27am Start: 10-12-2024 End: 11-11-2024 take 1 puff(s) by inhalation twice daily Fluticasone Propion-Salmeterol (Advair Hfa) 115-21 mcg/actuation HFA aerosol inhaler Discontinued 2 PUFF INHALATION Twice daily October 12, 2024 2:17pm November 11, 2024 12:59pm Start: 10-12-2024 take 1 puff(s) by in halation twice daily Fluticasone Propion-Salmeterol (Advair Hfa) 115-21 mcg/actuation HFA aerosol inhaler Active 2 PUFF INHALATION Twice daily October 12, 2024 2:17pm Start: 09-15-2024 End: 10-12-2024 take 1 puff(s) by inhalation twice daily Fluticasone Propion-Salmeterol (Advair Hfa) 115-21 mcg/actuation HFA aerosol inhaler Discontinued 2 PUFF INHALATION Twice daily September 15, 2024 12:25pm October 12, 2024 2:18pm Start: 01-09-2022 End: 08-25-2024 take 1 puff(s) by inhalation twice daily Fluticasone Propion-Salmeterol (Advair Hfa) 115-21 mcg/actuation HFA aerosol inhaler Discontinued 2 PUFF INHALATION Twice daily January 09, 2022 12:00am August 25, 2024 9:53am Start: 01-09-2022 take 1 puff(s) by in [...] Nov, Active take 2 puff(s) by [facility] twice daily Advair HFA 230-21 MCG/ACT Inhale [...] oral tablet (20 sources) Thiazide Diuretic Start: 05-13-2024 take 1 tablet by mouth once daily Hydrochlorothiazide 12.5 mg tablet Active 0 .ROUTE .COMPLEX May 13, 2024 10:00am Take 1 tablet by mouth once daily Start: 12-11-2023 End: 05-13-2024 take 1 tablet by mouth once daily Hydrochlorothiazide 12.5 mg tablet Discontinued 12.5 MG PO Daily 90 February 12, 2024 3:37pm May 13, 2024 10:00am Start: 11-04-2022 take 1 tablet by jozef th every twenty-four hours 3 ml insulin aspart, human 100 unt/ml pen injector (5 sources) Insulin Analog Start: 08-31-2024 Insulin Aspart U-100 (Novolog Flexpen U-100 Insulin) 100 unit/mL (3 mL) insulin pen Active 0 SUBCUT .COMPLEX 60 August 31, 2024 4:15pm ICR 1:10 ac tid; (expect up to 30 units/day) Start: 05-10-2024 End: 08-31-2024 Insulin Aspart U-100 (Novolo g Flexpen U-100 Insulin) 100 unit/mL (3 mL) insulin pen Discontinued 0 SUBCUT .COMPLEX 60 May 10, 2024 12:00am August 31, 2024 4:15pm ICR 1:15 ac tid; (expect up to 60 units/day) Insulin Glargine U-300 Conc (Toujeo Solostar U-300 Insulin) 300 unit/mL (1.5 mL) insulin pen (14 sources) Start: 10-12-2024 inject 20 [IU] by subcutaneous injection once daily Insulin Glargine U-300 Conc (Toujeo Solostar U-300 Insulin) 300 unit/mL (1.5 mL) insulin pen Active 20 UNIT SUBCUT Daily October 12, 2024 5:02pm Start: 05-26-2024 End: 10-12-2024 inject 20 [IU] by subcutaneous injection once daily Insulin Glargine U-300 Conc (Toujeo Solostar U-300 Insulin) 300 unit/mL (1.5 mL) insulin pen Discontinued 20 UNIT SUBCUT Daily May 26, 2024 2:25pm October 12, 2024 5:03pm Start: 05-26-2024 End: 05-26-2024 inject 20 [IU] by subcutaneous injection once daily Insulin Glargine U-300 Conc (Toujeo Solostar U-300 Insulin) 300 unit/mL (1.5 mL) insulin pen Discontinued 20 UNIT SUBCUT Daily May 26, 2024 2:25pm May 26, 2024 2:26pm Start: 05-26-2024 End: 05-26-2024 inject 18 [IU] by subcutaneous injection once daily Insulin Glargine U-300 Conc (Toujeo Solostar U-300 Insulin) 300 unit/mL (1.5 mL) insulin pen Discontinued 18 UNIT SUBCUT Daily May 26, 2024 1:33pm May 26, 2024 2:25pm Start: 03-18-2024 End: 05-26-2024 inject 15 [IU] by subcutaneous injection once daily Insulin Glargine U-300 Conc (Toujeo Solostar U-300 Insulin) 300 unit/mL (1.5 mL) insulin pen Discontinued 15 UNIT SUBCUT Daily March 18, 2024 5:02pm May 26, 2024 1:35pm Start: 03-18-2024 inject 15 [IU] by ellison bcutaneous injection once daily Insulin Glargine U-300 Conc [...] ml/ml medicated pad (8 sources) Start: 12-08-2019 linagliptin 5 mg oral tablet (20 sources) Dipeptidyl Peptidase 4 Inhibitor Start: 08-31-2024 End: 08-31-2024 take 1 tablet by mouth once daily Linagliptin (Tradjenta) 5 mg tablet Active 5 MG PO Daily August 31, 2024 4:18pm Start: 11-13-2017 End: 05-26-2024 take 1 tablet by mouth once daily Linagliptin 5 mg tablet Discontinued 5 MG PO Daily March 18, 2024 5:02pm May 26, 2024 2:23pm losartan potassium 100 mg oral tablet (20 sources) Angiotensin 2 Receptor Aimee Start: 03-23-2024 End: 09-15-2024 take 1 tablet by mouth once daily Losartan 100 mg tablet Active 100 MG PO Daily September 15, 2024 3:01pm Start: 03-03-2024 End: 03-23-2024 take 1 tablet by mouth once daily Losartan 100 mg tablet Discontinued 0 .ROUTE .COMPLEX March 03, 2024 2:52pm March 23, 2024 2:48pm Take 1 tablet by mouth once daily Start: 12-11-2023 End: 03-03-2024 take 1 tablet by mouth once daily Losartan 100 mg tablet Discontinued 100 MG PO Daily December 11, [...] inhalation 2-3 times per week Oct, Active One Touch Glucometer 1 (20 sources) Start: 04-08-2018 Start: 04-08-2018 Start: 04-08-2018 One Touch Gluc ometer 1 use with one touch ultra mini strips SQ Daily Mar, Active Pantoprazole 40 mg tablet,delayed release (DR/EC) (2 sources) Start: 07-27-2024 take 1 tablet by mouth once daily for gastroesophageal reflux disease Pantoprazole 40 mg tablet,delayed release (DR/EC) Active 0 .ROUTE .COMPLEX July 27, 2024 12:43pm TAKE 1 TABLET BY MOUTH ONCE DAILY FOR GERD rosuvastatin calcium 10 mg oral tablet (20 sources) HMG-CoA Reductase Inhibitor Start: 05-26-2024 take 1 tablet by mouth once daily Rosuvastatin 10 mg tablet Active 10 MG PO Daily May 26, 2024 1:34pm Start: 02-12-2024 End: 05-26-2024 take 1 tablet by mouth once daily Rosuvastatin 10 mg tablet Discontinued 0 .ROUTE .COMPLEX May 25, 2024 7:50am May 26, 2024 1:35pm Take 1 tablet by mouth once daily Start: 11-13-2017 End: 02-12-2024 take 1 tablet by mouth once daily Rosuvastatin 10 mg tablet Discontinued 10 MG PO Daily January 09, 2022 [...] 90 day(s) Oct, Active sinecatechins 0.15 mg/mg top ical ointment (20 sources) Start: 02-12-2023 Veregen 15 % 1 application Externally Three times a day for 30 days Jan, Active Completed/Discontinued Medications Medication Drug Class(es) Dates Sig (Normalized) Sig (Original) acetaminophen 325 mg / HYDROcodone bitartrate 5 mg oral tablet (8 sources) Opioid Agonist Start: 01-23-2022 End: 12-11-2023 take 1 tablet by mouth every six hours as needed for pain Hydrocodone-Acetami nophen 5-325 mg tablet Discontinued 1 TAB PO Q6H as needed for pain 14 5 January 23, 2022 December 11, 2023 2:14pm Albuterol Sulfate 90 mcg/actuation HFA aerosol inhaler (4 sources) Start: 12-01-2023 End: 03-30-2024 Albuterol Sulfate 90 mcg/actuation HFA aerosol inhaler Discontinued 90 MCG INHALATION EVERY 4-6 HOURS as needed for shortness of breath or wheezing 6.7 30 December 01, 2023 1:11pm March 30, 2024 8:13am Start: 11-13-2017 End: 12-01-2023 Albuterol Sulfate 90 mcg/act uation HFA aerosol inhaler Discontinued 90 MCG INHALATION As Directed as needed for SOB/wheezing November 13, 2017 12:00am December 01, 2023 1:12pm azithromycin 250 mg oral tablet (16 sources) Macrolide Antimicrobial Start: 10-08-2024 End: 01-12-2025 Azithromycin 250 mg tablet Discontinued 0 PO daily 6 5 December 20, 2024 2:26pm January 12, 2025 2:45pm Take 2 on day 1 and then take 1 for the next 4 days (days 2-5) Start: 09-29-2023 Azithromycin 2 50 MG 2 tablet on the first day, [...] a day for 5 day(s) May, Active ergocalciferol 1.25 mg oral capsule (7 sources) Provitamin D2 Compound take 1 capsule by mouth every week Ergocalciferol 1.25 MG (75936 UT) 1 capsule Orally weekly Not-Taking fluconazole 150 mg oral tablet (12 sources) Azole Antifungal Start: 06-01-20 End: 08-26-19 25 Fluconazole 150 mg tablet Discontinued 150 MG PO Q3D 2 0 June 01, 2024 12:00am August 26, 2024 12:29pm Take 1st dose at onset of symptoms then repeat in 3 days if continued symptoms Start: 09-29-2023 take 1 tablet by jozef th every [...] Orally Daily for 1 days Jan, Not-Taking 14 actuat fluticasone furoate 0.1 mg/actuat / umeclidinium 0.0625 mg/actuat / vilanterol 0.025 mg/actuat dry powder inhaler (4 sources) Anticholinergic, Corticosteroid, beta2-Adrenergic Agonist Start: 09-08-2024 End: 09-15-2024 Wtalorfpcnn-Yrygaithz-Itwmwi er (Trelegy Ellipta) 100-62.5-25 mcg blister with device Discontinued 1 INH INHALATION Daily September 08, 2024 1:00am September 15, 2024 12:24pm Start: 08-25-2024 End: 08-31-2024 Avzhvslkgit-Jwirvjpbf-Htjqze er (Trelegy Ellipta) 100-62.5-25 mcg blister with device Discontinued 1 INH INHALATION Daily August 25, 2024 1:00am August 31, 2024 2:45pm 12 hr hyoscyamine sulfate 0. 375 mg extended release oral tablet (20 sources) Start: 01-09-2022 End: 01-09-2022 Hyoscyamine Sulfate Disconti nued MG PO January 09, 2022 12:00am January 09, 2022 3:07pm Start: 05-24-2019 End: 01-09-2022 take 1 tablet by mouth every twelve hours Hyoscyamine Sulfate 0.375 mg tablet extended release 12 hr Discontinued MG PO January 09, 2022 12:00am January 09, 2022 3:07pm Start: 11-13-2017 take 1 tablet by ojzef th twice daily Hyoscyamine Sulfate 0.375 mg tablet extended release 12 hr Active 0.375 MG PO Twice daily November 13, 2017 12:00am Insulin Degludec (Tresiba Flextouch U-100) 100 unit/mL (3 mL) insulin pen (4 sources) Start: 12-25-2023 End: 12-26-2023 Insulin Degludec (Tresiba Flextouch U-100) 100 unit/mL (3 mL) insulin pen Discontinued 7 UNIT SUBCUT Daily December 25, 2023 12:00am December 26, 2023 [...] ml insulin glargine 300 unt/ml pen injector (6 sources) Insulin Analog Start: 12-26-2023 End: 03-18-2024 [...] insulin pen Discontinued 30 UNIT SUBCUT Daily 4.December 26, 2023 12:00am December 26, 2023 10:11am 7 units daily SQ Insulin Lispro-Aabc (Lyumjev Kwikpen U-100 Insulin) 100 unit/mL insulin pen (3 sources) Start: 05-06-2024 End: 05-10-2024 Insulin Lispro-Aabc (Lyumjev Kwikpen U-100 Insulin) 100 unit/mL insulin pen Discontinued 0 SUBCUT Use as Directed 60 May 06, 2024 12:00am May 10, 2024 7:17am subcutaneously use as directed; ICR 1:15 ac tid; 90-day; 3 ref (expect up to 60 units/day) 3 ml liraglutide 6 mg/ml pen injector (2 sources) GLP-1 Receptor Agonist Start: 05-26-2024 End: 08-31-2024 Liraglutide (Victoza 3-Mauri) 0.6 mg/0.1 mL (18 mg/3 mL) pen injector Discontinued 1.8 MG SUBCUT Daily May 26, 2024 12:00am August 31, 2024 2:46pm metroNIDAZOLE 500 mg oral tablet (8 sources) Nitroimidazole Antimicrobial Start: 11-13-2017 End: 01-15-2019 take 1 tablet by mouth once daily Metronidazole 500 mg tablet Discontinued 500 MG PO Daily November 13, 2017 12:00am January 15, 2019 10:51pm ondansetron 4 mg disintegrating oral tablet (20 sources) Serotonin-3 Receptor Antagonist Start: 12-11-2023 End: 08-31-2024 take 1 tablet by mouth three times daily as needed for nausea and vomiting Ondansetron 4 mg tablet,disintegrati ng Discontinued 0 PO Every 8 hours as needed for nausea and vomiting 90 January 01, 2024 10:03am August 31, 2024 2:47pm orally every 8 hours PRN; 1 tablet on the tongue and allow to dissolve Orally three times per day as needed; Start: 02-17-2023 take 1 tablet by jozef th three times daily as needed Ondansetron 4 MG 1 tablet on the tongue and allow to dissolve Orally three times per day as needed for 30 days Feb, Active pantoprazole 40 mg delayed release oral tablet (20 sources) Proton Pump Inhibitor Start: 11-13-2017 End: 07-27-2024 take 1 tablet by mouth once daily Pantoprazole 40 mg tablet,delayed release (DR/EC) Discontinued 40 MG PO Daily 90 February 12, 2024 3:28pm July 27, 2024 12:43pm rOPINIRole 2 mg oral tablet (20 sources) Nonergot Dopamine Agonist Start: 12-11-2023 End: 10-26-2024 take 2 tablets by mouth once daily at bedtime Ropinirole 2 mg tablet Discontinued 4 MG PO Daily at bedtime 180 90 March 23, 2024 2:47pm October 26, 2024 3:07pm Start: 12-11-2023 End: 03-23-2024 take 4 mg by mouth once daily at bedtime Ropinirole Active 4 MG PO Daily at bedtime 180 90 March 23, 2024 2:47pm Start: 11-13-2017 End: 01-15-2019 take 1 tablet by mouth twice daily Ropinirole 2 mg tablet Discontinued 2 MG PO Twice daily November 13, 2017 12:00am January 15, 2019 10:51pm 60 actuat tiotropium 0.60196 mg/actuat inhalation spray (20 sources) Anticholinergic Start: 01-09-2022 End: 08-25-2024 take 1 puff(s) by inhalation once daily Tiotropium [place] (Spiriva Respimat) 1.25 mcg/actuation mist Discontinued 1 PUFF INHALATION Daily January 09, 2022 12:00am August 25, 2024 9:53am Start: 06-14-2020 take 1.25 ug by inha lation once daily Start: 06-14-2020 Start: 11-13-2017 End: 01-09-2022 take 1.25 ug by inhalation once daily Tiotropium [place] 1.25 mcg/actuation mist Discontinued 1.25 MCG INHALATION Daily November 13, [...] sources) Central alpha-2 Adrenergic Agonist Start: 12-11-2023 End: 05-26-2024 take 1 tablet by mouth three times daily as needed Tizanidine 2 mg tablet Discontinued 2 MG PO Three times daily as needed December 11, 2023 12:00am May 26, 2024 1:35pm Start: 04-25-2023 take 1 tablet by jozef th every eight hours tiZANidine HCl 2 MG 1 tablet as needed Orally Three times a day for 10 days Apr, Active Problems Active Problems Problem Classification Problem Date Documented Da te Episodic/Chronic Abdominal pain (3 sources) Right upper quadrant pain; Translations: [Right upper quadrant pain] 01-01-2024 Episodic Administrative/social admission (10 sources) Dietary counseling and surveillance; Translations: [Patient [...] Chronic Chronic obstructive pulmonary disease and bronchiectasis (4 sources) Bronchitis, not specified as acute or chronic; Translations: [Bronchitis] Episodic Diabetes mellitus with complications (20 sources) [...] disorder, recurrent, moderate] Chronic Nausea and vomiting (4 sources) Nausea; Translations: [Nausea and vomiting] Episodic Nutritional deficiencies (20 sources) Vitamin D deficiency; Translations: [Vitamin D deficiency, unspecified] Chronic Nutritional deficiencies (9 sources) Deficiency of other specified B group vitamins; Translations: [Cobalamin deficiency] Onset: 2 Resolved: 2 Episodic Other connective tissue disease (1 source) Pain in right lower leg Episodic Other connective tissue disease (1 source) Other specified soft tissue disorders Episodic Other connective tissue disease (1 source) Other muscle spasm Episodic Other connective tissue disease (3 sources) Foot pain; Translations: [Pain in right foot] 01-01-2024 Episodic Other disorders of stomach and duodenum (8 sources) Disorder of function of stomach; Translations: [Disease of stomach and duodenum, unspecified] 11-14-2017 Episodic Other ear and sense organ disorders (1 source) Impacted cerumen, right ear Episodic Other gastrointestinal disorders (2 sources) Irritable bowel syndrome; Translations: [Irritable bowel syndrome without diarrhea] 08-25-2024 Chronic Other gastrointestinal disorders (1 source) Irritable bowel syndrome without diarrhea; Translations: [Irritable bowel syndrome] 08-25-2024 Chronic Other gastrointestinal disorders (3 sources) Abdominal bloating; Translations: [Abdominal distension (gaseous)] 01-01-2024 Episodic Other hereditary and degenerative nervous system conditions (20 sources) Restless legs; Translations: [Restless legs syndrome] 03-23-2024 Chronic Other hereditary and degenerative nervous system conditions (7 sources) Restless legs syndrome Onset: 2 Resolved: 2 Chronic Other nervous system disorders (10 sources) Chronic pain; Translations: [Other chronic pain] Chronic Other nervous system disorders (8 sources) Postoperative pain ; Translations: [Other acute postprocedural pain] 01-23-2022 Episodic Other non-traumatic joint disorders (1 source) Pain in right hip Episodic Other nutritional; endocrine; and metabolic disorders (1 source) Body mass index (BMI) 25.0-25.9, adult Episodic Other nutritional; endocrine; and metabolic disorders (2 sources) Overweight in adulthood with body mass index of 25 or more but less than 30; Translations: [Body mass index (BMI) 25.0-25.9, adult] 08-31-2024 Episodic Other screening for suspected conditions (not mental disorders or infectious disease) (20 sources) Abnormal findings on diagnostic imaging of other specified body structures; Translations: [Ultrasound scan abnormal] Onset: 2 Chronic Other screening for suspected conditions (not mental disorders or infectious disease) (11 sources) Patient encounter status; Translations: [Encounter for [...] sources) Nasal congestion Episodic Residual codes; unclassified (5 sources) Body mass index (BMI) 24.0-24.9, adult; Translations: [Body Mass Index between 19-24, adult] Onset: 2 Resolved: 2 Episodic Residual codes; unclassified (1 source) Other general symptoms and signs Episodic Residual codes; unclassified (4 sources) Body mass index 20-24 - normal; Translations: [Body mass index (BMI) 24.0-24.9, adult] 12-11-2023 Episodic Spondylosis; intervertebral disc disorders; other back problems (20 sources) Inflammation of sacroiliac joint; Translations: [Sacroiliitis, not elsewhere classified] Onset: 3 Chronic Substance-related disorders (3 sources) Nicotine dependence; Translations: [Nicotine dependence, unspecified, uncomplicated] 08-26-2024 Chronic Unclassified (3 sources) CONTACT W/AND (SUSP) EXPOS COVID-19; Translations: [CONTACT W/AND (SUSP) EXPOS COVID-19] Onset: 1 Viral infection (20 sources) Genital warts; Translations: [Anogenital (venereal) warts] Episodic Past or Other Problems Problem Classification Problem Date Documented Da te Episodic/Chronic Fever of unknown origin (1 source) Fever, unspecified; Translations: [FEVER UNSPECIFIED] Onset: 02-10-2021 Episodic Other lower respiratory disease (1 source) [...] Test Name Value Interpretation Reference Range Facility HbA1c HPLC (Bld) [Mass fract ion]on 08-31-2024 HbA1c (Bld) [Mass fraction] Hemoglobin A1c/Hemoglobin.total in Blood by HPLC [facility] No Panel Informationon 08-31 Bedside Glucose 200 [facility] Basophils Auto (Bld) [#/Vol] on 08-20-2024 Basophils (Bld) [#/Vol] Automated basoph il count 0.0-0.1 [facility] Basophils/100 WBC Auto (Bld) on 08-20-2024 Basophils/100 WBC (Bld) Automated basophil % 0. 2-2.0 [facility] Eosinophils/100 WBC Auto (Bl d)on 08-20-2024 Eosinophils/100 WBC (Bld) Automated eosinophil % Low 0.9-7.0 [facility] Erythrocyte distribution wid th Auto (RBC) [Ratio]on 08-20-2024 Erythrocyte distribution width (RBC) [Ratio] Erythrocyte distribution width [Ratio] by Automated count 11.0-15.0 [facility] Estimated glomerular filtrat ion rate (GFR) non- Americanon 08-20-2024 GFR/1.73 sq M.predicted among non-blacks MDRD (S/P/Bld) [Vol rate/Area] Estimated glomerular filtration rate (GFR) non- >=60 mL/min/1.73 m 2 [facility] Globulin Calc (S) [Mass/Vol] on 08-20-2024 Globulin (S) [Mass/Vol] Serum globulin measurement by calculation (mass/volume) [facility] Hematocrit Auto (Bld) [Volum e fraction]on 08-20-2024 Hematocrit (Bld) [Volume fraction] Hematocrit [Volume Fraction] of Blood by Automated count 36.0-48.0 [facility] Hemoglobin [Mass/volume] in Bloodon 08-20-2024 Hemoglobin (Bld) [Mass/Vol] Hemoglobin [Mass/volume] in Blood 12.0-16.0 [facility] INR in Platelet poor plasma by Coagulation assayon 08-20-2024 INR Coag (PPP) [Relative time] INR in Platelet poor plasma by Coagulation assay [facility] Comment on above: DESIRED INR:2.0-3.0 CONDITIONS NOT LISTED BELOW2.5-3.5 FOR PROSTHETIC HEART VALVE REPLACEMENT2.5-3.5 RECURRENT THROMBOSIS Laboratory - Chemistry and C hemistry - challengeon 08-20-2024 Albumin [Mass/Vol] 3.3 g/dL Low 3.4-5.0 [facility] ALP [Catalytic activity/Vol] 107 U/L 46-116 [facility] ALT [Catalytic activity/Vol] 23 U/L 14-59 [facility] AST [Catalytic activity/Vol] 13 U/L Low 15-37 [facility] Bilirubin [Mass/Vol] 0.2 mg/dL 0.2-1.0 [facility] Calcium [Mass/Vol] 8.9 mg/dL 8.5-10.1 [facility] Chloride [Moles/Vol] 107 mmol/L 98-107 [facility] CO2 [Moles/Vol] 27.6 mmol/L 21.0-32.0 [facility] Creatinine [Mass/Vol] 0.72 mg/dL 0.55-1.02 [facility] GFR/1.73 sq M.predicted MDRD (S/P/Bld) [Vol rate/Area] mL/min/{1.73_m2} >=60 mL/min/1.73 m 2 [facility] Glucose [Mass/Vol] 125 mg/dL High 74-106 [facility] Natriuretic peptide B (Bld) [Mass/Vol] 207.0 pg/mL <=900.0 [facility] Potassium [Moles/Vol] 4.2 mmol/L 3.5-5.1 [facility] Protein [Mass/Vol] 6.7 g/dL 6.4-8.2 [facility] Sodium [Moles/Vol] 142 mmol/L 136-145 [facility] Urea nitrogen [Mass/Vol] 13.0 mg/dL 7.0-18.0 [facility] Urea nitrogen/Creatinine [Mass ratio] 18.1 mg/mg [facility] Laboratory - Hematology and Cell countson 08-20-2024 Immature granulocytes/100 WBC (Bld) 0.5 % 0.0-0.5 [facility] Laboratory - Microbiology an d Antimicrobial susceptibilityon 08-20-2024 SARS-CoV-2 (COVID-19) RNA GLEN+probe Ql (Unsp spec) Negative NEGATIVE [facility] Comment on above: This test has not be en FDA cleared or approved, but has beenauthorized by the FDA under an Emergency Use Authorization(EUA) for use by authorized laboratories certified underIA that meet the requirements to perform moderate or highcomplexity testing. This test has been authorized only forthe detection of proteins from SARS-CoV-2, not for any otherviruses or pathogens. The emergency use of this test isauthorized for the duration of the declaration thatcircumstances exist justifying the authorization ofemergency use of in vitro diagnostic tests for detectionand/or diagnosis of Covid-19 under section 564(b)(1) of theAct, 21 U.S.C. 360bbb-3(b)(1), unless the declaration isterminated or authorization is revoked sooner. Leukocytes [#/volume] correc tiffany for nucleated erythrocytes in Blood by Automated counon 08-20-2024 WBC corrected for nucl RBC Auto (Bld) [#/Vol] Leukocytes [#/volume] corrected for nucleated erythrocytes in Blood by Automated coun High 4.0-11.0 [facility] Lymphocytes Auto (Bld) [#/Vo l]on 08-20-2024 Lymphocytes (Bld) [#/Vol] Lymphocytes [#/volume] in Blood by Automated count 1.2-3.8 [facility] Lymphocytes/100 WBC Auto (Bl d)on 08-20-2024 Lymphocytes/100 WBC (Bld) Lymphocytes/100 leukocytes in Blood by Automated count Low 20.5-60.0 [facility] MCH Auto (RBC) [Entitic mass ]on 08-20-2024 MCH (RBC) [Entitic mass] MCH [Entitic mass] by Automated count 26.7-34.0 [facility] MCHC Auto (RBC) [Mass/Vol]on 08-20-2024 MCHC (RBC) [Mass/Vol] MCHC [Mass/volume] by Automated count 29.9-35.2 [facility] MCV Auto (RBC) [Entitic vol] on 08-20-2024 MCV (RBC) [Entitic vol] MCV [Entitic vol ume] by Automated count 81.0-99.0 [facility] Monocytes Auto (Bld) [#/Vol] on 08-20-2024 Monocytes (Bld) [#/Vol] Automated blood monocyte count 0.3-0.8 [facility] Monocytes/100 WBC Auto (Bld) on 08-20-2024 Monocytes/100 WBC (Bld) Automated monocyte % 1. 7-12.0 [facility] Neutrophils Auto (Bld) [#/Vo l]on 08-20-2024 Neutrophils (Bld) [#/Vol] Neutrophils [#/volume] in Blood by Automated count High 1.4-6.5 [facility] Neutrophils/100 WBC Auto (Bl d)on 08-20-2024 Neutrophils/100 WBC (Bld) Automated neutrophil % 43.0-75.0 [facility] No Panel Informationon 08-20 Bedside Influenza Type A Antigen Negative [facility] Comment on above: Negative for Flu A p rotein antigen. Infection due to Flu Acannot be ruled out. Flu A antigen in the sample may bebelow the detection limit of the test. Bedside Influenza Type B Antigen Negative [facility] Comment on above: Negative for Flu B p rotein antigen. Infection due to Flu Bcannot be ruled out. Flu B antigen in the sample may bebelow the detection limit of the test. RSV RNA Qual (PCR)([facility]) Not detected NOT DETECTE [facility] Eosinophils # (Auto) 0.1 10 3/uL 0.0-0.7 [facility] Immature Granulocyte # (Auto) 0.07 10 3/uL High 0.00-0.03 [facility] Troponin I High Sensitivity 14.0 pg/mL 4.0-51.3 [facility] Comment on above: CUT-OFF POINTS HAVE BEEN [...] IN CONJUNCTIONWITH OTHER DIAGNOSTIC AND CLINICAL INFORMATION. Venous Blood Partial Pressure CO2 39.3 mm[Hg] Low 40.0-52.0 [facility] Venous Blood pH 7.426 7.330-7.430 [facility] Platelet mean volume Auto (B ld) [Entitic vol]on 08-20-2024 Platelet mean volume (Bld) [Entitic vol] Platelet mean volume [Entitic volume] in Blood by Automated count 9.5-13.5 [facility] Platelets Auto (Bld) [#/Vol] on 08-20-2024 Platelets (Bld) [#/Vol] Platelets [#/vol ume] in Blood by Automated count 150-450 [facility] Prothrombin time (PT)on PT Coag (PPP) [Time] Prothrombin time (PT) 9.0- 11.6 [facility] RBC Auto (Bld) [#/Vol]on RBC (Bld) [#/Vol] Erythrocytes [#/volume] in Blood by Automated count 4.20-5.40 [facility] Serum or plasma albumin/glob ulin mass ratioon 08-20-2024 Albumin/Globulin [Mass ratio] Serum or plasma albumin/globulin mass ratio [facility] Serum or plasma anion gap de terminationon 08-20-2024 Anion gap [Moles/Vol] Serum or plasma an ion gap determination [facility] Alanine aminotransferase [En zymatic activity/volume] in Serum or PlasmaOrdered By: Tondra Mapus on 05-10-2024 ALT [Catalytic activity/Vol] 15 U/L Normal 7-52 [facility] Comment on above: Order Comment: Reaso n for Exam Type 2 diabetes mellitus with hyperglycemia, without long-te Performed By: #### B 12, LIPID, URMACRERAT, CMP #### [facility] [address] [place] [address] [place] #### CPEP #### [facility] , Albumin [Mass/volume] in Ser um or Plasma by Bromocresol green (BCG) dye binding methoOrdered By: Tondra Mapus on 05-10-2024 Albumin BCG dye [Mass/Vol] 4.4 g/dL 3.5-5.7 [facility] Alkaline phosphatase [Enzyma tic activity/volume] in Serum or PlasmaOrdered By: Tondra Mapus on 05-10-2024 ALP [Catalytic activity/Vol] 95 U/L Normal 34-104 [facility] Comment on above: Order Comment: Reaso n for Exam Type 2 diabetes mellitus with hyperglycemia, without long-te Performed By: #### B 12, LIPID, URMACRERAT, CMP #### [facility] [address] [place] [address] [place] #### CPEP #### [facility] , Aspartate aminotransferase [ Enzymatic activity/volume] in Serum or PlasmaOrdered By: Tondra Mapus on 05-10-2024 AST [Catalytic activity/Vol] 13 U/L Normal 13-39 [facility] Comment on above: Order Comment: Reaso n for Exam Type 2 diabetes mellitus with hyperglycemia, without long-te Performed By: #### B 12, LIPID, URMACRERAT, CMP #### [facility] [address] [place] [address] [place] #### CPEP #### [facility] , Bilirubin.total [Mass/volume ] in Serum or PlasmaOrdered By: Tondra Mapus on 05-10-2024 Bilirubin [Mass/Vol] 0.5 mg/dL Normal 0.3-1.0 [facility] Comment on above: Order Comment: Reaso n for Exam Type 2 diabetes mellitus with hyperglycemia, without long-te Performed By: #### B 12, LIPID, URMACRERAT, CMP #### [facility] [address] [place] [address] #### CPEP #### [facility] , C-Peptideon 05-10-2024 C-Peptide 2.2 ng/mL Normal 1.1-4.4 [facility] Comment on above: Order Comment: Reaso n for Exam Type 2 diabetes mellitus with hyperglycemia, without long-te Result Comment: C-Pe ptide reference interval is for fasting patients. Performed at: [facility] [id number] Head Machine Feeder: Jacques Llanos PhD, Phone: [phone] PERFORMED BY: [place] [address] PATHOLOGIST HOUSEKEEPING AND LAUNDRY TEAM LEADER SVETLANA DUMONT M.D. Performed By: #### B 12, LIPID, URMACRERAT, CMP #### [facility] [address] [place] [address] #### CPEP #### [facility] , Calcium [Mass/volume] in Ser um or PlasmaOrdered By: Tondra Mapus on 05-10-2024 Calcium [Mass/Vol] 9.6 mg/dL Normal 8.6-10.3 [facility] Comment on above: Order Comment: Reaso n for Exam Type 2 diabetes mellitus with hyperglycemia, without long-te Performed By: #### B 12, LIPID, URMACRERAT, CMP #### [facility] [address] [place] [address] [place] #### CPEP #### [facility] , Carbon dioxide, total [Moles /volume] in Serum or PlasmaOrdered By: Tondra Mapus on 05-10-2024 CO2 [Moles/Vol] 29.1 mmol/L Normal 21.0-31.0 [facility] Comment on above: Order Comment: Reaso n for Exam Type 2 diabetes mellitus with hyperglycemia, without long-te Performed By: #### B 12, LIPID, URMACRERAT, CMP #### [facility] [address] [place] [address] [place] #### CPEP #### [facility] , Chloride [Moles/volume] in S loy or PlasmaOrdered By: Gurdeep Dubois on 05-10-2024 Chloride [Moles/Vol] 104 mmol/L Normal 98-107 [facility] Comment on above: Order Comment: Reaso n for Exam Type 2 diabetes mellitus with hyperglycemia, without long-te Performed By: #### B 12, LIPID, URMACRERAT, CMP #### [facility] [address] [place] [address] [place] #### CPEP #### [facility] , Cholesterol [Mass/volume] in Serum or PlasmaOrdered By: Gurdeep Dubois on 05-10-2024 Cholesterol [Mass/Vol] 186 mg/dL Normal 140-200 [facility] Comment on above: Chol less than [...] #### B 12, LIPID, URMACRERAT, CMP #### [facility] [address] [place] [address] [place] #### CPEP #### [facility] , Cholesterol in LDL Calc [Mas s/Vol]Ordered By: Gurdeep Dubois on 05-10-2024 Cholesterol in LDL [Mass/Vol] 78 mg/dL 0-100 [facility] Comment on above: LDL ATP III CLASSIFI CATIONLDL less than 100 mg/dL OptimalLDL 100-129 mg/dL Near or above optimalLDL 130-159 mg/dL Borderline highLDL 160-189 mg/dL HighLDL greater than 189 mg/dL Very high Cholesterol in VLDL Calc [Ma ss/Vol]Ordered By: Gurdeep Dubois on 05-10-2024 Cholesterol in VLDL [Mass/Vol] 57 mg/dL [facility] Comprehensive Metabolic Pane cecile 05-10-2024 Albumin [Mass/Vol] 4.4 g/dL Normal 3.5-5.7 [facility] Comment on above: Order Comment: Reaso n for Exam Type 2 diabetes mellitus with hyperglycemia, without long-te Performed By: #### B 12, LIPID, URMACRERAT, CMP #### [facility] [address] [place] [address] [place] #### CPEP #### [facility] , GFR/1.73 sq M.predicted MDRD (S/P/Bld) [Vol rate/Area] mL/min/{1.73_m2} Normal [facility] Comment on above: Order Comment: Reaso n for Exam Type 2 diabetes mellitus with hyperglycemia, without long-te Performed By: #### B 12, LIPID, URMACRERAT, CMP #### [facility] [address] [place] [address] [place] #### CPEP #### [facility] , Creatinine [Mass/volume] in Serum or PlasmaOrdered By: Gurdeep Dubois on 05-10-2024 Creatinine [Mass/Vol] 0.67 mg/dL Normal 0.60-1.20 [facility] Comment on above: Order Comment: Reaso n for Exam Type 2 diabetes mellitus with hyperglycemia, without long-te Performed By: #### B 12, LIPID, URMACRERAT, CMP #### [facility] [address] [place] [address] [place] #### CPEP #### [facility] , Creatinine [Mass/volume] in UrineOrdered By: Gurdeep Dubois on 05-10-2024 Creatinine (U) [Mass/Vol] 146.00 mg/dL [facility] Comment on above: No reference range e stablished Diabetes Autoimmune Profileo n 05-10-2024 Anti-Dawit-65 Antibodies <5.0 Normal . Th e [facility] Comment on above: Result Comment: Refe rence Range: <5.0 Negative > or = 5.0 Positive Performed By: #### B 12, LIPID, URMACRERAT, CMP #### [place] [address] [place] #### CPEP #### [facility] , IA2 Autoantibodies <7.5 Normal . The [facility] Comment on above: Result Comment: Refe rence Range: <7.5 Negative > or = 7.5 Positive Performed By: #### B 12, LIPID, URMACRERAT, CMP #### [place] [address] [place] #### CPEP #### [facility] , Insulin Antibodies <5.0 Normal . The [facility]ending [facility] Comment on above: Result Comment: This test is also known as insulin autoantibody or IAA. This test was developed and its performance characteristics determined by [facility]. It has not been cleared or approved by the Food and Drug Administration. Reference Range: <5.0 Negative > or = 5.0 Positive Performed By: #### B 12, LIPID, URMACRERAT, CMP #### [place] [address] [place] #### CPEP #### [facility] , Type 1 Diabetes Interpretation Comment Normal . [facility] Comment on above: Result Comment: [...] have positive antibodies.(1) Sary et al. PNAS. 2007;104(43):[id number]. Performed at: [facility] [address] [place] [id number] Head Machine Feeder: Chance Sutherland MD, Phone: [phone] PERFORMED BY: [place] [address] PATHOLOGIST HOUSEKEEPING AND LAUNDRY TEAM LEADER SVETLANA DUMONT M.D. Performed By: #### B 12, LIPID, URMACRERAT, CMP #### [address] #### CPEP #### [facility] , Zinc Transporter 8 Autoabs <15 Normal . [facility] Comment on above: Result Comment: Refe rence Range: All Ages: <15 Negative > or =15 Positive Performed By: #### B 12, LIPID, URMACRERAT, CMP #### [place] [address] [place] #### CPEP #### [facility] , Glucose [Mass/volume] in Ser um or PlasmaOrdered By: Gurdeep Dubois on 05-10-2024 Glucose [Mass/Vol] 140 mg/dL High 70-100 [facility] Comment on above: ADA recommended refe rence rangeRandom Glucose Reference Range is dependent on time and content of last meal. Glucose of more than 200 mg/dL in a nonstressed, ambulatory subject supports the diagnosis of Diabetes Mellitus. Order Comment: Reaso n for Exam Type 2 diabetes mellitus with hyperglycemia, without long-te Result Comment: [facility] Glucose Reference Range is dependent on time and content of last meal. Glucose of more than 200 mg/dL in a nonstressed, ambulatory subject supports the diagnosis of Diabetes Mellitus. ADA recommended reference range Performed By: #### B 12, LIPID, URMACRERAT, CMP #### [place] [address] [place] #### CPEP #### [facility] , Lipid Panelon 05-10-2024 LDL Cholesterol,Calculated 78 mg/dL Normal 0-100 [facility] Comment on above: Order [...] #### B 12, LIPID, URMACRERAT, CMP #### [facility] [address] [place] [address] [place] #### CPEP #### [facility] , Triglyceride w/Reflex 289 mg/dL High 0-149 [facility] Comment on above: Order Comment: [...] #### B 12, LIPID, URMACRERAT, CMP #### [facility] [address] [place] [address] [place] #### CPEP #### [facility] , VLDL CHOLESTEROL 57 mg/dL Normal [facility] Comment on above: Order Comment: Reaso n for Exam Type 2 diabetes mellitus with hyperglycemia, without long-te Performed By: #### B 12, LIPID, URMACRERAT, CMP #### [facility] [address] [place] [address] [place] #### CPEP #### [facility] , MicroAlb Creat Ratio,Uon Creatinine, Urine (Random) 146.00 mg/dL Normal [facility] Comment on above: Result Comment: No r eference range established Performed By: #### B 12, LIPID, URMACRERAT, CMP #### [place] [address] [place] #### CPEP #### [facility] , Microalbumin/Creatinine Ratio 6.2 mg/g Normal 0.0-30.0 [facility] Comment on above: Result Comment: 30-3 00 mg/g indicates an increased risk for diabetic nephropathy. Greater than 300 mg/g is consistent with clinical nephropathy. (Am. J. Kidney Disease 1995, 25:107) PERFORMED BY: [place] [address] PATHOLOGIST HOUSEKEEPING AND LAUNDRY TEAM LEADER SVETLANA DUMONT M.D. Performed By: #### B 12, LIPID, URMACRERAT, CMP #### [facility] [address] [place] [address] [place] #### CPEP #### [facility] , Microalbumin [Mass/volume] i n UrineOrdered By: Gurdeep Dubois on 05-10-2024 Albumin DL <= 20 mg/L (U) [Mass/Vol] 0.9 mg/dL Normal 0.0-1.8 [facility] Comment on above: Performed By: #### B 12, LIPID, URMACRERAT, CMP #### [facility] [address] [place] [address] [place] #### CPEP #### [facility] , No Panel InformationOrdered By: Gurdeep Dubois on 05-10-2024 Estimated GFR (CKD-EPI) > 60.0 mL/Min [facility]acy Creatinine Clearance (Chem N/A [facility] Potassium [Moles/volume] in Serum or PlasmaOrdered By: Gurdeep Dubois on 05-10-2024 Potassium [Moles/Vol] 4.1 mmol/L Normal 3.5-5.1 [facility] Comment on above: Order Comment: Reaso n for Exam Type 2 diabetes mellitus with hyperglycemia, without long-te Performed By: #### B 12, LIPID, URMACRERAT, CMP #### [facility] [address] [place] [address] [place] #### CPEP #### [facility] , Protein [Mass/volume] in Ser um or PlasmaOrdered By: Gurdeep Mapus on 05-10-2024 Protein [Mass/Vol] 6.7 g/dL Normal 6.4-8.9 [facility] Comment on above: Order Comment: Reaso n for Exam Type 2 diabetes mellitus with hyperglycemia, without long-te Performed By: #### B 12, LIPID, URMACRERAT, CMP #### [facility] [address] [place] [address] [place] #### CPEP #### [facility] , Serum globulin measurement b y calculation (mass/volume)Ordered By: Tondra Mapus on 05-10-2024 Globulin (S) [Mass/Vol] 2.3 g/dL Normal [facility] Comment on above: Order Comment: Reaso n for Exam Type 2 diabetes mellitus with hyperglycemia, without long-te Performed By: #### B 12, LIPID, URMACRERAT, CMP #### [place] [address] [place] #### CPEP #### [facility] , Serum or plasma albumin/glob ulin mass ratioOrdered By: Tondra Mapus on 05-10-2024 Albumin/Globulin [Mass ratio] 1.9 {ratio} Normal [facility] Comment on above: Order Comment: Reaso n for Exam Type 2 diabetes mellitus with hyperglycemia, without long-te Performed By: #### B 12, LIPID, URMACRERAT, CMP #### [facility] [address] [place] [address] [place] #### CPEP #### [facility] , Serum or plasma anion gap de terminationOrdered By: Tondra Mapus on 05-10-2024 Anion gap [Moles/Vol] 10.0 mmol/L Normal 6.0-15.0 [facility] Comment on above: Order Comment: Reaso n for Exam Type 2 diabetes mellitus with hyperglycemia, without long-te Performed By: #### B 12, LIPID, URMACRERAT, CMP #### [place] [address] [place] #### CPEP #### [facility] , Serum or plasma high density lipoprotein (HDL) cholesterol measurementOrdered By: Gurdeep Dubois on 05-10-2024 Cholesterol in HDL [Mass/Vol] 50 mg/dL Normal [facility] Comment on above: HDL CHOL ATP-III CLA [...] #### B 12, LIPID, URMACRERAT, CMP #### [facility] [address] [place] [address] #### CPEP #### [facility] , Serum or plasma total choles terol/high density lipoprotein (HDL) cholesterol mass ratOrdered By: Gurdeep Dubois on 05-10-2024 Cholesterol.total/Serene sterol in HDL [Mass ratio] 3.7 {ratio} Normal <5.0 [facility] Comment on above: Order Comment: Reaso n for Exam Type 2 diabetes mellitus with hyperglycemia, without long-te Result Comment: PERF ORMED BY: [place] [address] PATHOLOGIST [employer] AND [employer] LE[employer] SVETLANA DUMONT M.D. Performed By: #### B 12, LIPID, URMACRERAT, CMP #### [facility] [address] [place] [address] #### CPEP #### [facility] , Sodium [Moles/volume] in Ser um or PlasmaOrdered By: Gurdeep Dubois on 05-10-2024 Sodium [Moles/Vol] 139 mmol/L Normal 136-145 [facility] Comment on above: Order Comment: Reaso n for Exam Type 2 diabetes mellitus with hyperglycemia, without long-te Performed By: #### B 12, LIPID, URMACRERAT, CMP #### [facility] [address] [place] [address] [place] #### CPEP #### [facility] , Triglyceride [Mass/volume] i n Serum or PlasmaOrdered By: Gurdeep Dubois on 05-10-2024 Triglyceride [Mass/Vol] 289 mg/dL High 0-149 [facility] Comment on above: TRIG ATP III CLASSIF ICATIONTRIG less than 150 mg/dL NormalTRIG 150-199 mg/dL Borderline highTRIG 200-500 mg/dL High TRIG greater than 500 mg/dL Very highStandard traceable to the Center for Disease Conrtrol and Prevention (CDC) test method. Urea nitrogen [Mass/volume] in Serum or PlasmaOrdered By: Gurdeep Dubois on 05-10-2024 Urea nitrogen [Mass/Vol] 14 mg/dL Normal 7-25 [facility] Comment on above: Order Comment: Reaso n for Exam Type 2 diabetes mellitus with hyperglycemia, without long-te Performed By: #### B 12, LIPID, URMACRERAT, CMP #### [facility] [address] #### CPEP #### [facility] , Urine microalbumin/creatinin e mass ratioOrdered By: Gurdeep Dubois on 05-10-2024 Albumin/Creatinine DL <= 20 mg/L (U) [Mass ratio] 6.2 mg/g 0.0-30.0 [facility] Comment on above: 30-300 mg/g indicate s an increased risk for diabetic nephropathy. Greater than 300 mg/g is consistent with clinical nephropathy. (Am. J. Kidney Disease 1994, 25:107) Basophils Auto (Bld) [#/Vol] on 04-02-2024 Basophils (Bld) [#/Vol] 0.1 10 3/uL 0.0-0.1 [facility] Basophils/100 WBC Auto (Bld) on 04-02-2024 Basophils/100 WBC (Bld) 0.6 % 0.2-2.0 [facility] Eosinophils/100 WBC Auto (Bl d)on 04-02-2024 Eosinophils/100 WBC (Bld) 1.3 % 0.9-7.0 [facility] Erythrocyte distribution wid th Auto (RBC) [Ratio]on 04-02-2024 Erythrocyte distribution width (RBC) [Ratio] 12.7 % 11.0-15.0 [facility] Estimated glomerular filtrat ion rate (GFR) non- Americanon 04-02-2024 GFR/1.73 sq M.predicted among non-blacks MDRD (S/P/Bld) [Vol rate/Area] mL/min/{1.73_m2} >=60 [facility] Fibrin D-dimer [Presence] in Platelet poor plasma by Latex agglutinationon 04-02-2024 Fibrin D-dimer LA Ql (PPP) 0.32 mg/L FEU <=0.59 [facility] Comment on above: Increases in D-Dimer concentration [...] [Volume fraction] 42.5 % 36.0-48.0 [facility] Hemoglobin [Mass/volume] in Bloodon 04-02-2024 Hemoglobin (Bld) [Mass/Vol] 13.7 g/dL 12.0-16.0 [facility] Laboratory - Chemistry and C hemistry - challengeon 04-02-2024 Calcium [Mass/Vol] 9.0 mg/dL 8.5-10.1 [facility] Chloride [Moles/Vol] 104 mmol/L 98-107 [facility] CO2 [Moles/Vol] 25.0 mmol/L 21.0-32.0 [facility] Creatinine [Mass/Vol] 0.80 mg/dL 0.55-1.02 [facility] GFR/1.73 sq M.predicted MDRD (S/P/Bld) [Vol rate/Area] mL/min/{1.73_m2} >=60 [facility] Glucose [Mass/Vol] 236 mg/dL High 74-106 [facility] Potassium [Moles/Vol] 3.7 mmol/L 3.5-5.1 [facility] Sodium [Moles/Vol] 139 mmol/L 136-145 [facility] Urea nitrogen [Mass/Vol] 18.0 mg/dL 7.0-18.0 [facility] Urea nitrogen/Creatinine [Mass ratio] 22.5 mg/mg [facility] Laboratory - Hematology and Cell countson 04-02-2024 Immature granulocytes/100 WBC (Bld) 0.4 % 0.0-0.5 [facility] Leukocytes [#/volume] correc tiffany for nucleated erythrocytes in Blood by Automated counon 04-02-2024 WBC corrected for nucl RBC Auto (Bld) [#/Vol] 8.5 10 3/uL 4.0-11.0 [facility] Lymphocytes Auto (Bld) [#/Vo l]on 04-02-2024 Lymphocytes (Bld) [#/Vol] 3.2 10 3/uL 1.2-3.8 [facility] Lymphocytes/100 WBC Auto (Bl d)on 04-02-2024 Lymphocytes/100 WBC (Bld) 37.8 % 20.5-60.0 [facility] MCH Auto (RBC) [Entitic mass ]on 04-02-2024 MCH (RBC) [Entitic mass] 29.4 pg 26.7-34.0 [facility] MCHC Auto (RBC) [Mass/Vol]on 04-02-2024 MCHC (RBC) [Mass/Vol] 32.2 g/dL 29.9-35.2 [facility] MCV Auto (RBC) [Entitic vol] on 04-02-2024 MCV (RBC) [Entitic vol] 91.2 fL 81.0-99.0 [facility] Monocytes Auto (Bld) [#/Vol] on 04-02-2024 Monocytes (Bld) [#/Vol] 0.7 10 3/uL 0.3-0.8 [facility] Monocytes/100 WBC Auto (Bld) on 04-02-2024 Monocytes/100 WBC (Bld) 8.3 % 1.7-12.0 [facility] Neutrophils Auto (Bld) [#/Vo l]on 04-02-2024 Neutrophils (Bld) [#/Vol] 4.4 10 3/uL 1.4-6.5 [facility] Neutrophils/100 WBC Auto (Bl d)on 04-02-2024 Neutrophils/100 WBC (Bld) 51.6 % 43.0-75.0 [facility] No Panel Informationon 04-02 Eosinophils # (Auto) 0.1 10 3/uL 0.0-0.7 [facility] Immature Granulocyte # (Auto) 0.03 10 3/uL 0.00-0.03 [facility] Troponin I High Sensitivity <4.0 pg/mL Low 4.0-51.3 [facility] Comment on above: CUT-OFF POINTS HAVE BEEN [...] [Entitic vol] 11.0 fL 9.5-13.5 [facility] Platelets Auto (Bld) [#/Vol] on 04-02-2024 Platelets (Bld) [#/Vol] 305 10 3/uL 150-450 [facility] RBC Auto (Bld) [#/Vol]on RBC (Bld) [#/Vol] 4.66 10 6/uL 4.20-5.40 [facility] Serum or plasma anion gap de terminationon 04-02-2024 Anion gap [Moles/Vol] 13.7 mmol/L [facility] HbA1c HPLC (Bld) [Mass fract ion]on 03-18-2024 HbA1c (Bld) [Mass fraction] 8.2 % [facility] No Panel Informationon 03-18 Bedside Glucose 174 [facility] Alanine aminotransferase [En zymatic activity/volume] in Serum or PlasmaOrdered By: Tondra Didierus on 12-25-2023 ALT [Catalytic activity/Vol] 16 U/L Normal 7-52 [facility] Comment on above: Performed By: #### B 12, CMP, LIPID #### [facility] [address] [place] [address] [place] Albumin [Mass/volume] in Ser um or Plasma by Bromocresol green (BCG) dye binding methoOrdered By: Sheldondra Didierus on 12-25-2023 Albumin BCG dye [Mass/Vol] 4.4 g/dL 3.5-5.7 [facility] Alkaline phosphatase [Enzyma tic activity/volume] in Serum or PlasmaOrdered By: Anjalia Mapus on 12-25-2023 ALP [Catalytic activity/Vol] 79 U/L Normal 34-104 [facility] Comment on above: Performed By: #### B 12, CMP, LIPID #### [facility] [address] [place] [address] [place] Aspartate aminotransferase [ Enzymatic activity/volume] in Serum or PlasmaOrdered By: Tondra Mapus on 12-25-2023 AST [Catalytic activity/Vol] 13 U/L Normal 13-39 [facility] Comment on above: Performed By: #### B 12, CMP, LIPID #### [facility] [address] [place] [address] [place] Bilirubin.total [Mass/volume ] in Serum or PlasmaOrdered By: Tondra Mapus on 12-25-2023 Bilirubin [Mass/Vol] 0.3 mg/dL Normal 0.3-1.0 [facility] Comment on above: Performed By: #### B 12, CMP, LIPID #### [facility] [address] [place] [address] [place] Calcium [Mass/volume] in Ser um or PlasmaOrdered By: Tondra Mapus on 12-25-2023 Calcium [Mass/Vol] 9.8 mg/dL Normal 8.6-10.3 [facility] Comment on above: Performed By: #### B 12, CMP, LIPID #### [facility] [address] [place] [address] [place] Carbon dioxide, total [Moles /volume] in Serum or PlasmaOrdered By: Gurdeep Dubois on 12-25-2023 CO2 [Moles/Vol] 27.6 mmol/L Normal 21.0-31.0 [facility] Comment on above: Performed By: #### B 12, CMP, LIPID #### [facility] [address] [place] [address] [place] Chloride [Moles/volume] in S loy or PlasmaOrdered By: Gurdeep Dubois on 12-25-2023 Chloride [Moles/Vol] 109 mmol/L High 98-107 [facility] Comment on above: Performed By: #### B 12, CMP, LIPID #### [facility] [address] [place] [address] [place] Cholesterol [Mass/volume] in Serum or PlasmaOrdered By: Gurdeep Dubois on 12-25-2023 Cholesterol [Mass/Vol] 154 mg/dL Normal 140-200 [facility] Comment on above: Chol less than 200 m g/dl low riskChol 201-239 mg/dl borderline riskChol 240 mg/dl and greater high risk Result Comment: Chol less than 200 mg/dl low risk Chol 201-239 mg/dl borderline risk Chol 240 mg/dl and greater high risk Performed By: #### B 12, CMP, LIPID #### [facility] [address] [place] [address] [place] Cholesterol in LDL Calc [Mas s/Vol]Ordered By: Gurdeep Dubois on 12-25-2023 Cholesterol in LDL [Mass/Vol] 79 mg/dL 0-100 [facility] Comment on above: LDL ATP III CLASSIFI CATIONLDL less than 100 mg/dL OptimalLDL 100-129 mg/dL Near or above optimalLDL 130-159 mg/dL Borderline highLDL 160-189 mg/dL HighLDL greater than 189 mg/dL Very high Cholesterol in VLDL Calc [Ma ss/Vol]Ordered By: Gurdeep Dubois on 12-25-2023 Cholesterol in VLDL [Mass/Vol] 28 mg/dL [facility] Comprehensive Metabolic Pane cecile 12-25-2023 Albumin [Mass/Vol] 4.4 g/dL Normal 3.5-5.7 [facility] Comment on above: Performed By: #### B 12, CMP, LIPID #### [facility] [address] GFR/1.73 sq M.predicted MDRD (S/P/Bld) [Vol rate/Area] mL/min/{1.73_m2} Normal [facility] Comment on above: Performed By: #### B 12, CMP, LIPID #### [facility] [address] Creatinine [Mass/volume] in Serum or PlasmaOrdered By: Gurdeep Dubois on 12-25-2023 Creatinine [Mass/Vol] 0.67 mg/dL Normal 0.60-1.20 [facility] Comment on above: Performed By: #### B 12, CMP, LIPID #### [facility] [address] Creatinine [Mass/volume] in UrineOrdered By: Gurdeep Dubois on 12-25-2023 Creatinine (U) [Mass/Vol] 85.0 mg/dL [facility] Comment on above: No reference range e stablished Glucose [Mass/volume] in Ser um or PlasmaOrdered By: Gurdeep Dubois on 12-25-2023 Glucose [Mass/Vol] 220 mg/dL High 70-100 [facility] Comment on above: ADA recommended refe rence rangeRandom Glucose Reference Range is dependent on time and content of last meal. Glucose of more than 200 mg/dL in a nonstressed, ambulatory subject supports the diagnosis of Diabetes Mellitus. Result Comment: Zalma om Glucose Reference Range is dependent on time and content of last meal. Glucose of more than 200 mg/dL in a nonstressed, ambulatory subject supports the diagnosis of Diabetes Mellitus. ADA recommended reference range Performed By: #### B 12, CMP, LIPID #### [facility] [address] Lipid Panelon 12-25-2023 LDL Cholesterol,Calculated 79 mg/dL Normal 0-100 [facility] Comment on above: Result Comment: LDL ATP III CLASSIFICATION LDL less than 100 mg/dL Optimal LDL 100-129 mg/dL Near or above optimal LDL 130-159 mg/dL Borderline high LDL 160-189 mg/dL High LDL greater than 189 mg/dL Very high Performed By: #### B 12, CMP, LIPID #### [address] Triglyceride w/Reflex 142 mg/dL Normal 0-149 [facility] Comment on above: Result Comment: TRIG ATP III CLASSIFICATION TRIG less than 150 mg/dL Normal TRIG 150-199 mg/dL Borderline high TRIG 200-500 mg/dL High TRIG greater than 500 mg/dL Very high Standard traceable to the Center for Disease Conrtrol and Prevention (CDC) test method. Performed By: #### B 12, CMP, LIPID #### [address] VLDL CHOLESTEROL 28 mg/dL Normal [facility] Comment on above: Performed By: #### B 12, CMP, LIPID #### [place] [address] [place] MicroAlb Creat Ratio,Uon Creatinine, Urine (Random) 85.0 mg/dL Normal [facility] Comment on above: Result Comment: No r eference range established Performed By: #### U RMACRERAT #### [address] Microalbumin/Creatinine Ratio 11.0 mg/g Normal 0.0-30.0 [facility] Comment on above: Result Comment: 30-3 00 mg/g indicates an increased risk for diabetic nephropathy. Greater than 300 mg/g is consistent with clinical nephropathy. (Am. J. Kidney Disease 1995, 25:107) PERFORMED BY: [place] [address] PATHOLOGIST [employer] AND [employer] LEAD[employer] SVETLANA DUMONT M.D. Performed By: #### U RMACRERAT #### [address] Microalbumin [Mass/volume] i n UrineOrdered By: Tondra Didierus on 12-25-2023 Albumin DL <= 20 mg/L (U) [Mass/Vol] 1.0 mg/dL Normal 0.0-1.8 [facility] Comment on above: Performed By: #### U RMACRERAT #### [facility] [address] [place] [address] No Panel InformationOrdered By: Tondra Mapus on 12-25-2023 Estimated GFR (CKD-EPI) > 60.0 mL/Min [facility]acy Creatinine Clearance (Chem N/A [facility] Potassium [Moles/volume] in Serum or PlasmaOrdered By: Tondra Mapus on 12-25-2023 Potassium [Moles/Vol] 4.5 mmol/L Normal 3.5-5.1 [facility] Comment on above: Performed By: #### B 12, CMP, LIPID #### [address] Protein [Mass/volume] in Ser um or PlasmaOrdered By: Tondra Mapus on 12-25-2023 Protein [Mass/Vol] 6.7 g/dL Normal 6.4-8.9 [facility] Comment on above: Performed By: #### B 12, CMP, LIPID #### [address] Serum globulin measurement b y calculation (mass/volume)Ordered By: Tondra Mapus on 12-25-2023 Globulin (S) [Mass/Vol] 2.3 g/dL Normal [facility] Comment on above: Performed By: #### B 12, CMP, LIPID #### [facility] [address] [place] [address] Serum or plasma albumin/glob ulin mass ratioOrdered By: Tondra Mapus on 12-25-2023 Albumin/Globulin [Mass ratio] 1.9 {ratio} Normal [facility] Comment on above: Performed By: #### B 12, CMP, LIPID #### [place] [address] [place] Serum or plasma anion gap de terminationOrdered By: Anjalia Sherly on 12-25-2023 Anion gap [Moles/Vol] 6.9 mmol/L Normal 6.0-15.0 [facility] Comment on above: Performed By: #### B 12, CMP, LIPID #### [facility] [address] Serum or plasma high density lipoprotein (HDL) cholesterol measurementOrdered By: Gurdeep Dubois on 12-25-2023 Cholesterol in HDL [Mass/Vol] 47 mg/dL Normal 23-92 [facility] Comment on above: HDL CHOL ATP-III CLA SSIFICATION Cardiovascular RiskHDL > or equal to 60 mg/dL LOWHDL < 40 mg/dL HIGH Result Comment: HDL CHOL ATP-III CLASSIFICATION Cardiovascular Risk HDL > or equal to 60 mg/dL LOW HDL < 40 mg/dL HIGH Performed By: #### B 12, CMP, LIPID #### [facility] [address] Serum or plasma total choles terol/high density lipoprotein (HDL) cholesterol mass ratOrdered By: Anjalia Sherly on 12-25-2023 Cholesterol.total/Serene sterol in HDL [Mass ratio] 3.3 {ratio} Normal <5.0 [facility] Comment on above: Performed By: #### B 12, CMP, LIPID #### [facility] [address] Sodium [Moles/volume] in Ser um or PlasmaOrdered By: Tona Sherly on 12-25-2023 Sodium [Moles/Vol] 139 mmol/L Normal 136-145 [facility] Comment on above: Performed By: #### B 12, CMP, LIPID #### [facility] [address] Triglyceride [Mass/volume] i n Serum or PlasmaOrdered By: Tondra Sherly on 12-25-2023 Triglyceride [Mass/Vol] 142 mg/dL 0-149 [facility] Comment on above: TRIG ATP III CLASSIF ICATIONTRIG less than 150 mg/dL NormalTRIG 150-199 mg/dL Borderline highTRIG 200-500 mg/dL High TRIG greater than 500 mg/dL Very highStandard traceable to the Center for Disease Conrtrol and Prevention (CDC) test method. Urea nitrogen [Mass/volume] in Serum or PlasmaOrdered By: Gurdeep Dubois on 12-25-2023 Urea nitrogen [Mass/Vol] 18 mg/dL Normal 7-25 [facility] Comment on above: Performed By: #### B 12, CMP, LIPID #### [facility] [address] [place] [id number] [facility] Urine microalbumin/creatinin e mass ratioOrdered By: Gurdeep Dubois on 12-25-2023 Albumin/Creatinine DL <= 20 mg/L (U) [Mass ratio] 11.0 mg/g 0.0-30.0 [facility] Comment on above: 30-300 mg/g indicate s an increased risk for diabetic nephropathy. Greater than 300 mg/g is consistent with clinical nephropathy. (Am. J. Kidney Disease 1995, 25:107) Vitamin B12 ser/plasOrdered By: Gurdeep Dubois on 12-25-2023 Cobalamin (Vitamin B12) [Mass/Vol] 617 pg/mL Normal 180-914 [facility] Comment on above: Result Comment: PERF ORMED BY: [place] [address] PATHOLOGIST [employer] LEAD[employer] SVETLANA DUMONT M.D. Performed By: #### B 12, CMP, LIPID #### [facility] [address] [place], [place] [id number] [facility] HbA1c HPLC (Bld) [Mass fract ion]on 12-11-2023 HbA1c (Bld) [Mass fraction] 8.8 % [facility] No Panel Informationon 12-10 Bedside Glucose 220 [facility] XR lumbar spine AP/LAT/FLX/E XTon 06-26-2023 XR lumbar spine AP/LAT/FLX/EXT [facility] [place] [address] [place] [id number] XRay Report Signed Patient: Farhana Landers MR#: [id number] : 1965 Acct:[id number] Age/Sex: 57 / F ADM Date: 06/26/23 Loc: SOXD Room: Type: [facility] Attending Dr: Emil Cooper MD Copies [...] Roman Sultana M.D.06/26/2023 2:54 PM Dictation Location: [place] [address] Transcribed By: [facility] 06/26/23 1454 Dictated By: Roman Sultana DO 06/26/23 1452 Signed By: 06/26/23 1454 Normal [facility] A1C HEMOGLOBINon 06-02-2023 HbA1c (Bld) [Mass fraction] 7.7 % [place] [facility] [place] Other Albumin [Mass/volume] in Ser um or Plasma by Bromocresol green (BCG) dye binding methoOrdered By: Gurdeep Dubois on 06-02-2023 Albumin BCG dye [Mass/Vol] 4.5 g/dL 3.5-5.7 [facility] Bilirubin.total [Mass/volume ] in Serum or PlasmaOrdered By: Gurdeep Dubois on 06-02-2023 Bilirubin [Mass/Vol] 0.5 mg/dL Normal 0.3-1.0 [facility] Comment on above: Order Comment: PT FA STED 12 HOURS Reason for Exam Type 2 diabetes mellitus with hyperglycemia, without long-te Performed By: #### B 12, LIPID, URMACRERAT, CMP #### [facility] [address] [place] [address] #### CPEP #### [facility] , C-PeptideOrdered By: Tondra Mapus on 06-02-2023 C-Peptide 3.8 ng/mL Normal 1.1-4.4 [facility] Comment on above: C-Peptide reference interval is for fasting patients.Performed at: [address] [id number] Director: Jacques Llanos PhD, Phone: [phone] Order Comment: Reaso n for Exam Type 2 diabetes mellitus with hyperglycemia, without long-te Result Comment: C-Pe ptide reference interval is for fasting patients. Performed at: [address] [id number] [employer]: Jacques Llanos PhD, Phone: [phone] PERFORMED BY: [place] [address] PATHOLOGIST [employer]KEEPING AND [employer] TEAM LEADER SVETLANA DUMONT M.D. Performed By: #### B 12, LIPID, URMACRERAT, CMP #### [facility] [address] [place] [address] #### CPEP #### [facility] , Calcium [Mass/volume] in Ser um or PlasmaOrdered By: Tondra Mapus on 06-02-2023 Calcium [Mass/Vol] 10.1 mg/dL Normal 8.6-10.3 [facility] Comment on above: Order Comment: PT FA STED 12 HOURS Reason for Exam Type 2 diabetes mellitus with hyperglycemia, without long-te Performed By: #### B 12, LIPID, URMACRERAT, CMP #### [facility] [address] [place] [address] [place] #### CPEP #### [facility] , Carbon dioxide, total [Moles /volume] in Serum or PlasmaOrdered By: Tondra Mapus on 06-02-2023 CO2 [Moles/Vol] 26.2 mmol/L Normal 21.0-31.0 [facility] Comment on above: Order Comment: PT FA STED 12 HOURS Reason for Exam Type 2 diabetes mellitus with hyperglycemia, without long-te Performed By: #### B 12, LIPID, URMACRERAT, CMP #### [address] #### CPEP #### [facility] , Cholesterol in LDL Calc [Mas s/Vol]Ordered By: Gurdeep Dubois on 06-02-2023 Cholesterol in LDL [Mass/Vol] 73 mg/dL 0-100 [facility] Comment on above: LDL ATP III CLASSIFI CATIONLDL less than 100 mg/dL OptimalLDL 100-129 mg/dL Near or above optimalLDL 130-159 mg/dL Borderline highLDL 160-189 mg/dL HighLDL greater than 189 mg/dL Very high Cholesterol in VLDL Calc [Ma ss/Vol]Ordered By: Gurdeep Dubois on 06-02-2023 Cholesterol in VLDL [Mass/Vol] 52 mg/dL [facility] Comprehensive Metabolic Pane cecile 06-02-2023 Albumin [Mass/Vol] 4.574251 g/dL Normal 3.5-5.7 g/dL [facility] Other Bilirubin [Mass/Vol] 0.5682086 mg/dL Normal 0.3- 1.0 mg/dL [facility] Other Calcium [Mass/Vol] 10.0800412 mg/dL Normal 8.6-1 0.3 mg/dL [facility] Other CO2 [Moles/Vol] 26.87390253 mmol/L Normal 21.0-3 1.0 mmol/L [facility] Other Creatinine [Mass/Vol] 0.93272679 mg/dL Normal 0. 60-1.20 mg/dL [facility] Other Potassium [Moles/Vol] 4.85108669 mmol/L Normal 3 .5-5.1 mmol/L [facility] Other Protein [Mass/Vol] 6.755128 g/dL Normal 6.4-8.9 g/dL [facility] Other Comprehensive Metabolic Panel 2.4 g/dL [facility] Other Albumin [Mass/Vol] 4.5 g/dL Normal 3.5-5.7 The Pending sale to [facility] Comment on above: Order Comment: PT FA STED 12 HOURS Reason for Exam Type 2 diabetes mellitus with hyperglycemia, without long-te Performed By: #### B 12, LIPID, URMACRERAT, CMP #### [facility] [address] [place] [address] [place] #### CPEP #### [facility] , GFR/1.73 sq M.predicted MDRD (S/P/Bld) [Vol rate/Area] mL/min/{1.73_m2} Normal [facility] Other Comment on above: Order Comment: PT FA STED 12 HOURS Reason for Exam Type 2 diabetes mellitus with hyperglycemia, without long-te Performed By: #### B 12, LIPID, URMACRERAT, CMP #### [facility] [address] [place] [address] [place] #### CPEP #### [facility] , Comprehensive Metabolic Pane lOrdered By: Gurdeep Dubois on 06-02-2023 Albumin/Globulin [Mass ratio] 1.9 {ratio} Normal [facility] Comment on above: Order Comment: PT FA STED 12 HOURS Reason for Exam Type 2 diabetes mellitus with hyperglycemia, without long-te Performed By: #### B 12, LIPID, URMACRERAT, CMP #### [facility] [address] [place] [address] [place] #### CPEP #### [facility] , ALP [Catalytic activity/Vol] 90 U/L Normal 34-104 [facility] Comment on above: Order Comment: PT FA STED 12 HOURS Reason for Exam Type 2 diabetes mellitus with hyperglycemia, without long-te Performed By: #### B 12, LIPID, URMACRERAT, CMP #### [facility] [address] [place] [address] [place] #### CPEP #### [facility] , ALT [Catalytic activity/Vol] 16 U/L Normal 7-52 [facility] Comment on above: Order Comment: PT FA STED 12 HOURS Reason for Exam Type 2 diabetes mellitus with hyperglycemia, without long-te Performed By: #### B 12, LIPID, URMACRERAT, CMP #### [facility] [address] [place] [address] [place] #### CPEP #### [facility] , AST [Catalytic activity/Vol] 12 U/L Low 13-39 [facility] Comment on above: Order Comment: PT FA STED 12 HOURS Reason for Exam Type 2 diabetes mellitus with hyperglycemia, without long-te Performed By: #### B 12, LIPID, URMACRERAT, CMP #### [facility] [address] [place] [address] #### CPEP #### [facility] , Chloride [Moles/Vol] 104 mmol/L Normal 98-107 [facility] Comment on above: Order Comment: PT FA STED 12 HOURS Reason for Exam Type 2 diabetes mellitus with hyperglycemia, without long-te Performed By: #### B 12, LIPID, URMACRERAT, CMP #### [facility] [address] [place] [address] [place] #### CPEP #### [facility] , Glucose [Mass/Vol] 195 mg/dL High 70-100 [facility] Comment on above: ADA recommended refe rence rangeRandom Glucose Reference Range is dependent on time and content of last meal. Glucose of more than 200 mg/dL in a nonstressed, ambulatory subject supports the diagnosis of Diabetes Mellitus. Order Comment: PT FA STED 12 HOURS Reason for Exam Type 2 diabetes mellitus with hyperglycemia, without long-te Result Comment: [facility]al[facility] om Glucose Reference Range is dependent on time and content of last meal. Glucose of more than 200 mg/dL in a nonstressed, ambulatory subject supports the diagnosis of Diabetes Mellitus. ADA recommended reference range Performed By: #### B 12, LIPID, URMACRERAT, CMP #### [facility] [address] [place] [address] [place] #### CPEP #### [facility] , Sodium [Moles/Vol] 139 mmol/L Normal 136-145 [facility] Comment on above: Order Comment: PT FA STED 12 HOURS Reason for Exam Type 2 diabetes mellitus with hyperglycemia, without long-te Performed By: #### B 12, LIPID, URMACRERAT, CMP #### [facility] [address] [place] [address] #### CPEP #### [facility] , Urea nitrogen [Mass/Vol] 14 mg/dL Normal 7-25 [facility] Comment on above: Order Comment: PT FA STED 12 HOURS Reason for Exam Type 2 diabetes mellitus with hyperglycemia, without long-te Performed By: #### B 12, LIPID, URMACRERAT, CMP #### [facility] [address] [place] [address] #### CPEP #### [facility] , Creatinine [Mass/volume] in Serum or PlasmaOrdered By: Gurdeep Dubois on 06-02-2023 Creatinine [Mass/Vol] 0.71 mg/dL Normal 0.60-1.20 [facility] Comment on above: Order Comment: PT FA STED 12 HOURS Reason for Exam Type 2 diabetes mellitus with hyperglycemia, without long-te Performed By: #### B 12, LIPID, URMACRERAT, CMP #### [facility] [address] [place] [address] [place] #### CPEP #### [facility] , Creatinine [Mass/volume] in UrineOrdered By: Gurdeep Dubois on 06-02-2023 Creatinine (U) [Mass/Vol] 91.0 mg/dL 11.0-20.0 [facility] Glucose - FINGER STICKon Glucose [Mass/Vol] 240 mg/dL [facility] Other HbA1c (Bld) [Mass fraction]o n 06-02-2023 A1C HEMOGLOBIN [facility] Other Lipid Panelon 06-02-2023 Cholesterol in LDL Elph Qn 73 mg/dL Normal 0-100 mg/dL [facility] Other Lipid Panel 260 mg/dL High 0-149 mg/dL [facility] Other Lipid Panel 52 mg/dL [facility] Other LDL Cholesterol,Calculated 73 mg/dL Normal 0-100 [facility] Comment on above: Order [...] #### B 12, LIPID, URMACRERAT, CMP #### [facility] [address] [place] [address] [place] #### CPEP #### [facility] , Triglyceride w/Reflex 260 mg/dL High 0-149 [facility] Comment on above: Order Comment: [...] #### B 12, LIPID, URMACRERAT, CMP #### [facility] [address] [place] [address] [place] #### CPEP #### [facility] , VLDL CHOLESTEROL 52 mg/dL Normal [facility] Comment on above: Order Comment: PT FA STED 12 HOURS Reason for Exam Type 2 diabetes mellitus with hyperglycemia, without long-te Performed By: #### B 12, LIPID, URMACRERAT, CMP #### [facility] [address] [place] [address] [place] #### CPEP #### [facility] , Lipid PanelOrdered By: Anjali Dubois on 06-02-2023 Cholesterol [Mass/Vol] 178 mg/dL Normal 140-200 [facility] Comment on above: Chol less than [...] #### B 12, LIPID, URMACRERAT, CMP #### [facility] [address] [place] [address] #### CPEP #### [facility] , Cholesterol in HDL [Mass/Vol] 53 mg/dL Normal 23-92 [facility] Comment on above: HDL CHOL ATP-III CLA [...] #### B 12, LIPID, URMACRERAT, CMP #### [facility] [address] [place] [address] [place] #### CPEP #### [facility] , Cholesterol.total/Serene sterol in HDL [Mass ratio] 3.4 {ratio} Normal <5.0 [facility] Comment on above: Order Comment: PT FA STED 12 HOURS Reason for Exam Type 2 diabetes mellitus with hyperglycemia, without long-te Performed By: #### B 12, LIPID, URMACRERAT, CMP #### [facility] [address] [place] [address] [place] #### CPEP #### [facility] , MicroAlb Creat Ratio,Uon Albumin DL <= 20 mg/L (U) [Mass/Vol] 1.9123363 mg/dL Normal 0.0-1.8 mg/dL [facility] Other Albumin/Creatinine DL <= 20 mg/L (U) [Mass ratio] 15.547702 mg/g Normal 0.0-30.0 mg/g [facility] Other Creatinine (U) [Mass/Vol] 91.5217627 mg/dL High 11.0-20.0 mg/dL [facility] Other Creatinine, Urine (Random) 91.0 mg/dL High 11.0-20.0 [facility] Comment on above: Order Comment: Reaso n for Exam Type 2 diabetes mellitus with hyperglycemia, without long-te Performed By: #### B 12, LIPID, URMACRERAT, CMP #### [place] [address] [place] #### CPEP #### [facility] , Microalbumin/Creatinine Ratio 15.0 mg/g Normal 0.0-30.0 [facility] Comment on above: Order Comment: Reaso n for Exam Type 2 diabetes mellitus with hyperglycemia, without long-te Result Comment: 30-3 00 mg/g indicates an increased risk for diabetic nephropathy. Greater than 300 mg/g is consistent with clinical nephropathy. (Am. J. Kidney Disease 1994, 25:107) PERFORMED BY: [place] [address] PATHOLOGIST [employer] AND [employer] LE[employer]ER SVETLANA DUMONT M.D. Performed By: #### B 12, LIPID, URMACRERAT, CMP #### [facility] [address] [place] [address] [place] #### CPEP #### [facility] , Microalbumin [Mass/volume] i n UrineOrdered By: Gurdeep Dubois on 06-02-2023 Albumin DL <= 20 mg/L (U) [Mass/Vol] 1.4 mg/dL Normal 0.0-1.8 [facility] Comment on above: Order Comment: Reaso n for Exam Type 2 diabetes mellitus with hyperglycemia, without long-te Performed By: #### B 12, LIPID, URMACRERAT, CMP #### [facility] [address] [place] [address] #### CPEP #### [facility] , No Panel InformationOrdered By: Gurdeep Dubois on 06-02-2023 Estimated GFR (CKD-EPI) > 60.0 mL/Min [facility]acy Creatinine Clearance (Chem N/A [facility] Potassium [Moles/volume] in Serum or PlasmaOrdered By: Gurdeep Dubois on 06-02-2023 Potassium [Moles/Vol] 4.3 mmol/L Normal 3.5-5.1 [facility] Comment on above: Order Comment: PT FA STED 12 HOURS Reason for Exam Type 2 diabetes mellitus with hyperglycemia, without long-te Performed By: #### B 12, LIPID, URMACRERAT, CMP #### [facility] [address] [place] [address] [place] #### CPEP #### [facility] , Protein [Mass/volume] in Ser um or PlasmaOrdered By: Gurdeep Dubois on 06-02-2023 Protein [Mass/Vol] 6.9 g/dL Normal 6.4-8.9 [facility] Comment on above: Order Comment: PT FA STED 12 HOURS Reason for Exam Type 2 diabetes mellitus with hyperglycemia, without long-te Performed By: #### B 12, LIPID, URMACRERAT, CMP #### [facility] [address] [place] [address] [place] #### CPEP #### [facility] , Serum globulin measurement b y calculation (mass/volume)Ordered By: Gurdeep Dubois on 06-02-2023 Globulin (S) [Mass/Vol] 2.4 g/dL Normal [facility] Comment on above: Order Comment: PT FA STED 12 HOURS Reason for Exam Type 2 diabetes mellitus with hyperglycemia, without long-te Performed By: #### B 12, LIPID, URMACRERAT, CMP #### [facility] [address] [place] [address] [place] #### CPEP #### [facility] , Serum or plasma anion gap de terminationOrdered By: Gurdeep Dubois on 06-02-2023 Anion gap [Moles/Vol] 13.1 mmol/L Normal 6.0-15.0 [facility] Comment on above: Order Comment: PT FA STED 12 HOURS Reason for Exam Type 2 diabetes mellitus with hyperglycemia, without long-te Performed By: #### B 12, LIPID, URMACRERAT, CMP #### [facility] [address] #### CPEP #### [facility] , Triglyceride [Mass/volume] i n Serum or PlasmaOrdered By: Gurdeep Dubois on 06-02-2023 Triglyceride [Mass/Vol] 260 mg/dL 0-149 [facility] Comment on above: TRIG ATP III CLASSIF ICATIONTRIG less than 150 mg/dL NormalTRIG 150-199 mg/dL Borderline highTRIG 200-500 mg/dL High TRIG greater than 500 mg/dL Very highStandard traceable to the Center for Disease Conrtrol and Prevention (CDC) test method. Urine microalbumin/creatinin e mass ratioOrdered By: Gurdeep Dubois on 06-02-2023 Albumin/Creatinine DL <= 20 mg/L (U) [Mass ratio] 15.0 mg/g 0.0-30.0 [facility] Comment on above: 30-300 mg/g indicate s an increased risk for diabetic nephropathy. Greater than 300 mg/g is consistent with clinical nephropathy. (Am. J. Kidney Disease 1995, 25:107) Vitamin [id number] By: Anjali Dubois on 06-02-2023 Cobalamin (Vitamin B12) [Mass/Vol] 696 pg/mL Normal 180-914 [facility] Comment on above: Order Comment: PT FA STED 12 HOURS Reason for Exam Type 2 diabetes mellitus with hyperglycemia, without long-te Result Comment: PERF ORMED BY: [facility] [address] [facility] [place] [address] PATHOLOGIST [employer] AND [employer] LEADER SVETLANA DUMONT M.D. Performed By: #### B 12, LIPID, URMACRERAT, CMP #### [place] [address] [place] #### CPEP #### [facility] , Coding Summaryon 04-25-2023 Coding Summary HTMLBase 64 MgnlqocjVZd9xCp+PGhlYW Q+SA5JPPRfU11glSIfbU2b U8ARPTcUBjnhEBHQKTzSEl KuuyVjML6wbLTqAONx IC8+GO6mVGSzFwjroLVmn5 N7nBP6D63nmx0cIKrjqID7 YASwXgMhcuqrt8vnqDr4TV cuNmluOyBt MNIhdW91USD9sH81Eq80hI OrfVIdm2sviFg2LgHiEBFf LAM3gYbpBKqdw6NxTRLgI8 3dvBLjd4N9 JEAqmHyyaBJfLwSykYW2yW 9yODsuzccsk8mcuduxDbt8 ki84zQCep9W5fGS7M7Ilsr N1ICEifEYu SinqcJZXyF3lsougn5dkwd ndGrHkNZGlGOe8TVs0PPEs oQioMfPjNF29CZZ8VGDvqq GoN9AvQXAz nPxuVnS0l3A3Xd1DQ6PSZb adM6MQCJQXKXdsxPF+PC90 xl29Z2XcXefmZkz1UURzML Z6eMB4dP7h WKKzHYwrr3W3sQR0X5Jxbq Ynqb7in7ekZWElJWipR24h kMXvj5H5JTNflKG5YXPniN pfJpQhnV36 Oyc+VKQcgJfsb3VnZyxsu8 bfj9odjNg8LwhxELCxjjJe eNjuFVD0z6GgDc4mCQSieV Y6xTH7aR8z IqGuTnE0VEyoD730JsQfuZ AyUvyzK28iD7VbhXN+PHRy Fna6VYTyiWhlGS4wY1PeBY RpbmctbGVm vFxsCE8hLPKnizvyKMXpaY 9pYLJjD2y0HyKiSsF7FYld A0EyBLPrtrglOe18qY6hXg YgSsY5ZIaw U7MtidN7GYFguQYmPZjiLU E8L35zt0S7CZKdFVSoUTE2 fRS5xQ9twYdwpinaeHWzzO sgdmVydGlj XCnoKOhrW391XEUbmPwwNm NvZGluZyBEYXRlOiAgMDkv MDgvMjAyMzwvdGQ+PHRkIH T0jUhySTJq tYBbCNyaRs7jhGeeiIulKS 6vZMGgkmaiGYIjjX3xXPSv tQBjfQvyCU4oLLZvxuwxt2 29RhNsIFY3 JFHqkKQcB4HikH4qWlOcIS SqKULtJ2MhpNQpLWwpV966 PVaiMiL1NZWbtgEvH1VtQX FsaWduOiB0 b8J7Gl9Jq0EilyxsK2DuzK XsNuHmEpyrKIm8T5XfOpwu dHI+PW55PULcRJ79OGe1CG F9pKwwEGmr XXHaW2FckI9pUmSfTNFuIL RkOyc+PHRhYmxlIHdpZHRo QMwjNJKzLkZcqUdeNS6dWo 9yZGVyLWNv yUrpuHDySkLiq4cqEFMhJS nbVD4gtPtzN2BmcDD3WYPd h0d4Lh44X60dL2XtxCU+PG UewPJ0kBL2 lJ8cZcBaNhL1JTqeR063Av FhtSFsXknrc5cqg2nndTt9 JfO2RSQrniHcwLryTAL5y2 DhFd30D55v IHdpZHRoPSIxNSUiIHZhbG ytqf1uqO2vKk8+PGNvbCB3 pUR5bO9vQfWbYmL3XWfvP1 49InRvcCIv Xcrei9fde3eckXn0WkTwTJ EtxuDvvJqeHEF3x9PyMp86 S3FyiZhlo3QlLlb5ee46vV Yvx3H5nEM2 Z1NkLRHujhvjjWSpzSuwQM 7zHLUuuxcfRRAhwR2wPAWz U3t2KmQtJjU9SCwbD1Hugl M1YPJgkMNg PNXxvATGaC5gcgprp0xyle yrVzZgQDFmJVk5JBm8XIQl fIetAzCmIQK3OsH2YPI2xC WtwN0skAvv eulcyU3tGhm+MYU8mXDaaR GNIZ3xPgeyqWE+PHRkIHN0 hVkwPYlhWGBejF7xEUEsV4 w4YvVxRnI4 SQhsF1FvibH1YWDnsFRxQP PuiBSVlW4mmqvzu6uejjbm LpTeRWFmGLh8PCz1CLXbgA duOiBsZWZ0 PkJ5LFQ9kEShyI2vwPqjua lvpT5fJgb+QmlydGggRGF0 RQu9F1AmBgk8BIWsaYbhJT 0ncGFkZGlu Vz0nuZmoiLoeTW6mRDViwm wlm767MlDnt0ezEARnaNAu IWdcTMD6W43ov1Z0PICsVI WoPNA4wIA6 gR3ybPwxitgnmQWvvFrpit YksTglSDixWTtgN359LAPe mLizOvZkBLw0B9LqHbz8RZ YpmZlqMI6s zCCtRCybKj7rhYsrzWhdUI 2lPFBbrjxda116ZdCoo2go KSZdkAOrYJouMPW8C26dk4 J0ELKzCQRz QQU0tQU4pX6vuVgfxzjpzJ VmdDsgdmVydGljYWwtYWxp D802IGLmfTopJvHoaDz8L8 IrSkt3FSCa mItaXL0jdVLkXQkoTa5zrL bxdXehXH4fXTIcjsbyb200 VxGyc5jaLDPxpVXeLNsdNA R4L77nc2S8 ABLxZZUjRRM5gOZ4eA6izF lnbjogbGVmdDsgdmVydGlj PPagOOkgG595LVKsyHujJw BhdGllbnQg TAsiHFc2O8SjSnvgfDX+PC 96UBLdTI97cMRsqAXbo0ux oLs4YzWwJJYvBEU5hVytGQ kzp1GfWJAd M74cuNKpf6G5WWIsoOrtbI BmMtMlfEM0sC1qVXytblbi n1uvgeghFswrv1tvfn46uP 01B90oYJdb ZHRoPSIzMCUiIHZhbGlnbj 5lvD7qSd7+ZGZmaJI1hAD1 oK0vIOBtWqF7TFprW845Xv RvcCIvPjxj a2wgq0qskWy1VkV1NVAetz TsxEriUVS5e0YzYv90B99t IHdpZHRoPSIyMCUiIHZhbG sjpl8dtL9e Ii8+WMFspWR0cWF2yL7qFy JxAfO6JJdpU204TkKtpBUr QjhsE79cJ5ShdEI+PHRyPj f4BAAazEet MG3pfOFvVOltOq8rXSP5Cg RxRySaFDorQ1BbZECxfrnc pnecoTU5JFOrFQYgeW91Xe 9udDogMTBw mUOVpK8qdyppi7zgrvxhTa JuPGWvIMe4OJc6WSNleUhx NeGdHLJ7TcN8KEM4vOZzlH 1hbGlnbjog aI5hL4OqKRJntdfbSq41xB 4iUoZpRuN4JPerYuq+SkFD J9KALfkuTQ4WWERZUPWHJX JJRTwvdGQ+ SGNfLJQ3dUniYEojFJWaiY 3tCFZqF4y9QdOqZfM8KUxy D8SjHDJvuayxZo71oQ5lGg NtVhQ0SApj D8IvrvS6DHOdyFOrVObyVB U6C57fy8Q3BRMjLMZvLGJ0 xYK2hM3mdHbhzpiapRQnfB sgdmVydGlj QJogCKpoK152USZvwUkgYm PcBzG8ChA8DfR6D9UfEcr9 LZMiuDmzHJ2ueYMxVOtaZq 1yaWdodDog IT2cWVYqilejODAbyC6mIP AznOTifGaxOT8jWYPiainm v666FsWsCTJ6GOPejLBkR6 AmuA6sFpNk SUMeWMGmH9GkgKRkKGjsK3 94YPcmVbH9YSLmriWgJ8Hx LKAemUzhFwY1k2H0Vt79Ns BZZWFyczwv dGQ+RAMwRPJ1wEwrKSbcYW YzeB0wXZCmK6b0CkPhQsZ2 UTljF1OhACYnyuljSj23cB 6lUiLyTeI4 PAekR0IcaqS3ENUhgVJuUB gmPTI9Y89ff4N9UJWxPOJv QKJ2iPO6wD7neKbtvyxptM VmdDsgdmVy mQpaRXuiATgjS220JPWddJ snPkZFTUFMRTwvdGQ+PHRk TCJ4oAypZZycNSAruC1yYM ZxB1w0BmKv BiQ2ATpzD3WtSLVkfjcuFg 88kT8oLpWiYyL8PNzmJ8Xn taA0RXKhlYQmRVlrIXU8T8 9bn3R6ZMHj UNXrAUN9uDL3kV1wpXskpy ogbGVmdDsgdmVydGljYWwt HLtqF839EKGqrSfqJn7BAN 68IO48K4Gx PjwvdGFibGU+PHRhYmxlIH dpZHRoPScxMDAlJyBzdHls KI3vUg4rOSHmROEjuRpjkW VvPqAox7dq NLOiMWsfPW7rbOnhZ7IkhB O3HIAie3r5Jg58L37lA8Da dXA+CWXnlHZ7fXQ9mA6fBh KiLcY4EWgu W946KiBtbMPwYmwws7sxv8 ylsRa8RjLtIAJqfwZlvNkc JTC9g9JfVr61L21qZIlhKM RoPSIyMCUi YXChiWinqv1ngI7xYw7+PG SggMF6xSM5mF2eKxEkOrH4 CYcaX494TgUieUHeFkksC8 3hN5MhaYH+ EOVxUcw8MWUbqIwoIY6urI GzWGljFt0mIDJ8UoLgXpAm IKcmL3LnZEFuvfgybbolbA V2MMIqZGSr wZ14Ox8mrKyhVw3jLTLzFN E2WDRaeNIrT0YciJ3nCoJe ZEGtZNBsP4VdnVEkTXesH8 98QLgwNnL1 NYCnelXqF9ZdTMZiiPeyVq R6v6O8Dr4CwFmflTLaDQ8i VuVrWWb3T1FoYbf6OYHtrI jwNR4tbNJn SUxjLg5xkMqcdQbfBK1qGJ Rlvkrsl250KdUav4zqPWKf zHYdYShvUGK0H69zx7L7NO MwMDAwMDA7 aQV7eQ0uhNbfcczadJJxwM ltqwXnvCeoDCdjFMvaA557 MNHnrGhwRpJRWsa8F3PlFb a4MICveCje MP3hvIYhTIxlFa2rnDzqbM onHO5eBSDtxbmwl174KxIf y0unWRZpqHTrRWeqHNN5Q1 4pv4V4MORd NZJaQZR8qZR3kL5ayNfhgq ogbGVmdDsgdmVydGljYWwt DXgjY431KXRhkGrcAs7IAs x1O9KyTxk3 FTQkyQbiGH6dfPTjDAtrLk 9brFzvoPwcWW5zLOBoxcfd g982AwYmh1xmGPEifOBcLR kuWKC0X25z c4K0STSoZAHhDUW3kHB8xI 1hbGlnbjogbGVmdDsgdmVy fCzxSXhmYMaoJ129SLMspD snPlBheWVy OjwvdGQ+XU79pv57A2GePn xlDzz8HUImEXM7iJV2kZ5u ZFZpUXkzs2D1zUM7F3Bqxy Kbtu3mm7ch YXB (more content not included)... [facility] Provider Orderson 04-24-2023 Provider Orders [id number] [facility] Albumin [Mass/volume] in Ser um or PlasmaOrdered By: Maddi Mcpherson on 10-04-2022 Albumin [Mass/Vol] 4.3 g/dL 3.2-5.5 [facility] Basophils Auto (Bld) [#/Vol] Ordered By: Maddi Mcpherson on 10-04-2022 Basophils (Bld) [#/Vol] 0.0 10*3/uL 0.0-0.2 [facility] Basophils/100 WBC Auto (Bld) Ordered By: Maddi Mcpherson on 10-04-2022 Basophils/100 WBC (Bld) 0.6 % . F [facility] Cholesterol [Mass/volume] in Serum or PlasmaOrdered By: Maddi Mcpherson on 10-04-2022 Cholesterol [Mass/Vol] 183 mg/dL 140-200 [facility] Comment on above: Chol less than 200 m g/dl low riskChol 201-239 mg/dl borderline riskChol 240 mg/dl and greater high risk Cholesterol in LDL Calc [Mas s/Vol]Ordered By: Maddi Mcpherson on 10-04-2022 Cholesterol in LDL [Mass/Vol] 93 mg/dL 0-100 [facility] Comment on above: LDL ATP III CLASSIFI CATIONLDL less than 100 mg/dL OptimalLDL 100-129 mg/dL Near or above optimalLDL 130-159 mg/dL Borderline highLDL 160-189 mg/dL HighLDL greater than 189 mg/dL Very high Cholesterol in VLDL Calc [Ma ss/Vol]Ordered By: Maddi Mcpherson on 10-04-2022 Cholesterol in VLDL [Mass/Vol] 43 mg/dL [facility] Creatinine [Mass/volume] in UrineOrdered By: Maddi Mcpherson on 10-04-2022 Creatinine (U) [Mass/Vol] 107.3 mg/dL [facility] Comment on above: No reference range e stablished Creatinine and Glomerular fi ltration rate.predicted panel (S/P/Bld)Ordered By: Maddi Mcpherson on 10-04-2022 Creatinine [Mass/Vol] 0.71 mg/dL 0.44-1.03 [facility] Eosinophils Auto (Bld) [#/Vo l]Ordered By: Maddi Mcpherson on 10-04-2022 Eosinophils (Bld) [#/Vol] 0.1 10*3/uL 0.0-0.45 [facility] Eosinophils/100 WBC Auto (Bl d)Ordered By: Maddi Mcpherson on 10-04-2022 Eosinophils/100 WBC (Bld) 1.2 % . [facility] Erythrocyte distribution wid th Auto (RBC) [Ratio]Ordered By: Maddi Mcpherson on 10-04-2022 Erythrocyte distribution width (RBC) [Ratio] 13.4 % 11.9-15.3 [facility] Estimated glomerular filtrat ion rate (GFR) non- AmericanOrdered By: Maddi Mcpherson on 10-04-2022 GFR/1.73 sq M.predicted among non-blacks MDRD (S/P/Bld) [Vol rate/Area] > 60 mL/Min [facility] Globulin Calc (S) [Mass/Vol] Ordered By: Maddi Mcpherson on 10-04-2022 Globulin (S) [Mass/Vol] 2.7 g/dL F [facility] Hematocrit Auto (Bld) [Volum e fraction]Ordered By: Maddi Mcpherson on 10-04-2022 Hematocrit (Bld) [Volume fraction] 41.9 % 34.0-46.4 [facility] Hemoglobin [Mass/volume] in BloodOrdered By: Maddi Mcpherson on 10-04-2022 Hemoglobin (Bld) [Mass/Vol] 13.7 g/dL 11.8-15.4 [facility] Leukocytes [#/volume] correc tiffany for nucleated erythrocytes in Blood by Automated counOrdered By: Maddi Mcpherson on 10-04-2022 WBC corrected for nucl RBC Auto (Bld) [#/Vol] 7.8 10*3/uL 3.8-11.6 [facility] Lymphocytes Auto (Bld) [#/Vo l]Ordered By: Maddi Mcpherson on 10-04-2022 Lymphocytes (Bld) [#/Vol] 2.6 10*3/uL 1.00-4.8 [facility] Lymphocytes/100 WBC Auto (Bl d)Ordered By: Maddi Mcpherson on 10-04-2022 Lymphocytes/100 WBC (Bld) 33.5 % . [facility] MCH Auto (RBC) [Entitic mass ]Ordered By: Maddi Mcpherson on 10-04-2022 MCH (RBC) [Entitic mass] 29.3 pg 24.7-34.3 [facility] MCHC Auto (RBC) [Mass/Vol]Or dered By: Maddi Mcpherson on 10-04-2022 MCHC (RBC) [Mass/Vol] 32.6 g/dL 32.0-35.0 Fir [facility] MCV Auto (RBC) [Entitic vol] Ordered By: Maddi Mcpherson on 10-04-2022 MCV (RBC) [Entitic vol] 90.0 fL 80-100 F [facility] Monocytes Auto (Bld) [#/Vol] Ordered By: Maddi Mcpherson on 10-04-2022 Monocytes (Bld) [#/Vol] 0.7 10*3/uL 0.0-0.8 [facility] Monocytes/100 WBC Auto (Bld) Ordered By: Maddi Mcpherson on 10-04-2022 Monocytes/100 WBC (Bld) 9.1 % . F [facility] Neutrophils Auto (Bld) [#/Vo l]Ordered By: Maddi Mcpherson on 10-04-2022 Neutrophils (Bld) [#/Vol] 4.3 10*3/uL 1.8-7.7 [facility] Neutrophils/100 WBC Auto (Bl d)Ordered By: Maddi Mcpherson on 10-04-2022 Neutrophils/100 WBC (Bld) 55.6 % . [facility] No Panel InformationOrdered By: Maddi Mcpherson on 10-04-2022 Estimated GFR () > 60 mL/Min [facility] Comment on above: GFR estimated refere nce range: According to KDOQI guidelines, <60 ml/min/1.73m2 is sufficient to diagnose a patient with chronic kidney disease. Pharmacy Creatinine Clearance (Chem N/A [facility] Nucleated erythrocytes [Pres ence] in Blood by Automated countOrdered By: Maddi Mcpherson on 10-04-2022 Nucleated RBC Auto Ql (Bld) 0.1 /100{WBC} 0-0.5 [facility] [facility] Platelet mean volume Auto (B ld) [Entitic vol]Ordered By: Maddi Mcpherson on 10-04-2022 Platelet mean volume (Bld) [Entitic vol] 9.8 fL 6.3-10.7 [facility] Platelets Auto (Bld) [#/Vol] Ordered By: Maddi Mcpherson on 10-04-2022 Platelets (Bld) [#/Vol] 257 10*3/uL 150-450 [facility] Protein [Mass/volume] in Ser um or PlasmaOrdered By: Maddi Mcpherson on 10-04-2022 Protein [Mass/Vol] 7.0 g/dL 6.1-7.9 [facility] RBC Auto (Bld) [#/Vol]Ordere d By: Maddi Mcpherson on 10-04-2022 RBC (Bld) [#/Vol] 4.65 10*6/uL 3.60-5.00 [facility] Serum or plasma alanine dumont otransferase measurement without P-5'-P (enzymatic activiOrdered By: Maddi Mcpherson on 10-04-2022 ALT No additional P-5'-P [Catalytic activity/Vol] 23 U/L 10-60 [facility] Serum or plasma albumin/glob ulin mass ratioOrdered By: Maddi Mcpherson on 10-04-2022 Albumin/Globulin [Mass ratio] 1.6 {ratio} [facility] Serum or plasma alkaline vanessa sphatase measurement (enzymatic activity/volume)Ordered By: Maddi Mcpherson on 10-04-2022 ALP [Catalytic activity/Vol] 80 U/L 32-92 [facility] Serum or plasma anion gap de terminationOrdered By: Maddi Mcpherson on 10-04-2022 Anion gap [Moles/Vol] 10.3 mmol/L 6.0-15.0 [facility] Serum or plasma aspartate am inotransferase measurement (enzymatic activity/volume)Ordered By: Maddi Mcpherson on 10-04-2022 AST [Catalytic activity/Vol] 20 U/L 10-42 [facility] Serum or plasma calcium lisa urement (mass/volume)Ordered By: Maddi Mcpherson on 10-04-2022 Calcium [Mass/Vol] 9.3 mg/dL 8.2-10.2 [facility] Serum or plasma chloride isidra surement (moles/volume)Ordered By: Maddi Mcpherson on 10-04-2022 Chloride [Moles/Vol] 106 mmol/L 95-114 [facility] Serum or plasma glucose lisa urement (mass/volume)Ordered By: Maddi Mcpherson on 10-04-2022 Glucose [Mass/Vol] 182 mg/dL 70-100 [facility] Comment on above: ADA recommended refe rence rangeRandom Glucose Reference Range is dependent on time and content of last meal. Glucose of more than 200 mg/dL in a nonstressed, ambulatory subject supports the diagnosis of Diabetes Mellitus. Serum or plasma high density lipoprotein (HDL) cholesterol measurementOrdered By: Maddi Mcpherson on 10-04-2022 Cholesterol in HDL [Mass/Vol] 46 mg/dL 35-85 [facility] Comment on above: HDL CHOL ATP-III CLA SSIFICATION Cardiovascular RiskHDL > or equal to 60 mg/dL LOWHDL < 40 mg/dL HIGH Serum or plasma potassium me asurement (moles/volume)Ordered By: Maddi Mcpherson on 10-04-2022 Potassium [Moles/Vol] 3.9 mmol/L 3.5-5.1 [facility] Serum or plasma sodium measu rement (moles/volume)Ordered By: Maddi Mcpherson on 10-04-2022 Sodium [Moles/Vol] 138 mmol/L 136-146 [facility] Serum or plasma total biliru bin measurement (mass/volume)Ordered By: Maddi Mcpherson on 10-04-2022 Bilirubin [Mass/Vol] 0.4 mg/dL 0.3-1.2 [facility] Serum or plasma total carbon dioxide measurement (moles/volume)Ordered By: Maddi Mcpherson on 10-04-2022 CO2 [Moles/Vol] 25.6 mmol/L 22.0-30.0 [facility] Serum or plasma total choles terol/high density lipoprotein (HDL) cholesterol mass ratOrdered By: Maddi Mcpherson on 10-04-2022 Cholesterol.total/Serene sterol in HDL [Mass ratio] 4.0 {ratio} <5.0 [facility] Serum or plasma urea nitroge n measurement (mass/volume)Ordered By: Maddi Mcpherson on 10-04-2022 Urea nitrogen [Mass/Vol] 11 mg/dL 9-23 [facility] Triglyceride [Mass/volume] i n Serum or PlasmaOrdered By: Maddi Mcpherson on 10-04-2022 Triglyceride [Mass/Vol] 218 mg/dL 35-149 [facility] Comment on above: TRIG ATP III [...] (U) [Mass/Vol] 1.5 mg/dL 0.0-1.8 [facility] Urine microalbumin/creatinin e mass ratioOrdered By: Maddi Mcpherson on 10-04-2022 Albumin/Creatinine DL <= 20 mg/L (U) [Mass ratio] 13.0 mg/g 0.0-30.0 [facility] Comment on above: 30-300 mg/g indicate s an increased risk for diabetic nephropathy. Greater than 300 mg/g is consistent with clinical nephropathy. (Am. J. Kidney Disease 1995, 25:107) Vitamin [id number] By: Anjali Dubois on 10-04-2022 Cobalamin (Vitamin B12) [Mass/Vol] 703 pg/mL Normal 180-914 pg/mL [facility] WBC Auto (Bld) [#/Vol]Ordere d By: Maddi Mcpherson on 10-04-2022 WBC (Bld) [#/Vol] 7.8 10*3/uL 3.8-11.6 [facility] A1C HEMOGLOBINon 10-03-2022 HbA1c (Bld) [Mass fraction] 7.8 % [facility] Other Glucose - FINGER STICKon Glucose [Mass/Vol] 139 mg/dL [facility] Other HbA1c (Bld) [Mass fraction]o n 10-03-2022 A1C HEMOGLOBIN [employer] Other CREATININEon 12-27-2021 Creatinine [Mass/Vol] 0.61 mg/dL Normal 0.55-1.02 [facility] Comment on above: Performed By: #### C INGRIS #### [facility] [address] [place] [address] Dr. Chanell Landon EGFR-AF ALBANIAN >60 Normal >=60 [facility] Comment on above: Performed By: #### C INGRIS #### [facility] [address] [place] [address] Dr. Chanell Landon EGFR-NON AF ALBANIAN >60 Normal >=60 [facility] Comment on above: Performed By: #### C INGRIS #### [facility] [id number] NECK ST WO [...] HANG GREER Date: 2021-12-27 14:57 Normal [facility] US THYROIDon 12-12-2021 US THYROID EXAMINATION: US [...] JOHN LOYA Date: 2021-12-12 14:52 Normal [facility] A1C HEMOGLOBINon 11-07-2021 HbA1c (Bld) [Mass fraction] 7.2 % [facility] Other Glucose - FINGER STICKon Glucose [Mass/Vol] 159 mg/dL [facility] Other HbA1c (Bld) [Mass fraction]o n 11-07-2021 A1C HEMOGLOBIN [employer] Other COVID + FLU Quick Testingon 08-21-2021 SARS-CoV-2 (COVID-19) RNA GLEN+probe Ql (Unsp spec) Negative [facility] Other COVID + FLU Quick Testing Negative [facility] Other Covid-19 PCR (CVDTB)on 01-17 SARS-CoV-2 (COVID-19) RNA GLEN+probe Ql (Unsp spec) Not detected Normal NOT DETECTED [facility] Comment on above: Result Comment: This test is not yet approved or cleared by the [place] FDA. When there are no FDA-approved or cleared tests available, and other criteria are met, FDA can make tests available under an emergency access mechanism called an Emergency Use Authorization (EUA). The EUA for this test is supported by the [place] of Health and Human Service's (HHS's) declaration [...] consistent with SARS-CoV-2. Performed By: #### C [facility] #### [facility] [address] [id number] [place]ige [place] XR CHEST 2 Von 01-31-2021 [...] by: SONY SOLIMAN Date: 2021-01-31 05:00 Normal [facility] Vital Signs Date Time Vital Sign Value Performing Clinician Facility 01-12-2025 14:49-0400 Body height 146.05 cm [facility] 01-12-2025 14:49-0400 Body mass index (BMI) [Ratio] 24.8 kg/m2 [facility] 01-12-2025 14:49-0400 Body temperature 97.7 [degF] [facility] 01-12-2025 14:49-0400 Body weight 53.07 kg [facility] 01-12-2025 14:49-0400 Diastolic blood pressure 88 mm[Hg] [facility] 01-12-2025 14:49-0400 Heart rate 84 /min [facility] 01-12-2025 14:49-0400 SaO2% (BldA) [Mass fraction] 95 % [facility] 01-12-2025 14:49-0400 Systolic blood pressure 130 mm[Hg] [facility] 11-03-2024 14:05-0400 Body height 146.05 cm [facility] 11-03-2024 14:05-0400 Body mass index (BMI) [Ratio] 24.8 kg/m2 [facility] 11-03-2024 14:05-0400 Body temperature 98 [degF] [facility] 11-03-2024 14:05-0400 Body weight 53.07 kg [facility] 11-03-2024 14:05-0400 Diastolic blood pressure 80 mm[Hg] [facility] 11-03-2024 14:05-0400 Heart rate 76 /min [facility] 11-03-2024 14:05-0400 SaO2% (BldA) [Mass fraction] 98 % [facility] 11-03-2024 14:05-0400 Systolic blood pressure 120 mm[Hg] [facility] 08-31-2024 13:23-0500 Body height 146.05 cm [facility] 08-31-2024 13:23-0500 Body mass index (BMI) [Ratio] 24.7 kg/m2 [facility] 08-31-2024 13:23-0500 Body weight 52.75 kg [facility] 08-31-2024 13:23-0500 Diastolic blood pressure 91 mm[Hg] [facility] 08-31-2024 13:23-0500 Heart rate 72 /min [facility] 08-31-2024 13:23-0500 Respiratory rate 18 /min [facility] 08-31-2024 13:23-0500 SaO2% (BldA) [Mass fraction] 96 % [facility] 08-31-2024 13:23-0500 Systolic blood pressure 137 mm[Hg] [facility] 08-25-2024 08:29-0500 Body height 146.05 cm [facility] 08-25-2024 08:29-0500 Body mass index (BMI) [Ratio] 24.8 kg/m2 [facility] 08-25-2024 08:29-0500 Body temperature 97.6 [degF] [facility] 08-25-2024 08:29-0500 Body weight 53.07 kg [facility] 08-25-2024 08:29-0500 Diastolic blood pressure 82 mm[Hg] [facility] 08-25-2024 08:29-0500 Heart rate 92 /min [facility] 08-25-2024 08:29-0500 SaO2% (BldA) [Mass fraction] 95 % [facility] 08-25-2024 08:29-0500 Systolic blood pressure 142 mm[Hg] [facility] 03-18-2024 15:28-0400 Diastolic blood pressure 88 mm[Hg] REINFOR[employer]ING STEEL MACHINE OPERATORHaider Mendosaacher Work Phone: [facility] 03-18-2024 15:28-0400 Systolic blood pressure 145 mm[Hg] REINFOR[employer]ING STEEL MACHINE OPERATORHaider Thompsonrbacher Work Phone: [facility] 03-18-2024 15:14-0400 Body height 146.05 cm [employer] STE[employer] MACHINE OPERATORHaider Mendosaacher Work Phone: [facility] 03-18-2024 15:14-0400 Body mass index (BMI) [Ratio] 24.4 kg/m2 [employer] MACHINE OPERATORHaider Mendosaacher Work Phone: [facility] 03-18-2024 15:14-0400 Body weight 52.16 kg [employer] STE[employer] MACHINE OPERATORHaider Mendosaacher Work Phone: [facility] 03-18-2024 15:14-0400 Heart rate 74 /min [employer] STE[employer] MACHINE OPERATORHaider Mendosaacher Work Phone: [facility] 03-18-2024 15:14-0400 Respiratory rate 18 /min [employer]IN[employer]ING STE[employer] MACHINE OPERATORHaider Mendosaacher Work Phone: [facility] 03-18-2024 15:14-0400 SaO2% (BldA) [Mass fraction] 99 % [employer] STE[employer] MACHINE OPERATORHaider Mendosaacher Work Phone: [facility] 12-25-2023 09:38-0400 Body height 146.05 cm [employer] STE[employer] MACHINE OPERATORHaider Mendosaacher Work Phone: [facility] 12-25-2023 09:38-0400 Body mass index (BMI) [Ratio] 24.5 kg/m2 [employer] MACHINE OPERATORHaider Thompsonrbacher Work Phone: [facility] 12-25-2023 09:38-0400 Body weight 52.38 kg [employer] STE[employer] MACHINE OPERATORHaider Mendosaacher Work Phone: [facility] 12-11-2023 14:05-0400 Body height 146.05 cm [employer] STE[employer] MACHINE OPERATORHaider Thompsonrbacher Work Phone: [facility] 12-11-2023 14:05-0400 Body mass index (BMI) [Ratio] 24.4 kg/m2 [employer] MACHINE OPERATOR Maddi Jayrbacher Work Phone: [facility] 12-11-2023 14:05-0400 Body weight 52.16 kg [employer] MACHINE OPERATOR Maddi Mendosaacher Work Phone: [facility] 12-11-2023 14:05-0400 Diastolic blood pressure 96 mm[Hg] [employer] MACHINE OPERATOR Maddi Jayrbacher Work Phone: [facility] 12-11-2023 14:05-0400 Heart rate 84 /min [employer] MACHINE OPERATOR Maddi Mendosaacher Work Phone: [facility] 12-11-2023 14:05-0400 Respiratory rate 18 /min [employer]INFOR[employer]ING STEEL MACHINE OPERATORHaider Mendosaacher Work Phone: [facility] 12-11-2023 14:05-0400 SaO2% (BldA) [Mass fraction] 96 % [employer] MACHINE OPERATOR Maddi Deondreacher Work Phone: [facility] 12-11-2023 14:05-0400 Systolic blood pressure 146 mm[Hg] RE[employer]ING STE[employer] MACHINE OPERATOR Maddi Jayrbacher Work Phone: [facility] 08-13-2023 13:00-0500 Body height 146.05 cm Maddi Mcpherson Other [facility] 08-13-2023 13:00-0500 Body mass index (BMI) [Ratio] 24.03 kg/m2 Maddi Mcpherson Other [facility] Other 08-13-2023 13:00-0500 Body weight 51.26 kg Maddi Vida Other [facility] Other 08-13-2023 13:00-0500 Body weight 51.25 kg [facility] 08-13-2023 13:00-0500 Diastolic blood pressure 84 mm[Hg] Maddi Mcpherson Other [facility] 08-13-2023 13:00-0500 SaO2% (BldA) [Mass fraction] 98 % Maddi Mcpherson Other [facility] Other 08-13-2023 13:00-0500 Systolic blood pressure 138 mm[Hg] Maddi Mcpherson Other [facility] 06-09-2023 13:00-0400 Body height 146.05 cm Maddi Mcpherson Other [facility] Other 06-09-2023 13:00-0400 Body mass index (BMI) [Ratio] 24.41 kg/m2 Maddi Vida Other [facility] Other 06-09-2023 13:00-0400 Body weight 52.07 kg Maddi Mcpherson Other [facility] Other 06-09-2023 13:00-0400 Diastolic blood pressure 70 mm[Hg] Maddi Mcpherson Other [facility] Other 06-09-2023 13:00-0400 SaO2% (BldA) [Mass fraction] 97 % Maddi Mcpherson Other [facility] Other 06-09-2023 13:00-0400 Systolic blood pressure 122 mm[Hg] Maddi Mcpherson Other [facility] Other 06-02-2023 09:15-0400 Body height 146.05 cm Tondra Mapus Other [facility] Other 06-02-2023 09:15-0400 Body mass index (BMI) [Ratio] 24.13 kg/m2 Tondra Mapus Other [facility] Other 06-02-2023 09:15-0400 Body weight 51.48 kg Tondra Mapus Other [facility] Other 06-02-2023 09:15-0400 Diastolic blood pressure 92 mm[Hg] Tondra Mapus Other [facility] Other 06-02-2023 09:15-0400 Respiratory rate 18 /min Tondra Mapus Other [facility] Other 06-02-2023 09:15-0400 SaO2% (BldA) [Mass fraction] 100 % Tondra Mapus Other [facility] Other 06-02-2023 09:15-0400 Systolic blood pressure 144 mm[Hg] Tondra Mapus Other [facility] Other 04-24-2023 10:45-0400 Body height 146.05 cm Maddi Mcpherson Other [facility] Other 04-24-2023 10:45-0400 Body mass index (BMI) [Ratio] 24.45 kg/m2 Maddi Mcpherson Other [facility] Other 04-24-2023 10:45-0400 Body weight 52.16 kg Maddi Richardsonbishop Other [facility] Other 04-24-2023 10:45-0400 Diastolic blood pressure 95 mm[Hg] Maddi Deondreacher Other [facility] Other 04-24-2023 10:45-0400 SaO2% (BldA) [Mass fraction] 96 % Maddi Deondreacher Other [facility] Other 04-24-2023 10:45-0400 Systolic blood pressure 167 mm[Hg] Maddi Dylanr Other [facility] Other 11-04-2022 14:30-0400 Body height 146.05 cm Maddi Thompsonscottieshawnbishop Other [facility] Other 11-04-2022 14:30-0400 Body mass index (BMI) [Ratio] 24.45 kg/m2 Maddi Thompsonscottieshawnr Other [facility] Other 11-04-2022 14:30-0400 Body weight 52.16 kg Maddi Thompsonscottieacher Other [facility] Other 11-04-2022 14:30-0400 Diastolic blood pressure 94 mm[Hg] Maddi Deondreacher Other [facility] Other 11-04-2022 14:30-0400 SaO2% (BldA) [Mass fraction] 97 % Maddi Deondreacher Other [facility] Other 11-04-2022 14:30-0400 Systolic blood pressure 164 mm[Hg] Maddi Richardsonbishop Other [facility] Other 10-04-2022 10:15-0500 Body height 146.05 cm Maddi Jayaustin Other [facility] Other 10-04-2022 10:15-0500 Body mass index (BMI) [Ratio] 24.66 kg/m2 Maddi Vida Other [facility] Other 10-04-2022 10:15-0500 Body weight 52.62 kg Maddi Mcpherson Other [facility] Other 10-04-2022 10:15-0500 Diastolic blood pressure 120 mm[Hg] Maddi Jayscottieannalee Other [facility] Other 10-04-2022 10:15-0500 Systolic blood pressure 186 mm[Hg] Maddi Mcpherson Other [facility] Other 10-03-2022 15:45-0500 Body height 146.05 cm Tondra Mapus Other [facility] Other 10-03-2022 15:45-0500 Body mass index (BMI) [Ratio] 25.09 kg/m2 Tondra Mapus Other [facility] Other 10-03-2022 15:45-0500 Body weight 53.52 kg Tondra Mapus Other [facility] Other 02-16-2023 15:45-0500 Diastolic blood pressure 99 mm[Hg] Tondra Mapus Other [facility] Other 10-03-2022 15:45-0500 Respiratory rate 18 /min Tondra Mapus Other [facility] Other 10-03-2022 15:45-0500 SaO2% (BldA) [Mass fraction] 97 % Tondra Mapus Other [facility] Other 10-03-2022 15:45-0500 Systolic blood pressure 193 mm[Hg] Tondra Mapus Other [facility] Other 08-06-2022 14:00-0500 Body height 146.05 cm Maddi Mcpherson Other [facility] Other 08-06-2022 14:00-0500 Body mass index (BMI) [Ratio] 24.88 kg/m2 Maddi Mcpherson Other [facility] Other 08-06-2022 14:00-0500 Body weight 53.07 kg Maddi Mcpherson Other [facility] Other 08-06-2022 14:00-0500 Diastolic blood pressure Maddi Mcpherson Other [facility] Other 08-06-2022 14:00-0500 SaO2% (BldA) [Mass fraction] 96 % Maddi Mcpherson Other [facility] Other 08-06-2022 14:00-0500 Systolic blood pressure 152 mm[Hg] Maddi Mcpherson Other [facility] Other 12-05-2021 12:00-0400 Body height 146.05 cm Maddi Thompsonscottieshawnbishop Other [facility] Other 12-05-2021 12:00-0400 Body mass index (BMI) [Ratio] 24.24 kg/m2 Maddi Vida Other [facility] Other 12-05-2021 12:00-0400 Body weight 51.71 kg Maddi Thompsonaustin Other [facility] Other 12-05-2021 12:00-0400 Diastolic blood pressure 92 mm[Hg] Maddi Vida Other [facility] Other 12-05-2021 12:00-0400 SaO2% (BldA) [Mass fraction] 97 % Maddi Vida Other [facility] Other 12-05-2021 12:00-0400 Systolic blood pressure 150 mm[Hg] Maddi Vida Other [facility] Other 11-29-2021 17:00-0400 Body height 146.05 cm Maddi Vida Other [facility] Other 11-29-2021 17:00-0400 Body mass index (BMI) [Ratio] 24.45 kg/m2 Maddi Vida Other [facility] Other 11-29-2021 17:00-0400 Body weight 52.16 kg Maddi Vida Other [facility] Other 11-29-2021 17:00-0400 Diastolic blood pressure 88 mm[Hg] Maddi Vida Other [facility] Other 11-29-2021 17:00-0400 SaO2% (BldA) [Mass fraction] 98 % Maddi Vida Other [facility] Other 11-29-2021 17:00-0400 Systolic blood pressure 120 mm[Hg] Maddi Vida Other [facility] Other 11-07-2021 16:45-0400 Body height 146.05 cm Tondra Mapus Other [facility] Other 11-07-2021 16:45-0400 Body mass index (BMI) [Ratio] 24.45 kg/m2 Tondra Mapus Other [facility] Other 11-07-2021 16:45-0400 Body weight 52.16 kg Tondra Mapus Other [facility] Other 11-07-2021 16:45-0400 Diastolic blood pressure 98 mm[Hg] Tondra Mapus Other [facility] Other 11-07-2021 16:45-0400 Respiratory rate 16 /min Tondra Mapus Other [facility] Other 11-07-2021 16:45-0400 SaO2% (BldA) [Mass fraction] 97 % Tondra Mapus Other [facility] Other 11-07-2021 16:45-0400 Systolic blood pressure 154 mm[Hg] Tondra Mapus Other [facility] Other Encounters Encounter Date Encounter Type Care Provider Facility Start: 01-12-2025 End: 01-12-2025 ambulatory [facility] Work Phone: Start: 01-12-2025 End: 01-12-2025 Patient encounter procedure [facility] Work Phone: Start: 11-03-2024 End: 11-03-2024 ambulatory [facility] Work Phone: Start: 11-03-2024 End: 11-03-2024 Patient encounter procedure [facility] Work Phone: Start: 08-31-2024 End: 08-31-2024 Patient encounter procedure [facility] Work Phone: Start: 08-25-2024 End: 08-25-2024 Patient encounter procedure [facility] Work Phone: Start: 08-23-2024 Non-patient / Non-visit [facility] Work Phone: Start: 08-23-2024 Non-patient / Non-visit [facility] Work Phone: Start: 08-20-2024 Non-patient / Non-visit [facility] Work Phone: Start: 05-10-2024 End: 05-10-2024 Patient encounter procedure VIRIDIANA Mcpherson Work Phone: [facility] [place] Work Phone: Start: 05-10-2024 End: 05-10-2024 ambulatory VIRIDIANA Mcpherson Work Phone: [facility] Work Phone: Start: 04-03-2024 Non-patient / Non-visit VIRIDIANA riverafer Vida Work Phone: [facility] Work Phone: Start: 04-02-2024 Non-patient / Non-visit [employer] STE[employer] MACHINE OPERATORHaider ayon Vida Work Phone: [facility] Work Phone: Start: 03-18-2024 End: 03-18-2024 Patient encounter procedure REIN[employer] STE[employer] MACHINE OPERATORHaider Linda [facility] Work Phone: [facility] Work Phone: Start: 12-25-2023 End: 12-25-2023 ambulatory REINFOR[employer]ING STEEL MACHINE OPERATORHaider Linda Vida Work Phone: [facility] Work Phone: Start: 12-25-2023 End: 12-25-2023 Patient encounter procedure REINFORCING STEEL MACHINE OPERATORHaider Linda Vida Work Phone: [facility] [place] Work Phone: Start: 12-11-2023 End: 12-11-2023 Patient encounter procedure REINFORCING STEEL MACHINE OPERATORHaider Linda Vida Work Phone: [facility] Work Phone: Start: 09-29-2023 End: 09-29-2023 ambulatory Maddi Mcpherson Other [facility] Other Start: 09-29-2023 Office outpatient vi sit 10 minutes Maddi Mcpherson [facility] Start: 09-17-2023 End: 09-17-2023 ambulatory Maddi Mcpherson Other [facility] Other Start: 09-17-2023 Telephone encounter Maddi Alfonso her [facility] Start: 09-09-2023 End: 09-09-2023 ambulatory Tona Didierus Other [facility] Other Start: 09-09-2023 Telephone encounter Gurdeep Blue [facility] Start: 09-09-2023 End: 09-09-2023 Patient encounter procedure [facility] Work Phone: Start: 08-28-2023 End: 08-28-2023 ambulatory Gurdeep Dubois Other [facility] Other Start: 08-28-2023 Telephone encounter Gurdeep Blue [facility] Start: 08-20-2023 End: 08-20-2023 ambulatory Maddi Mcpherson Other [facility] Other Start: 08-20-2023 Telephone encounter Maddi Alfonso her [facility] Start: 08-19-2023 End: 08-19-2023 ambulatory Maddi Mcpherson Other [facility] Other Start: 08-19-2023 Telephone encounter Maddi Naty her [facility] Start: 08-13-2023 End: 08-13-2023 ambulatory Maddi Mcpherson Other [facility] Other Start: 08-13-2023 Office outpatient vi sit 25 minutes Maddi Mcpherson [facility] Start: 08-13-2023 End: 08-13-2023 Patient encounter procedure [facility] Phys[facility] Work Phone: Start: 07-14-2023 (Procedure) Shantelle Cooper [facility] Start: 07-14-2023 End: 07-14-2023 ambulatory Emil Cooper Other [facility] Other Start: 06-30-2023 End: 06-30-2023 ambulatory Maddi Mcpherson Other [facility] Other Start: 06-30-2023 Telephone encounter Maddi Naty her [facility] Start: 06-26-2023 End: 06-26-2023 Patient encounter procedure REINFORCING STEEL MACHINE OPERATOR Maddikeyonna Mcpherson Work Phone: [facility] Start: 06-26-2023 End: 06-26-2023 ambulatory REINFORCING STEEL MACHINE OPERATOR Maddi Mcpherson Work Phone: [facility] Work Phone: Start: 06-09-2023 End: 06-09-2023 ambulatory Maddi Vida Other [facility] Other Start: 06-09-2023 Office outpatient vi sit 15 minutes Maddi Mcpherson [facility] Start: 06-02-2023 (DM) Diabetes Tondra Mapus [facility] Start: 06-02-2023 Telephone encounter Maddi Naty her [facility] Start: 06-02-2023 Registered Recurring REINFORCING STEEL MACHINE OPERATOR Rita Mcpherson Work Phone: [facility] Work Phone: Start: 06-02-2023 End: 06-02-2023 Patient encounter procedure REINFORCING STEEL MACHINE OPERATOR Maddi Mcpherson Work Phone: [facility] [place] Work Phone: Start: 06-02-2023 End: 06-02-2023 ambulatory REINFORCING STEEL MACHINE OPERATORHaider Mcpherson Work Phone: [facility] Other Start: 05-23-2023 End: 05-23-2023 ambulatory Maddi Mcpherson Other [facility] Other Start: 05-23-2023 Telephone encounter Maddi Naty her [facility] Start: 05-19-2023 End: 05-19-2023 ambulatory Tondra Mapus Other [facility] Other Start: 05-19-2023 Telephone encounter Gurdeep Blue [facility] Start: 05-06-2023 End: 05-06-2023 ambulatory Maddi Mcpherson Other [facility] Other Start: 05-06-2023 Telephone encounter Maddi Naty her [facility] Start: 05-05-2023 End: 05-05-2023 ambulatory Maddi Vida Other [facility] Other Start: 05-05-2023 Telephone encounter Maddi Naty her [facility] Start: 04-25-2023 End: 04-25-2023 ambulatory Maddi Mcpherson Other [facility] Other Start: 04-25-2023 Telephone encounter Maddi Naty her [facility] Start: 04-24-2023 Office outpatient vi sit 15 minutes Maddi Mcpherson [facility] Start: 04-24-2023 End: 04-25-2023 ambulatory Maddi Mcpherson [facility] Other Start: 04-03-2023 End: 04-03-2023 ambulatory Tondra Didierus Other [facility] Other Start: 04-03-2023 Telephone encounter Gurdeep Blue [facility] Start: 03-28-2023 End: 03-28-2023 ambulatory Maddi Dylanr Other [facility] Other Start: 03-28-2023 Telephone encounter Maddi Naty her [facility] Start: 03-05-2023 End: 03-05-2023 ambulatory Maddi Richardsonr Other [facility] Other Start: 03-05-2023 Telephone encounter Maddi Alfonso her [facility] [place] Start: 02-17-2023 End: 02-17-2023 ambulatory Maddi Richardsonr Other [facility] Other Start: 02-17-2023 Telephone encounter Maddi Aflonso her [facility] [place] Start: 02-13-2023 End: 02-13-2023 ambulatory Maddi Richardsonr Other [facility] Other Start: 02-13-2023 Telephone encounter Maddi Alfonso her [facility] [place] Start: 11-13-2022 End: 11-13-2022 ambulatory Maddi Mcpherson Other [facility] Other Start: 11-13-2022 Telephone encounter Maddi Alfonso her [facility] [place] Start: 11-04-2022 End: 11-04-2022 ambulatory Maddi Mcpherson Other [facility] Other Start: 11-04-2022 Office outpatient vi sit 25 minutes Maddi Deondreacher [facility] [place] Start: 10-06-2022 End: 10-06-2022 ambulatory Tondra Mapus Other [facility] Other Start: 10-06-2022 Telephone encounter Tondra Mapus [facility] Start: 10-04-2022 Office outpatient vi sit 25 minutes Maddi Deondreacher [facility] [place] Start: 10-04-2022 End: 10-04-2022 ambulatory OIL PAINT SHADER Luisa Mcghee Work Phone: [facility] Work Phone: Start: 10-04-2022 End: 10-04-2022 Patient encounter procedure OIL PAINT SHADER Luisa Mcghee Work Phone: [facility] [place] Work Phone: Start: 10-03-2022 Registered Recurring OIL PAINT SHADER Gabino yoo Priteshtiffanie Work Phone: [facility] Work Phone: Start: 10-03-2022 (DM) Diabetes Tondra Didier [facility] Start: 10-03-2022 End: 10-03-2022 ambulatory Maddi Mcpherson Other [facility] Other Start: 10-03-2022 Telephone encounter Maddi Naty her [facility] [place] Start: 09-10-2022 End: 09-10-2022 ambulatory Maddi Mcpherson Other [facility] Other Start: 09-10-2022 Telephone encounter Maddi Naty her [facility] [place] Start: 08-06-2022 End: 08-06-2022 ambulatory Maddi Richardsonr Other [facility] Other Start: 08-06-2022 Office outpatient vi sit 25 minutes Maddi Mcpherson [facility] [place] Start: 07-30-2022 End: 07-30-2022 ambulatory Maddi Richardsonr Other [facility] Other Start: 07-30-2022 Telephone encounter Maddi Thompsonjohn her [facility] [place] Start: 06-20-2022 End: 06-20-2022 ambulatory Tondra Mapus Other [facility] Other Start: 06-20-2022 Telephone encounter Tona Didier [facility] Start: 03-04-2022 End: 03-04-2022 ambulatory Gurdeep Dubois Other [facility] Other Start: 03-04-2022 Telephone [facility] Start: 01-02-2022 Encounter for preprocedural laboratory examination MADDI MCPHERSON [facility] Start: 12-31-2021 End: 12-31-2021 ambulatory Maddi Mcpherson Other [facility] Other Start: 12-31-2021 Telephone encounter Maddi Alfonso her [facility] Start: 12-27-2021 End: 12-28-[address] HANG GREER Facility:[facility] Start: 12-27-2021 End: 12-28-2021 Encounter for preprocedural laboratory examination DR HANG GREER Facility:[facility] Start: 12-19-2021 End: 12-19-2021 ambulatory Maddi Mcpherson Other [facility] Other Start: 12-19-2021 Telephone encounter Maddi Alfonso her [facility] Start: 12-12-2021 End: 12-13-2021 ambulatory MADDI MCPHERSON Facility:[facility] Start: 12-05-2021 End: 12-05-2021 ambulatory Maddi Mcpherson Other [facility] Other Start: 12-05-2021 Office outpatient vi sit 15 minutes Maddi Mcpherson [facility] Start: 11-29-2021 End: 11-29-2021 ambulatory Maddi Mcpherson Other [facility] Other Start: 11-29-2021 Office outpatient vi sit 25 minutes Maddi Mcpherson [facility] Start: 11-21-2021 End: 11-21-2021 ambulatory Maddi Mcpherson Other [facility] Other Start: 11-21-2021 Telephone encounter Maddi Naty her [facility] [place] Start: 11-15-2021 End: 11-15-2021 ambulatory Tondra Mapus Other [facility] Other Start: 11-15-2021 Telephone encounter Tondra Mapus [facility] Start: 11-07-2021 (DM) Diabetes Tondra Mapus [facility] Start: 11-07-2021 End: 11-07-2021 ambulatory Tondra Mapus Other [facility] Other Start: 10-30-2021 End: 10-30-2021 ambulatory Maddi Mcpherson Other [facility] Other Start: 10-30-2021 Telephone encounter Maddi Naty her [facility] [place] Start: 09-11-2021 End: 09-11-2021 ambulatory aMddi Mcpherson Other [facility] Other Start: 09-11-2021 Telephone encounter Maddi Naty her [facility] [place] Start: 08-21-2021 End: 08-21-2021 ambulatory Maddi Mcpherson Other [facility] Other Start: 08-21-2021 Office outpatient vi sit 15 minutes Maddi Mcpherson [facility] [place] Start: 06-07-2021 Telephone encounter Maddi Naty her [facility] [place] Start: 02-05-2021 End: 02-06-2021 ambulatory DEVANG MACKAY Facility:[facility] Start: 01-30-2021 End: 01-31-2021 ambulatory MADDI MCPHERSON Facility:[facility] Procedures Date Procedure Procedure Detail Performing Clinician Start: 06-26-2023 X-ray of lumbar spin e, four views REINFORCING STEEL MACHINE OPERATOR Maddi Mcpherson Work Phone: Start: 11-04-2022 Removal impacted cer umen instrumentation unilat Maddi Mcpherson Other Plan of Treatment Date Care Activity Detail Author Start: 05-10-2024 Insulin C-peptide measurement [facility] Start: 05-10-2024 [facility] Insulin Ab [Units/vo lume] in Serum [facility] Insulin C-peptide measurement [facility] Patient Education [facility] Work Phone: [facility] Payers Date Payer Category Payer Self-pay [id number] 1965 Unknown [id number] 2.16.84 [id number] 1965 Unknown [id number] 2.16.84 [id number] 1965 Unknown [id number] 2.16.84 [id number] 1965 Unknown [id number] 2.16.84 [id number] 1965 Unknown [id number] 2.16.8 [id number] 1959 Unknown [id number] 1959 Unknown [id number] 1959 Unknown [id number] Unknown [id number] 2.16.8 [id number] Unknown [id number] 2.16.8 [id number] Unknown [id number] 2.16.8 [id number] Unknown [id number] 2.16.8 [id number] Unknown [id number] 2.16.8 [id number] Social History Date Type Detail Facility Unknown if ever smoked [facility] Other Sex Assigned At Sex Assigned At Bir th [place] [facility] Other Start: 01-23-2022 End: 01-23-2022 Tobacco smoking status [facility] Smoker (finding) [facility] Start: 1965 Sex Assigned At Female F [facility] Start: 12-11-2023 End: 01-01-2024 Tobacco smoking status [facility] Ex-smoker (finding) [facility] Start: 11-03-2024 End: 01-12-2025 Sex Female (finding) [facility] Medical Equipment Procedure Code Equipment Code Equipment Origin al Text Equipment Identifier Dates Start: 03-29-2015 Blood Sugar Diagnostic (True Metrix Glucose Test Strip) strip Start: 08-31-2024 Lancets (Trueplu s Lancets) 28 gauge misc Start: 08-31-2024 Blood Sugar Diagnostic (True Metrix Glucose Test Strip) strip Start: 08-31-2024 Lancets (Trueplu s Lancets) 28 gauge misc Start: 08-31-2024 Clinical Notes 06-07-2021 to 11-03-2024 Note Date & Type Note Facility 11-03-2024 Evaluation note Diagnosis Onset Date Resolution Bronchitis acute November 03 1:53pm COPD (chronic obstructive pulmonary disease) acute January 12, 2025 2 :36pm [facility] Work Phone: [phone]) 775-425901-08-2025 Evaluation note* Diagnosis Onset Date Resolution Status Admit Date COPD (chronic obstructive pulmonary disease) acute August 25, 2024 8:24am Diabetes acute August 25, 8:24am HTN (hypertension) acute 2024 8:24am Hyperlipidemia acute August 8:24am IBS (irritable bowel syndrome) acute August 25, 2024 8:24am Nicotine dependence acute 2024 8:24am Screening for lung cancer acute August 25, 2024 8:24am BMI 24.0-24.9, adult acute bl[place] 2024 1:25pm Diabetes acute August 31, 2024 1:25pm Dietary counseling and surveillance acute August 31 1:25pm HTN (hypertension) acute Auguar y 2024 1:25pm Hyperlipidemia acute August 312024 1:25pm [facility] Work Phone: [phone]) 977-272902-12-2024 Evaluation note* Encounter Date Diagnosis Assessment Notes Treatment Notes Treatment Clinical Notes Sep, Bronchitis (ICD-10 - J40) Discussed diagnosis with patient. Patient to start Zithromax. Patient to take Zithromax daily with food as prescribed. Finish entire course of antibiotic. Proair inhaler sent today for patient to use PRN cough/wheezing/shor tness of breath. Increase fluids and rest. [id number] antipyretics as needed. Warning signs and symptoms [...] in visit was myself, Maddi Mcpherson DNP, REINFORCING STEEL MACHINE OPERATOR, ATHLETIC INSTRUCTOR (provider) . Time spent with patient was approximately 6 minutes. [facility] Other 01-31-2024 Evaluation note* Encounter Date Diagnosis Assessment Notes Treatment Notes Treatment Clinical Notes Aug, Type 2 diabetes mellitus with hyperglycemia, without long-term current use of insulin (ICD-10 - E11.65) Aug, Chronic obstructive pulmonary disease, unspecified COPD type (ICD-10 - J44.9) [facility] Other 01-03-2024 Evaluation note* Encounter Date Diagnosis Assessment Notes Treatment Notes Treatment Clinical Notes Aug, Chronic obstructive pulmonary disease, unspecified COPD type (ICD-10 - J44.9) [facility] Other 01-02-2024 Evaluation note* Encounter Date Diagnosis Assessment Notes Treatment Notes Treatment Clinical Notes Aug, Essential hypertensi on (ICD-10 - I10) Aug, GERD (gastroesophage al reflux disease) (ICD-10 - K21.9) Aug, Hypercholesteremia (ICD-10 - E78.00) Aug, Restless legs (ICD-1 0 - G25.81) [facility] Other 12-27-2023 Evaluation note* Encounter Date Diagnosis [...] discussed. You have been given educational handouts. [facility] Other 10-23-2023 Evaluation note* Encounter Date Diagnosis [...] when starting the medication. Directed on use. [facility] Other 10-16-2023 Evaluation note* Encounter Date Diagnosis [...] unsweetened beverages. Discussed with pt dexcom g7 fishing hand/sensor, pt agreeable. Instructed pt to schedule apt [...] diabetes medication issues. 6. Prescriptions: Request for Tradjenta, jardiance, dexcom g7 fishing hand/sensors sent to [facility] [place] 06/02/23 7. Prescriptions will not be filled [...] - Z68.24) Healthy eating material was published [facility] Other 10-06-2023 Evaluation note* Encounter Date Diagnosis Assessment Notes Treatment Notes Treatment Clinical Notes May, Fall, subsequent encounter (ICD-10 - W19.XXXD) May, Right hip pain (ICD-10 - M25.551) [facility] Other 09-19-2023 Evaluation note* Encounter Date Diagnosis Assessment Notes Treatment Notes Treatment Clinical Notes Apr, Sinus congestion (ICD-10 - R09.81) Apr, Exposure to COVID-19 virus (ICD-10 - Z20.822) [facility] Other 09-18-2023 Evaluation note* Encounter Date Diagnosis Assessment Notes Treatment Notes Treatment Clinical Notes Apr, Exposure to COVID-19 virus (ICD-10 - Z20.822) Apr, Nasal congestion (ICD-10 - R09.81) Apr, Acute cough (ICD-10 - R05.1) [facility] Other 09-08-2023 Evaluation note* Encounter Date Diagnosis Assessment Notes Treatment Notes Treatment Clinical Notes Apr, Muscle spasm (ICD-10 - M62.838) [facility] Other 09-07-2023 Evaluation note* Encounter Date Diagnosis Assessment Notes Treatment Notes Treatment Clinical Notes Apr, Right calf pain (ICD-10 - M79.661) Discussed options with pt for further evalution and will send for an ultrasound to rule out DVT. Called [facility] and they could get her in this am. WIll call with results and further recommendations. Apr, Swelling of calf (ICD-10 - M79.89) [facility] Other 09-07-2023 NoteHISTORY: Lower extremity pain TECHNIQUE: [...] Pete Rodriguez DO 04/25/23 12:17 p Technologist: [facility]08-17-2023 Evaluation note* Encounter Date Diagnosis Assessment Notes Treatment Notes Treatment Clinical Notes Mar, Type 2 diabetes mellitus with hyperglycemia, without long-term current use of insulin (ICD-10 - E11.65) [facility] Other 08-11-2023 Evaluation note* Encounter Date Diagnosis Assessment Notes Treatment Notes Treatment Clinical Notes Mar, GERD (gastroesophageal reflux disease) (ICD-10 - K21.9) [facility] Other 07-19-2023 Evaluation note* Encounter Date Diagnosis Assessment Notes Treatment Notes Treatment Clinical Notes Feb, Essential hypertension (ICD-10 - I10) [facility] Other 07-03-2023 Evaluation note* Encounter Date Diagnosis Assessment Notes Treatment Notes Treatment Clinical Notes Feb, Nausea (ICD-10 - R11.0) [facility] Other 06-29-2023 Evaluation note* Encounter Date Diagnosis Assessment Notes Treatment Notes Treatment Clinical Notes Jan, Genital warts (ICD-10 - A63.0) [facility] Other 03-29-2023 Evaluation note* Encounter Date Diagnosis Assessment Notes Treatment Notes Treatment Clinical Notes Oct, Bronchitis (ICD-10 - J40) Oct, Acute vaginitis (ICD-10 - N76.0) [facility] Other 03-20-2023 Evaluation note* Encounter Date Diagnosis [...] if not improving. Increase fluids and rest. [id number] antipyretics as needed. Warning signs and symptoms [...] understanding and is agreeable to treatment plan. [facility] Other 02-17-2023 Evaluation note* Encounter Date Diagnosis [...] sleep.will treat for this and reevalaute symptoms. [facility] Other 02-16-2023 Evaluation note* Encounter Date Diagnosis [...] Prescriptions: Tradjentametformin ER sent to [facility] in [place] 10/03/22 7. Patient scheduled with PCP for [...] 03/2021 Vit b 12 771 at target 16 Sep, 2022 BMI 25.0-25.9,adult (ICD-10 - Z68.25) Healthy eating material was published [facility] Other 01-24-2023 Evaluation note* Encounter Date Diagnosis Assessment Notes Treatment Notes Treatment Clinical Notes Aug, Chronic obstructive pulmonary disease, unspecified COPD type (ICD-10 - J44.9) [facility] Other 12-20-2022 Evaluation note* Encounter Date Diagnosis [...] of insulin (ICD-10 - E11.9) Following with Sheldondra Dubois for managment of her diabetes. Prior [...] referral to dermatology for lesions. Referral placed. [facility] Other 12-13-2022 Evaluation note* Encounter Date Diagnosis Assessment Notes Treatment Notes Treatment Clinical Notes Jul, GERD (gastroesophageal reflux disease) (ICD-10 - K21.9) Jul, Restless legs (ICD-10 - G25.81) Jul, Chronic obstructive pulmonary disease, unspecified COPD type (ICD-10 - J44.9) [facility] Other 05-16-2022 Evaluation note* Encounter Date Diagnosis Assessment Notes Treatment Notes Treatment Clinical Notes December, Mass of parotid gland (ICD-10 - K11.8) [facility] Other 04-20-2022 Evaluation note* Encounter Date Diagnosis [...] well. Follow-up for any signs of infection. [facility] Other 04-14-2022 Evaluation note* Encounter Date Diagnosis [...] ultrasound to the area. Order sent to [facility]. Will call with results and further recommendations. Nov, Localized swelling, mass and lump, neck (ICD-10 - R22.1) [facility] Other 04-06-2022 Evaluation note* Encounter Date Diagnosis Assessment Notes Treatment Notes Treatment Clinical Notes Nov, GERD (gastroesophageal reflux disease) (ICD-10 - K21.9) Nov, Restless legs (ICD-10 - G25.81) [facility] Other 03-23-2022 Evaluation note* Encounter Date Diagnosis [...] Z68.24) Setting weight-loss goals material was published [facility] Other 03-15-2022 Evaluation note* Encounter Date Diagnosis Assessment Notes Treatment Notes Treatment Clinical Notes Oct, Restless legs (ICD-10 - G25.81) [facility] Other 01-04-2022 Evaluation note* Encounter Date Diagnosis [...] difficulty breathing, chest pain, palpitations, fever less [id number], persistent fevers not reduced by antipyretic, severe [...] asthma with (acute) exacerbation (ICD-10 - J45.901) [facility] Other 10-21-2021 Evaluation note* Encounter Date Diagnosis Assessment Notes Treatment Notes Treatment Clinical Notes May, Acute vaginitis (ICD-10 - N76.0) [facility] Other Evaluation noteNortGetSocial Other Evaluation noteNo InformationN[employer] Other Evaluation noteNo assessment information available [facility] Work Phone: Evaluation note* Diagnosis Onset Date Resolution Status BMI 24.0-24.9, adult acute Diabetes acute Dietary counseling and surveillance acute HTN (hypertension) acute Hyperlipidemia acute Vitamin B 12 deficiency acut e Diabetes acute [facility] Work Phone: Evaluation note* Diagnosis Onset Date Resolution Status BMI 24.0-24.9, adult acute Diabetes acute Dietary counseling and surveillance acute HTN (hypertension) acute Hyperlipidemia acute [facility] Work Phone: History general [...] History kidney stones Hospitalization History 1 child [place] [facility] Other History general [facility]ative - [facility] Other Summary Purpose Family History Relationship Condition [...] of other condition Unknown Unknown Advance Directives Advance Directive Response Recorded Date/ Time Advance Directives No September 5:43am Advance Directive Response Recorded Date/ Time Advance Directives No September 6:43am Reason for Referral Reason *Waiting for appt evaluate Diagnosis 1 Sacroiliitis (M46.1) Referral Organization [facility] linic Referring Provider First Name Maddi Referring Provider Last Name Rohrbacher Referring Provider Specialty Nurse Pract itioner Referred Organization [facility] Pain Managemen t [place] Referred Provider Emil Cooper Referred Address [address] [place] [facility],[address] Referred Provider Specialty Pain Medicin e Referral Priority Routine General Notes Tigist Gibson 12:54:03 PM >received today, sent P2P Reason evaluate and treat Diagnosis 1 Genital warts (A63.0 ) Referral Organization [facility] [place] Referring Provider First Name Maddi Referring Provider Last Name Rohrbacher Referring Provider Specialty Nurse Pract itioner Referred Organization [facility] Referred Provider aGby Araujo Referred Address ,[place], [place],[address] Referred Provider Specialty Dermatology Referral Priority Routine Reason 10/01/22 evaluate and treat Diagnosis 1 Skin lesion (L98.9) Referral Organization [facility] [place] Referring Provider First Name Maddi Referring Provider Last Name Rohrbacher Referring Provider Specialty Nurse Pract itioner Referred Organization [facility] Referred Provider Gaby Araujo Referred Address ,[place], [place],[address] Referred Provider Specialty Dermatology Referral Priority Routine Referral Appointment Date 2022-10-01 General Notes Tigist Gibson 02:36:30 PM >received today, insurance card attached, waiting for notes to be locked Paige Tigist 08/07/2022 11:13:38 AM >notes locked and referral faxed PaigeTigist 08/14/2022 09:51:10 AM >faxed first attempt letter PaigeTigist 09/11/2022 12:40:05 PM >faxed first request for consult notes PaigeTigist 09/12/2022 12:55:36 PM >received fax that pt was scheduled for 10/01 at 110 but cancelled appt on 09/10 DarryldulcegraceTigist 09/19/2022 04:09:13 PM >spoke with patient, and she rescheduled for 10/01 Tigist Gibson 10/02/2022 06:38:17 AM >faxed first request for consult ntoes Reason needs a biopsy of a parotid gland mass , CT was completed. 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) Referral Organization [facility] Referring Provider First Name Maddi Referring Provider Last Name Vida Referring Provider Specialty Nurse Pract itioner Referred Organization [facility] Referred Provider Juan C Garner Referred Address ,[place], [place],[address] Referred Provider Specialty Otolaryngolo gy Referral Priority [...] Dietary counseling and surveillance HTN (hypertension) Hyperlipidemia Chief Complaint Admit Date Amb Documentation August 23, 2024 11 :12am ER f/u shortness of breath August 25, 2024 8:24am 3 month-METER August 31, 2024 1 :25pm Fever, cough, congestion and fatigue [facility] 2024 1:53pm Reason for Visit Admit Date COPD (chronic obstructive pulmonary dise ase) August 25, 2024 8:24am Diabetes August 25, 2024 8: 24am HTN (hypertension) August 25, 2024 8: 24am Hyperlipidemia August 25, 2024 8: 24am IBS (irritable bowel syndrome) August 252024 8:24am Nicotine dependence August 25, 2024 8: 24am Screening for lung cancer August 25 025 8:24am BMI 24.0-24.9, adult August 31, 2024 1:25pm Diabetes August 31, 2024 1 :25pm Dietary counseling and surveillance Stuart valladares 2024 1:25pm HTN (hypertension) August 31, 2024 1 :25pm Hyperlipidemia August 31, 2024 1 :25pm Chief Complaint Admit Date Fever, cough, congestion and fatigue [facility] 2024 1:53pm Breathing problems w/Exertion January 12, 2025 2:36pm Reason for Visit Admit Date Bronchitis November 03, 2024 1:5 3pm COPD (chronic obstructive pulmonary dise [facility]) January 12, 2025 2:36pm Additional Source Comments INFORMATION SOURCE (unrecogn ized section and content) DATE CREATED AUTHOR 01/05/2022 [facility] DATE CREATED AUTHOR AUTHOR'S ORGANIZ ATION 04/27/2023 [facility] l DATE CREATED AUTHOR AUTHOR'S ORGANIZ ATION 05/29/2024 [facility] REASON FOR VISIT (unrecogniz ed section and content) TKM N/S DM 09/09/23ERRORTKM DM N/S 08/28/2023NebulizerGREGG SACROILIAC JOINT INJ/CJCONSULT NOTExray resultslab resultsDM F/U pt rescheduled apt, Type 2 NIDDM f/u with [facility] [employer]IN[employer]ING 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, VISITOR SERVICES ASSOCIATE-C, BC-ADM, Last visit 11/07/21 No show to apt month follow upTKM Cancelled appt 06/20/2022TKM DM pt no showCT resultsInformationskin tag removalrefillTKM please call6 month Follow upDM 6 month f/u, Type 2 NIDDM f/u with [facility] [employer]INFORCING STEEL MACHINE OPERATOR, VISITOR SERVICES ASSOCIATE-C, BC-ADMDOXIMITY [phone] DOES NOT BELIEVE IT IS COVID, CONGESTION COUGH SORE THROAT Care Teams (unrecognized sec tion and content) Team Status: Inactive Member Role Status Dates Maddi Mcpherson APRN [employer]IL PAINT SHADER-C Primary Care Provider, Attending Provider Active Team Status: Active Member Role Status Dates Luisa Mcghee NP Primary Care Provider Active Gurdeep Dubois APRN Attending Provider Active Team Status: Active Member Role Status Dates Maddi Mcpherson APRN [employer]IL PAINT SHADER-C Primary Care Provider Active Team Status: Inactive Member Role Status Dates Maddi Mcpherson APRN [employer]IL PAINT SHADER-C Primary Care Provider Active Gurdeep Dubois APRN Attending Provider Active Team Status: Inactive Member Role Status Dates Maddi Mcpherson APRN [employer]IL PAINT SHADER-C Primary Care Provider Active Emil Cooper MD Attending Provider Active Team Status: Inactive Member Role Status Dates Maddi Mcpherson APRN [employer]IL PAINT SHADER-C Attending Provider Act prerna Start: August 13, 2023 End: August 13, 2023 Team Status: Inactive Member Role Status Dates Gurdeep Dubois APRN Attending Provider Active Start: September 09, 2023 End: September 09, 2023 Team Status: Inactive Member Role Status Dates Maddi Mcpherson APRN OIL PAINT SHADER-C Primary Care Provider Active Start: December 11, 2023 End: December 11, 2023 Gurdeep Dubois APRN Attending Provider Active Start: December 11, 2023 End: December 11, 2023 Team Status: Inactive Member Role Status Dates Maddi Mcpherson APRN OIL PAINT SHADER-C Primary Care Provider Active Start: December 25, 2023 End: December 25, 2023 Vivi Álvarez RN Attending Provider Active Start: December 25, 2023 End: December 25, 2023 Team Status: Inactive Member Role Status Dates Maddi Mcpherson APRN OIL PAINT SHADER-C Primary Care Provider Active Start: December 25, 2023 End: December 25, 2023 Gurdeep Dubois REINFORCING STEEL MACHINE OPERATOR Attending Provider Active Start: December 25, 2023 End: December 25, 2023 Team Status: Inactive Member Role Status Dates Maddi Mcpherson APRN OIL PAINT SHADER-C Primary Care Provider Active Start: March 18, 2024 End: March 18, 2024 Gurdeep Dubois , REINFOR[employer]ING STEEL MACHINE OPERATOR Attending Provider Active Start: March 18, 2024 End: March 18, 2024 Team Status: Active Member Role Status Dates Maddi Mcpherson APRN OIL PAINT SHADER-C Primary Care Provider Active Start: April 02, 2024 Roman Bueno DO Attending Provider Active S tart: April 02, 2024 Team Status: Active Member Role Status Dates Maddi Mcpherson APRN OIL PAINT SHADER-C Primary Care Provider Active Start: April 03, 2024 Jesus Sifuentes DO Attending Provider Active Sta rt: April 03, 2024 Team Status: Inactive Member Role Status Dates Maddi Mcpherson APRN OIL PAINT SHADER-C Primary Care Provider Active Start: April 192023 End: May 10, 2024 Gurdeep Dubois REINFORCING STEEL MACHINE OPERATOR Attending Provider Active Start: May 10, 2024 End: May 10, 2024 Team Status: Active Member Role Status Dates Maddi Mcpherson APRN OIL PAINT SHADER-C Primary Care Provider Active Start: August 20, 2024 Roman Brooks DO Attending Provider Active Start : August 20, 2024 Team Status: Active Member Role Status Dates Maddi Mcpherson APRN OIL PAINT SHADER-C Primary Care Provider Active Start: August 23, 2024 Francy Powers CMA Attending Provider Active Start: August 23, 2024 Team Status: Active Member Role Status Dates Maddi Mcpherson APRN OIL PAINT SHADER-C Primary Care Provider Active Start: August 23, 2024 Jesus Sifuentes DO Attending Provider Active Sta rt: August 23, 2024 Team Status: Inactive Member Role Status Dates Maddi Mcpherson APRN OIL PAINT SHADER-C Primary Care Provider, Attending Provider Active Start: August 25, 2024 End: August 25, 2024 Team Status: Inactive Member Role Status Dates Maddi Mcpherson APRN OIL PAINT SHADER-C Primary Care Provider Active Start: August End: August 31, 2024 Gurdeep Dubois APRN Attending Provider Active Start: August 31, 2024 End: August 31, 2024 Team Status: Inactive Member Role Status Dates Maddi Mcpherson APRN [employer]IL PAINT SHADER-C Primary Care Provider, Attending Provider Active Start: November 03, 2024 End: November 03, 2024 Team Status: Inactive Member Role Status Dates Maddi Mcpherson APRN OIL PAINT SHADER-C Primary Care Provider, Attending Provider Active Start: January 12, 2025 End: January 12, 2025 Goals (unrecognized section and content) Goals may [...] BE BASED ON THE PRIMARY CLINICAL RECORDS. [employer] [facility]. provides no warranty or guarantee of the accuracy or completeness of information in this document.
== END 2025-04-28 15:15 | disposition home or self-care (01) ==
PROVIDERS: PCP Nurse Practitioner Family; Visit Provider Nurse Practitioner Family
DX: R05.9 Cough, unspecified (principal); R06.2 Wheezing
CPT/HCPCS: 71046